=== PATIENT | male | born 1950 | race Caucasian/White ===

== ENCOUNTER 2016-09-10 18:57 | Inpatient (IN) | payer MEDICARE ==
[2016-09-10] MEDS ORDERED: methylPREDNISolone SOD SUCCI 125 MG/2 ML VIAL IV STA (19:01)
[2016-09-10] MEDS ORDERED: SODIUM CHLORIDE 0.9% 1,000 ML IV STA (19:01)
[2016-09-10] MEDS ORDERED: IPRATROPIUM-ALBUTEROL 3 ML NEB INHALATION STA ×2 (19:01→23:33)
[2016-09-10 19:29] LABS: Basophils # (A) 0.1 k/uL (0-0.2); Basophils % (A) 1 %; CH 31.7; CHCM 32.1; Eosinophils # (A) 0.4 k/uL (0-0.7); Eosinophils % (A) 3 %; HCT 48.1 % (39.0-53.0); HDW 2.11; HGB 15.2 gm/dL (13.0-17.5); Luc # (Auto) 0.06; Luc % (Auto) 0; Lymphocytes # (A) 0.6 k/uL (1.0-4.8); Lymphocytes % (A) 4 %; MCH 31.3 pg (25.0-35.0); MCHC 31.5 g/dL (31.0-37.0); MCV 99.1 fL (80.0-100.0); Mean Platelet Volume 7.7; Monocytes # (A) 0.8 k/uL (0-1.0); Monocytes % (A) 6 %; Neutrophils # (A) 12.5 k/uL (1.3-7.7); Neutrophils % (A) 87 %; RBC 4.85 m/uL (4.30-5.90); RDW 12.1 % (11.5-15.5); WBC 14.4 k/uL (3.8-10.6); WBC (Perox) 14.76
[2016-09-10 19:33] LABS: ALT 32 U/L (21-72); AST 23 U/L (17-59); Alkaline Phosphatase 128 U/L (38-126); Anion Gap 11 mmol/L; Blood Urea Nitrogen 16 mg/dL (9-20); Calcium 9.6 mg/dL (8.4-10.2); Carbon Dioxide 33 mmol/L (22-30); Chloride 97 mmol/L (98-107); Glucose 113 mg/dL (74-99); Non-African American GFR(MDRD) >60 (>60 ml/min/1.73 sqM); Potassium 4.6 mmol/L (3.5-5.1); Sodium 141 mmol/L (137-145); Total Bilirubin 0.7 mg/dL (0.2-1.3); Total Protein 7.2 g/dL (6.3-8.2)
[2016-09-10 19:59] LABS: Partial Thromboplastin Time 25.6 sec (22.0-30.0); Prothrombin Time 10.5 sec (9.0-12.0)
[2016-09-10] MEDS ORDERED: ACETAMINOPHEN TAB 500 MG TAB PO STA (20:46)
--- NOTE | 2016-09-10 21:30 | ED ---
SOB HPI - General Chief Complaint: Shortness of Breath Stated Complaint: ELIAS Time Seen by Provider: 09/10/16 19:00 Source: patient, EMS, RN notes reviewed Mode of arrival: EMS - History of Present Illness Initial Comments: This is a 66-year-old male history of COPD who was brought in by EMS for evaluation shortness of breath. She had a cough and shortness of breath phlegm production however. No chest pain no other symptoms. He currently is not a smoker MD Complaint: shortness of breath, cough - Related Data Home Medications Medication Instructions Recorded Confirmed ALPRAZolam [Xanax] 0.5 mg PO BID PRN 04/27/15 09/10/16 Furosemide [Lasix] 20 mg PO Q48H 04/27/15 09/10/16 Ipratropium Nebulized [Atrovent 0.5 mg INHALATION RT-Q4H PRN 04/27/15 09/10/16 Nebulized] Albuterol Inhaler [Ventolin Hfa 2 puff INHALATION RT-QID PRN 04/28/15 09/10/16 Inhaler] Carvedilol [Coreg] 12.5 mg PO BID 05/23/15 09/10/16 Simvastatin [Zocor] 80 mg PO HS 12/04/15 09/10/16 Umeclidinium Brm/Vilanterol Tr 1 puff PO RT-DAILY 12/04/15 09/10/16 [Anoro Ellipta 62.5-25 Mcg INH] Budesonide [Pulmicort Flexhaler] 2 puff INHALATION RT-DAILY 09/10/16 09/10/16 Famotidine [Pepcid] 20 mg PO BID PRN 09/10/16 09/10/16 Levothyroxine Sodium [Synthroid] 88 mcg PO HS 09/10/16 09/10/16 Theophylline Anhydrous 200 mg PO BID 09/10/16 09/10/16 [Theophylline] Previous Rx's Medication Instructions Recorded Albuterol Nebulized [Ventolin 2.5 mg INHALATION RT-Q4H PRN #0 05/04/15 Nebulized] nebu Allergies Allergy/AdvReac Type Severity Reaction Status Date / Time adhesive tape Allergy Rash/Hives Verified 09/10/16 19:21 Review of Systems ROS Statement: Those systems with pertinent positive or pertinent negative responses have been documented in the HPI. ROS Other: All systems not noted in ROS Statement are negative. Past Medical History Past Medical History: Coronary Artery Disease (CAD), Chest Pain / Angina, Heart Failure, COPD, Hyperlipidemia, Hypertension, Pneumonia, Thyroid Disorder Additional Past Medical History / Comment(s): sinus tachycardia, costochondritis , chronic respiratory failure and home O2 dependence 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, 2 cardiac stents Past Anesthesia/Blood Transfusion Reactions: No Reported Reaction Additional Past Anesthesia/Blood Transfusion Reaction / Comment(s): Prefers no morphine Date of Last Stent Placement:: 2007 Past Psychological History: Anxiety Smoking Status: Former smoker Past Alcohol Use History: None Reported Additional Past Alcohol Use History / Comment(s): Patient was a smoker one pack per day for 30 years and quit 6 years ago. He also uses recreational marijuana but none in at least 6 years. He drinks alcohol on a rare basis. He worked in [employer]. He is currently living alone. He has 1 dog. He has no recent travel. He denies service. Past Drug Use History: None Reported - Past Family History Father Family Medical History: COPD Mother Family Medical History: Congestive Heart Failure (CHF) General Exam - General Exam Comments Initial Comments: This is a well-developed well-nourished awake alert oriented history male he does appear to be dyspneic he had had a updraft at home prior to arrival he refuses one per EMS General appearance: alert, anxious Head exam: Present: atraumatic, normocephalic, normal inspection Eye exam: Present: normal appearance, PERRL, EOMI. Absent: scleral icterus, conjunctival injection, periorbital swelling ENT exam: Present: normal exam, mucous membranes moist Neck exam: Present: normal inspection. Absent: tenderness, meningismus, lymphadenopathy Respiratory exam: Present: accessory muscle use, decreased breath sounds, prolonged expiratory. Absent: respiratory distress, wheezes, rales, rhonchi, stridor Cardiovascular Exam: Present: normal rhythm, tachycardia, normal heart sounds. Absent: systolic murmur, diastolic murmur, rubs, gallop, clicks GI/Abdominal exam: Present: soft, normal bowel sounds. Absent: distended, tenderness, guarding, rebound, rigid Extremities exam: Present: normal inspection, full ROM, normal capillary refill. Absent: tenderness, pedal edema, joint swelling, calf tenderness Back exam: Present: normal inspection Neurological exam: Present: alert, oriented X3, CN II-XII intact Psychiatric exam: Present: normal affect, normal mood Skin exam: Present: warm, dry, intact, normal color. Absent: rash Course Vital Signs 09/10/16 09/10/16 09/10/16 18:59 19:28 19:51 Temperature 102.1 F H Pulse Rate 120 H 115 H 115 H Pulse Rate [ Right Supine Steward/Stewardess Wine ] Respiratory 20 Rate Blood Pressure 160/95 Blood Pressure [Left Arm Supine] O2 Sat by Pulse 94 L Oximetry 09/10/16 21:06 Temperature 98.5 F Pulse Rate Pulse Rate [ 110 H Right Supine Steward/Stewardess Wine ] Respiratory 20 Rate Blood Pressure Blood Pressure 119/67 [Left Arm Supine] O2 Sat by Pulse Oximetry - Reevaluation(s) Reevaluation #1: 09/10/16 21:32 Patient denies much improvement in the treatment thus far Medical Decision Making - Medical Decision Making Patient still is having difficulty with breathing and that responding when he would like to do treatment he will be admitted I did discuss case with him and with Dr. Galvez. Pulmonary medicine will be consulted he does he Dr. Pugh - Lab Data Result diagrams: 09/10/16 19:09 09/10/16 19:09 Lab Results 09/10/16 09/10/16 09/10/16 Range/Units 19:09 19:09 19:09 WBC 14.4 H (3.8-10.6) k/uL RBC 4.85 (4.30-5.90) m/uL Hgb 15.2 (13.0-17.5) gm/dL Hct 48.1 (39.0-53.0) % MCV 99.1 (80.0-100.0) fL MCH 31.3 (25.0-35.0) pg MCHC 31.5 (31.0-37.0) g/dL RDW 12.1 (11.5-15.5) % Plt Count 264 (150-450) k/uL Neutrophils % 87 % Lymphocytes % 4 % Monocytes % 6 % Eosinophils % 3 % Basophils % 1 % Neutrophils # 12.5 H (1.3-7.7) k/uL Lymphocytes # 0.6 L (1.0-4.8) k/uL Monocytes # 0.8 (0-1.0) k/uL Eosinophils # 0.4 (0-0.7) k/uL Basophils # 0.1 (0-0.2) k/uL PT (9.0-12.0) sec INR (<1.1) APTT (22.0-30.0) sec Sodium 141 (137-145) mmol/L Potassium 4.6 (3.5-5.1) mmol/L Chloride 97 L (98-107) mmol/L Carbon Dioxide 33 H (22-30) mmol/L Anion Gap 11 mmol/L BUN 16 (9-20) mg/dL Creatinine 1.08 (0.66-1.25) mg/dL Est GFR (MDRD) Af Amer >60 (>60 ml/min/1.73 sqM) Est GFR (MDRD) Non-Af >60 (>60 ml/min/1.73 sqM) Glucose 113 H (74-99) mg/dL Plasma Lactic Acid Ike 1.2 (0.7-2.0) mmol/L Calcium 9.6 (8.4-10.2) mg/dL Magnesium (1.6-2.3) mg/dL Total Bilirubin 0.7 (0.2-1.3) mg/dL AST 23 (17-59) U/L ALT 32 (21-72) U/L Alkaline Phosphatase 128 H (38-126) U/L Total Protein 7.2 (6.3-8.2) g/dL Albumin 3.9 (3.5-5.0) g/dL 09/10/16 09/10/16 Range/Units 19:09 19:09 WBC (3.8-10.6) k/uL RBC (4.30-5.90) m/uL Hgb (13.0-17.5) gm/dL Hct (39.0-53.0) % MCV (80.0-100.0) fL MCH (25.0-35.0) pg MCHC (31.0-37.0) g/dL RDW (11.5-15.5) % Plt Count (150-450) k/uL Neutrophils % % Lymphocytes % % Monocytes % % Eosinophils % % Basophils % % Neutrophils # (1.3-7.7) k/uL Lymphocytes # (1.0-4.8) k/uL Monocytes # (0-1.0) k/uL Eosinophils # (0-0.7) k/uL Basophils # (0-0.2) k/uL PT 10.5 (9.0-12.0) sec INR 1.0 (<1.1) APTT 25.6 (22.0-30.0) sec Sodium (137-145) mmol/L Potassium (3.5-5.1) mmol/L Chloride (98-107) mmol/L Carbon Dioxide (22-30) mmol/L Anion Gap mmol/L BUN (9-20) mg/dL Creatinine (0.66-1.25) mg/dL Est GFR (MDRD) Af Amer (>60 ml/min/1.73 sqM) Est GFR (MDRD) Non-Af (>60 ml/min/1.73 sqM) Glucose (74-99) mg/dL Plasma Lactic Acid Ike (0.7-2.0) mmol/L Calcium (8.4-10.2) mg/dL Magnesium 1.8 (1.6-2.3) mg/dL Total Bilirubin (0.2-1.3) mg/dL AST (17-59) U/L ALT (21-72) U/L Alkaline Phosphatase (38-126) U/L Total Protein (6.3-8.2) g/dL Albumin (3.5-5.0) g/dL - EKG Data -: EKG Interpreted by Mn EKG shows normal: sinus rhythm Rate: tachycardia (Sinus tachycardia left exodeviation nonspecific ST configuration rate was 117. A 148 QRS duration 86 daily since QTC of 318/443) - Radiology Data Radiology results: report reviewed (I did review the x-ray report no acute findings), image reviewed Critical Care Time Critical Care Time: Yes Critical Care Time: 31 minutes of critical care time which includes monitoring the EMS run and discussed with paramedics history and physical examination the patient lab and x -ray evaluation. Evaluation response to therapy and several occasions discussion with patient with the admitting physician and admission orders and documentation of the above. Disposition Clinical Impression: Acute exacerbation of chronic obstructive airways disease, Adult respiratory distress syndrome, Fever, Bronchitis Disposition: ADMITTED IP TO THIS HOSP Condition: Stable
[2016-09-10] MEDS ORDERED: FAMOTIDINE 20 MG TAB PO PRN (21:36)
[2016-09-10] MEDS ORDERED: LEVOFLOXACIN 750 MG TAB PO STA (21:38)
[2016-09-10] MEDS ORDERED: LEVOFLOXACIN 750MG-D5W PMX 750 MG in DEXTROSE/WATER 1 150ML.BAG IVPB SCH (21:45)
[2016-09-10] MEDS ORDERED: FUROSEMIDE 20 MG TAB PO SCH (21:45)
--- NOTE | 2016-09-10 22:05 | XR ---
EXAMINATION TYPE: XR chest 2V DATE OF EXAM: 09/10/2016 7:55 PM COMPARISON: Prior chest x-ray 20 March 2016, 25 May 2015 HISTORY: Difficulty breathing, shortness of breath TECHNIQUE: Frontal and lateral views of the chest are obtained. FINDINGS: There is no focal air space opacity, pleural effusion, or pneumothorax seen. The cardiac silhouette size is within normal limits. There are prominent lung volumes. The osseous structures ar e intact. IMPRESSION: No acute cardiopulmonary process. Follow-up as indicated.
[2016-09-10] MEDS ORDERED: IPRATROPIUM-ALBUTEROL 3 ML NEB INHALATION PRN (22:53)
[2016-09-11] MEDS ORDERED: IPRATROPIUM-ALBUTEROL 3 ML NEB INHALATION SCH
[2016-09-11] MEDS: SODIUM CHLORIDE 0.9% 1,000 ML IV SCH ×2 (00:12→22:01)
[2016-09-11] MEDS: methylPREDNISolone SOD SUCCI 125 MG/2 ML VIAL IV SCH ×4 (00:12→18:29)
[2016-09-11 01:18] VITALS: BMI 40.8
[2016-09-11] MEDS: ALPRAZolam 0.5 MG TAB PO PRN ×3 (01:21→22:07)
[2016-09-11 06:39] LABS: Appearance,Urine Clear (Clear); Bilirubin,Urine Negative (Negative); Glucose,Urine (UA) 1+ (Negative); Ketones,Urine Negative (Negative); Leukocyte Esterase,Urine Negative (Negative); Nitrite,Urine Negative (Negative); Protein,Urine Negative (Negative); Specific Gravity,Urine 1.012 (1.001-1.035); UA Billing (MACRO vs. MICRO) CHEM; Urobilinogen,Urine <2.0 mg/dL (<2.0)
[2016-09-11] MEDS: IPRATROPIUM-ALBUTEROL 3 ML NEB INHALATION SCH ×4 (08:11→19:35)
[2016-09-11] MEDS ORDERED: ACETAMINOPHEN TAB 500 MG TAB PO STA (08:50)
[2016-09-11] MEDS: CARVEDILOL 12.5 MG TAB PO SCH ×2 (08:52→21:50)
[2016-09-11 08:54] LABS: Glucose,Whole Blood 215 mg/dL (75-99)
[2016-09-11] MEDS: THEOPHYLLINE 24 HOUR 400 MG CAP.ER.24H PO SCH (08:54)
[2016-09-11] MEDS: INSULIN LISPRO (humaLOG) 300 UNIT/3 ML VIAL SQ SCH ×4 (08:55→21:54)
[2016-09-11 11:33] LABS: Glucose,Whole Blood 205 mg/dL (75-99)
--- NOTE | 2016-09-11 12:57 | HP ---
DATE OF ADMISSION: A 66-year-old with known history of COPD, wears 2 L of oxygen at home. Came in with complaints of shortness of breath that started yesterday after cough a big swell of dry cough with sputum production. Patient denied any fever, chills, but although patient had 103 temperature here, I am obtaining an influenza testing. Patient was given levofloxacin. I am changing it to doxycycline and patient's chest x-ray did not show any pneumonic process. Patient wears 2 L of oxygen at home, follows with Dr. Pugh, Pulmonology as an outpatient. Patient is morbidly obese. Never got any sleep study done and patient had an echocardiogram with normal ejection fraction in the recent past. Patient denied any orthopnea, PND. Patient denied any dysuria, nausea, vomiting. REVIEW OF SYSTEMS: RESPIRATORY: As described in HPI. CONSTITUTIONAL: No fever, no malaise, no fatigue. HEENT: No recent visual problems or hearing problems. Denied any sore throat. CARDIOVASCULAR: No chest pain, orthopnea, PND, no palpitations, no syncope. GASTROINTESTINAL: No diarrhea, no nausea, no vomiting, no abdominal pain. Normoactive bowel sounds. NEUROLOGICAL: No headaches, no weakness, no numbness. HEMATOLOGICAL: Denies any bleeding or petechiae. GENITOURINARY: Denies any burning micturition, frequency, or urgency. MUSCULOSKELETAL/RHEUMATOLOGICAL: Denies any joint pain, swelling, or any muscle pain. ENDOCRINE: Denies any polyuria or polydipsia. The rest of the 14 point review of systems is negative. PAST MEDICAL HISTORY: Significant for coronary artery disease with cardiac catheterization and a couple of stents in the past, COPD, hyperlipidemia, hypertension, hypothyroidism, costochondritis and cardiac catheterization and stent placement in the past, tonsillectomy. SOCIAL HISTORY: Anxiety disorder, former smoker. Quit smoking about 6 years ago. Denied any alcohol abuse or any drug abuse. FAMILY HISTORY: Significant for COPD. PHYSICAL EXAMINATION: VITAL SIGNS: Temperature 97.8, pulse of 101, respiratory rate 18, blood pressure is 119/72, saturating at 94% on 2 L of O2 by nasal cannula. RESPIRATORY EXAMINATION: Decreased air entry significantly in bilateral lung pelaez. Patient is morbidly obese, ( ), respiratory assist on 3 L of oxygen. GENERAL: The patient is alert and oriented x3, not in any acute distress. Well developed, well nourished. HEENT: Pupils are round and equally reacting to light. EOMI. No scleral icterus. No conjunctival pallor. Normocephalic, atraumatic. No pharyngeal erythema. No thyromegaly. CARDIOVASCULAR: S1 and S2 present. No murmurs, rubs, or gallops. ABDOMEN: Soft, nontender, nondistended, normoactive bowel sounds. No palpable organomegaly. MUSCULOSKELETAL: No joint swelling or deformity. EXTREMITIES: No cyanosis, clubbing, or pedal edema. NEUROLOGICAL: Gross neurological examination did not reveal any focal deficits. SKIN: No rashes. LABORATORY DATA: CBC, CMP are abnormal for elevated WBC count of 14,400. ASSESSMENT AND PLAN: 1. Acute on chronic hypercapnic respiratory failure secondary to chronic obstructive pulmonary disease exacerbation. Patient is on systemic steroids, inhalational treatments. Patient probably has viral upper respiratory infection. Patient will be started on doxycycline for any possible bacterial tracheobronchitis. 2. Fever with leukocytosis and with systemic inflammatory response syndrome, probably viral etiology. I will obtain influenza testing although patient denied any flulike symptoms. 3. Hypertension. 4. Hypothyroidism. 5. Coronary artery disease with a couple of stents in the past. 6. For above mentioned chronic medical problems, I will go ahead and continue his home medications. I will hold off on Lasix because of his tachycardia. 7. Sinus tachycardia, probably secondary to reflux tachycardia from not taking Coreg last night and also because of his respiratory issue.
--- NOTE | 2016-09-11 15:50 | P.CNPUL ---
History of Present Illness Consult date: 09/11/16 Reason for consult: COPD History of present illness: Jacky is a very pleasant 66-year-old male patient who is known to me. He typically follows up with my partner Dr. Pugh for his COPD. The patient has a baseline FEV1 of 31% of predicted whereas been in the past on a combination of either Advair or Symbicort. At the later stage, Dr. Pugh has made adjustments on his medication and he put him on a combination of Anoro and Arnuity. Note that the last was not covered by his insurance and he had a high co-pay. Based on this, the patient was placed on a combination of Anoro and pulmicort Flexhaler. He also has oxygen at 3 L/m nasal cannula and nebulizer with albuterol as needed. The patient came into the hospital because of worsening shortness of breath however his main complaint was coughing spells that were rather aggressive and recurrent. He was bringing up no mucus. No hemoptysis. No pleurisy. His chest x-ray shows hyperinflation without evidence of an acute pneumonia. The patient has no chest pain. No swelling in lower extremities. No exposure to any respiratory irritants or any chemicals. No fever or chills. He did have a fever and influenza screen is as in progress. He felt that his son in law came into his house and he was having a respiratory illness Review of Systems Review of system was done and the positive findings are almost above history of present illness Past Medical History Past Medical History: Coronary Artery Disease (CAD), Chest Pain / Angina, Heart Failure, COPD, Hyperlipidemia, Hypertension, Pneumonia, Thyroid Disorder Additional Past Medical History / Comment(s): Obesity, COPD with FEV1 of 31% of predicted, hypertension, hypothyroidism, coronary artery disease with insertion of previous coronary stent, generalized anxiety disorder, hyperlipidemia, chronic hypoxic respiratory failure and the patient is maintained on oxygen at 3 L/m nasal cannula. 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, 2 cardiac stents Past Anesthesia/Blood Transfusion Reactions: No Reported Reaction Additional Past Anesthesia/Blood Transfusion Reaction / Comment(s): Prefers no morphine Date of Last Stent Placement:: 2007 Past Psychological History: Anxiety Smoking Status: Former smoker Past Alcohol Use History: None Reported Additional Past Alcohol Use History / Comment(s): Patient was a smoker one pack per day for 30 years and quit 6 years ago. He also uses recreational marijuana but none in at least 6 years. He drinks alcohol on a rare basis. He worked in [employer]. He is currently living alone. He has 1 dog. He has no recent travel. He denies service. Past Drug Use History: None Reported - Past Family History Father Family Medical History: COPD Mother Family Medical History: Congestive Heart Failure (CHF) Medications and Allergies Home Medications Medication Instructions Recorded Confirmed Type ALPRAZolam [Xanax] 0.5 mg PO BID PRN 04/27/15 09/10/16 History Furosemide [Lasix] 20 mg PO Q48H 04/27/15 09/10/16 History Ipratropium Nebulized [Atrovent 0.5 mg INHALATION RT-Q4H PRN 04/27/15 09/10/16 History Nebulized] Albuterol Inhaler [Ventolin Hfa 2 puff INHALATION RT-QID PRN 04/28/15 09/10/16 History Inhaler] Carvedilol [Coreg] 12.5 mg PO BID 05/23/15 09/10/16 History Simvastatin [Zocor] 80 mg PO HS 12/04/15 09/10/16 History Umeclidinium Brm/Vilanterol Tr 1 puff PO RT-DAILY 12/04/15 09/10/16 History [Anoro Ellipta 62.5-25 Mcg INH] Budesonide [Pulmicort Flexhaler] 2 puff INHALATION RT-DAILY 09/10/16 09/10/16 History Famotidine [Pepcid] 20 mg PO BID PRN 09/10/16 09/10/16 History Levothyroxine Sodium [Synthroid] 88 mcg PO HS 09/10/16 09/10/16 History Theophylline Anhydrous 200 mg PO BID 09/10/16 09/10/16 History [Theophylline] Allergies Allergy/AdvReac Type Severity Reaction Status Date / Time adhesive tape Allergy Rash/Hives Verified 09/10/16 19:21 Physical Exam Vitals: Vital Signs Temp Pulse Pulse Resp BP BP Pulse Ox 09/11/16 12:11 101 H 09/11/16 12:00 106 H 09/11/16 08:24 105 H 09/11/16 08:11 102 H 09/11/16 08:00 104 H 18 09/11/16 07:00 97.8 F 104 H 18 119/72 94 L 09/10/16 23:50 97.3 F L 107 H 20 111/70 96 09/10/16 23:47 104 H 09/10/16 23:40 110 H Intake and Output 09/11/16 09/11/16 09/11/16 06:59 14:59 22:59 Intake Total 240 Balance 240 Intake: Oral 240 Other: Voiding Method Toilet Toilet Weight 129 kg Patient Weight 09/12/16 06:59 Weight 129 kg Results Morbid obesity, comfortable likely distress.Head exam was generally normal. There was no scleral icterus or corneal arcus. Mucous membranes were moist. My normal neck and the patient has significant crowding of the posterior oropharynx. Lung sounds are diminished at some few expiratory wheezes heard bilaterally and diminished breath sounds at lung bases.Cardiac exam revealed the PMI to be normally situated and sized. The rhythm was regular and no extrasystoles were noted during several minutes of auscultation. The first and second heart sounds were normal and physiologic splitting of the second heart sound was noted. There were no murmurs, rubs, clicks, or gallops.Abdominal exam revealed normal bowel sounds. The abdomen was soft, non-tender, and without masses, organomegaly, or appreciable enlargement of the abdominal aorta.Examination of the extremities revealed easily palpable radial, femoral and pedal pulses. There was no cyanosis, clubbing or edema. - Laboratory Findings CBC and BMP: 09/10/16 19:09 09/10/16 19:09 PT/INR, D-dimer PT 10.5 sec (9.0-12.0) 09/10/16 19:09 INR 1.0 (<1.1) 09/10/16 19:09 Abnormal lab findings: Abnormal Labs 09/11/16 09/11/16 08:52 11:31 POC Glucose (mg/dL) 215 H 205 H - Diagnostic Findings Chest x-ray: image reviewed Assessment and Plan Plan: Ration 1 acute COPD exacerbation with secondary cough and shortness of breath rule out influenza respiratory tract infection/bronchitis 2 morbid obesity 3 COPD advanced with an FEV1 of 31% of predicted 4 chronic hypoxic respiratory failure 5 coronary artery disease with previous coronary stent insertion 6 hypertension 7 resume 8 generalized anxiety disorder 9 hyperlipidemia 10. The left eye Plan Check this patient for influenza. Influenza screen will be done. We'll continue bronchodilators including albuterol and Atrovent about treatments along with systemic steroids. Doxycycline empiric antibiotic coverage. Wean off FiO2 as tolerated to maintain a saturation above 90%. We'll follow.
[2016-09-11 17:51] LABS: Glucose,Whole Blood 188 mg/dL (75-99)
[2016-09-11] MEDS: BUDESONIDE 0.5 MG/2 ML NEBU INHALATION SCH (19:35)
[2016-09-11 20:29] LABS: Glucose,Whole Blood 200 mg/dL (75-99)
[2016-09-11] MEDS: ATORVASTATIN 40 MG TAB PO SCH ×2 (21:50→22:00)
[2016-09-11] MEDS: OSELTAMIVIR 75 MG CAP PO SCH (21:52)
[2016-09-11] MEDS: DOXYCYCLINE 50 MG CAP PO SCH (22:07)
[2016-09-12] MEDS: methylPREDNISolone SOD SUCCI 125 MG/2 ML VIAL IV SCH ×4 (02:03→17:42)
[2016-09-12] MEDS: LEVOTHYROXINE 88 MCG TAB PO SCH ×2 (06:12→21:12)
[2016-09-12] MEDS: BUDESONIDE 0.5 MG/2 ML NEBU INHALATION SCH ×2 (07:32→20:35)
[2016-09-12] MEDS: IPRATROPIUM-ALBUTEROL 3 ML NEB INHALATION SCH ×4 (07:32→20:35)
[2016-09-12 08:27] LABS: Glucose,Whole Blood 158 mg/dL (75-99)
[2016-09-12] MEDS: DOXYCYCLINE 50 MG CAP PO SCH ×2 (09:28→21:12)
[2016-09-12] MEDS: THEOPHYLLINE 24 HOUR 400 MG CAP.ER.24H PO SCH (09:28)
[2016-09-12] MEDS: OSELTAMIVIR 75 MG CAP PO SCH ×2 (09:29→21:12)
[2016-09-12] MEDS: CARVEDILOL 12.5 MG TAB PO SCH ×2 (09:29→21:13)
[2016-09-12] MEDS: INSULIN LISPRO (humaLOG) 300 UNIT/3 ML VIAL SQ SCH ×4 (09:31→21:23)
[2016-09-12 09:39] LABS: INR 1.1 (<1.1); Prothrombin Time 10.8 sec (9.0-12.0)
[2016-09-12 09:43] LABS: ALT 38 U/L (21-72); AST 48 U/L (17-59); Alkaline Phosphatase 98 U/L (38-126); Anion Gap 13 mmol/L; Blood Urea Nitrogen 22 mg/dL (9-20); Calcium 9.2 mg/dL (8.4-10.2); Carbon Dioxide 26 mmol/L (22-30); Chloride 103 mmol/L (98-107); Glucose 154 mg/dL (74-99); Non-African American GFR(MDRD) >60 (>60 ml/min/1.73 sqM); Sodium 142 mmol/L (137-145); Total Bilirubin 0.6 mg/dL (0.2-1.3); Total Protein 6.8 g/dL (6.3-8.2)
[2016-09-12 09:44] LABS: Basophils # (A) 0.1 k/uL (0-0.2); Basophils % (A) 0 %; CH 31.1; Eosinophils % (A) 0 %; HCT 46.4 % (39.0-53.0); HDW 1.99; HGB 14.4 gm/dL (13.0-17.5); Luc # (Auto) 0.21; Luc % (Auto) 1; Lymphocytes # (A) 0.8 k/uL (1.0-4.8); Lymphocytes % (A) 3 %; MCH 31.2 pg (25.0-35.0); MCV 100.8 fL (80.0-100.0); Mean Platelet Volume 7.1; Monocytes # (A) 1.4 k/uL (0-1.0); Monocytes % (A) 5 %; Neutrophils # (A) 26.4 k/uL (1.3-7.7); Neutrophils % (A) 92 %; RDW 12.1 % (11.5-15.5); WBC (Perox) 29.81
[2016-09-12 09:48] LABS: Potassium 5.2 mmol/L (3.5-5.1)
[2016-09-12 09:51] LABS: WBC 28.9 k/uL (3.8-10.6)
[2016-09-12 09:53] LABS: Creatine Kinase 735 U/L (55-170)
[2016-09-12 10:07] LABS: Troponin I <0.012 ng/mL (0.000-0.034)
[2016-09-12 10:09] LABS: Creatine Kinase MB 3.4 ng/mL (0.0-2.4)
[2016-09-12 10:10] LABS: Partial Thromboplastin Time 20.7 sec (22.0-30.0)
[2016-09-12] MEDS: ALPRAZolam 0.5 MG TAB PO PRN (11:44)
[2016-09-12 11:49] LABS: Glucose,Whole Blood 260 mg/dL (75-99)
--- NOTE | 2016-09-12 15:30 | P.PN ---
Subjective This is a very pleasant 66-year-old gentleman who follows with Dr. Pugh in our office for advanced chronic obstructive pulmonary disease. His FEV1 value is 31% of predicted. The patient has been maintained on Arnuity and Arnoro. He presented here on 09/10/2016 with complaints of increasing shortness of breath, cough and congestion. He was found to be influenza A positive. He has been initiated on Tamiflu. His chest x-ray revealed no acute pulmonary process. He is seen again today in follow-up. He is awake and alert in no acute distress. He states he is breathing easier today as compared to yesterday but not quite back to his baseline. He is maintaining O2 saturations in the mid 90s on 4 L/m per nasal cannula. He is currently afebrile. Objective - Vital Signs Vital signs: Vital Signs Temp 97.1 F L 09/12/16 07:00 Pulse 100 09/12/16 11:29 Resp 16 09/12/16 08:00 BP 137/97 09/12/16 07:00 Pulse Ox 95 09/12/16 07:34 Intake & Output 09/11/16 09/12/16 09/12/16 18:59 06:59 18:59 Intake Total 200 350 Output Total 350 Balance 200 0 Weight 129 kg 129 kg Intake: Oral 200 350 Output: Urine 350 Other: Voiding Method Toilet Toilet Toilet # Voids 2 - Exam GENERAL EXAM: Alert, active, comfortable in no apparent distress. HEAD: Normocephalic. EYES: Normal reaction of pupils, equal size. NOSE: Clear with pink turbinates. THROAT: No erythema or exudates. NECK: No masses, no JVD. CHEST: No chest wall deformity. LUNGS: Equal air entry with pink and expiratory wheeze. Diminished.. CVS: S1 and S2 normal with no audible murmurs, regular rhythm. ABDOMEN: No hepatosplenomegaly, normal bowel sounds, no guarding or rigidity. SPINE: No scoliosis or deformity SKIN: No rashes CENTRAL NERVOUS SYSTEM: No focal deficits, tone is normal in all 4 extremities. - Labs CBC & Chem 7: 09/12/16 08:03 09/12/16 08:03 Labs: Abnormal Lab Results - Last 24 Hours (Table) 09/11/16 09/11/16 09/11/16 Range/Units 16:00 17:48 20:27 WBC (3.8-10.6) k/uL MCV (80.0-100.0) fL Neutrophils # (1.3-7.7) k/uL Lymphocytes # (1.0-4.8) k/uL Monocytes # (0-1.0) k/uL APTT (22.0-30.0) sec Potassium (3.5-5.1) mmol/L BUN (9-20) mg/dL Glucose (74-99) mg/dL POC Glucose (mg/dL) 188 H 200 H (75-99) mg/dL Total Creatine Kinase (55-170) U/L CK-MB (CK-2) (0.0-2.4) ng/mL Influenza Type A RNA Detected A (Not Detectd) 09/12/16 09/12/16 09/12/16 Range/Units 08:03 08:03 08:03 WBC 28.9 H* (3.8-10.6) k/uL MCV 100.8 H (80.0-100.0) fL Neutrophils # 26.4 H (1.3-7.7) k/uL Lymphocytes # 0.8 L (1.0-4.8) k/uL Monocytes # 1.4 H (0-1.0) k/uL APTT 20.7 L (22.0-30.0) sec Potassium 5.2 H (3.5-5.1) mmol/L BUN 22 H (9-20) mg/dL Glucose 154 H (74-99) mg/dL POC Glucose (mg/dL) (75-99) mg/dL Total Creatine Kinase (55-170) U/L CK-MB (CK-2) (0.0-2.4) ng/mL Influenza Type A RNA (Not Detectd) 09/12/16 09/12/16 09/12/16 Range/Units 08:03 08:20 11:45 WBC (3.8-10.6) k/uL MCV (80.0-100.0) fL Neutrophils # (1.3-7.7) k/uL Lymphocytes # (1.0-4.8) k/uL Monocytes # (0-1.0) k/uL APTT (22.0-30.0) sec Potassium (3.5-5.1) mmol/L BUN (9-20) mg/dL Glucose (74-99) mg/dL POC Glucose (mg/dL) 158 H 260 H (75-99) mg/dL Total Creatine Kinase 735 H (55-170) U/L CK-MB (CK-2) 3.4 H* (0.0-2.4) ng/mL Influenza Type A RNA (Not Detectd) Assessment and Plan Plan: Impression: 1 acute COPD exacerbation with secondary cough and shortness of breath rule out influenza respiratory tract infection/bronchitis 2 morbid obesity 3 COPD advanced with an FEV1 of 31% of predicted 4 chronic hypoxic respiratory failure 5 coronary artery disease with previous coronary stent insertion 6 hypertension 7 resume 8 generalized anxiety disorder 9 hyperlipidemia 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 Wallace. We'll continue with the patient's bronchodilators, Perforomist and Pulmicort inhalations twice a day, and antibiotics in the form of Vibramycin. He remains on IV Solu-Medrol and Tamiflu. We'll continue to follow make further recommendations based on his clinical status.
[2016-09-12] MEDS: FORMOTEROL FUMARATE 20 MCG/2 ML NEBU INHALATION SCH ×2 (16:18→20:35)
[2016-09-12 17:18] LABS: Glucose,Whole Blood 179 mg/dL (75-99)
--- NOTE | 2016-09-12 19:27 | PN ---
Patient was admitted with COPD exacerbation. Patient was found to have positive influenza. Patient has clinical improvement. REVIEW OF SYSTEMS: CARDIOVASCULAR: No chest pain, no orthopnea, no PND, no palpitations. PULMONARY: Improved shortness of breath. GASTROINTESTINAL: No diarrhea, nausea or vomiting. No abdominal pain. Normoactive bowel sounds. NEUROLOGIC: No headaches, no weakness, no numbness. Medications were reviewed. PHYSICAL EXAMINATION: VITAL SIGNS: Temperature 97.7, pulse of 100, respiratory rate of 18, blood pressure 114/77. Saturating at 94% on 4 L of oxygen by nasal cannula. GENERAL: The patient is alert and oriented x3, not in any acute distress. Well developed, well nourished. HEENT: Pupils are round and equally reacting to light. EOMI. No scleral icterus. No conjunctival pallor. Normocephalic, atraumatic. No pharyngeal erythema. No thyromegaly. CARDIOVASCULAR: S1 and S2 present. No murmurs, rubs, or gallops. PULMONARY: Decreased breath sounds bilaterally. No wheezing was appreciated. No crackles were appreciated. ABDOMEN: Soft, nontender, nondistended, normoactive bowel sounds. No palpable organomegaly. MUSCULOSKELETAL: No joint swelling or deformity. EXTREMITIES: No cyanosis, clubbing, or pedal edema. NEUROLOGICAL: Gross neurological examination did not reveal any focal deficits. SKIN: No rashes. LABORATORY DATA: CBC, CMP are abnormal for elevated WBC count of 28,000, potassium of 5.2. BUN of 22, creatinine 1.12. ASSESSMENT AND PLAN: 1. Acute on chronic hypercapnic respiratory failure secondary to chronic obstructive pulmonary disease exacerbation. 2. Systemic inflammatory response syndrome versus sepsis secondary to influenza. 3. Hypertension. 4. Hypothyroidism. 5. Coronary artery disease. 6. Sinus tachycardia, which improved, secondary to hypoxemia. 7. Leukocytosis secondary to systemic steroids and influenza. PLAN: Continue with systemic steroids, inhalational treatments. Continue with Tamiflu.
[2016-09-12 20:18] LABS: Glucose,Whole Blood 186 mg/dL (75-99)
[2016-09-12] MEDS ORDERED: SIMVASTATIN 80 MG PO SCH (21:00)
[2016-09-12] MEDS ORDERED: guaiFENesin SYRUP 100MG/5ML 200 MG/10 ML CUP PO PRN (21:43)
[2016-09-13] MEDS: SODIUM CHLORIDE 0.9% 1,000 ML IV SCH (00:31)
[2016-09-13] MEDS: methylPREDNISolone SOD SUCCI 125 MG/2 ML VIAL IV SCH ×2 (00:31→06:20)
[2016-09-13] MEDS: ALPRAZolam 0.5 MG TAB PO PRN (03:46)
[2016-09-13 07:41] LABS: CH 31.3; CHCM 31.3; HCT 45.2 % (39.0-53.0); HDW 2.04; HGB 13.7 gm/dL (13.0-17.5); MCH 30.6 pg (25.0-35.0); MCHC 30.4 g/dL (31.0-37.0); MCV 100.6 fL (80.0-100.0); RBC 4.49 m/uL (4.30-5.90); RDW 12.1 % (11.5-15.5)
[2016-09-13 07:46] LABS: Anion Gap 8 mmol/L; Blood Urea Nitrogen 29 mg/dL (9-20); Calcium 8.9 mg/dL (8.4-10.2); Carbon Dioxide 33 mmol/L (22-30); Chloride 100 mmol/L (98-107); Glucose 202 mg/dL (74-99); Non-African American GFR(MDRD) >60 (>60 ml/min/1.73 sqM); Potassium 4.9 mmol/L (3.5-5.1); Sodium 141 mmol/L (137-145)
[2016-09-13 07:47] LABS: WBC 27.7 k/uL (3.8-10.6)
[2016-09-13] MEDS: BUDESONIDE 0.5 MG/2 ML NEBU INHALATION SCH (07:51)
[2016-09-13] MEDS: IPRATROPIUM-ALBUTEROL 3 ML NEB INHALATION SCH ×2 (07:51→11:35)
[2016-09-13] MEDS: FORMOTEROL FUMARATE 20 MCG/2 ML NEBU INHALATION SCH (07:51)
[2016-09-13 08:00] LABS: Glucose,Whole Blood 177 mg/dL (75-99)
[2016-09-13 08:33] VITALS: BP 124/82; RESP 20; TEMP 96.9
[2016-09-13] MEDS: DOXYCYCLINE 50 MG CAP PO SCH (08:51)
[2016-09-13] MEDS: INSULIN LISPRO (humaLOG) 300 UNIT/3 ML VIAL SQ SCH (08:51)
[2016-09-13] MEDS: CARVEDILOL 12.5 MG TAB PO SCH (08:51)
[2016-09-13] MEDS: OSELTAMIVIR 75 MG CAP PO SCH (08:52)
[2016-09-13] MEDS: THEOPHYLLINE 24 HOUR 400 MG CAP.ER.24H PO SCH (08:52)
--- NOTE | 2016-09-13 11:36 | CDI ---
In responding to this query, please exercise your independent professional judgment. The [facility] Coding Staff and Clinical Documentation Specialists appreciate your assistance in clarifying documentation, maintaining compliance with coding guidelines, accurately documenting patients condition and capturing severity of illness. The fact that a question is asked does not imply that any particular answer is desired or expected. Communication forms are a method of clarifying documentation and are not made part of the Legal Health Record. Thank you in advance for your clarification. Last Revision, June 2015 Marychuy Bell [address] [facility] [place] [address] Documentation Clarification Form Date: 09/13/2016 11:05:00 AM From: Nery Cazares CCS, CCDS Admit Date: 09/10/2016 9:34:00 PM Patient Name: Jacky Munguia Visit Number: [id number] Discharge Date: Dr. Luba Hartmann: 66 yo male, presented to with SOB & cough. Patient is O2 [id number] at home with a history of COPD. Per H/P: Diagnosed with acute on chronic hypercapnic respiratory failure secondary to COPD exacerbation and probably upper respiratory infection, possible bacterial tracheobronchitis. Also fever with leukocytosis & SIRS, probably viral etiology. Per the 09/12 progress note: Systemic inflammatory response syndrome versus sepsis secondary to influenza. History/Risk Factors: COPD, O2 dependent, Hypertension, CAD with stents, former smoker. Clinical Indicators: Accessory muscle use, decreased breath sounds, prolonged expiratory. VS: T 102.1, P 120, R 20 (non labored, SOB), BP 160/95, PO 94 3Lnc. BMI: 40.8 WBC: 14.4 - 28.9; Neutrophils 12.5 - 26.4 Lactic acid: (1.2) Blood cultures: Final pending. Urine Cultures: final: neg Treatment: Consult Pulmonary, Albuterol INH, IV fluids, IV Solumedrol, IV Levaquin, O2 3-4Lnc. In your professional opinion, can you please clarify if these findings signify one of the following conditions, whether the condition is: Present On Admission, and cause, if known? SIRS, without underlying infectious process Sepsis Severe Sepsis Septic Shock Unable to determine Other, please specify * Identify the (suspected) organism * Link or clarify if there is associated (due to/with): - Organ failure - Shock Please document in your progress notes and discharge summary in order to capture severity of illness and risk of mortality. Include clinical findings that support your diagnosis. FYI: Press F11 to launch patient chart. Place X here if this finding has no clinical significance, is not applicable or if you are not able to provide any additional documentation. Thank You. RILEY
[2016-09-13 11:37] VITALS: PULSE 90
[2016-09-13 11:39] LABS: Glucose,Whole Blood 246 mg/dL (75-99)
--- NOTE | 2016-09-13 22:06 | DS ---
DATE OF ADMISSION: 09/10/2016 DATE OF DISCHARGE: 09/13/2016 Patient is admitted with COPD exacerbation. Patient is also found to have positive influenza. Patient will be discharged today on weaning dose of steroids and Tamiflu for 2 more days, completing the 5-day course of Tamiflu. Patient is otherwise clinically doing well and patient's respiratory status is at his baseline. I cannot hear any much of air movement on the lung exam, but I believe it is his baseline. May have sleep apnea, too. If patient is cleared from Pulmonology perspective, patient will be discharged today. Patient was seen and examined on the day of discharge. PHYSICAL EXAMINATION: VITAL SIGNS: Stable. GENERAL: The patient is alert and oriented x3, not in any acute distress. Well developed, well nourished. HEENT: Pupils are round and equally reacting to light. EOMI. No scleral icterus. No conjunctival pallor. Normocephalic, atraumatic. No pharyngeal erythema. No thyromegaly. CARDIOVASCULAR: S1 and S2 present. No murmurs, rubs, or gallops. PULMONARY: As described in HPI. Patient continues to have leukocytosis due to systemic steroids. ABDOMEN: Soft, nontender, nondistended, normoactive bowel sounds. No palpable organomegaly. MUSCULOSKELETAL: No joint swelling or deformity. EXTREMITIES: No cyanosis, clubbing, or pedal edema. NEUROLOGICAL: Gross neurological examination did not reveal any focal deficits. SKIN: No rashes. ASSESSMENT AND PLAN: 1. Acute on chronic hypercapnic respiratory failure secondary to chronic obstructive pulmonary disease exacerbation. 2. Systemic inflammatory response syndrome secondary to influenza. Patient had influenza A, symptoms of which improved. 3. Patient will be requested to drink lots of water. Patient may have chronic kidney disease stage 2. 4. Hypertension. 5. Hypothyroidism. Patient may have hypertensive nephrosclerosis. 6. Sinus tachycardia secondary to hypoxemia, which improved. 7. Leukocytosis due to systemic steroids and influenza. 8. Patient will follow with Dr. Agee in 3 to 7 days, Dr. Pugh as scheduled. 9. Activity as tolerated. 10. Cardiac diet. I spent greater than 35 minutes in total discharge process.
== END 2016-09-13 13:15 | disposition home or self-care (01) | DRG 193 ==
LOC: EC 18:57 → 5MS5E 21:34
PROVIDERS: ADMIT Internal Medicine; ATTEND Internal Medicine
DX: J10.1 Influenza due to other identified influenza virus with other respiratory manifestations (principal); J96.21 Acute and chronic respiratory failure with hypoxia; J96.22 Acute and chronic respiratory failure with hypercapnia; I13.0 Hypertensive heart and chronic kidney disease with heart failure and stage 1 through stage 4 chronic kidney disease, or unspecified chronic kidney disease; J44.1 Chronic obstructive pulmonary disease with (acute) exacerbation; E03.9 Hypothyroidism, unspecified; I50.9 Heart failure, unspecified; E66.01 Morbid (severe) obesity due to excess calories; E78.5 Hyperlipidemia, unspecified; F41.1 Generalized anxiety disorder; I25.10 Atherosclerotic heart disease of native coronary artery without angina pectoris; K21.9 Gastro-esophageal reflux disease without esophagitis; T38.0X5A Adverse effect of glucocorticoids and synthetic analogues, initial encounter; N18.2 Chronic kidney disease, stage 2 (mild); D72.829 Elevated white blood cell count, unspecified; R00.0 Tachycardia, unspecified; Z68.41 Body mass index [BMI] 40.0-44.9, adult; Z79.899 Other long term (current) drug therapy; Z99.81 Dependence on supplemental oxygen; Z95.5 Presence of coronary angioplasty implant and graft; Z87.891 Personal history of nicotine dependence; H54.42 Blindness, left eye, normal vision right eye; Z82.49 Family history of ischemic heart disease and other diseases of the circulatory system
CPT/HCPCS: 36415; 71020; 80048; 80053; 81003; 82550; 82553; 83605; 83735; 83880; 84484; 85025; 85027; 85610; 85730; 87040; 87086; 87502; 93005; 94640; 94760; 96361; 96374; 99291

== ENCOUNTER 2016-10-08 09:42 | Emergency (ER) | payer MEDICARE ==
[2016-10-08] MEDS ORDERED: IPRATROPIUM-ALBUTEROL 3 ML NEB INHALATION STA (10:09)
--- NOTE | 2016-10-08 10:25 | ED ---
SOB HPI - General Chief Complaint: Shortness of Breath Stated Complaint: SOB Time Seen by Provider: 10/08/16 10:05 Source: patient, RN notes reviewed Mode of arrival: wheelchair Limitations: no limitations - History of Present Illness Initial Comments: 66-year-old male presents emergency Department chief complaint shortness of breath. Patient had increased shortness breath last month. Patient states he was admitted in August for influenza, COPD exacerbation. Patient does see Dr. buck. Patient states that his symptoms are getting worse worse when he lays down. Patient does take Lasix every other day. Patient also states theophylline. Patient denies any known fever or chills. Patient states that he did his symptoms this morning which helped. Patient denies any increased swelling of his lower extremities. Denies any chest pain. - Related Data Home Medications Medication Instructions Recorded Confirmed ALPRAZolam [Xanax] 0.5 mg PO BID PRN 04/27/15 10/08/16 Furosemide [Lasix] 20 mg PO Q48H 04/27/15 10/08/16 Albuterol Inhaler [Ventolin Hfa 2 puff INHALATION RT-QID PRN 04/28/15 10/08/16 Inhaler] Carvedilol [Coreg] 12.5 mg PO BID 05/23/15 10/08/16 Simvastatin [Zocor] 80 mg PO HS 12/04/15 10/08/16 Umeclidinium Brm/Vilanterol Tr 1 puff PO RT-DAILY 12/04/15 10/08/16 [Anoro Ellipta 62.5-25 Mcg INH] Famotidine [Pepcid] 20 mg PO BID PRN 09/10/16 10/08/16 Levothyroxine Sodium [Synthroid] 88 mcg PO HS 09/10/16 10/08/16 Fluticasone Furoate [Arnuity 1 puff INHALATION DAILY 10/08/16 10/08/16 Ellipta] Theophylline 24 Hour [Tung-24] 200 mg PO BID 10/08/16 10/08/16 Previous Rx's Medication Instructions Recorded Albuterol Nebulized [Ventolin 2.5 mg INHALATION RT-Q4H PRN #0 05/04/15 Nebulized] nebu methylPREDNISolone [Medrol Dose 4 mg PO DIRECTED #1 pack 10/08/16 Pack] Allergies Allergy/AdvReac Type Severity Reaction Status Date / Time adhesive tape Allergy Rash/Hives Verified 10/08/16 10:19 Review of Systems ROS Statement: Those systems with pertinent positive or pertinent negative responses have been documented in the HPI. ROS Other: All systems not noted in ROS Statement are negative. Past Medical History Past Medical History: Coronary Artery Disease (CAD), Chest Pain / Angina, Heart Failure, COPD, Hyperlipidemia, Hypertension, Pneumonia, Thyroid Disorder Additional Past Medical History / Comment(s): Obesity, COPD with FEV1 of 31% of predicted, hypertension, hypothyroidism, coronary artery disease with insertion of previous coronary stent, generalized anxiety disorder, hyperlipidemia, chronic hypoxic respiratory failure and the patient is maintained on oxygen at 3 L/m nasal cannula. 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, 2 cardiac stents Past Anesthesia/Blood Transfusion Reactions: No Reported Reaction Additional Past Anesthesia/Blood Transfusion Reaction / Comment(s): Prefers no morphine Date of Last Stent Placement:: 2007 Past Psychological History: Anxiety Smoking Status: Former smoker Past Alcohol Use History: None Reported Additional Past Alcohol Use History / Comment(s): Patient was a smoker one pack per day for 30 years and quit 6 years ago. He also uses recreational marijuana but none in at least 6 years. He drinks alcohol on a rare basis. He worked in [employer] He is currently living alone. He has 1 dog. He has no recent travel. He denies service. Past Drug Use History: None Reported - Past Family History Father Family Medical History: COPD Mother Family Medical History: Congestive Heart Failure (CHF) General Exam Limitations: no limitations General appearance: alert, in no apparent distress ENT exam: Present: normal exam, normal oropharynx, mucous membranes moist, TM's normal bilaterally Neck exam: Present: normal inspection, full ROM. Absent: tenderness, meningismus, lymphadenopathy Respiratory exam: Present: wheezes, rales (Slight base). Absent: normal lung sounds bilaterally, respiratory distress, rhonchi, stridor Cardiovascular Exam: Present: regular rate, normal rhythm, normal heart sounds. Absent: systolic murmur, diastolic murmur, rubs, gallop, clicks GI/Abdominal exam: Present: soft, normal bowel sounds. Absent: distended, tenderness, guarding, rebound, rigid Course Vital Signs 10/08/16 10/08/16 10/08/16 09:50 10:12 10:20 Temperature 97.8 F Pulse Rate 94 95 96 Respiratory 20 Rate Blood Pressure 145/72 O2 Sat by Pulse 92 L Oximetry Medical Decision Making - Medical Decision Making 66-year-old male presents emergency department for cough or shortness breath. Patient states she does feel better after DuoNeb treatment. Patient's chest x- ray shows no acute infiltrate. Patient's lab work within normal limits. Patient's was likely having some difficulty with his COPD. Patient has no respiratory distress. 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 Return parameters were discussed. - Lab Data Result diagrams: 10/08/16 09:20 10/08/16 11:21 Lab Results 10/08/16 10/08/16 10/08/16 Range/Units 09:20 09:20 11:19 WBC 6.8 (3.8-10.6) k/uL RBC 4.68 (4.30-5.90) m/uL Hgb 14.6 (13.0-17.5) gm/dL Hct 46.7 (39.0-53.0) % MCV 99.7 (80.0-100.0) fL MCH 31.2 (25.0-35.0) pg MCHC 31.3 (31.0-37.0) g/dL RDW 12.3 (11.5-15.5) % Plt Count 242 (150-450) k/uL Neutrophils % 62 % Lymphocytes % 21 % Monocytes % 8 % Eosinophils % 4 % Basophils % 1 % Neutrophils # 4.2 (1.3-7.7) k/uL Lymphocytes # 1.5 (1.0-4.8) k/uL Monocytes # 0.5 (0-1.0) k/uL Eosinophils # 0.3 (0-0.7) k/uL Basophils # 0.1 (0-0.2) k/uL PT 10.4 (9.0-12.0) sec INR 1.0 (<1.1) APTT 23.4 (22.0-30.0) sec Sodium (137-145) mmol/L Potassium (3.5-5.1) mmol/L Chloride (98-107) mmol/L Carbon Dioxide (22-30) mmol/L Anion Gap mmol/L BUN (9-20) mg/dL Creatinine (0.66-1.25) mg/dL Est GFR (MDRD) Af Amer (>60 ml/min/1.73 sqM) Est GFR (MDRD) Non-Af (>60 ml/min/1.73 sqM) Glucose (74-99) mg/dL Calcium (8.4-10.2) mg/dL Magnesium (1.6-2.3) mg/dL Total Bilirubin (0.2-1.3) mg/dL AST (17-59) U/L ALT (21-72) U/L Alkaline Phosphatase (38-126) U/L Total Creatine Kinase (55-170) U/L CK-MB (CK-2) (0.0-2.4) ng/mL CK-MB (CK-2) Rel Index Troponin I (0.000-0.034) ng/mL NT-Pro-B Natriuret Pep 44 pg/mL Total Protein (6.3-8.2) g/dL Albumin (3.5-5.0) g/dL Influenza Type A RNA (Not Detectd) Influenza Type B (PCR) (Not Detectd) 10/08/16 10/08/16 10/08/16 Range/Units 11:21 11:21 12:39 WBC (3.8-10.6) k/uL RBC (4.30-5.90) m/uL Hgb (13.0-17.5) gm/dL Hct (39.0-53.0) % MCV (80.0-100.0) fL MCH (25.0-35.0) pg MCHC (31.0-37.0) g/dL RDW (11.5-15.5) % Plt Count (150-450) k/uL Neutrophils % % Lymphocytes % % Monocytes % % Eosinophils % % Basophils % % Neutrophils # (1.3-7.7) k/uL Lymphocytes # (1.0-4.8) k/uL Monocytes # (0-1.0) k/uL Eosinophils # (0-0.7) k/uL Basophils # (0-0.2) k/uL PT (9.0-12.0) sec INR (<1.1) APTT (22.0-30.0) sec Sodium 140 (137-145) mmol/L Potassium 4.4 (3.5-5.1) mmol/L Chloride 99 (98-107) mmol/L Carbon Dioxide 31 H (22-30) mmol/L Anion Gap 10 mmol/L BUN 14 (9-20) mg/dL Creatinine 1.21 (0.66-1.25) mg/dL Est GFR (MDRD) Af Amer >60 (>60 ml/min/1.73 sqM) Est GFR (MDRD) Non-Af >60 (>60 ml/min/1.73 sqM) Glucose 164 H (74-99) mg/dL Calcium 9.2 (8.4-10.2) mg/dL Magnesium 1.8 (1.6-2.3) mg/dL Total Bilirubin 0.7 (0.2-1.3) mg/dL AST 27 (17-59) U/L ALT 35 (21-72) U/L Alkaline Phosphatase 115 (38-126) U/L Total Creatine Kinase 32 L (55-170) U/L CK-MB (CK-2) 1.2 (0.0-2.4) ng/mL CK-MB (CK-2) Rel Index 3.8 Troponin I <0.012 (0.000-0.034) ng/mL NT-Pro-B Natriuret Pep pg/mL Total Protein 7.0 (6.3-8.2) g/dL Albumin 3.7 (3.5-5.0) g/dL Influenza Type A RNA Not Detected (Not Detectd) Influenza Type B (PCR) Not Detected (Not Detectd) Disposition Clinical Impression: COPD (chronic obstructive pulmonary disease), Cough Disposition: HOME SELF-CARE Condition: Stable Instructions: COPD (Chronic Obstructive Pulmonary Disease) (ED) Additional Instructions: Please return to the Emergency Department if symptoms worsen or any other concerns. Prescriptions: methylPREDNISolone [Medrol Dose Pack] 4 mg PO DIRECTED #1 pack Time of Disposition: 13:22
[2016-10-08 10:54] LABS: Basophils # (A) 0.1 k/uL (0-0.2); Basophils % (A) 1 %; CH 31.2; CHCM 31.4; Eosinophils # (A) 0.3 k/uL (0-0.7); Eosinophils % (A) 4 %; HCT 46.7 % (39.0-53.0); HDW 2.04; HGB 14.6 gm/dL (13.0-17.5); Luc # (Auto) 0.24; Luc % (Auto) 4; Lymphocytes # (A) 1.5 k/uL (1.0-4.8); Lymphocytes % (A) 21 %; MCH 31.2 pg (25.0-35.0); MCHC 31.3 g/dL (31.0-37.0); MCV 99.7 fL (80.0-100.0); Mean Platelet Volume 7.1; Monocytes # (A) 0.5 k/uL (0-1.0); Monocytes % (A) 8 %; Neutrophils # (A) 4.2 k/uL (1.3-7.7); Neutrophils % (A) 62 %; RBC 4.68 m/uL (4.30-5.90); RDW 12.3 % (11.5-15.5); WBC 6.8 k/uL (3.8-10.6); WBC (Perox) 6.66
[2016-10-08 11:42] LABS: ALT 35 U/L (21-72); AST 27 U/L (17-59); Alkaline Phosphatase 115 U/L (38-126); Anion Gap 10 mmol/L; Blood Urea Nitrogen 14 mg/dL (9-20); Calcium 9.2 mg/dL (8.4-10.2); Carbon Dioxide 31 mmol/L (22-30); Chloride 99 mmol/L (98-107); Glucose 164 mg/dL (74-99); Magnesium 1.8 mg/dL (1.6-2.3); Non-African American GFR(MDRD) >60 (>60 ml/min/1.73 sqM); Potassium 4.4 mmol/L (3.5-5.1); Sodium 140 mmol/L (137-145); Total Bilirubin 0.7 mg/dL (0.2-1.3)
[2016-10-08 11:55] LABS: Creatine Kinase 32 U/L (55-170)
--- NOTE | 2016-10-08 12:05 | XR ---
EXAMINATION TYPE: XR chest 2V DATE OF EXAM: 10/08/2016 11:48 AM COMPARISON: Prior chest x-ray 10 September 2016 HISTORY: Difficulty breathing TECHNIQUE: Frontal and lateral views of the chest are obtained. FINDINGS: There are overlying cardiac leads. Prominent lung volumes are suggestive of underlying [employer] D. Strand-like densities are present at the lung bases. Cardiac mediastinal silhouette, pulmonary vas cularity and jana are stable. No pneumothorax or pleural effusion. IMPRESSION: COPD, there is probable basilar scarring or atelectasis. Follow-up as indicated.
[2016-10-08 12:07] LABS: Creatine Kinase MB 1.2 ng/mL (0.0-2.4); Troponin I <0.012 ng/mL (0.000-0.034)
[2016-10-08 12:08] LABS: Partial Thromboplastin Time 23.4 sec (22.0-30.0); Prothrombin Time 10.4 sec (9.0-12.0)
[2016-10-08] MEDS ORDERED: methylPREDNISolone SOD SUCCI 125 MG/2 ML VIAL IV STA (13:20)
[2016-10-08 13:36] VITALS: BP 122/63; PULSE 89; RESP 16; TEMP 97.1
== END 2016-10-08 13:31 | disposition home or self-care (01) ==
LOC: EC 09:42
DX: J44.9 Chronic obstructive pulmonary disease, unspecified (principal); I11.0 Hypertensive heart disease with heart failure; I50.9 Heart failure, unspecified; E78.5 Hyperlipidemia, unspecified; E03.9 Hypothyroidism, unspecified; I25.10 Atherosclerotic heart disease of native coronary artery without angina pectoris; F41.9 Anxiety disorder, unspecified; Z95.5 Presence of coronary angioplasty implant and graft; Z99.81 Dependence on supplemental oxygen; Z79.51 Long term (current) use of inhaled steroids; Z79.899 Other long term (current) drug therapy; Z87.891 Personal history of nicotine dependence; Z87.01 Personal history of pneumonia (recurrent)
CPT/HCPCS: 36415; 94640; 93005; 83880; 80053; 82550; 82553; 83735; 84484; 85025; 85610; 85730; 87502; 71020; 99285; 96374; J2930

== ENCOUNTER 2016-10-28 09:35 | Observation (INO) | payer MEDICARE ==
--- NOTE | 2016-10-28 10:26 | ED ---
Neuro HPI - General Chief Complaint: Neuro Symptoms/Deficit Stated Complaint: CVA Symptoms Time Seen by Provider: 10/28/16 10:09 Source: patient, family Mode of arrival: EMS Limitations: no limitations - History of Present Illness Is the patient presenting with stroke symptoms?: Yes Initial Comments: Patient is a 66-year-old male with history of CAD, CHF, COPD, hypertension, hyperlipidemia, left eye prosthesis presenting with left facial droop. Patient states he was last known normal around 5 PM. At around 8:30 PM patient had trouble drinking from a straw when taking his medications. He called his daughter into the room and she tested him for a stroke and did not notice any facial droop at that time. Patient went to bed without any problems and woke up this morning with the persistent facial droop which is presenting to the ER. Patient denies any numbness, weakness, slurring of his words. Denies any vision changes but does have a prosthetic eye. Patient denies history of stroke or TIA. - Related Data Home Medications: Home Medications Medication Instructions Recorded Confirmed ALPRAZolam [Xanax] 0.5 mg PO BID PRN 04/27/15 10/28/16 Furosemide [Lasix] 20 mg PO Q48H 04/27/15 10/28/16 Albuterol Inhaler [Ventolin Hfa 2 puff INHALATION RT-QID PRN 04/28/15 10/28/16 Inhaler] Carvedilol [Coreg] 12.5 mg PO BID 05/23/15 10/28/16 Simvastatin [Zocor] 80 mg PO HS 12/04/15 10/28/16 Umeclidinium Brm/Vilanterol Tr 1 puff PO RT-DAILY 12/04/15 10/28/16 [Anoro Ellipta 62.5-25 Mcg INH] Famotidine [Pepcid] 20 mg PO BID PRN 09/10/16 10/28/16 Levothyroxine Sodium [Synthroid] 88 mcg PO HS 09/10/16 10/28/16 Fluticasone Furoate [Arnuity 1 puff INHALATION RT-DAILY 10/08/16 10/28/16 Ellipta] Theophylline 24 Hour [Tung-24] 200 mg PO BID 10/08/16 10/28/16 Previous Rx's Medication Instructions Recorded Albuterol Nebulized [Ventolin 2.5 mg INHALATION RT-Q4H PRN #0 05/04/15 Nebulized] nebu Allergies/Adverse Reactions: Allergies Allergy/AdvReac Type Severity Reaction Status Date / Time adhesive tape Allergy Rash/Hives Verified 10/28/16 11:01 Review of Systems ROS Statement: Those systems with pertinent positive or pertinent negative responses have been documented in the HPI. Constitutional: No fever and no chills. HENT: No congestion, no rhinorrhea and no sore throat. Eyes: No discharge and no redness. Respiratory: No cough and no shortness of breath. Cardiovascular: No chest pain and no palpitations. Gastrointestinal: No nausea, no vomiting, no abdominal pain and no diarrhea. Genitourinary: No dysuria and no hematuria. Musculoskeletal: No back pain and no arthralgias. Skin: No pallor and no rash. Neurological: Left facial droop, no numbness, no weakness, no slurring. ROS Other: All systems not noted in ROS Statement are negative. General Exam - General Exam Comments Initial Comments: Constitutional: Patient appears well-developed and well-nourished. No distress. Head: Normocephalic and atraumatic. Eyes: Conjunctivae and EOM are normal. Right eye exhibits no discharge. Left eye exhibits no discharge. No scleral icterus. Neck: Normal range of motion. Neck supple. Cardiovascular: Normal rate and regular rhythm. No murmur heard. Pulmonary/Chest: Effort normal and breath sounds normal. No respiratory distress. No wheezes. Abdominal: Soft. No distension. There is no tenderness. There is no rebound and no guarding. Musculoskeletal: Normal range of motion. No edema or tenderness. Neuro Exam: A&Ox3, speech is fluent and spontaneous CN 2: right eye pupil 4 mm and reactive, limited visual field due to left eye prosthesis CN 3, 4, 6: EOMI despite left eye prosthesis as he had eye repair at [facility] with muscles attached prosthesis CN 5: facial sensation intact b/l CN 7: Eyebrow raise equal b/l, mild left nasolabial fold depression CN 8: hearing intact to conversation CN 9, 10: palate elevation equal, no hoarseness to voice CN 11: shoulder shrug equal b/l CN 12: tongue protrusion w/o deviation Sensory: Intact to light touch, upper and lower extremities Motor: No pronator drift, no atrophy, normal muscle tone, b/l muscle strength 5/ 5 of hand flexors, biceps, triceps, quads, hamstrings, plantar and dorsiflexion Cerebellar: finger to nose intact b/l, heel to segundo intact b/l. Skin: Skin is warm and dry. Not diaphoretic. Nursing notes and vitals reviewed. Limitations: no limitations Stroke MDM - Lab Data Result diagrams: 10/28/16 10:29 10/28/16 11:12 Lab Results 10/28/16 10/28/16 10/28/16 Range/Units 10:29 10: 11:12 WBC 11.4 H (3.8-10.6) k/uL RBC 4.29 L (4.30-5.90) m/uL Hgb 13.6 (13.0-17.5) gm/dL Hct 42.9 (39.0-53.0) % MCV 100.1 H (80.0-100.0) fL MCH 31.7 (25.0-35.0) pg MCHC 31.7 (31.0-37.0) g/dL RDW 12.6 (11.5-15.5) % Plt Count 218 (150-450) k/uL Neutrophils % 74 % Lymphocytes % 14 % Monocytes % 8 % Eosinophils % 2 % Basophils % 0 % Neutrophils # 8.4 H (1.3-7.7) k/uL Lymphocytes # 1.6 (1.0-4.8) k/uL Monocytes # 0.9 (0-1.0) k/uL Eosinophils # 0.2 (0-0.7) k/uL Basophils # 0.0 (0-0.2) k/uL PT 10.6 (9.0-12.0) sec INR 1.0 (<1.1) APTT 24.3 (22.0-30.0) sec Sodium 142 (137-145) mmol/L Potassium 5.1 (3.5-5.1) mmol/L Chloride 99 (98-107) mmol/L Carbon Dioxide 37 H (22-30) mmol/L Anion Gap 6 mmol/L BUN 18 (9-20) mg/dL Creatinine 1.00 (0.66-1.25) mg/dL Est GFR (MDRD) Af Amer >60 (>60 ml/min/1.73 sqM) Est GFR (MDRD) Non-Af >60 (>60 ml/min/1.73 sqM) Glucose 133 H (74-99) mg/dL Calcium 9.2 (8.4-10.2) mg/dL Magnesium 1.9 (1.6-2.3) mg/dL - NIH Stroke Scale 1a. Level of Consciousness: (0) alert 1b. LOC Questions: (0) answers correctly 1c. LOC Commands: (0) performs tasks correctly 2. Best Gaze: (0) normal 3. Visual: (0) no visual loss 4. Facial Palsy: (1) minor paralysis 5a. Motor Arm Left: (0) no drift 5b. Motor Arm Right: (0) no drift 6a. Motor Leg Left: (0) no drift 6b. Motor Leg Right: (0) no drift 7. Limb Ataxia: (0) absent 8. Sensory: (0) normal 9. Best Language: (0) no aphasia 10. Dysarthria: (0) normal 11. Extinction/Inattention: (0) no abnormality - Medical Decision Making Patient's 66-year-old male with history of CAD, CHF, hypertension, COPD with left-sided facial droop. Last known normal 5 PM. Onset 8:30 PM. Patient not a TPA candidate as he is outside the window. NIH 1. CT head unremarkable. Repeat NIH at 11:20 AM is 1. Patient was resting comfortably in bed. Course of stay improved. Denies pain. Discussed physical exam and diagnostic tests with patient. Questions answered and patient is agreeable to staying in the hospital. Discussed H&P and pertinent diagnostic tests with admitting physician who agrees with plan and accepts admission of patient. Agrees with neurological consult. - EKG Data -: EKG Interpreted by Me 11:[address] No ST-T wave changes. WA internal normal . QRS interval normal. QTc duration normal. Past Medical History Past Medical History: Coronary Artery Disease (CAD), Chest Pain / Angina, Heart Failure, COPD, Hyperlipidemia, Hypertension, Pneumonia, Thyroid Disorder Additional Past Medical History / Comment(s): Obesity, COPD with FEV1 of 31% of predicted, hypertension, hypothyroidism, coronary artery disease with insertion of previous coronary stent, generalized anxiety disorder, hyperlipidemia, chronic hypoxic respiratory failure and the patient is maintained on oxygen at 3 L/m nasal cannula. 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, 2 cardiac stents Past Anesthesia/Blood Transfusion Reactions: No Reported Reaction Additional Past Anesthesia/Blood Transfusion Reaction / Comment(s): Prefers no morphine Date of Last Stent Placement:: 2007 Past Psychological History: Anxiety Smoking Status: Former smoker Past Alcohol Use History: None Reported Additional Past Alcohol Use History / Comment(s): Patient was a smoker one pack per day for 30 years and quit 6 years ago. He also uses recreational marijuana but none in at least 6 years. He drinks alcohol on a rare basis. He worked in [employer]. He is currently living alone. He has 1 dog. He has no recent travel. He denies service. Past Drug Use History: None Reported - Past Family History Father Family Medical History: COPD Mother Family Medical History: Congestive Heart Failure (CHF) Course Vital Signs 10/28/16 10/28/16 09:45 11:35 Temperature 98.5 F Pulse Rate 92 91 Respiratory 18 18 Rate Blood Pressure 123/78 125/77 O2 Sat by Pulse 91 L Oximetry - Reevaluation(s) Reevaluation #1: 10/28/16 11:20 NIH 1. Persistent neurological exam. Disposition Clinical Impression: Facial droop Disposition: ADMITTED IP TO THIS [facility] Condition: Good Decision to Admit Reason: Admit from EC Decision Time: 11:19
[2016-10-28 10:46] LABS: Basophils % (A) 0 %; CH 31.3; CHCM 31.4; Eosinophils # (A) 0.2 k/uL (0-0.7); Eosinophils % (A) 2 %; HCT 42.9 % (39.0-53.0); HDW 2.12; HGB 13.6 gm/dL (13.0-17.5); Luc # (Auto) 0.27; Luc % (Auto) 2; Lymphocytes # (A) 1.6 k/uL (1.0-4.8); Lymphocytes % (A) 14 %; MCH 31.7 pg (25.0-35.0); MCHC 31.7 g/dL (31.0-37.0); MCV 100.1 fL (80.0-100.0); Mean Platelet Volume 7.1; Monocytes # (A) 0.9 k/uL (0-1.0); Monocytes % (A) 8 %; Neutrophils # (A) 8.4 k/uL (1.3-7.7); Neutrophils % (A) 74 %; RBC 4.29 m/uL (4.30-5.90); RDW 12.6 % (11.5-15.5); WBC 11.4 k/uL (3.8-10.6); WBC (Perox) 11.26
--- NOTE | 2016-10-28 10:58 | CT ---
EXAMINATION TYPE: CT brain wo con DATE OF EXAM: 10/28/2016 10:42 AM COMPARISON: NONE HISTORY: left sided facial droop and numbness CT DLP: 995.5 mGycm Automated exposure control for dose reduction was used. FINDINGS: There is no acute intracranial hemorrhage, mass effect, or midline shift identified. [id number] degenerative change. Periventricular low-attenuation nonspecific but suggestive of remote microvascu lar ischemia. Postsurgical change involving the left orbit noted. IMPRESSION: No acute intracranial hemorrhage, mass effect, or midline shift is seen.
[2016-10-28] MEDS ORDERED: ASPIRIN 81 MG CHEW PO STA (11:09)
[2016-10-28] MEDS ORDERED: NALOXONE 0.4 MG/ML 1 ML VIAL IV PRN (11:13)
[2016-10-28 11:16] LABS: Partial Thromboplastin Time 24.3 sec (22.0-30.0); Prothrombin Time 10.6 sec (9.0-12.0)
[2016-10-28 12:11] LABS: Anion Gap 6 mmol/L; Blood Urea Nitrogen 18 mg/dL (9-20); Calcium 9.2 mg/dL (8.4-10.2); Carbon Dioxide 37 mmol/L (22-30); Chloride 99 mmol/L (98-107); Glucose 133 mg/dL (74-99); Magnesium 1.9 mg/dL (1.6-2.3); Non-African American GFR(MDRD) >60 (>60 ml/min/1.73 sqM); Potassium 5.1 mmol/L (3.5-5.1); Sodium 142 mmol/L (137-145)
[2016-10-28] MEDS ORDERED: IPRATROPIUM-ALBUTEROL 3 ML NEB INHALATION STA (13:20)
[2016-10-28] MEDS ORDERED: ALBUTEROL NEBULIZED 2.5 MG/3 ML INHALATION PRN (18:21)
[2016-10-28] MEDS ORDERED: FAMOTIDINE 20 MG TAB PO PRN (18:21)
[2016-10-28] MEDS ORDERED: ALBUTEROL INHALER 60 PUFF/8 GM INHALER INHALATION PRN (18:21)
[2016-10-28] MEDS ORDERED: FUROSEMIDE 20 MG TAB PO SCH (18:30)
[2016-10-28] MEDS: IPRATROPIUM-ALBUTEROL 3 ML NEB INHALATION SCH (18:58)
[2016-10-28] MEDS ORDERED: LORazepam 2 MG/ML SYRINGE IV STA (20:39)
[2016-10-28] MEDS ORDERED: HYDROcodone/APAP 5-325MG 1 EACH TAB PO PRN (20:53)
[2016-10-28] MEDS ORDERED: ATORVASTATIN 40 MG TAB PO SCH (21:00)
[2016-10-28] MEDS: ACYCLOVIR 800 MG TAB PO SCH (21:17)
[2016-10-28] MEDS: LEVOTHYROXINE 88 MCG TAB PO SCH (21:23)
[2016-10-28] MEDS: THEOPHYLLINE 24 HOUR 200 MG CAP.ER.24H PO SCH (21:23)
[2016-10-28] MEDS: CARVEDILOL 12.5 MG TAB PO SCH (21:25)
[2016-10-28] MEDS: HEPARIN SODIUM,PORCINE 5,000 UNIT/ML 1 ML VIAL SQ SCH (21:28)
[2016-10-28] MEDS: ALPRAZolam 0.5 MG TAB PO PRN (21:28)
[2016-10-28] MEDS: SIMVASTATIN 80 MG PO SCH (23:17)
[2016-10-28] MEDS: INSULIN LISPRO (humaLOG) 300 UNIT/3 ML VIAL SQ SCH (23:17)
[2016-10-28] MEDS: methylPREDNISolone SOD SUCCI 125 MG/2 ML VIAL IV SCH (23:18)
[2016-10-28] MEDS: TEMAZEPAM 15 MG CAP PO PRN (23:36)
[2016-10-29 00:27] LABS: Hemoglobin A1C 7.5 % (4.2-6.1)
[2016-10-29] MEDS: IPRATROPIUM-ALBUTEROL 3 ML NEB INHALATION SCH ×5 (00:57→20:15)
[2016-10-29 04:06] VITALS: RESP 18
[2016-10-29 06:19] LABS: Basophils % (A) 0 %; CHCM 31.1; Eosinophils % (A) 0 %; HCT 42.3 % (39.0-53.0); HDW 2.11; HGB 13.3 gm/dL (13.0-17.5); Luc # (Auto) 0.05; Luc % (Auto) 1; Lymphocytes # (A) 0.7 k/uL (1.0-4.8); Lymphocytes % (A) 8 %; MCH 31.5 pg (25.0-35.0); MCHC 31.5 g/dL (31.0-37.0); Mean Platelet Volume 6.7; Monocytes # (A) 0.1 k/uL (0-1.0); Monocytes % (A) 1 %; Neutrophils # (A) 8.1 k/uL (1.3-7.7); Neutrophils % (A) 90 %; RBC 4.23 m/uL (4.30-5.90); RDW 12.4 % (11.5-15.5); WBC (Perox) 9.16
[2016-10-29 06:26] LABS: Glucose,Whole Blood 239 mg/dL (75-99)
[2016-10-29 06:36] LABS: Anion Gap 8 mmol/L; Blood Urea Nitrogen 19 mg/dL (9-20); Calcium 9.3 mg/dL (8.4-10.2); Carbon Dioxide 31 mmol/L (22-30); Chloride 98 mmol/L (98-107); Cholesterol 163 mg/dL (<200); Glucose 254 mg/dL (74-99); HDL Cholesterol 37 mg/dL (40-60); Non-African American GFR(MDRD) >60 (>60 ml/min/1.73 sqM); Potassium 4.8 mmol/L (3.5-5.1); Sodium 137 mmol/L (137-145); Triglycerides 98 mg/dL (<150)
[2016-10-29] MEDS: CARVEDILOL 12.5 MG TAB PO SCH ×2 (06:51→17:06)
[2016-10-29] MEDS: INSULIN LISPRO (humaLOG) 300 UNIT/3 ML VIAL SQ SCH ×3 (06:54→17:06)
[2016-10-29] MEDS: BUDESONIDE 0.5 MG/2 ML NEBU INHALATION SCH ×2 (07:28→20:15)
[2016-10-29] MEDS: HEPARIN SODIUM,PORCINE 5,000 UNIT/ML 1 ML VIAL SQ SCH ×2 (08:36→20:31)
[2016-10-29] MEDS: THEOPHYLLINE 24 HOUR 200 MG CAP.ER.24H PO SCH ×2 (08:36→20:28)
[2016-10-29] MEDS: ALPRAZolam 0.5 MG TAB PO PRN (08:36)
[2016-10-29] MEDS: ACYCLOVIR 800 MG TAB PO SCH ×4 (08:36→20:47)
[2016-10-29] MEDS: methylPREDNISolone SOD SUCCI 125 MG/2 ML VIAL IV SCH ×3 (08:36→23:44)
--- NOTE | 2016-10-29 09:43 | CONS ---
DATE OF CONSULTATION: 10/28/2016 CHIEF COMPLAINT: Left facial weakness. HISTORY OF PRESENT ILLNESS: Mr. Moya is a pleasant 66-year-old male who is being evaluated today on 10/28/2016 by the neurology service per the request of Dr. Virk for left facial weakness. The patient was brought into [facility] Emergency Room after he noticed that he was having difficulty drinking out of a straw. He then noticed that his left face was drooping and was quite uneven when he smiled. He denies any history of strokes or transient ischemic attacks and a CT scan of the brain was done, which was normal. His CBC showed mild leukocytosis at 11.4 and was otherwise negative. His basic metabolic profile and INR were normal. The patient denies any sensory deficit and denies any extremity weakness. He denies any headache or dizziness. PAST MEDICAL HISTORY: Coronary artery disease, angina, heart failure, chronic obstructive pulmonary disease, dyslipidemia, hypertension, thyroid disorder with hypothyroidism, history of coronary artery stent placement, generalized anxiety disorder, history of hernia repair, history of tonsillectomy, history of prosthetic left eye placement at the age of 14 due to a trauma. SOCIAL HISTORY: The patient is a former smoker. He denies any alcohol or drug use. He quit smoking 6 years ago. FAMILY HISTORY: Positive for heart failure and chronic obstructive pulmonary disease. HOME MEDICATIONS: Reviewed in the chart. ALLERGIES: ADHESIVE TAPE. REVIEW OF SYSTEMS: CONSTITUTIONAL: Negative. EYES: Positive for prosthetic left eye. ENT: Negative. CARDIOVASCULAR: Positive for occasional chest pain, but he denies any at this time. RESPIRATORY: Positive for chronic shortness of breath. NEUROLOGICAL: As mentioned above. GASTROINTESTINAL: Positive for occasional heartburn. GENITOURINARY: Negative. MUSCULOSKELETAL: Positive for occasional joint pain. PSYCHIATRIC: Positive for anxiety disorder. DERMATOLOGICAL: Negative. ENDOCRINE: Positive for hypothyroidism. PHYSICAL EXAM: Vital signs show a temperature of 98.5, pulse 90, respirations 16, blood pressure 117/78. GENERAL APPEARANCE: The patient is an obese male who appears to be in no acute distress. HEENT: Normocephalic, atraumatic. Left facial weakness is noticed involving more of the lower left face. The forehead on the left side is slightly affected. Neck is supple with no masses felt. CARDIOVASCULAR: Regular rate and rhythm. ABDOMEN: Obese, nontender, nondistended. EXTREMITIES: Showed trace edema with no clubbing seen. NEUROLOGICAL EXAM: The patient is alert, aware, and oriented x3. Speech and language are normal. Strength is full in all 4 extremities. Sensory exam was normal to light touch in all 4 extremities. Cranial nerve testing showed left facial weakness as mentioned above. The patient does have a left prosthetic eye. Reduced blinking is noticed on the left side, which the patient states that is new and not related to his prosthetic eye. IMPRESSION: 1. Left facial weakness. 2. 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 3. Chronic obstructive pulmonary disease. 4. Dyslipidemia. RECOMMENDATIONS: The patient's physical neurological examination is more consistent with a Nunez's palsy given the severity of weakness and given that left forehead is slightly affected. Nonetheless, an ischemic stroke needs to be ruled out. I will order an MRI of the brain along with a fasting lipid panel, carotid Doppler, EEG and serum homocysteine level. Due to the etiology being more consistent with a Nunez's palsy, I will start him on IV Solu-Medrol along with a acyclovir. I will start him on sliding scale insulin and will order Accu-Cheks. He does report some claustrophobia and I will pretreat him with Ativan IV for his MRI of the brain. Continue the rest of your current work-up and management. I will continue to follow with you. Further recommendations to follow. Thank you for allowing me to participate in the care of your patient. If you have any questions, please feel free to contact me.
--- NOTE | 2016-10-29 10:39 | CONS ---
DATE OF CONSULTATION: CHIEF COMPLAINT: Left facial droop. Jacky is a 66-year-old gentleman with history of severe COPD, coronary artery disease, status post angioplasty, hypertension, dyslipidemia, and hypothyroidism who is admitted to hospital with symptoms of left-sided facial weakness. This came on suddenly without any clear-cut relieving or exacerbating factors. It was a severe intensity symptom and states so. He noticed it because of the left facial droop while he was trying to smile. Patient has a prosthetic left eye but he always had movements of the left eyelids that were normal but he lost those movements since this problem happened. Patient does not have any other focal motor or sensory deficits. He is currently being evaluated for Nunez's palsy and is being treated for the same. He is to undergo an MRI later today. Cardiology has been consulted because of history of coronary artery disease. The patient has had angioplasty almost 8 years ago and has done well since that time. He has not had any recent cardiac work-up. He denies chest pain, has stable exertional shortness of breath, may be related to COPD. There is no history of congestive heart failure. There is no history of leg edema, paroxysmal nocturnal dyspnea or orthopnea. Past medical history is significant for coronary artery disease, status post angioplasty, hypertension, dyslipidemia, COPD, hypothyroidism, hernia repair, tonsillectomy, history of prosthetic left eye. SOCIAL HISTORY: Negative for smoking, EtOH abuse, or drug abuse. REVIEW OF SYSTEMS: HEENT is significant for left prosthetic eye, left facial droop. CONSTITUTIONAL: Negative. ENT: Negative. CARDIOVASCULAR: Negative. RESPIRATORY: Significant for shortness of breath with activity. NEUROLOGICAL: As described above. GI: Negative. GENITOURINARY: Negative. MUSCULOSKELETAL: Significant for joint pain. PSYCH: Significant for anxiety disorder. DERMATOLOGICAL: Negative. ENDOCRINE: Significant for hypothyroidism. Rest of the system review is not relevant. On exam, he is comfortable at rest. Heart rate is 100 beats per minute, blood pressure is 118/75, respiratory rate is 18. Chest exam reveals diminished air entry bilaterally. Heart exam reveals first and second heart sounds. No gallop. No murmur. Abdomen is soft, nontender. Exam of the extremities did not reveal edema. Peripheral pulses are felt. Labs show a hemoglobin of 13.3, platelet count is 213. Potassium is 4.8. Creatinine is 0.9, LDL cholesterol is 106. EKG shows sinus rhythm without acute ST-T wave changes. ASSESSMENT: 1. Left facial droop, probably related to Nunez's palsy. 2. Coronary artery disease, status post angioplasty. 3. Chronic obstructive pulmonary disease. PLAN: From cardiac standpoint, patient is stable. He is in sinus rhythm. There are no episodes of cardiac arrhythmia. I am going to follow the MRI and if he had a stroke, I am going to perform a transesophageal echo. If it is Nunez's palsy, it does not require further cardiac work-up at this time. I will obtain a 2-D echo on him to document his LV function and on discharge, I am going to follow the patient and consider an outpatient stress test.
[2016-10-29 11:45] LABS: Glucose,Whole Blood 290 mg/dL (75-99)
--- NOTE | 2016-10-29 12:08 | HP ---
DATE OF ADMISSION: 10/28/2016 CHIEF COMPLAINT: Weakness left side of the face. HISTORY OF PRESENT ILLNESS: This 66 -year-old gentleman with a past history of CAD, history of CHF, COPD, hypertension, hyperlipidemia, history of pneumonia, hypothyroidism, obesity, COPD, bronchitis, history of anxiety being followed by Dr. Agee in the outpatient setting was noted to have some numbness of the face on the left side, yesterday last night the patient also had difficulty sipping through using a straw so the patient's daughter checked everything and did not show any abnormality. Patient woke up this morning and was noted to have some drooping of the face on the left side and the patient was concerned and the patient came to [facility] and admitted to the hospital for further evaluation and treatment. There is no history of fever, rigors or chills. No history of headache, loss of consciousness or seizures. There is no history of any weakness as such. The patient also had a brain CT scan after admission, which showed in the ER showed no acute abnormality. Neurology evaluation in progress. PAST MEDICAL HISTORY: History of coronary artery disease, history of CHF, COPD, hypertension, hyperlipidemia, history of pneumonia, hypothyroidism, history of coronary artery disease and stent, obesity, anxiety. Medications prior to admission include: Home medications are: 1.Ellipta 1 puff daily. 2. Tung-24 200 mg p.o. b.i.d. 3. Zocor 80 mg p.o. q.h.s. 4. Synthroid 88 mcg p.o. daily. 5. Lasix 20 mg q.48 hours. 6. Ellipta 1 puff daily. 7. Pepcid 20 mg daily p.r.n. 8. Coreg 12.5 mg p.o. b.i.d. 9. Ritalin 2.5 q.4 p.r.n. 10. Ventolin HFA 2 puffs q.i.d. p.r.n. 11. Xanax 0.5 b.i.d. p.r.n. ALLERGIES: ADHESIVE TAPE. FAMILY HISTORY: History of COPD in the family. SOCIAL HISTORY: History of alcohol occasionally, previous history of smoking. REVIEW OF SYSTEMS: ENT: No diminished vision. No diminished hearing. CARDIOVASCULAR: No angina or palpitations. RESPIRATORY: As mentioned earlier. GASTROINTESTINAL: No nausea or vomiting. GENITOURINARY: No dysuria. CENTRAL NERVOUS SYSTEM: No numbness or weakness. ALLERGY/IMMUNOLOGY: No asthma or hayfever. MUSCULOSKELETAL: As mentioned earlier. HEMATOLOGY/ONCOLOGY: No history of anemia. ENDOCRINE: No history of diabetes, hypothyroidism. CONSTITUTIONAL: As mentioned earlier. DERMATOLOGY: Negative. RHEUMATOLOGY: Negative. PSYCHIATRY: As mentioned earlier. NEUROLOGICAL: As mentioned earlier. PHYSICAL EXAMINATION: Pulse 98, blood pressure 117/78, respiratory rate 16, temperature normal. Pulse ox 97% on 3 L. HEENT: Conjunctivae normal. NECK: No jugular venous distention. CARDIOVASCULAR: S1, S2 muffled. RESPIRATORY: Breath sounds diminished at the bases. No rhonchi, no crackles. ABDOMEN: Soft. Nontender. No mass palpable. Obese. No hepatosplenomegaly. Legs: No edema, no swelling. Nervous system: Higher function as mentioned. Cranial nerves has significant weakness on the left side of the face, appears to be weakness symmetrically upper and lower limbs and appears to be lower motor, patient had glassy eyes on the left eye. Otherwise, moves all 4 limbs. Power is normal. Motor strength is sensory abnormality. LYMPHATICS: No lymph nodes palpable in the neck, axillae or groin. SKIN: No ulcer, rash or bleeding. JOINTS: No active deforming arthropathy. LABS: WBC 11.5, MCV 100.1, glucose 133. ASSESSMENT: 1. Weakness of the left side of the face possible lower motor neuron Nunez's palsy, rule out acute stroke. 2. Increased WBC. 3. Increased MCV. 4. Obesity with body mass index of 42.3. 5. Increased random blood sugar. 6. History of coronary artery disease. 7. History of congestive heart failure. 8. Chronic obstructive pulmonary disease. 9. Hypertension. 10. Hyperlipidemia. 11. History of pneumonia. 12. Hypothyroidism. 13. History of obesity. 14. History of chronic hypoxic respiratory failure maintained on 3 liters nasal cannula at home. 15. History of generalized anxiety disorder. 16. History of coronary artery disease and stent. 17. History of prosthetic left eye. 18. History of cardiac catheterization stents. 19. History of anxiety. 20. Remote history nicotine dependence. 21. FULL CODE. RECOMMENDATIONS AND DISCUSSION: In this 66-year-old gentleman who presented with multiple complex medical issues, we will monitor the patient closely, resume the home medications. I would recommend also full neurovascular workup and neurology consultation and continue to monitor. Otherwise, prognosis guarded because of multiple complex medical issues, we will also obtain PT, OT evaluation. See orders for further details. Guarded prognosis. Further recommendations to follow. Discussed with the patient who understands and agrees. A copy of dictation being forwarded to primary care physician, Dr. Agee is the primary physician. All charts were reviewed. Labs and x-rays were also reviewed. CT scan was also reviewed . Prognosis guarded. The patient understands and agrees. RILEY
[2016-10-29] MEDS ORDERED: LORazepam 2 MG/ML SYRINGE IV STA (14:35)
--- NOTE | 2016-10-29 15:42 | MR ---
EXAMINATION TYPE: MR brain wo/w con DATE OF EXAM: 10/29/2016 3:34 PM COMPARISON: CT brain from yesterday. HISTORY: Left facial weakness TECHNIQUE: Multiplanar, multisequence images of the brain and brainstem is performed without and with IV contras t, utilizing 20 mL intravenous MultiHance . FINDINGS: Diffusion weighted images demonstrate no evidence of a recent infarct or other diffusion ab normality. There is no worrisome extra-axial fluid collection. There is ventricular and sulcal promi nence consistent with mild age-related cerebral atrophy. There are some scattered foci of T2 hyperint ensity seen throughout the white matter bilaterally. Roughly 40 scattered lesions are present. Lesion s are nonspecific in appearance and distribution but most likely on basis of product of chronic small vessel ischemic change in patient of this age. Midline structures demonstrate normal morphology. The craniocervical junction appears within normal limits. Post contrast images demonstrate no abnormal enhancement. The dural venous sinuses appear pa tent. Left globe prosthesis is redemonstrated causing artifact. Right globe is intact. Visualized par anasal sinuses are clear. IMPRESSION: 1. No evidence of a recent infarct. 2. Mild diffuse age-related cerebral atrophy with moderate nonspecific white matter changes presumed on basis of product of chronic small vessel ischemic change.
[2016-10-29 16:40] LABS: Glucose,Whole Blood 277 mg/dL (75-99)
--- NOTE | 2016-10-29 18:47 | P.PN ---
Subjective Principal diagnosis: Nunez's palsy This is a pleasant 66-year-old male continue be evaluated by the neurology service for left facial weakness. He denies a history of stroke or TIAs. Initial CT of the brain was done and showed no acute intracranial abnormalities. Subsequent MRI of the brain showed no acute intracranial abnormalities. It did show some atrophic changes and chronic small vessel ischemic changes. He does have past medical history of coronary artery disease angina heart failure COPD. He is on simvastatin 80 mg. A lipid panel also a triglyceride of 98 total cholesterol 163 LDL of 106 and HDL of 37. He has been started on acyclovir and prednisone and has noticed slight improvement in his symptoms. He denies any new symptoms since yesterday's exam. Objective - Vital Signs Vital signs: Vital Signs Temp 97.8 F 10/29/16 16:00 Pulse 108 H 10/29/16 16:00 Resp 18 10/29/16 16:00 BP 116/76 10/29/16 16:00 Pulse Ox 92 L 10/29/16 16:00 Intake & Output 10/28/16 10/29/16 10/29/16 18:59 06:59 18:59 Intake Total 400 Balance 400 Weight 129.1 kg Intake: Oral 400 Other: Voiding Method Toilet Toilet # Voids 1 - Constitutional General appearance: Present: no acute distress, obese - EENT EENT Comment(s): Prosthetic left eye Eyes: Present: EOMI, PERRLA. Absent: abnormal pupil, ptosis ENT: Present: hearing grossly normal - Neck Details: Mild greater occipital nerve tenderness bilaterally Neck: Present: normal ROM - Respiratory Respiratory: negative: prolonged expiration, prolonged inspiration - Cardiovascular Rhythm: regular - Gastrointestinal General gastrointestinal: Absent: distended, tenderness - Neurologic Neurologic Comment(s): Patient is alert awake and oriented 3. Speech-language are normal. Strength is full in all 4 extremities. There is no sensory deficit in any extremity. He continues to show left facial weakness. Which is unchanged from yesterday's exam. There is some reduced blinking on the left side that remains. - Labs CBC & Chem 7: 10/29/16 05:45 10/29/16 05:45 Labs: Abnormal Lab Results - Last 24 Hours (Table) 10/29/16 10/29/16 10/29/16 Range/Units 05:45 05:45 06:23 RBC 4.23 L (4.30-5.90) m/uL Neutrophils # 8.1 H (1.3-7.7) k/uL Lymphocytes # 0.7 L (1.0-4.8) k/uL Carbon Dioxide 31 H (22-30) mmol/L Glucose 254 H (74-99) mg/dL POC Glucose (mg/dL) 239 H (75-99) mg/dL LDL Cholesterol, Calc 106 H (0-99) mg/dL HDL Cholesterol 37 L (40-60) mg/dL 10/29/16 10/29/16 Range/Units 11:39 16:37 RBC (4.30-5.90) m/uL Neutrophils # (1.3-7.7) k/uL Lymphocytes # (1.0-4.8) k/uL Carbon Dioxide (22-30) mmol/L Glucose (74-99) mg/dL POC Glucose (mg/dL) 290 H 277 H (75-99) mg/dL LDL Cholesterol, Calc (0-99) mg/dL HDL Cholesterol (40-60) mg/dL Assessment and Plan (1) Nunez's palsy Status: Acute (2) Hyperlipidemia Status: Chronic (3) Small vessel disease, cerebrovascular Status: Chronic (4) Facial droop Status: Acute (5) COPD (chronic obstructive pulmonary disease) Status: Chronic Plan: His exam continues to be most consistent with Nunez's palsy. MRI of the brain was normal. Recommend continuing with antihyperlipidemics. Given his chronic small vessel ischemic changes on MRI I do recommend some form antiplatelet therapy. He is being evaluated by [facility] and is status post angioplasty I will leave the choice to them. We will follow him up in outpatient setting to watch the progression/resolution of his Nunez's palsy. We will send him home on oral prednisone and oral acyclovir. Otherwise continue the rest of your workup and we may be consulted on as-needed basis. I have performed a history and physical on the above patient. I have reviewed the above note, and agree.
[2016-10-29] MEDS ORDERED: INSULIN REGULAR BOLUS (FROM DRIP BAG) IV ONE (18:55)
[2016-10-29] MEDS ORDERED: INSULIN REGULAR 100 UNIT in SODIUM CHLORIDE 0.9% 100 ML IV SCH (19:00)
[2016-10-29 20:13] LABS: Glucose,Whole Blood 322 mg/dL (75-99)
[2016-10-29] MEDS: SIMVASTATIN 80 MG PO SCH (20:28)
[2016-10-29] MEDS: LEVOTHYROXINE 88 MCG TAB PO SCH (20:28)
[2016-10-29] MEDS: metFORMIN 500 MG TAB PO SCH (20:31)
[2016-10-29] MEDS: TEMAZEPAM 15 MG CAP PO PRN (20:47)
[2016-10-29 21:45] LABS: Glucose,Whole Blood 246 mg/dL (75-99)
[2016-10-29 22:00] LABS: Hemoglobin A1C 7.4 % (4.2-6.1)
[2016-10-29 23:41] LABS: Glucose,Whole Blood 205 mg/dL (75-99)
[2016-10-30 01:46] LABS: Glucose,Whole Blood 195 mg/dL (75-99)
[2016-10-30 03:51] LABS: Glucose,Whole Blood 217 mg/dL (75-99)
[2016-10-30] MEDS: IPRATROPIUM-ALBUTEROL 3 ML NEB INHALATION SCH ×2 (04:52→08:49)
[2016-10-30 05:28] LABS: Glucose,Whole Blood 195 mg/dL (75-99)
--- NOTE | 2016-10-30 05:37 | PN ---
DATE OF SERVICE: 10/29/2016 This 66-year-old gentleman who was admitted with significant weakness of the left side of the face, probably more than stage IV facial palsy at this time. The patient is being worked for acute stroke. MRI did not show any acute stroke. The patient empirically started on IV steroids and antiviral by neurology, Dr. Sage. However, the blood sugars elevated, going up and also the patient's hemoglobin A1c was also elevated at 7.5. PAST MEDICAL HISTORY: Reviewed. REVIEW OF SYSTEMS: CARDIOVASCULAR: No angina. RESPIRATORY: No cough. GI: As mentioned earlier.. : No dysuria. NERVOUS SYSTEM: As mentioned earlier. Current medications are reviewed and include: 1. Cut Off 5 mg. 2. Zovirax 800 mg t.i.d. 3. Xanax . 4. Pulmicort . 5. Coreg. 6. Pepcid. 7. Lasix. 8. Heparin. 9. Synthroid. 10. Solu-Medrol 125 mg q.8. 11. Narcan. 12. Restoril. 13. Tung-24. PHYSICAL EXAMINATION: The patient is alert and oriented x3. Pulse is 108. Blood pressure 116/76, respirations 16, temperature 97.8, pulse ox 92% on 3 L. HEENT: Conjunctivae normal. NECK: No jugular venous distention. CARDIOVASCULAR: S1 and S2, muffled. RESPIRATORY: Breath sounds diminished at the bases. A few scattered rhonchi and crackles. ABDOMEN: Soft, obese, nontender. LEGS: No edema, no swelling. NERVOUS SYSTEM: No focal deficits. Labs are at this time show WBC 9, hemoglobin 13.3. CO2 is 31. Glucose is 239, 290, 277. ASSESSMENT: 1. Weakness of the left side of the face, possible lower motor facial palsy and Nunez's palsy, rule out stroke. 2. Increased WBC. 3. Increased MCV. 4. Diabetes mellitus type 2, uncontrolled. 5. Obesity with body mass index of 42.3. 6. Increased random blood sugar. 7. History of coronary artery disease. 8. History of congestive heart failure, ejection fraction unknown. 9. History of chronic obstructive pulmonary disease. 10. Hypertension. 11. Hyperlipidemia. 12. History of pneumonia. 13. Hypothyroidism. 14. History of obesity. 15. History of chronic hypoxic respiratory failure, maintained on 3 L on nasal cannula at home. 16. History of generalized anxiety disorder. 17. History of coronary artery disease, stent. 18. History of prosthetic left eye. 19. History of anxiety. 20. Remote history of nicotine dependence. 21. FULL CODE. RECOMMENDATIONS AND DISCUSSION: Recommend to continue current medication. Continue with monitoring and symptomatic treatment. Otherwise, at this time, I would recommend insulin drip at this time and Glucophage will be initiated. Guarded prognosis because of multiple complex medical issues. See orders for details. Further recommendations to follow. MTDD
[2016-10-30 07:05] LABS: Glucose,Whole Blood 179 mg/dL (75-99)
[2016-10-30] MEDS: metFORMIN 500 MG TAB PO SCH (07:05)
[2016-10-30] MEDS: CARVEDILOL 12.5 MG TAB PO SCH (07:05)
[2016-10-30] MEDS: INSULIN LISPRO (humaLOG) 300 UNIT/3 ML VIAL SQ SCH ×2 (07:05→14:17)
[2016-10-30] MEDS: ACYCLOVIR 800 MG TAB PO SCH ×2 (08:42→14:17)
[2016-10-30] MEDS: THEOPHYLLINE 24 HOUR 200 MG CAP.ER.24H PO SCH (08:42)
[2016-10-30] MEDS: methylPREDNISolone SOD SUCCI 125 MG/2 ML VIAL IV SCH (08:42)
[2016-10-30] MEDS: HEPARIN SODIUM,PORCINE 5,000 UNIT/ML 1 ML VIAL SQ SCH (08:42)
[2016-10-30] MEDS: ALPRAZolam 0.5 MG TAB PO PRN (08:42)
[2016-10-30] MEDS: BUDESONIDE 0.5 MG/2 ML NEBU INHALATION SCH (08:49)
[2016-10-30 09:12] LABS: Glucose,Whole Blood 211 mg/dL (75-99)
[2016-10-30 11:15] LABS: Glucose,Whole Blood 165 mg/dL (75-99)
--- NOTE | 2016-10-30 11:18 | ECHOF ---
Referral Reason:left facial droop MEASUREMENTS -------- HEIGHT: 177.8 cm WEIGHT: 128.8 kg BP: 117/84 RVIDd: 2.5 cm (< 3.3) IVSd: 1.3 cm (0.6 - 1.1) LVIDd: 4.1 cm (3.9 - 5.3) LVPWd: 1.2 cm (0.6 - 1.1) IVSs: 2.0 cm LVIDs: 2.9 cm LVPWs: 1.9 cm LAESV Index (A-L): 15.71 ml/m Ao Diam: 3.5 cm (2.0 - 3.7) AV Cusp: 2.3 cm (1.5 - 2.6) LA Diam: 3.1 cm (2.7 - 3.8) MV EXCURSION: 13.839 mm (> 18.000) MV EF SLOPE: 103 mm/s (70 - 150) EPSS: 1.0 cm MV E Yan: 1.03 m/s MV DecT: 113 ms MV A Yan: 0.50 m/s MV E/A Ratio: 2.05 RAP: 5.00 mmHg RVSP: 14.76 mmHg FINDINGS -------- Sinus rhythm. Resting tachycardia (HR>100bpm). This was a technically adequate study. Morbid Obesity The left ventricular size is normal. There is mild concentric left ventricular hypertrophy. Overall left ventricular systolic function is low-normal with, an EF between 50 - 55 %. The right ventricle is normal in size and function. Normal LA size by volume 22+/-6 ml/m2. The right atrium is normal in size. The aortic valve is trileaflet and appears structurally normal. The mitral valve leaflets are mildly thickened. Mild tricuspid regurgitation present. Right ventricular systolic pressure is normal at < 35 mmHg. There is no pulmonic regurgitation present. The aortic root size is normal. Normal inferior vena cava with normal inspiratory collapse consistent with estimated right atrial pressure of 5 mmHg. There is no pericardial effusion. CONCLUSIONS -------- 1. Sinus rhythm. 2. Mild tricuspid regurgitation present. 3. Right ventricular systolic pressure is normal at < 35 mmHg. 4. There is no pulmonic regurgitation present. 5. The aortic root size is normal. 6. Normal inferior vena cava with normal inspiratory collapse consistent with estimated right atrial pressure of 5 mmHg. 7. There is no pericardial effusion. 8. Resting tachycardia (HR>100bpm). 9. This was a technically adequate study. 10. Morbid Obesity 11. There is mild concentric left ventricular hypertrophy. 12. Overall left ventricular systolic function is low-normal with, an EF between 50 - 55 %. 13. Normal LA size by volume 22+/-6 ml/m2. 14. The aortic valve is trileaflet and appears structurally normal. 15. The mitral valve leaflets are mildly thickened. TRAFFIC SIGNAL TECHNICIAN: Marvel Farah RDCS
[2016-10-30] MEDS ORDERED: INSULIN GLARGINE 100 UNIT/ML 10 ML VIAL SQ ONE (11:30)
[2016-10-30 11:47] LABS: Appearance,Urine Clear (Clear); Bilirubin,Urine Negative (Negative); Glucose,Urine (UA) Negative (Negative); Ketones,Urine Negative (Negative); Leukocyte Esterase,Urine Negative (Negative); Nitrite,Urine Negative (Negative); PH, Urine 6.5 (5.0-8.0); Protein,Urine Negative (Negative); Specific Gravity,Urine 1.007 (1.001-1.035); UA Billing (MACRO vs. MICRO) CHEM; Urobilinogen,Urine <2.0 mg/dL (<2.0)
[2016-10-30 12:28] VITALS: BP 139/72; TEMP 97.1
--- NOTE | 2016-10-30 13:02 | P.PN ---
Subjective Principal diagnosis: Left sided facial droop This is a 66-year-old gentleman with history of severe COPD, coronary artery disease with prior PCI, hypertension hyperlipidemia, hypothyroidism, admission to the hospital primarily with left-sided facial weakness and noted left-sided facial droop. Cardiology was initially consulted because of the history of coronary artery disease. Patient has been stable overall from our perspective, denies any recent chest discomfort, does get occasional shortness of breath but the patient is known to have COPD. CAT scan of the brain was performed which did not reveal any acute intracranial hemorrhage, mass effect, or midline shift. MRI of the brain performed this morning did not reveal any evidence of a recent infarct. Mild diffuse age-related cerebral atrophy with moderate nonspecific white matter change likely on the basis of chronic small vessel ischemia was noted. Echocardiogram with Doppler study was performed which revealed an ejection fraction of 50-55%. At pressure this morning 138/72 with a heart rate of 100. Drug screen was performed which was positive for benzodiazepine. At the time of my examination this morning, patient continues to have a mild drooping on the left side of his face, patient has a prosthetic left eye and always has movement of the left eyelid. Objective - Vital Signs Vital signs: Vital Signs Temp 97.1 F L 10/30/16 11:20 Pulse 105 H 10/30/16 11:20 Resp 18 10/30/16 11:20 BP 139/72 10/30/16 11:20 Pulse Ox 95 10/30/16 11:20 Intake & Output 10/29/16 10/30/16 10/30/16 18:59 06:59 18:59 Intake Total 312.653 328.347 Output Total 700 Balance -387.347 328.347 Weight 129.9 kg Intake: IV 240 0.9 240 Intake, IV Titration 72.653 28.347 Amount Insulin Regular 100 unit 72.653 28.347 In Sodium Chloride 0.9% 100 ml @ Titrate IV .Q0M [facility] Rx#:[id number] Oral 300 Output: Urine 700 Other: Voiding Method Toilet Toilet # Voids 0 - Exam PHYSICAL EXAMINATION: HEENT: Head is atraumatic, normocephalic. Mild left-sided facial droop, patient has a prosthetic left eye with movement of the left eyelid. Neck is supple. There is no elevated jugular venous pressure. HEART EXAMINATION: Heart S1, S2 normal. No murmur or gallop heard. CHEST EXAMINATION: Lungs are clear to auscultation and precussion. No chest wall tenderness is noted on palpation or with deep breathing. ABDOMEN: Soft, nontender. Bowel sounds are heard. No organomegaly noted. EXTREMITIES: 2+ peripheral pulses with no evidence of peripheral edema and no calf tenderness noted. NEUROLOGIC patient is awake, alert and oriented -3. . - Labs CBC & Chem 7: 10/29/16 05:45 10/29/16 05:45 Labs: Abnormal Lab Results - Last 24 Hours (Table) 10/29/16 10/29/16 10/29/16 Range/Units 05:45 16:37 20:02 POC Glucose (mg/dL) 277 H 322 H (75-99) mg/dL Hemoglobin A1c 7.4 H (4.2-6.1) % U Benzodiazepines Scrn (NotDetected) 10/29/16 10/29/16 10/30/16 Range/Units 21:33 23:40 01:34 POC Glucose (mg/dL) 246 H 205 H 195 H (75-99) mg/dL Hemoglobin A1c (4.2-6.1) % U Benzodiazepines Scrn (NotDetected) 10/30/16 10/30/16 10/30/16 Range/Units 03:47 05:26 07:03 POC Glucose (mg/dL) 217 H 195 H 179 H (75-99) mg/dL Hemoglobin A1c (4.2-6.1) % U Benzodiazepines Scrn (NotDetected) 10/30/16 10/30/16 10/30/16 Range/Units 08:59 11:00 11:13 POC Glucose (mg/dL) 211 H 165 H (75-99) mg/dL Hemoglobin A1c (4.2-6.1) % U Benzodiazepines Scrn Detected H (NotDetected) Assessment and Plan (1) HTN (hypertension) Status: Acute (2) Hypothyroid Status: Acute (3) Anxiety Status: Acute (4) Nunez's palsy Status: Acute (5) Facial droop Status: Acute (6) Hyperlipidemia Status: Chronic (7) Small vessel disease, cerebrovascular Status: Chronic (8) Acute exacerbation of chronic obstructive airways disease Status: Acute (9) COPD (chronic obstructive pulmonary disease) Status: Chronic Plan: From cardiology's perspective, echocardiogram with Doppler study revealed normal left ventricular systolic function. No evidence of any arrhythmias on the monitor. We'll follow this patient with you now on an as-needed basis only. Please don't hesitate to call with any questions. A follow-up appointment will be made with Dr. Haywood in the office 3-4 weeks post discharge. DNP note has been reviewed, I agree with a documented findings and plan of care. Patient was seen and examined.
[2016-10-30 13:36] VITALS: PULSE 92
[2016-10-30 15:17] VITALS: BMI 41.1
--- NOTE | 2016-10-30 16:02 | DS ---
DATE OF ADMISSION: 10/28/2016 DATE OF DISCHARGE: FINAL DIAGNOSES: 1. Weakness of left side of the face, possibly facial palsy, transient ischemic attack and stroke unlikely. 2. Increased WBC. 3. Increased MCV. 4. Obesity; body mass index of 42.3. 5. Increased random blood sugar. 6. History of coronary artery disease. 7. History of congestive heart failure. 8. History of chronic obstructive pulmonary disease. 9. Hypertension. 10. Hyperlipidemia. 11. History of pneumonia. 12. Hypothyroidism. 13. Obesity. 14. History of chronic hypoxic respiratory failure, maintained on 3 liters nasal cannula at home. 15. Generalized anxiety disorder. 16. Diabetes mellitus type 2. 17. History of prosthetic left eye. 18. History of coronary artery disease and stent. 19. History of anxiety. 20. Remote history of nicotine dependence. 21. FULL CODE. DISCHARGE DISPOSITION: The patient being discharged in stable condition with guarded prognosis. Total time taken 35 minutes. HISTORY OF PRESENT ILLNESS: This 66-year-old gentleman with a past medical history of multiple medical problems being followed by Dr. Agee in the outpatient setting was admitted to the hospital with weakness left side of the face. Stroke was a concern but MRA did not show any acute abnormality. The patient was treated symptomatically with steroids and . Patient is stable at this time. Sugars are also fluctuating on exam. Vital signs stable. CARDIOVASCULAR SYSTEM: S1, S2 muffled. ABDOMEN: Soft. Nervous system: Left facial palsy present. DISCHARGE ADVICE AND MEDICATIONS: 1. Diet 1800 calorie ADA diet. 2. Accu-Cheks a.c. and q.h.s. 3. Follow-up with Dr. Agee. 4. Follow up with Dr. Sage in one week. 5. Glucometer to be arranged at home. 6. The current medications are Xanax 0.5 p.o. b.i.d. 7. Ventolin HFA 2 puffs b.i.d. 8. Coreg 12.5 mg b.i.d. 9. Pepcid 20 mg p.o. b.i.d. 10. Ellipta Arnuity 1 puff b.i.d. 11. Lasix 20 mg q.48 hours. 12. Synthroid 18 mcg p.o. q.h.s. 13. Zocor 80 mg q.h.s. 14. Tung-24 200 mg p.o. b.i.d. 15. Umeclidinium 1 daily. 16. Prednisone 60 mg daily for one week. 17. Valtrex 1000 mg q.8 for one week. 18. Glucophage 1 gram b.i.d. 19. CBC, BMP with Dr. Agee's office in 2 to 3 days. Once again, the patient is being discharged in stable condition with guarded prognosis. Given the option for the patient to stay in the hospital. The patient would like to go home today. DENIAD
[2016-10-30 16:33] LABS: Glucose,Whole Blood 256 mg/dL (75-99)
[2016-10-30] MEDS ORDERED: INSULIN GLARGINE 100 UNIT/ML 10 ML VIAL SQ SCH (21:00)
--- NOTE | 2016-10-31 10:28 | EEG ---
DATE OF SERVICE: 10/30/2016 INDICATIONS FOR EXAMINATION: Facial weakness. AGE: 66Y DESCRIPTION OF THE PROCEDURE: This EEG was performed using a 21 channel digital electroencephalograph, following international 10-20 system. DESCRIPTION OF THE RECORDING: From the beginning of the tracing, with the patient's eyes closed, the background rhythm was consisting of 9 Hz alpha frequency in the posterior occipital leads. No obvious asymmetry was seen. Rare muscle artifacts are noticed. Photic stimulation was performed with a good driving response seen. No pathological waves were elicited. Rare lead artifacts are noticed. Hyperventilation was not performed. The patient remains awake throughout the tracing. No epileptiform discharges were seen. His EKG lead showed regular rate and rhythm. INTERPRETATION: This awake EEG can be considered within normal limits. There was no asymmetry seen. No epileptiform discharges were noticed. The absence of epileptiform discharges does not rule out the diagnosis of epilepsy, therefore, clinical correlation is recommended.
--- NOTE | 2016-10-31 19:01 | DS ---
DATE OF ADMISSION: 10/28/2016 DATE OF DISCHARGE: 10/30/2016 FINAL DIAGNOSES: Weakness on the left side, possibly Nunez's palsy. Please refer to the previous discharge summary for previous other diagnoses. HISTORY OF PRESENT ILLNESS: This 66-year-old gentleman was admitted with weakness on the left side. Was ruled out of stroke. The MRI did not show acute abnormality at this time. The patient was treated with steroids. Patient improved significantly. There was concern with elevated blood sugars and diabetes mellitus. The patient was given insulin drip overnight and improved significantly. The patient is keen on going home at this time. I would recommend a combination of Lantus as well as metformin with Accu-Cheks before meals and at bedtime. Follow up with Dr. Agee. Continue with the Valtrex and steroids, prednisone 60 mg daily for one week. See orders for further details. Further recommendations to follow. Please refer to my previous dictation also about the list of medications. Please add Lantus 30 units subcutaneously at bedtime and Glucophage 1000 mg p.o. b.i.d. Follow up with Dr. Agee and Dr. Sage as well. Total time taken was 35 minutes.
== END 2016-10-30 17:18 | disposition home or self-care (01) ==
LOC: EC 09:35 → 6SEL 11:13
PROVIDERS: ADMIT Hospitalist; ATTEND Hospitalist
DX: R53.1 Weakness (principal); E66.9 Obesity, unspecified; Z68.41 Body mass index [BMI] 40.0-44.9, adult; I25.10 Atherosclerotic heart disease of native coronary artery without angina pectoris; I11.0 Hypertensive heart disease with heart failure; I50.9 Heart failure, unspecified; E78.5 Hyperlipidemia, unspecified; E03.9 Hypothyroidism, unspecified; E11.65 Type 2 diabetes mellitus with hyperglycemia; F41.1 Generalized anxiety disorder; I73.9 Peripheral vascular disease, unspecified; J44.1 Chronic obstructive pulmonary disease with (acute) exacerbation; J96.11 Chronic respiratory failure with hypoxia; Z79.4 Long term (current) use of insulin; Z79.84 Long term (current) use of oral hypoglycemic drugs; Z79.899 Other long term (current) drug therapy; Z87.891 Personal history of nicotine dependence; Z95.5 Presence of coronary angioplasty implant and graft; Z99.81 Dependence on supplemental oxygen; Z97.0 Presence of artificial eye; Z87.01 Personal history of pneumonia (recurrent); R29.810 Facial weakness
CPT/HCPCS: 36415; 94640 ×5; 94760; 95819; 93306; 97161; 86900; 86901; 80061; 80048 ×2; 83036 ×2; 83735; 85025 ×2; 85610; 85730; 86850; 81003; 83090; 80306; 70450; 70553; 99285; G0378 ×3; J2060; J1644 ×3; J2930 ×3; A9577; 93005; 96374; 96375; 96376

== ENCOUNTER 2017-02-26 20:08 | Inpatient (IN) | payer MEDICARE ==
[2017-02-26] MEDS ORDERED: ACETAMINOPHEN TAB 500 MG TAB PO STA (20:23)
[2017-02-26] MEDS ORDERED: IPRATROPIUM-ALBUTEROL 3 ML NEB INHALATION STA (20:24)
--- NOTE | 2017-02-26 20:26 | ED ---
General Adult HPI - General Chief complaint: Shortness of Breath Stated complaint: Shortness of breath Time Seen by Provider: 02/26/17 20:16 Source: patient, RN notes reviewed Mode of arrival: wheelchair Limitations: no limitations - History of Present Illness Initial comments: Patient is a pleasant [age]-year-old male presenting to the emergency department with difficulty in breathing. Patient has chronic symptoms associated with COPD. Symptoms have been somewhat worse the past couple of days. Patient has had cough with unknown color of sputum. No known fevers. No chest pain. - Related Data Home Medications Medication Instructions Recorded Confirmed ALPRAZolam [Xanax] 0.5 mg PO BID PRN 04/27/15 02/26/17 Furosemide [Lasix] 20 mg PO DAILY 04/27/15 02/26/17 Albuterol Inhaler [Ventolin Hfa 2 puff INHALATION RT-QID PRN 04/28/15 02/26/17 Inhaler] Carvedilol [Coreg] 12.5 mg PO BID 05/23/15 02/26/17 Simvastatin [Zocor] 80 mg PO HS 12/04/15 02/26/17 Umeclidinium Brm/Vilanterol Tr 1 puff PO RT-DAILY 12/04/15 02/26/17 [Anoro Ellipta 62.5-25 Mcg INH] Levothyroxine Sodium [Synthroid] 88 mcg PO DAILY 09/10/16 02/26/17 Theophylline 24 Hour [Tung-24] 200 mg PO BID 10/08/16 02/26/17 Ipratropium Nebulized [Atrovent 0.5 mg INHALATION RT-Q4H PRN 02/26/17 02/26/17 Nebulized] Previous Rx's Medication Instructions Recorded Albuterol Nebulized [Ventolin 2.5 mg INHALATION RT-Q4H PRN #0 05/04/15 Nebulized] nebu metFORMIN HCL [Glucophage] 1,000 mg PO BID #60 tab 10/29/16 Allergies Allergy/AdvReac Type Severity Reaction Status Date / Time adhesive tape Allergy Rash/Hives Verified 02/26/17 20:13 Review of Systems ROS Statement: Those systems with pertinent positive or pertinent negative responses have been documented in the HPI. ROS Other: All systems not noted in ROS Statement are negative. Constitutional: Denies: fever Eyes: Denies: eye pain ENT: Denies: ear pain Respiratory: Reports: cough, dyspnea Cardiovascular: Denies: chest pain Endocrine: Reports: fatigue Gastrointestinal: Denies: vomiting Genitourinary: Denies: dysuria Musculoskeletal: Denies: back pain Skin: Denies: rash Neurological: Denies: headache Past Medical History Past Medical History: Coronary Artery Disease (CAD), Chest Pain / Angina, Heart Failure, COPD, Hyperlipidemia, Hypertension, Pneumonia, Thyroid Disorder Additional Past Medical History / Comment(s): Obesity, COPD ,bronchits,chronic hypoxic respitory failure maintained on home 02 3 liters n/c, hypothyroidism, generalized anxiety disorder. 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, 2 cardiac stents Past Anesthesia/Blood Transfusion Reactions: No Reported Reaction Additional Past Anesthesia/Blood Transfusion Reaction / Comment(s): Prefers no morphine Date of Last Stent Placement:: 2007 Past Psychological History: Anxiety Smoking Status: Former smoker - Past Family History Father Family Medical History: COPD Mother Family Medical History: Congestive Heart Failure (CHF) General Exam Limitations: no limitations General appearance: alert, in no apparent distress Head exam: Present: atraumatic Eye exam: Present: normal appearance, other (Left eye is false) ENT exam: Present: normal oropharynx Neck exam: Present: normal inspection Respiratory exam: Present: wheezes, rales, decreased breath sounds Cardiovascular Exam: Present: regular rate, normal rhythm GI/Abdominal exam: Present: soft. Absent: tenderness Extremities exam: Present: normal inspection Back exam: Present: normal inspection Neurological exam: Present: alert Psychiatric exam: Present: normal affect, normal mood Skin exam: Present: normal color Course Vital Signs 02/26/17 02/26/17 02/26/17 20:10 20:44 20:45 Temperature 100.9 F H Pulse Rate 122 H 117 H Respiratory 22 26 H Rate Blood Pressure 133/81 O2 Sat by Pulse 87 L Oximetry 02/26/17 02/26/17 20:54 21:25 Temperature 101.4 F H Pulse Rate 120 H 115 H Respiratory 20 Rate Blood Pressure 133/80 O2 Sat by Pulse 95 Oximetry - Reevaluation(s) Reevaluation #1: 02/26/17 21:41 Patient reevaluated and updated. Lung sounds have significantly improved. Patient would like to avoid steroids. Dr. James has been paged for admission for Dr. Darden. Patient states he is also seen Dr. Pugh in the past. Patient does meet sepsis criteria diagnosed at 2140. EKG Findings - EKG Comments: EKG Findings:: Sinus tachycardia 118. MO 152. QRS 86. QT 324. QTC 454. Left axis. Normal QRS. No acute ST change. Medical Decision Making - Lab Data Result diagrams: 02/26/17 20:40 02/26/17 20:40 Lab Results 02/26/17 02/26/17 02/26/17 Range/Units 20:40 20:40 20:40 WBC 22.0 H (3.8-10.6) k/uL RBC 4.61 (4.30-5.90) m/uL Hgb 14.7 (13.0-17.5) gm/dL Hct 44.8 (39.0-53.0) % MCV 97.0 (80.0-100.0) fL MCH 31.8 (25.0-35.0) pg MCHC 32.8 (31.0-37.0) g/dL RDW 12.2 (11.5-15.5) % Plt Count 347 (150-450) k/uL Neutrophils % 86 % Lymphocytes % 6 % Monocytes % 6 % Eosinophils % 1 % Basophils % 0 % Neutrophils # 18.9 H (1.3-7.7) k/uL Lymphocytes # 1.2 (1.0-4.8) k/uL Monocytes # 1.4 H (0-1.0) k/uL Eosinophils # 0.3 (0-0.7) k/uL Basophils # 0.1 (0-0.2) k/uL PT (9.0-12.0) sec INR (<1.2) APTT (22.0-30.0) sec Sodium 139 (137-145) mmol/L Potassium 4.7 (3.5-5.1) mmol/L Chloride 98 (98-107) mmol/L Carbon Dioxide 30 (22-30) mmol/L Anion Gap 11 mmol/L BUN 11 (9-20) mg/dL Creatinine 0.80 (0.66-1.25) mg/dL Est GFR (MDRD) Af Amer >60 (>60 ml/min/1.73 sqM) Est GFR (MDRD) Non-Af >60 (>60 ml/min/1.73 sqM) Glucose 128 H (74-99) mg/dL Plasma Lactic Acid Ike 1.4 (0.7-2.0) mmol/L Calcium 9.8 (8.4-10.2) mg/dL Total Bilirubin 0.9 (0.2-1.3) mg/dL AST 23 (17-59) U/L ALT 35 (21-72) U/L Alkaline Phosphatase 115 (38-126) U/L Total Protein 7.2 (6.3-8.2) g/dL Albumin 4.1 (3.5-5.0) g/dL 02/26/17 Range/Units 20:40 WBC (3.8-10.6) k/uL RBC (4.30-5.90) m/uL Hgb (13.0-17.5) gm/dL Hct (39.0-53.0) % MCV (80.0-100.0) fL MCH (25.0-35.0) pg MCHC (31.0-37.0) g/dL RDW (11.5-15.5) % Plt Count (150-450) k/uL Neutrophils % % Lymphocytes % % Monocytes % % Eosinophils % % Basophils % % Neutrophils # (1.3-7.7) k/uL Lymphocytes # (1.0-4.8) k/uL Monocytes # (0-1.0) k/uL Eosinophils # (0-0.7) k/uL Basophils # (0-0.2) k/uL PT 11.3 (9.0-12.0) sec INR 1.1 (<1.2) APTT 27.1 (22.0-30.0) sec Sodium (137-145) mmol/L Potassium (3.5-5.1) mmol/L Chloride (98-107) mmol/L Carbon Dioxide (22-30) mmol/L Anion Gap mmol/L BUN (9-20) mg/dL Creatinine (0.66-1.25) mg/dL Est GFR (MDRD) Af Amer (>60 ml/min/1.73 sqM) Est GFR (MDRD) Non-Af (>60 ml/min/1.73 sqM) Glucose (74-99) mg/dL Plasma Lactic Acid Ike (0.7-2.0) mmol/L Calcium (8.4-10.2) mg/dL Total Bilirubin (0.2-1.3) mg/dL AST (17-59) U/L ALT (21-72) U/L Alkaline Phosphatase (38-126) U/L Total Protein (6.3-8.2) g/dL Albumin (3.5-5.0) g/dL - Radiology Data Radiology results: image reviewed (Chest x-ray does show infiltrate right middle lung.) Critical Care Time Critical Care Time: Yes Total Critical Care Time: 32 Disposition Clinical Impression: Pneumonia, Sepsis Disposition: ADMITTED IP TO THIS [facility] Condition: Serious Referrals: Kathy Agee MD [Primary Care Provider] - 1-2 days Decision Time: 21:43
[2017-02-26] MEDS: SODIUM CHLORIDE 0.9% 500 ML IV SCH ×2 (20:49→22:14)
[2017-02-26 21:01] LABS: ALT 35 U/L (21-72); AST 23 U/L (17-59); Alkaline Phosphatase 115 U/L (38-126); Anion Gap 11 mmol/L; Blood Urea Nitrogen 11 mg/dL (9-20); Calcium 9.8 mg/dL (8.4-10.2); Carbon Dioxide 30 mmol/L (22-30); Chloride 98 mmol/L (98-107); Glucose 128 mg/dL (74-99); Non-African American GFR(MDRD) >60 (>60 ml/min/1.73 sqM); Potassium 4.7 mmol/L (3.5-5.1); Sodium 139 mmol/L (137-145); Total Bilirubin 0.9 mg/dL (0.2-1.3); Total Protein 7.2 g/dL (6.3-8.2)
[2017-02-26 21:02] LABS: Basophils # (A) 0.1 k/uL (0-0.2); Basophils % (A) 0 %; CH 31.1; CHCM 32.2; Eosinophils # (A) 0.3 k/uL (0-0.7); Eosinophils % (A) 1 %; HCT 44.8 % (39.0-53.0); HDW 2.07; HGB 14.7 gm/dL (13.0-17.5); Luc # (Auto) 0.18; Luc % (Auto) 1; Lymphocytes # (A) 1.2 k/uL (1.0-4.8); Lymphocytes % (A) 6 %; MCH 31.8 pg (25.0-35.0); MCHC 32.8 g/dL (31.0-37.0); Mean Platelet Volume 7.2; Monocytes # (A) 1.4 k/uL (0-1.0); Monocytes % (A) 6 %; Neutrophils # (A) 18.9 k/uL (1.3-7.7); Neutrophils % (A) 86 %; RBC 4.61 m/uL (4.30-5.90); RDW 12.2 % (11.5-15.5); WBC (Perox) 22.58
--- NOTE | 2017-02-26 21:13 | XR ---
EXAMINATION TYPE: XR chest 2V DATE OF EXAM: 02/26/2017 COMPARISON: 10/08/2016 HISTORY: Fever TECHNIQUE: Frontal and lateral views of the chest are obtained. FINDINGS: There is mild linear density at the left lung base. There is suggestion of minimal infiltr ate in the right midlung. The other lung pelaez are clear. Heart and mediastinum are normal. There is no sign of pleural effusion. IMPRESSION: Subsegmental atelectasis at the left lung base. There is a new mild infiltrate in the ri ght midlung compared to last exam. No heart failure.
[2017-02-26 21:24] LABS: INR 1.1 (<1.2); Partial Thromboplastin Time 27.1 sec (22.0-30.0); Prothrombin Time 11.3 sec (9.0-12.0)
[2017-02-26] MEDS ORDERED: AZITHROMYCIN 500 MG in SODIUM CHLORIDE 0.9% 250 ML IVPB STA (21:43)
[2017-02-26] MEDS ORDERED: PNEUMONIA PROTOCOL UTILIZED 1 EACH MISC PO PRN (21:43)
[2017-02-26] MEDS: SODIUM CHLORIDE 0.9% 1,000 ML IV SCH (23:01)
[2017-02-26 23:22] VITALS: BMI 38.0
[2017-02-26] MEDS: IPRATROPIUM-ALBUTEROL 3 ML NEB INHALATION PRN (23:43)
[2017-02-26] MEDS: IPRATROPIUM-ALBUTEROL 3 ML NEB INHALATION SCH (23:43)
[2017-02-27] MEDS: ACETAMINOPHEN TAB 325 MG TAB PO PRN ×2 (05:49→16:22)
[2017-02-27 05:58] LABS: Appearance,Urine Clear (Clear); Bilirubin,Urine Negative (Negative); Glucose,Urine (UA) Negative (Negative); Ketones,Urine Negative (Negative); Leukocyte Esterase,Urine Negative (Negative); Nitrite,Urine Negative (Negative); PH, Urine 6.5 (5.0-8.0); Protein,Urine Negative (Negative); Specific Gravity,Urine 1.004 (1.001-1.035); UA Billing (MACRO vs. MICRO) CHEM; Urobilinogen,Urine <2.0 mg/dL (<2.0)
[2017-02-27] MEDS: IPRATROPIUM-ALBUTEROL 3 ML NEB INHALATION PRN ×2 (06:12→13:51)
[2017-02-27] MEDS: IPRATROPIUM-ALBUTEROL 3 ML NEB INHALATION SCH ×4 (07:36→20:18)
--- NOTE | 2017-02-27 07:37 | XR ---
EXAMINATION TYPE: XR chest 2V DATE OF EXAM: 02/27/2017 COMPARISON: 02/26/2017 HISTORY: Shortness of breath TECHNIQUE: Frontal and lateral views of the chest are obtained. FINDINGS: Scattered senescent parenchymal changes noted. Hyperinflation compatible with COPD. Right perihilar infiltrate is noted. Strandy density left lower lobe is unchanged. Heart size is stable. Mediastinal structures are stable and grossly unremarkable. No evidence for hilar prominence. Degenerative changes dorsal spine. IMPRESSION: 1. Right perihilar infiltrate is noted. Strandy density left lower lobe is unchanged. Clinical correl ation and follow-up until resolution is advised.
[2017-02-27] MEDS ORDERED: ALPRAZolam 0.5 MG TAB PO PRN (11:11)
[2017-02-27] MEDS: SODIUM CHLORIDE 0.9% 1,000 ML IV SCH ×2 (11:16→21:39)
[2017-02-27] MEDS: AZITHROMYCIN 500 MG TAB PO SCH (11:16)
[2017-02-27] MEDS ORDERED: POLYETHYLENE GLYCOL 3350 17 GM POWD.PACK PO PRN (11:47)
--- NOTE | 2017-02-27 11:47 | P.HPIM ---
History of Present Illness Patient is a 66-year-old male came in with complaints of shortness of breath going on for about a week patient is found to have fever, patient has some right lower lobe infiltrate conveyed this is a pneumonia, patient is comparing of cough with yellow to greenish sputum production. Patient does have history of COPD does use 3 L of oxygen although his COPD is not bad at this point of time has fairly good air entry bilateral lung pelaez. Patient denies any orthopnea PND patient has normal ejection fraction from the previous echocardiogram. Patient is an 100 mL of normal saline at this point of time Lasix is being held. Review of Systems REVIEW OF SYSTEMS: CONSTITUTIONAL: No fever, no malaise, no fatigue. HEENT: No recent visual problems or hearing problems. Denied any sore throat. CARDIOVASCULAR: No chest pain, orthopnea, PND, no palpitations, no syncope. PULMONARY: , no hemoptysis. GASTROINTESTINAL: No diarrhea, no nausea, no vomiting, no abdominal pain. Normoactive bowel sounds. NEUROLOGICAL: No headaches, no weakness, no numbness. HEMATOLOGICAL: Denies any bleeding or petechiae. GENITOURINARY: Denies any burning micturition, frequency, or urgency. MUSCULOSKELETAL/RHEUMATOLOGICAL: Denies any joint pain, swelling, or any muscle pain. ENDOCRINE: Denies any polyuria or polydipsia. The rest of the 14-point review of systems is negative. Past Medical History Past Medical History: Coronary Artery Disease (CAD), Chest Pain / Angina, Heart Failure, COPD, Hyperlipidemia, Hypertension, Pneumonia, Thyroid Disorder Additional Past Medical History / Comment(s): Obesity, COPD ,bronchits,chronic hypoxic respitory failure maintained on home 02 3 liters n/c, hypothyroidism, generalized anxiety disorder. 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, 2 cardiac stents Past Anesthesia/Blood Transfusion Reactions: No Reported Reaction Additional Past Anesthesia/Blood Transfusion Reaction / Comment(s): Prefers no morphine Date of Last Stent Placement:: 2007 Past Psychological History: Anxiety Smoking Status: Former smoker - Past Family History Father Family Medical History: COPD Mother Family Medical History: Congestive Heart Failure (CHF) Medications and Allergies Home Medications Medication Instructions Recorded Confirmed Type ALPRAZolam [Xanax] 0.5 mg PO BID PRN 04/27/15 02/26/17 History Furosemide [Lasix] 20 mg PO DAILY 04/27/15 02/26/17 History Albuterol Inhaler [Ventolin Hfa 2 puff INHALATION RT-QID PRN 04/28/15 02/26/17 History Inhaler] Carvedilol [Coreg] 12.5 mg PO BID 05/23/15 02/26/17 History Simvastatin [Zocor] 80 mg PO HS 12/04/15 02/26/17 History Umeclidinium Brm/Vilanterol Tr 1 puff PO RT-DAILY 12/04/15 02/26/17 History [Anoro Ellipta 62.5-25 Mcg INH] Levothyroxine Sodium [Synthroid] 88 mcg PO DAILY 09/10/16 02/26/17 History Theophylline 24 Hour [Tung-24] 200 mg PO BID 10/08/16 02/26/17 History Ipratropium Nebulized [Atrovent 0.5 mg INHALATION RT-Q4H PRN 02/26/17 02/26/17 History Nebulized] Allergies Allergy/AdvReac Type Severity Reaction Status Date / Time adhesive tape Allergy Rash/Hives Verified 02/26/17 20:13 Physical Exam Vitals: Vital Signs Temp Pulse Pulse Resp BP BP Pulse Ox 02/27/17 11:26 100 02/27/17 11:12 98 02/27/17 10:29 18 02/27/17 08:00 18 02/27/17 07:46 102 H 02/27/17 07:36 100 02/27/17 07:00 98.6 F 87 18 100/53 96 02/27/17 06:22 108 H 02/27/17 06:14 110 H 02/26/17 23:59 113 H 02/26/17 23:48 111 H 02/26/17 23:02 98.5 F 115 H 18 115/74 94 L 02/26/17 23:00 97.4 F L 109 H 20 120/75 95 02/26/17 22:00 100.9 F H 113 H 18 125/67 95 02/26/17 21:43 94 L 02/26/17 21:25 101.4 F H 115 H 20 133/80 95 02/26/17 20:54 120 H 02/26/17 20:45 117 H 02/26/17 20:44 26 H 02/26/17 20:10 100.9 F H 122 H 22 133/81 87 L Intake and Output 02/26/17 02/27/17 02/27/17 22:59 06:59 14:59 Output Total 500 Balance -500 Output: Urine 500 Other: Weight 120.202 kg 120.202 kg PHYSICAL EXAMINATION: GENERAL: The patient is alert and oriented x3, not in any acute distress. Well developed, well nourished. HEENT: Pupils are round and equally reacting to light. EOMI. No scleral icterus. No conjunctival pallor. Normocephalic, atraumatic. No pharyngeal erythema. No thyromegaly. CARDIOVASCULAR: S1 and S2 present. No murmurs, rubs, or gallops. PULMONARY: Chest is clear to auscultation, no wheezing patient has crackles lung bases posteriorly.. ABDOMEN: Soft, nontender, nondistended, normoactive bowel sounds. No palpable organomegaly. MUSCULOSKELETAL: No joint swelling or deformity. EXTREMITIES: No cyanosis, clubbing, or pedal edema. NEUROLOGICAL: Gross neurological examination did not reveal any focal deficits. SKIN: No rashes. Results CBC & Chem 7: 02/26/17 20:40 02/26/17 20:40 Labs: Abnormal Lab Results - Last 24 Hours (Table) 02/26/17 02/26/17 Range/Units 20:40 20:40 WBC 22.0 H (3.8-10.6) k/uL Neutrophils # 18.9 H (1.3-7.7) k/uL Monocytes # 1.4 H (0-1.0) k/uL Glucose 128 H (74-99) mg/dL Microbiology - Last 24 Hours (Table) 02/27/17 05:50 Urine Culture - Preliminary Urine,Voided Thrombosis Risk Factor Assmnt - Choose All That Apply Any of the Below Risk Factors Present?: No Other Risk Factors: No Other congenital or acquired thrombophilia - If yes, enter type in comment: No Thrombosis Risk Factor Assessment Level: Very Low Risk Assessment and Plan Plan: 1 sepsis secondary to right lower lobe pneumonia, community-acquired most probably pneumococcal pneumonia: Patient on Rocephin and azithromycin, IV fluids. Sputum cultures will be obtained. #2 COPD and chronic hypercapnic respiratory failure or without any significant exacerbation but patient is expected to have COPD exacerbation because of which patient will be started on oral steroids and inhalational treatments. #3 coronary artery disease #4 hypertension actually hypotensive because of which Coreg is being changed to metoprolol. #5 hypothyroidism: Continue with levothyroxine. #6 obesity: Patient will benefit from outpatient sleep study.
[2017-02-27] MEDS: METOPROLOL TARTRATE 50 MG TAB PO SCH ×2 (12:51→21:43)
[2017-02-27] MEDS: predniSONE 20 MG TAB PO SCH (12:51)
--- NOTE | 2017-02-27 14:06 | P.CNPUL ---
History of Present Illness Consult date: 02/27/17 Reason for consult: dyspnea, COPD History of present illness: 66-year-old male patient with advanced COPD with a baseline FEV1 of 31% of predicted, oxygen dependent, followed up by Dr. Pugh on outpatient basis, maintained on Anoro as maintenance treatment for COPD. The patient was last hospitalized for an acute COPD exacerbation in general 2017. He was doing well and he thinks that he was involved in a respiratory tract infection approximately 3 days ago. He started having increased cough chest congestion wheezing and subsequently his COPD exacerbated and he became more short of breath. For that reason he presented to hospital and there was suspicion for a right perihilar/middle lobe pneumonia and for that reason the patient was hospitalized start on antibiotics and steroids and pulmonary consultation was requested. He is doing well for now. No pleurisy. No hemoptysis. No chest pain. No swelling in lower extremities. His been action dependent. Not been diagnosed having sleep apnea. 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 He lives and [facility] with his daughter and granddaughter. No aspiration. No angina. No swelling in lower extremities. Clinically feeling better compared to yesterday. Review of Systems Constitutional: Reports fatigue, Reports weakness, Reports weight gain Eyes: denies as per HPI, denies blurred vision, denies bulging eye Ears: deny: decreased hearing, ear discharge Ears, nose, mouth and throat: Denies headache, Denies sore throat Cardiovascular: Reports shortness of breath Respiratory: Reports cough, Reports cough with sputum, Reports dyspnea, Reports snoring, Reports wheezing Gastrointestinal: Denies abdominal pain, Denies diarrhea, Denies nausea, Denies vomiting Musculoskeletal: Denies myalgias Musculoskeletal: absent: ankle pain, ankle stiffness, ankle swelling Integumentary: Denies pruritus, Denies rash Neurological: Denies numbness, Denies weakness Psychiatric: Denies anxiety, Denies depression Endocrine: Denies fatigue, Denies weight change Past Medical History Past Medical History: Coronary Artery Disease (CAD), Chest Pain / Angina, Heart Failure, COPD, Hyperlipidemia, Hypertension, Pneumonia, Thyroid Disorder Additional Past Medical History / Comment(s): Obesity, COPD with chronic hypoxic respiratory failure and based on FEV1 of 31% of predicted,bronchits, chronic hypoxic respitory failure maintained on home 02 3 liters n/c, hypothyroidism, generalized anxiety disorder. 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, 2 cardiac stents Past Anesthesia/Blood Transfusion Reactions: No Reported Reaction Additional Past Anesthesia/Blood Transfusion Reaction / Comment(s): Prefers no morphine Date of Last Stent Placement:: 2007 Past Psychological History: Anxiety Smoking Status: Former smoker - Past Family History Father Family Medical History: COPD Mother Family Medical History: Congestive Heart Failure (CHF) Medications and Allergies Home Medications Medication Instructions Recorded Confirmed Type ALPRAZolam [Xanax] 0.5 mg PO BID PRN 04/27/15 02/26/17 History Furosemide [Lasix] 20 mg PO DAILY 04/27/15 02/26/17 History Albuterol Inhaler [Ventolin Hfa 2 puff INHALATION RT-QID PRN 04/28/15 02/26/17 History Inhaler] Carvedilol [Coreg] 12.5 mg PO BID 05/23/15 02/26/17 History Simvastatin [Zocor] 80 mg PO HS 12/04/15 02/26/17 History Umeclidinium Brm/Vilanterol Tr 1 puff PO RT-DAILY 12/04/15 02/26/17 History [Anoro Ellipta 62.5-25 Mcg INH] Levothyroxine Sodium [Synthroid] 88 mcg PO DAILY 09/10/16 02/26/17 History Theophylline 24 Hour [Tung-24] 200 mg PO BID 10/08/16 02/26/17 History Ipratropium Nebulized [Atrovent 0.5 mg INHALATION RT-Q4H PRN 02/26/17 02/26/17 History Nebulized] Allergies Allergy/AdvReac Type Severity Reaction Status Date / Time adhesive tape Allergy Rash/Hives Verified 02/26/17 20:13 Physical Exam Vitals: Vital Signs Temp Pulse Pulse Resp BP BP Pulse Ox 02/27/17 13:51 96 02/27/17 11:26 100 02/27/17 11:12 98 02/27/17 10:29 18 02/27/17 08:00 18 02/27/17 07:46 102 H 02/27/17 07:36 100 02/27/17 07:00 98.6 F 87 18 100/53 96 02/27/17 06:22 108 H 02/27/17 06:14 110 H 02/26/17 23:59 113 H 02/26/17 23:48 111 H 02/26/17 23:02 98.5 F 115 H 18 115/74 94 L 02/26/17 23:00 97.4 F L 109 H 20 120/75 95 02/26/17 22:00 100.9 F H 113 H 18 125/67 95 02/26/17 21:43 94 L 02/26/17 21:25 101.4 F H 115 H 20 133/80 95 02/26/17 20:54 120 H 02/26/17 20:45 117 H 02/26/17 20:44 26 H 02/26/17 20:10 100.9 F H 122 H 22 133/81 87 L Intake and Output 02/26/17 02/27/17 02/27/17 22:59 06:59 14:59 Output Total 500 Balance -500 Output: Urine 500 Other: Weight 120.202 kg 120.202 kg Obese, comfortable likely distress.Head exam was generally normal. There was no scleral icterus or corneal arcus. Mucous membranes were moist. Neck is short and supple and there is no goiter or neck masses. Lungs sounds are diminished and there is prolongation of the expiratory phase of breathing and scattered expiratory wheezes throughout the lung pelaez bilaterally.Cardiac exam revealed the PMI to be normally situated and sized. The rhythm was regular and no extrasystoles were noted during several minutes of auscultation. The first and second heart sounds were normal and physiologic splitting of the second heart sound was noted. There were no murmurs, rubs, clicks, or gallops.Abdominal exam revealed normal bowel sounds. The abdomen was soft, non-tender, and without masses, organomegaly, or appreciable enlargement of the abdominal aorta.Examination of the extremities revealed easily palpable radial, femoral and pedal pulses. There was no cyanosis, clubbing or edema. Results - Laboratory Findings CBC and BMP: 02/26/17 20:40 02/26/17 20:40 PT/INR, D-dimer PT 11.3 sec (9.0-12.0) 02/26/17 20:40 INR 1.1 (<1.2) 02/26/17 20:40 Abnormal lab findings: Abnormal Labs 02/26/17 02/26/17 20:40 20:40 WBC 22.0 H Neutrophils # 18.9 H Monocytes # 1.4 H Glucose 128 H - Diagnostic Findings Chest x-ray: image reviewed Assessment and Plan Plan: Assessment 1 acute COPD exacerbation with secondary shortness of breath 2 right perihilar/middle lobe pneumonia with secondary leukocytosis currently on broad-spectrum antibiotics 3 worsening shortness of breath secondary to above 4 chronic hypoxic respiratory failure 5 acute on top of chronic hypoxic respiratory failure secondary to above 6 obesity 7 coronary artery disease with previous coronary intervention and stenting currently free of any angina 8 generalized anxiety disorder 9 hyperlipidemia 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 IV Rocephin. Oral Zithromax. Sputum Gram stain and culture. IV Solu-Medrol. Oxygen therapy. Early mobility. Heparin subcu for DVT prophylaxis. Resume outpatient medications including theophylline. We'll continue to follow make further recommendations based on his progress. Will need a follow-up chest x-ray probably within next 24-48 hours. Outpatient medication including inhalers will be resumed at a time of discharge.
[2017-02-27] MEDS: ATORVASTATIN 40 MG TAB PO SCH (21:43)
[2017-02-27] MEDS: THEOPHYLLINE 24 HOUR 200 MG CAP.ER.24H PO SCH (21:46)
[2017-02-28] MEDS: IPRATROPIUM-ALBUTEROL 3 ML NEB INHALATION PRN (04:02)
[2017-02-28] MEDS: SODIUM CHLORIDE 0.9% 1,000 ML IV SCH ×3 (06:26→17:28)
[2017-02-28] MEDS: LEVOTHYROXINE 88 MCG TAB PO SCH (06:26)
[2017-02-28] MEDS: IPRATROPIUM-ALBUTEROL 3 ML NEB INHALATION SCH ×4 (07:43→19:55)
[2017-02-28 08:09] LABS: Anion Gap 7 mmol/L; Blood Urea Nitrogen 9 mg/dL (9-20); Calcium 9.2 mg/dL (8.4-10.2); Carbon Dioxide 33 mmol/L (22-30); Chloride 102 mmol/L (98-107); Glucose 95 mg/dL (74-99); Non-African American GFR(MDRD) >60 (>60 ml/min/1.73 sqM); Potassium 4.6 mmol/L (3.5-5.1); Sodium 142 mmol/L (137-145)
[2017-02-28] MEDS: predniSONE 20 MG TAB PO SCH (08:48)
[2017-02-28] MEDS: AZITHROMYCIN 500 MG TAB PO SCH (08:48)
[2017-02-28] MEDS: METOPROLOL TARTRATE 50 MG TAB PO SCH ×2 (08:48→21:39)
[2017-02-28] MEDS: THEOPHYLLINE 24 HOUR 200 MG CAP.ER.24H PO SCH ×2 (08:48→21:39)
[2017-02-28 09:02] LABS: Basophils # (A) 0.1 k/uL (0-0.2); Basophils % (A) 0 %; CH 30.4; CHCM 30.3; Eosinophils # (A) 0.2 k/uL (0-0.7); Eosinophils % (A) 1 %; HCT 41.4 % (39.0-53.0); HDW 2.04; HGB 13.1 gm/dL (13.0-17.5); Hypochromasia Slight; Luc % (Auto) 1; Lymphocytes % (A) 10 %; MCH 31.7 pg (25.0-35.0); MCHC 31.6 g/dL (31.0-37.0); MCV 100.5 fL (80.0-100.0); Mean Platelet Volume 7.4; Monocytes # (A) 1.4 k/uL (0-1.0); Monocytes % (A) 7 %; Neutrophils % (A) 81 %; RBC 4.12 m/uL (4.30-5.90); RDW 12.1 % (11.5-15.5); WBC (Perox) 22.48
--- NOTE | 2017-02-28 12:56 | P.PN ---
Subjective Principal diagnosis: COPD exacerbation 66-year-old male patient with advanced COPD with a baseline FEV1 of 31% of predicted, oxygen dependent, followed up by Dr. Pugh on outpatient basis, maintained on Anoro as maintenance treatment for COPD. The patient was last hospitalized for an acute COPD exacerbation in general 2017. He was doing well and he thinks that he was involved in a respiratory tract infection approximately 3 days ago. He started having increased cough chest congestion wheezing and subsequently his COPD exacerbated and he became more short of breath. For that reason he presented to hospital and there was suspicion for a right perihilar/middle lobe pneumonia and for that reason the patient was hospitalized start on antibiotics and steroids and pulmonary consultation was requested. He is doing well for now. No pleurisy. No hemoptysis. No chest pain. No swelling in lower extremities. His been action dependent. Not been diagnosed having sleep apnea. 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 He lives and [facility] with his daughter and granddaughter. No aspiration. No angina. No swelling in lower extremities. Clinically feeling better compared to yesterday. The patient is seen again today 02/28/2017 of all up on the regular medical floor. He is awake and alert in no acute distress. He states his breathing is about the same today as compared to yesterday significant improvement thus far. He remains quite dyspneic on minimal exertion. He is currently on 3 L/m per nasal cannula to maintain O2 saturations in the 90s. He is afebrile. WBC 21.0. Blood cultures reveal no growth to date. Urine culture reveals no growth. Objective - Vital Signs Vital signs: Vital Signs Temp 98.1 F 02/28/17 07:00 Pulse 109 H 02/28/17 11:48 Resp 16 02/28/17 11:48 BP 118/70 02/28/17 07:00 Pulse Ox 92 L 02/28/17 07:00 Intake & Output 02/27/17 02/28/17 02/28/17 18:59 06:59 18:59 Intake Total 850 1180 Balance 850 1180 Intake: IV 800 Sodium Chloride 0.9% 1, 800 000 ml @ 100 mls/hr IV . Q10H [facility] Rx#:[id number] Intake, IV Titration 50 Amount cefTRIAXone 1,000 mg In 50 Sodium Chloride 0.9% 50 ml @ 100 mls/hr IVPB Q24HR [facility] Rx#:[id number] Oral 1180 Other: Voiding Method Toilet Urinal # Voids 1 - Exam Obese, comfortable likely distress.Head exam was generally normal. There was no scleral icterus or corneal arcus. Mucous membranes were moist. Neck is short and supple and there is no goiter or neck masses. Lungs sounds are diminished and there is prolongation of the expiratory phase of breathing and scattered expiratory wheezes throughout the lung pelaez bilaterally.Cardiac exam revealed the PMI to be normally situated and sized. The rhythm was regular and no extrasystoles were noted during several minutes of auscultation. The first and second heart sounds were normal and physiologic splitting of the second heart sound was noted. There were no murmurs, rubs, clicks, or gallops.Abdominal exam revealed normal bowel sounds. The abdomen was soft, non-tender, and without masses, organomegaly, or appreciable enlargement of the abdominal aorta.Examination of the extremities revealed easily palpable radial, femoral and pedal pulses. There was no cyanosis, clubbing or edema. - Labs CBC & Chem 7: 02/28/17 07:32 02/28/17 07:32 Labs: Abnormal Lab Results - Last 24 Hours (Table) 02/28/17 02/28/17 Range/Units 07:32 07:32 WBC 21.0 H (3.8-10.6) k/uL RBC 4.12 L (4.30-5.90) m/uL MCV 100.5 H (80.0-100.0) fL Neutrophils # 17.0 H (1.3-7.7) k/uL Monocytes # 1.4 H (0-1.0) k/uL Carbon Dioxide 33 H (22-30) mmol/L Microbiology - Last 24 Hours (Table) 02/27/17 05:50 Urine Culture - Final Urine,Voided 02/26/17 21:40 Blood Culture - Preliminary Blood No Growth after 24 hours 02/26/17 20:40 Blood Culture - Preliminary Blood No Growth after 24 hours Assessment and Plan Plan: Assessment 1 acute COPD exacerbation with secondary shortness of breath 2 right perihilar/middle lobe pneumonia with secondary leukocytosis currently on broad-spectrum antibiotics 3 worsening shortness of breath secondary to above 4 chronic hypoxic respiratory failure 5 acute on top of chronic hypoxic respiratory failure secondary to above 6 obesity 7 coronary artery disease with previous coronary intervention and stenting currently free of any angina 8 generalized anxiety disorder 9 hyperlipidemia 10 chronic left eye injury Plan The patient was seen and evaluated by Dr. Wallace. We'll continue with his current medications including antibiotics in the form of ceftriaxone and azithromycin. Continue with prednisone and bronchodilators. We'll increase his activity as tolerated. We'll repeat his chest x-ray in the a.m. We'll continue to follow.
--- NOTE | 2017-02-28 18:20 | P.PN ---
Subjective Date of service 02/28/2017 Progress note being dictated for Dr. Hartmann. Interval history:Patient is a 66-year-old male came in with complaints of shortness of breath going on for about a week patient is found to have fever, patient has some right lower lobe infiltrate conveyed this is a pneumonia, patient is comparing of cough with yellow to greenish sputum production. Patient does have history of COPD does use 3 L of oxygen although his COPD is not bad at this point of time has fairly good air entry bilateral lung pelaez. Patient denies any orthopnea PND patient has normal ejection fraction from the previous echocardiogram. Patient is an 100 mL of normal saline at this point of time Lasix is being held. 02/28/2017 maintained on Zithromax and Rocephin, nebulized bronchodilators and steroids.states breathing unchanged, exertional shortness of breath. Blood and urine cultures currently negative. Sputum culture pending. Afebrile, WBC 21. Objective - Vital Signs Vital signs: Vital Signs Temp 98.4 F 02/28/17 15:00 Pulse 100 02/28/17 17:19 Resp 18 02/28/17 16:00 BP 120/68 02/28/17 15:00 Pulse Ox 92 L 02/28/17 15:00 Intake & Output 02/27/17 02/28/17 02/28/17 18:59 06:59 18:59 Intake Total 850 1180 850 Balance 850 1180 850 Intake: IV 800 800 Sodium Chloride 0.9% 1, 800 800 000 ml @ 100 mls/hr IV . Q10H [facility] Rx#:[id number] Intake, IV Titration 50 50 Amount cefTRIAXone 1,000 mg In 50 50 Sodium Chloride 0.9% 50 ml @ 100 mls/hr IVPB Q24HR [facility] Rx#:[id number] Oral 1180 Other: Voiding Method Toilet Urinal # Voids 1 - Exam GENERAL: The patient is alert and oriented x3, not in any acute distress. Well developed, well nourished. HEENT: Pupils are round and equally reacting to light. EOMI. No scleral icterus. No conjunctival pallor. Normocephalic, atraumatic. No pharyngeal erythema. No thyromegaly. CARDIOVASCULAR: S1 and S2 present. No murmurs, rubs, or gallops. PULMONARY: Chest is clear to auscultation, scattered expiratory wheezing, bibasilar crackles.. ABDOMEN: Soft, nontender, nondistended, normoactive bowel sounds. No palpable organomegaly. MUSCULOSKELETAL: No joint swelling or deformity. EXTREMITIES: No cyanosis, clubbing, or pedal edema. NEUROLOGICAL: Gross neurological examination did not reveal any focal deficits. SKIN: No rashes. Microbiology 02/27/17 23:00 Sputum Gram Stain - Preliminary 02/27/17 05:50 Urine,Voided Urine Culture - Final 02/26/17 21:40 Blood Blood Culture - Preliminary No Growth after 24 hours 02/26/17 20:40 Blood Blood Culture - Preliminary No Growth after 24 hours - Labs CBC & Chem 7: 02/28/17 07:32 02/28/17 07:32 Labs: Abnormal Lab Results - Last 24 Hours (Table) 02/28/17 02/28/17 Range/Units 07:32 07:32 WBC 21.0 H (3.8-10.6) k/uL RBC 4.12 L (4.30-5.90) m/uL MCV 100.5 H (80.0-100.0) fL Neutrophils # 17.0 H (1.3-7.7) k/uL Monocytes # 1.4 H (0-1.0) k/uL Carbon Dioxide 33 H (22-30) mmol/L Microbiology - Last 24 Hours (Table) 02/27/17 23:00 Gram Stain - Preliminary Sputum 02/27/17 05:50 Urine Culture - Final Urine,Voided 02/26/17 21:40 Blood Culture - Preliminary Blood No Growth after 24 hours 02/26/17 20:40 Blood Culture - Preliminary Blood No Growth after 24 hours Assessment and Plan Plan: 1 sepsis secondary to right lower lobe pneumonia, community-acquired most probably pneumococcal pneumonia: Patient on Rocephin and azithromycin, IV fluids. #2 acute COPD exacerbation and chronic hypercapnic respiratory failure #3 coronary artery disease #4 hypertension actually hypotensive because of which Coreg is being changed to metoprolol. #5 hypothyroidism: #6 obesity, BMI 38: Patient will benefit from outpatient sleep study. Plan: Continue on current medication regime ,monitoring and symptomatic treatment. Maintain antibiotics, nebulized bronchodilators and steroids. Sputum culture pending. Follow closely with pulmonary. Further recommendations to follow. The impression and plan of care has been dictated as directed. : I performed a H&P examination of this patient and discussed the same with the dictator. I agree with the dictator's note. Any additional findings/opinions/ etc. will be noted.
[2017-02-28] MEDS: ATORVASTATIN 40 MG TAB PO SCH (21:39)
[2017-03-01] MEDS: IPRATROPIUM-ALBUTEROL 3 ML NEB INHALATION PRN ×2 (01:36→05:53)
[2017-03-01] MEDS: LEVOTHYROXINE 88 MCG TAB PO SCH (06:02)
[2017-03-01] MEDS: ACETAMINOPHEN TAB 325 MG TAB PO PRN (08:54)
[2017-03-01] MEDS: predniSONE 20 MG TAB PO SCH (08:56)
[2017-03-01] MEDS: AZITHROMYCIN 500 MG TAB PO SCH (08:56)
[2017-03-01] MEDS: METOPROLOL TARTRATE 50 MG TAB PO SCH ×2 (08:56→20:09)
[2017-03-01] MEDS: THEOPHYLLINE 24 HOUR 200 MG CAP.ER.24H PO SCH ×2 (08:57→20:09)
[2017-03-01] MEDS: IPRATROPIUM-ALBUTEROL 3 ML NEB INHALATION SCH ×4 (09:02→20:44)
[2017-03-01] MEDS ORDERED: METOPROLOL TARTRATE 50 MG TAB PO STA (10:25)
[2017-03-01] MEDS ORDERED: METOPROLOL TARTRATE 50 MG TAB PO ONE (10:30)
[2017-03-01 11:02] LABS: CH 31.2; CHCM 30.9; HCT 38.1 % (39.0-53.0); HDW 2.06; HGB 12.1 gm/dL (13.0-17.5); MCH 32.1 pg (25.0-35.0); MCHC 31.7 g/dL (31.0-37.0); MCV 101.4 fL (80.0-100.0); Mean Platelet Volume 7.4; RBC 3.76 m/uL (4.30-5.90); RDW 12.5 % (11.5-15.5); WBC 17.6 k/uL (3.8-10.6)
[2017-03-01 11:15] LABS: Anion Gap 7 mmol/L; Blood Urea Nitrogen 9 mg/dL (9-20); Calcium 8.8 mg/dL (8.4-10.2); Carbon Dioxide 32 mmol/L (22-30); Chloride 103 mmol/L (98-107); Glucose 127 mg/dL (74-99); Non-African American GFR(MDRD) >60 (>60 ml/min/1.73 sqM); Potassium 3.7 mmol/L (3.5-5.1); Sodium 142 mmol/L (137-145)
--- NOTE | 2017-03-01 12:56 | P.PN ---
Subjective 66-year-old male patient with advanced COPD with a baseline FEV1 of 31% of predicted, oxygen dependent, followed up by Dr. Pugh on outpatient basis, maintained on Anoro as maintenance treatment for COPD. The patient was last hospitalized for an acute COPD exacerbation in general 2016. He was doing well and he thinks that he was involved in a respiratory tract infection approximately 3 days ago. He started having increased cough chest congestion wheezing and subsequently his COPD exacerbated and he became more short of breath. For that reason he presented to hospital and there was suspicion for a right perihilar/middle lobe pneumonia and for that reason the patient was hospitalized start on antibiotics and steroids and pulmonary consultation was requested. He is doing well for now. No pleurisy. No hemoptysis. No chest pain. No swelling in lower extremities. His been action dependent. Not been diagnosed having sleep apnea. 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 He lives and [facility] with his daughter and granddaughter. No aspiration. No angina. No swelling in lower extremities. Clinically feeling better compared to yesterday. The patient is seen again today 02/28/2017 of all up on the regular medical floor. He is awake and alert in no acute distress. He states his breathing is about the same today as compared to yesterday significant improvement thus far. He remains quite dyspneic on minimal exertion. He is currently on 3 L/m per nasal cannula to maintain O2 saturations in the 90s. He is afebrile. WBC 21.0. Blood cultures reveal no growth to date. Urine culture reveals no growth. On 02/27/2017 the patient is feeling well. He is having some patient with sinus tachycardia and he was taken off the Coreg and he was placed on a higher dose of Lopressor. Breathing easier. Less short of breath. At 2-3 L/m nasal cannula. No chest pain. No other complaints otherwise. His white cell count is down to 17.6. Hemoglobin stable at 12.1. Renal function is stable. His sputum is showing gram-negative bacillus and final cultures and sensitivities are still pending for now. Blood cultures been negative. Objective - Vital Signs Vital signs: Vital Signs Temp 98.2 F 03/01/17 07:00 Pulse 96 03/01/17 12:09 Resp 20 03/01/17 07:00 BP 119/72 03/01/17 07:00 Pulse Ox 93 L 03/01/17 07:00 Intake & Output 02/28/17 03/01/17 03/01/17 18:59 06:59 18:59 Intake Total 850 1200 Balance 850 1200 Intake: IV 800 800 Sodium Chloride 0.9% 1, 800 800 000 ml @ 100 mls/hr IV . Q10H [facility] Rx#:[id number] Intake, IV Titration 50 400 Amount Sodium Chloride 0.9% 1, 400 000 ml @ 100 mls/hr IV . Q10H [facility] Rx#:[id number] cefTRIAXone 1,000 mg In 50 Sodium Chloride 0.9% 50 ml @ 100 mls/hr IVPB Q24HR [facility] Rx#:[id number] Other: Voiding Method Toilet Toilet Urinal Urinal - Exam Obese, comfortable likely distress.Head exam was generally normal. There was no scleral icterus or corneal arcus. Mucous membranes were moist. Neck is short and supple and there is no goiter or neck masses. Lungs sounds are diminished and there is prolongation of the expiratory phase of breathing and scattered expiratory wheezes throughout the lung pelaez bilaterally.Cardiac exam revealed the PMI to be normally situated and sized. The rhythm was regular and no extrasystoles were noted during several minutes of auscultation. The first and second heart sounds were normal and physiologic splitting of the second heart sound was noted. There were no murmurs, rubs, clicks, or gallops.Abdominal exam revealed normal bowel sounds. The abdomen was soft, non-tender, and without masses, organomegaly, or appreciable enlargement of the abdominal aorta.Examination of the extremities revealed easily palpable radial, femoral and pedal pulses. There was no cyanosis, clubbing or edema. - Labs CBC & Chem 7: 03/01/17 10:40 03/01/17 10:40 Labs: Abnormal Lab Results - Last 24 Hours (Table) 03/01/17 03/01/17 Range/Units 10:40 10:40 WBC 17.6 H (3.8-10.6) k/uL RBC 3.76 L (4.30-5.90) m/uL Hgb 12.1 L (13.0-17.5) gm/dL Hct 38.1 L (39.0-53.0) % MCV 101.4 H (80.0-100.0) fL Carbon Dioxide 32 H (22-30) mmol/L Glucose 127 H (74-99) mg/dL Microbiology - Last 24 Hours (Table) 02/27/17 23:00 Gram Stain - Preliminary Sputum Sputum Culture - Preliminary Gram Neg Bacilli 02/26/17 21:40 Blood Culture - Preliminary Blood No Growth after 48 hours 02/26/17 20:40 Blood Culture - Preliminary Blood No Growth after 48 hours 02/27/17 05:50 Urine Culture - Final Urine,Voided Assessment and Plan Plan: Assessment 1 acute COPD exacerbation with secondary shortness of breath 2 right perihilar/middle lobe pneumonia with secondary leukocytosis currently on broad-spectrum antibiotics. The patient is growing gram-negative bacillus in the sputum. 3 shortness of breath secondary to above, improving 4 chronic hypoxic respiratory failure 5 acute on top of chronic hypoxic respiratory failure secondary to above 6 obesity 7 coronary artery disease with previous coronary intervention and stenting currently free of any angina 8 generalized anxiety disorder 9 hyperlipidemia 10 chronic left eye injury 11 leukocytosis, improving 12 sinus tachycardia on beta blockers Plan Continue Rocephin and Zithromax. Awaiting final cultures and sensitivities from the sputum sample. Agree on including the beta blockers for better rate control. Continue bronchodilators. Prednisone burst taper. May need to check the theophylline level of the issue remains tachycardic. We'll follow.
--- NOTE | 2017-03-01 17:18 | P.PN ---
Subjective Patient was admitted for pneumonia since had significant improvement although had tachycardia patient's beta jenny is being increased. Patient later found to have sputum cultures which are positive for gram-negative bacilli. Patient probably has gram-negative pneumonia. Patient denied any fever, chills, nausea, vomiting, abdominal pain. Objective - Vital Signs Vital signs: Vital Signs Temp 98.2 F 03/01/17 07:00 Pulse 92 03/01/17 16:24 Resp 20 03/01/17 07:00 BP 119/72 03/01/17 07:00 Pulse Ox 93 L 03/01/17 07:00 Intake & Output 02/28/17 03/01/17 03/01/17 18:59 06:59 18:59 Intake Total 850 1200 Balance 850 1200 Intake: IV 800 800 Sodium Chloride 0.9% 1, 800 800 000 ml @ 100 mls/hr IV . Q10H [facility] Rx#:[id number] Intake, IV Titration 50 400 Amount Sodium Chloride 0.9% 1, 400 000 ml @ 100 mls/hr IV . Q10H [facility] Rx#:[id number] cefTRIAXone 1,000 mg In 50 Sodium Chloride 0.9% 50 ml @ 100 mls/hr IVPB Q24HR [facility] Rx#:[id number] Other: Voiding Method Toilet Toilet Urinal Urinal # Voids 3 - Exam GENERAL: The patient is alert and oriented x3, not in any acute distress. Well developed, well nourished. HEENT: Pupils are round and equally reacting to light. EOMI. No scleral icterus. No conjunctival pallor. Normocephalic, atraumatic. No pharyngeal erythema. No thyromegaly. CARDIOVASCULAR: S1 and S2 present. No murmurs, rubs, or gallops. PULMONARY: Chest is clear to auscultation, scattered expiratory wheezing, bibasilar crackles.. ABDOMEN: Soft, nontender, nondistended, normoactive bowel sounds. No palpable organomegaly. MUSCULOSKELETAL: No joint swelling or deformity. EXTREMITIES: No cyanosis, clubbing, or pedal edema. NEUROLOGICAL: Gross neurological examination did not reveal any focal deficits. SKIN: No rashes. - Labs CBC & Chem 7: 03/01/17 10:40 03/01/17 10:40 Labs: Abnormal Lab Results - Last 24 Hours (Table) 03/01/17 03/01/17 Range/Units 10:40 10:40 WBC 17.6 H (3.8-10.6) k/uL RBC 3.76 L (4.30-5.90) m/uL Hgb 12.1 L (13.0-17.5) gm/dL Hct 38.1 L (39.0-53.0) % MCV 101.4 H (80.0-100.0) fL Carbon Dioxide 32 H (22-30) mmol/L Glucose 127 H (74-99) mg/dL Microbiology - Last 24 Hours (Table) 02/27/17 23:00 Gram Stain - Preliminary Sputum Sputum Culture - Preliminary Gram Neg Bacilli 02/26/17 21:40 Blood Culture - Preliminary Blood No Growth after 48 hours 02/26/17 20:40 Blood Culture - Preliminary Blood No Growth after 48 hours Assessment and Plan Plan: 1 sepsis secondary to right lower lobe pneumonia, community-acquired : Patient on Rocephin and azithromycin, IV fluids. Sputum cultures will be obtained. Patient has positive sputum cultures with gram-negative bacilli patient is already on Rocephin which will be continued. Patient probably has gram- negative pneumonia #2 COPD and chronic hypercapnic respiratory failure or without any significant exacerbation but patient is expected to have COPD exacerbation because of which patient will be started on oral steroids and inhalational treatments. #3 coronary artery disease #4 hypertension actually hypotensive because of which Coreg is being changed to metoprolol. #5 hypothyroidism: Continue with levothyroxine. #6 obesity: Patient will benefit from outpatient sleep study.
[2017-03-01] MEDS: ATORVASTATIN 40 MG TAB PO SCH (20:09)
[2017-03-02] MEDS: IPRATROPIUM-ALBUTEROL 3 ML NEB INHALATION PRN (01:57)
[2017-03-02] MEDS: ACETAMINOPHEN TAB 325 MG TAB PO PRN (05:40)
[2017-03-02] MEDS: LEVOTHYROXINE 88 MCG TAB PO SCH (06:03)
[2017-03-02] MEDS: SODIUM CHLORIDE 0.9% 1,000 ML IV SCH (07:17)
[2017-03-02 07:57] LABS: CH 30.4; CHCM 30.7; HCT 37.7 % (39.0-53.0); HDW 2.08; HGB 12.4 gm/dL (13.0-17.5); Hypochromasia Slight; MCH 32.6 pg (25.0-35.0); MCHC 32.9 g/dL (31.0-37.0); MCV 99.3 fL (80.0-100.0); Mean Platelet Volume 7.2; RBC 3.79 m/uL (4.30-5.90); RDW 12.2 % (11.5-15.5); WBC 16.8 k/uL (3.8-10.6)
[2017-03-02] MEDS: IPRATROPIUM-ALBUTEROL 3 ML NEB INHALATION SCH (08:11)
[2017-03-02 08:19] LABS: Anion Gap 10 mmol/L; Blood Urea Nitrogen 7 mg/dL (9-20); Calcium 8.7 mg/dL (8.4-10.2); Carbon Dioxide 29 mmol/L (22-30); Chloride 105 mmol/L (98-107); Glucose 88 mg/dL (74-99); Non-African American GFR(MDRD) >60 (>60 ml/min/1.73 sqM); Potassium 3.9 mmol/L (3.5-5.1); Sodium 144 mmol/L (137-145)
[2017-03-02] MEDS: THEOPHYLLINE 24 HOUR 200 MG CAP.ER.24H PO SCH (08:24)
[2017-03-02] MEDS: predniSONE 20 MG TAB PO SCH (08:24)
[2017-03-02] MEDS: METOPROLOL TARTRATE 50 MG TAB PO SCH (08:24)
[2017-03-02] MEDS: AZITHROMYCIN 500 MG TAB PO SCH (08:24)
[2017-03-02 08:54] VITALS: BP 132/84; PULSE 91; RESP 16; TEMP 97.9
--- NOTE | 2017-03-02 10:23 | P.DS ---
Providers Date of admission: 02/26/17 21:43 Attending physician: Adryan James Consults: 02/26/17 21:43 Consult Physician Routine Consulting Provider: Jameson Pugh Consult Reason/Comments: pneumonia Do you want consulting provider notified?: Yes Primary care physician: Anuel Chavez Hospital Course: Patient was admitted for pneumonia since had significant improvement although had tachycardia patient's beta jenny is being increased. Patient later found to have sputum cultures which are positive for gram-negative bacilli. Patient probably has gram-negative pneumonia. 1 sepsis secondary to right lower lobe pneumonia, community-acquired : Patient on Rocephin and azithromycin, IV fluids. Sputum cultures will be obtained. Patient has positive sputum cultures with gram-negative bacilli patient is already on Rocephin patient will be's discharged on Ceftin for 7 days Patient probably has gram-negative pneumonia #2 COPD and chronic hypercapnic respiratory failure or without any significant exacerbation she is being discharged on weaning doses of steroids. #3 coronary artery disease #4 hypertension actually hypotensive because of which Coreg is being changed to metoprolol. #5 hypothyroidism: Continue with levothyroxine. #6 obesity: Patient will benefit from outpatient sleep study. Patient Condition at Discharge: Serious Plan - Discharge Summary New Discharge Prescriptions: New Budesonide-Formot 160-4.5 Mcg [Symbicort 160-4.5 Mcg Inhaler] 2 puff INHALATION BID #1 inhaler Cefuroxime Axetil [Ceftin] 500 mg PO BID #14 tab Metoprolol Tartrate [Lopressor] 100 mg PO BID #60 tab predniSONE 10 mg PO DAILY #30 tab Tiotropium Tyler [Spiriva] 1 cap INHALATION DAILY #1 device Continue ALPRAZolam [Xanax] 0.5 mg PO BID PRN PRN Reason: Anxiety Albuterol Inhaler [Ventolin Hfa Inhaler] 2 puff INHALATION RT-QID PRN PRN Reason: Shortness Of Breath Albuterol Nebulized [Ventolin Nebulized] 2.5 mg INHALATION RT-Q4H PRN #0 nebu PRN Reason: Shortness Of Breath Or Wheezing Umeclidinium Brm/Vilanterol Tr [Anoro Ellipta 62.5-25 Mcg INH] 1 puff PO RT- DAILY Simvastatin [Zocor] 80 mg PO HS Levothyroxine Sodium [Synthroid] 88 mcg PO DAILY Theophylline 24 Hour [Tung-24] 200 mg PO BID metFORMIN HCL [Glucophage] 1,000 mg PO BID #60 tab Ipratropium Nebulized [Atrovent Nebulized] 0.5 mg INHALATION RT-Q4H PRN PRN Reason: Shortness Of Breath Discontinued Furosemide [Lasix] 20 mg PO DAILY Carvedilol [Coreg] 12.5 mg PO BID Discharge Medication List ALPRAZolam [Xanax] 0.5 mg PO BID PRN 04/27/15 [History] Albuterol Inhaler [Ventolin Hfa Inhaler] 2 puff INHALATION RT-QID PRN 04/28/15 [ History] Albuterol Nebulized [Ventolin Nebulized] 2.5 mg INHALATION RT-Q4H PRN #0 nebu [Rx] Simvastatin [Zocor] 80 mg PO HS 12/04/15 [History] Umeclidinium Brm/Vilanterol Tr [Anoro Ellipta 62.5-25 Mcg INH] 1 puff PO RT- DAILY 12/04/15 [History] Levothyroxine Sodium [Synthroid] 88 mcg PO DAILY 09/10/16 [History] Theophylline 24 Hour [Tung-24] 200 mg PO BID 10/08/16 [History] metFORMIN HCL [Glucophage] 1,000 mg PO BID #60 tab 10/29/16 [Rx] Ipratropium Nebulized [Atrovent Nebulized] 0.5 mg INHALATION RT-Q4H PRN [History] Budesonide-Formot 160-4.5 Mcg [Symbicort 160-4.5 Mcg Inhaler] 2 puff INHALATION BID #1 inhaler 03/02/17 [Rx] Cefuroxime Axetil [Ceftin] 500 mg PO BID #14 tab 03/02/17 [Rx] Metoprolol Tartrate [Lopressor] 100 mg PO BID #60 tab 03/02/17 [Rx] Tiotropium Tyler [Spiriva] 1 cap INHALATION DAILY #1 device 03/02/17 [Rx] predniSONE 10 mg PO DAILY #30 tab 03/02/17 [Rx] Follow up Appointment(s)/Referral(s): Kathy Agee MD [Primary Care Provider] - 3 Days (Patient to call Dr. Agee's office Gerardo morning to schedule follow up appointment. The office is closed at time of discharge. ) Patient Instructions/Handouts: Sepsis (GEN), Pneumonia (DC) Discharge Disposition: HOME SELF-CARE
== END 2017-03-02 11:15 | disposition home health service (06) | DRG 871 ==
LOC: EC 20:08 → 5MS5E 21:43
PROVIDERS: ADMIT Internal Medicine; ATTEND Internal Medicine
DX: A41.9 Sepsis, unspecified organism (principal); J15.6 Pneumonia due to other Gram-negative bacteria; J96.21 Acute and chronic respiratory failure with hypoxia; J96.12 Chronic respiratory failure with hypercapnia; I11.0 Hypertensive heart disease with heart failure; I50.9 Heart failure, unspecified; J44.0 Chronic obstructive pulmonary disease with (acute) lower respiratory infection; J44.1 Chronic obstructive pulmonary disease with (acute) exacerbation; Z99.81 Dependence on supplemental oxygen; I25.10 Atherosclerotic heart disease of native coronary artery without angina pectoris; E78.5 Hyperlipidemia, unspecified; E66.9 Obesity, unspecified; E03.9 Hypothyroidism, unspecified; F41.1 Generalized anxiety disorder; Z79.84 Long term (current) use of oral hypoglycemic drugs; Z79.899 Other long term (current) drug therapy; Z97.0 Presence of artificial eye; Z95.5 Presence of coronary angioplasty implant and graft; Z87.891 Personal history of nicotine dependence; Z82.5 Family history of asthma and other chronic lower respiratory diseases; Z82.49 Family history of ischemic heart disease and other diseases of the circulatory system
CPT/HCPCS: 36415; 71020; 80048; 80053; 81003; 83605; 85025; 85027; 85610; 85730; 87040; 87070; 87077; 87086; 87186; 87205; 93005; 94640; 96360; 99285

== ENCOUNTER 2017-10-17 14:28 | Emergency (ER) | payer MEDICARE ==
[2017-10-17] MEDS ORDERED: methylPREDNISolone SOD SUCCI 125 MG/2 ML VIAL IV STA (14:39)
[2017-10-17] MEDS ORDERED: IPRATROPIUM-ALBUTEROL 3 ML NEB INHALATION STA (14:39)
--- NOTE | 2017-10-17 14:43 | ED ---
SOB HPI - General Stated Complaint: Cough Time Seen by Provider: 10/17/17 14:31 - History of Present Illness Initial Comments: This is a 67-year-old male with a history of COPD who is chronically O2 dependent on 3 L at home who presents emergency department for worsening shortness of breath and cough productive of sputum. He states is been going on for the last 3 days. He states that the shortness of breath gets worse with exertion. He states he's also been coughing up yellow or green sputum for the last 3 days which is not typical for him. He states that he has been using his DuoNeb nebulizers and theophylline at home without relief. No fevers or chills. Denies any chest pain. No lower [place] swelling. No recent travel or surgeries. No other acute complaints. - Related Data Home Medications Medication Instructions Recorded Confirmed ALPRAZolam [Xanax] 0.5 mg PO BID PRN 04/27/15 10/17/17 Albuterol Inhaler [Ventolin Hfa 2 puff INHALATION RT-QID PRN 04/28/15 10/17/17 Inhaler] Simvastatin [Zocor] 80 mg PO HS 12/04/15 10/17/17 Umeclidinium Brm/Vilanterol Tr 1 puff PO RT-DAILY 12/04/15 10/17/17 [Anoro Ellipta 62.5-25 Mcg INH] Levothyroxine Sodium [Synthroid] 88 mcg PO DAILY 09/10/16 10/17/17 Theophylline 24 Hour [Tung-24] 400 mg PO DAILY 10/08/16 10/17/17 Ipratropium Nebulized [Atrovent 0.5 mg INHALATION RT-Q4H PRN 02/26/17 10/17/17 Nebulized] Previous Rx's Medication Instructions Recorded Albuterol Nebulized [Ventolin 2.5 mg INHALATION RT-Q4H PRN #0 05/04/15 Nebulized] nebu Metoprolol Tartrate [Lopressor] 100 mg PO BID #60 tab 03/02/17 Levofloxacin [Levaquin] 500 mg PO DAILY #7 tab 10/17/17 predniSONE 50 mg PO DAILY #4 tab 10/17/17 Allergies Allergy/AdvReac Type Severity Reaction Status Date / Time adhesive tape Allergy Rash/Hives Verified 10/17/17 15:52 Review of Systems ROS Statement: Those systems with pertinent positive or pertinent negative responses have been documented in the HPI. ROS Other: All systems not noted in ROS Statement are negative. Past Medical History Past Medical History: Coronary Artery Disease (CAD), Chest Pain / Angina, Heart Failure, COPD, Hyperlipidemia, Hypertension, Pneumonia, Thyroid Disorder Additional Past Medical History / Comment(s): Obesity, COPD with chronic hypoxic respiratory failure and based on FEV1 of 31% of predicted,bronchits, chronic hypoxic respitory failure maintained on home 02 3 liters n/c, hypothyroidism, generalized anxiety disorder. 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, 2 cardiac stents Past Anesthesia/Blood Transfusion Reactions: No Reported Reaction Additional Past Anesthesia/Blood Transfusion Reaction / Comment(s): Prefers no morphine Date of Last Stent Placement:: 2007 Past Psychological History: Anxiety Smoking Status: Former smoker - Past Family History Father Family Medical History: COPD Mother Family Medical History: Congestive Heart Failure (CHF) General Exam - General Exam Comments Initial Comments: Constitutional: Awake alert Appears comfortable Head: Normocephalic atraumatic Eyes: no conjunctival injection No scleral icterus EOMI Neck: No JVD Supple Heart: Regular rate rhythm normal S1-S2 no murmurs Lungs: The patient is tachypneic with faint expiratory wheezes bilaterally throughout all lung pelaez, no rales or rhonchi Abdomen: Soft nondistended nontender Extremities: Non edematous DP pulses intact Radial pulses intact Neuro: A&Ox3 No focal neurologic deficits Psych: Appropriate mood and affect Course Vital Signs 10/17/17 10/17/17 10/17/17 14:45 15:15 15:18 Temperature 98.9 F Pulse Rate 62 92 90 Respiratory 16 16 Rate Blood Pressure 126/74 138/85 O2 Sat by Pulse 96 94 L Oximetry 10/17/17 10/17/17 15:24 16:33 Temperature 97.6 F Pulse Rate 92 66 Respiratory 16 Rate Blood Pressure 128/81 O2 Sat by Pulse 94 L Oximetry - Reevaluation(s) Reevaluation #1: 10/17/17 15:17 EKG showing normal sinus rhythm with a rate of 80. No abnormal ST 7 changes or T-wave inversions. QTC is 424. Other intervals normal. No ectopy. Medical Decision Making - Medical Decision Making Is a 67-year-old male patient COPD who presented for worsening shortness of breath and cough. Chest x-ray did show what appeared to be a right lower lobe pneumonia. The patient was given Levaquin in the emergency department. He was not hypoxic at all while in the emergency department on his regular 3 L. The patient felt improved after breathing treatments. I'm going to start him on steroids, Levaquin, and have him continue his breathing treatments at home. He was comfortable with this plan. I told him that if it worsening symptoms he needs to return promptly to the emergency department to be admitted for IV antibiotics. All questions were answered. He can follow-up with Dr. Carrillo as well next week. - Lab Data Result diagrams: 10/17/17 15:00 10/17/17 15:00 Lab Results 10/17/17 10/17/17 10/17/17 Range/Units 15:00 15:00 15:00 WBC 14.6 H (3.8-10.6) k/uL RBC 4.53 (4.30-5.90) m/uL Hgb 14.1 (13.0-17.5) gm/dL Hct 44.1 (39.0-53.0) % MCV 97.3 (80.0-100.0) fL MCH 31.1 (25.0-35.0) pg MCHC 32.0 (31.0-37.0) g/dL RDW 12.1 (11.5-15.5) % Plt Count 299 (150-450) k/uL Neutrophils % 76 % Lymphocytes % 13 % Monocytes % 6 % Eosinophils % 3 % Basophils % 1 % Neutrophils # 11.1 H (1.3-7.7) k/uL Lymphocytes # 1.9 (1.0-4.8) k/uL Monocytes # 0.9 (0-1.0) k/uL Eosinophils # 0.4 (0-0.7) k/uL Basophils # 0.1 (0-0.2) k/uL VBG pH 7.42 H (7.31-7.41) VBG pCO2 45 (37-51) mmHg VBG HCO3 29 H (24-28) mmol/L Sodium 141 (137-145) mmol/L Potassium 4.8 (3.5-5.1) mmol/L Chloride 102 (98-107) mmol/L Carbon Dioxide 30 (22-30) mmol/L Anion Gap 9 mmol/L BUN 15 (9-20) mg/dL Creatinine 1.32 H (0.66-1.25) mg/dL Est GFR (CKD-EPI)AfAm 65 (>60 ml/min/1.73 sqM) Est GFR (CKD-EPI)NonAf 57 (>60 ml/min/1.73 sqM) Glucose 130 H (74-99) mg/dL Calcium 9.5 (8.4-10.2) mg/dL Magnesium 1.8 (1.6-2.3) mg/dL Total Bilirubin 0.4 (0.2-1.3) mg/dL AST 22 (17-59) U/L ALT 27 (21-72) U/L Alkaline Phosphatase 129 H (38-126) U/L Total Protein 6.6 (6.3-8.2) g/dL Albumin 3.7 (3.5-5.0) g/dL Disposition Clinical Impression: CAP (community acquired pneumonia) Disposition: HOME SELF-CARE Condition: Stable Instructions: Pneumonia (ED) Prescriptions: Levofloxacin [Levaquin] 500 mg PO DAILY #7 tab predniSONE 50 mg PO DAILY #4 tab Referrals: Kathy Agee MD [Primary Care Provider] - 1-2 days Jameson Pugh MD [STAFF PHYSICIAN] - 1-2 days
[2017-10-17 14:48] VITALS: RESP 16
[2017-10-17 15:27] LABS: Basophils # (A) 0.1 k/uL (0-0.2); Basophils % (A) 1 %; Eosinophils # (A) 0.4 k/uL (0-0.7); Eosinophils % (A) 3 %; HCT 44.1 % (39.0-53.0); HGB 14.1 gm/dL (13.0-17.5); Lymphocytes # (A) 1.9 k/uL (1.0-4.8); Lymphocytes % (A) 13 %; MCH 31.1 pg (25.0-35.0); MCV 97.3 fL (80.0-100.0); Mean Platelet Volume 7.2; Monocytes # (A) 0.9 k/uL (0-1.0); Monocytes % (A) 6 %; Neutrophils # (A) 11.1 k/uL (1.3-7.7); Neutrophils % (A) 76 %; Platelet Count 299 k/uL (150-450); RBC 4.53 m/uL (4.30-5.90); RDW 12.1 % (11.5-15.5); VBG PH 7.42 (7.31-7.41); WBC 14.6 k/uL (3.8-10.6)
--- NOTE | 2017-10-17 15:36 | XR ---
EXAMINATION TYPE: XR chest 2V DATE OF EXAM: 10/17/2017 COMPARISON: 02/27/2017 HISTORY: Cough TECHNIQUE: Frontal and lateral views of the chest are obtained. FINDINGS: New patchy right basilar airspace disease is seen in addition to chronic left basilar scar ring or atelectasis in the prior exam. Remainder the lungs are clear. Cardiac silhouette is upper yan its of normal and stable from the prior. Osseous structures are intact with mild multilevel degenera tive changes of the thoracic spine. IMPRESSION: New right basilar ill-defined opacity that may represent early developing pneumonia or a telectasis. Chronic left basilar atelectasis or scarring is also noted.
[2017-10-17 15:38] LABS: Albumin 3.7 g/dL (3.5-5.0); Calcium 9.5 mg/dL (8.4-10.2); Potassium 4.8 mmol/L (3.5-5.1); Total Bilirubin 0.4 mg/dL (0.2-1.3); Total Protein 6.6 g/dL (6.3-8.2)
[2017-10-17] MEDS ORDERED: LEVOFLOXACIN 500MG-D5W PMX 500 MG in DEXTROSE/WATER 1 100ML.BAG IVPB STA (15:46)
[2017-10-17] MEDS ORDERED: LEVOFLOXACIN 500 MG TAB PO STA (16:19)
[2017-10-17 16:33] VITALS: BP 128/81; PULSE 66; TEMP 97.6
== END 2017-10-17 16:32 | disposition home or self-care (01) ==
LOC: EC 14:28
DX: J44.0 Chronic obstructive pulmonary disease with (acute) lower respiratory infection (principal); J18.9 Pneumonia, unspecified organism; E78.5 Hyperlipidemia, unspecified; I10 Essential (primary) hypertension; I25.10 Atherosclerotic heart disease of native coronary artery without angina pectoris; J96.11 Chronic respiratory failure with hypoxia; E03.9 Hypothyroidism, unspecified; E66.9 Obesity, unspecified; Z87.891 Personal history of nicotine dependence; Z79.899 Other long term (current) drug therapy; Z91.048 Other nonmedicinal substance allergy status; Z99.81 Dependence on supplemental oxygen; Z82.5 Family history of asthma and other chronic lower respiratory diseases; Z68.39 Body mass index [BMI] 39.0-39.9, adult
CPT/HCPCS: 99285; 96374; 36415; 94640; 93005; 80053; 82803; 83735; 85025; 71046; J2930

== ENCOUNTER 2017-10-18 17:52 | Inpatient (IN) | payer MEDICARE ==
[2017-10-18] MEDS ORDERED: methylPREDNISolone SOD SUCCI 125 MG/2 ML VIAL IV STA (18:47)
[2017-10-18] MEDS ORDERED: IPRATROPIUM-ALBUTEROL 3 ML NEB INHALATION STA (18:47)
--- NOTE | 2017-10-18 18:49 | ED ---
General Adult HPI - General Chief complaint: Shortness of Breath Stated complaint: pneumonia & SOB Time Seen by Provider: 10/18/17 18:36 Source: patient, family, RN notes reviewed Mode of arrival: wheelchair Limitations: no limitations - History of Present Illness Initial comments: Patient is a pleasant 67-year-old male presenting to the emergency department with difficulty breathing. Patient does have a history of COPD. Patient has been coughing and short of breath the past several days. Patient was seen emergency department yesterday however felt good enough to go home. Symptoms have worsened. No fevers. Patient has had some productive green sputum. No leg pain or leg swelling. - Related Data Home Medications Medication Instructions Recorded Confirmed ALPRAZolam [Xanax] 0.5 mg PO BID PRN 04/27/15 10/18/17 Albuterol Inhaler [Ventolin Hfa 2 puff INHALATION RT-QID PRN 04/28/15 10/18/17 Inhaler] Simvastatin [Zocor] 80 mg PO HS 12/04/15 10/18/17 Umeclidinium Brm/Vilanterol Tr 1 puff PO RT-DAILY 12/04/15 10/18/17 [Anoro Ellipta 62.5-25 Mcg INH] Levothyroxine Sodium [Synthroid] 88 mcg PO DAILY 09/10/16 10/18/17 Theophylline 24 Hour [Tung-24] 400 mg PO DAILY 10/08/16 10/18/17 Ipratropium Nebulized [Atrovent 0.5 mg INHALATION RT-Q4H PRN 02/26/17 10/18/17 Nebulized] Previous Rx's Medication Instructions Recorded Albuterol Nebulized [Ventolin 2.5 mg INHALATION RT-Q4H PRN #0 05/04/15 Nebulized] nebu Metoprolol Tartrate [Lopressor] 100 mg PO BID #60 tab 03/02/17 Levofloxacin [Levaquin] 500 mg PO DAILY #7 tab 10/17/17 predniSONE 50 mg PO DAILY #4 tab 10/17/17 Allergies Allergy/AdvReac Type Severity Reaction Status Date / Time adhesive tape Allergy Rash/Hives Verified 10/18/17 18:21 Review of Systems ROS Statement: Those systems with pertinent positive or pertinent negative responses have been documented in the HPI. ROS Other: All systems not noted in ROS Statement are negative. Constitutional: Denies: fever Eyes: Denies: eye pain ENT: Denies: ear pain Respiratory: Reports: cough, dyspnea Cardiovascular: Denies: chest pain Endocrine: Denies: fatigue Gastrointestinal: Denies: abdominal pain Genitourinary: Denies: dysuria Musculoskeletal: Denies: back pain Skin: Denies: rash Neurological: Denies: weakness Past Medical History Past Medical History: Coronary Artery Disease (CAD), Chest Pain / Angina, Heart Failure, COPD, Hyperlipidemia, Hypertension, Pneumonia, Thyroid Disorder Additional Past Medical History / Comment(s): Obesity, COPD with chronic hypoxic respiratory failure and based on FEV1 of 31% of predicted,bronchits, chronic hypoxic respitory failure maintained on home 02 3 liters n/c, hypothyroidism, generalized anxiety disorder. 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, 2 cardiac stents Past Anesthesia/Blood Transfusion Reactions: No Reported Reaction Additional Past Anesthesia/Blood Transfusion Reaction / Comment(s): Prefers no morphine Date of Last Stent Placement:: 2007 Past Psychological History: Anxiety Smoking Status: Former smoker Past Alcohol Use History: None Reported Past Drug Use History: None Reported - Past Family History Father Family Medical History: COPD Mother Family Medical History: Congestive Heart Failure (CHF) General Exam Limitations: no limitations General appearance: alert, in no apparent distress Head exam: Present: atraumatic Eye exam: Present: other (Prosthetic eye on the left) ENT exam: Present: normal oropharynx Neck exam: Present: normal inspection Respiratory exam: Present: wheezes, rhonchi Cardiovascular Exam: Present: tachycardia GI/Abdominal exam: Present: soft. Absent: tenderness Extremities exam: Present: normal inspection. Absent: pedal edema, calf tenderness Neurological exam: Present: alert Psychiatric exam: Present: normal affect, normal mood Skin exam: Present: normal color Course Vital Signs 10/18/17 10/18/17 10/18/17 17:56 18:40 19:24 Temperature 98.0 F Pulse Rate 108 H 108 H Respiratory 24 20 Rate Blood Pressure 157/77 O2 Sat by Pulse 93 L Oximetry 10/18/17 10/18/17 19:40 19:51 Temperature Pulse Rate 100 96 Respiratory 18 Rate Blood Pressure 140/78 O2 Sat by Pulse 95 Oximetry - Reevaluation(s) Reevaluation #1: 10/18/17 20:05 Patient does meet sepsis criteria diagnosed at 2004. Blood culture and lactic acid have been ordered. IV antibiotics will be ordered. EKG Findings - EKG Comments: EKG Findings:: Sinus tachycardia 108. NM 154. QRS 92. QT 328. QTC 439. Left axis. Normal QRS. No acute ST change. Medical Decision Making - Medical Decision Making Patient reevaluated and resting comfortably in bed. Patient and family updated on results and plan. Case was discussed in detail with Dr. James, who will admit for Dr. Slaughter. - Lab Data Result diagrams: 10/18/17 18:11 10/18/17 18:11 Lab Results 10/18/17 10/18/17 10/18/17 Range/Units 18:11 18:11 18:11 WBC 31.3 H* (3.8-10.6) k/uL RBC 4.53 (4.30-5.90) m/uL Hgb 13.9 (13.0-17.5) gm/dL Hct 44.1 (39.0-53.0) % MCV 97.4 (80.0-100.0) fL MCH 30.7 (25.0-35.0) pg MCHC 31.5 (31.0-37.0) g/dL RDW 12.3 (11.5-15.5) % Plt Count 338 (150-450) k/uL Neutrophils % 87 % Lymphocytes % 5 % Monocytes % 7 % Eosinophils % 0 % Basophils % 0 % Neutrophils # 27.2 H (1.3-7.7) k/uL Lymphocytes # 1.7 (1.0-4.8) k/uL Monocytes # 2.1 H (0-1.0) k/uL Eosinophils # 0.1 (0-0.7) k/uL Basophils # 0.0 (0-0.2) k/uL PT (9.0-12.0) sec INR (<1.2) APTT (22.0-30.0) sec Sodium 142 (137-145) mmol/L Potassium 4.4 (3.5-5.1) mmol/L Chloride 102 (98-107) mmol/L Carbon Dioxide 26 (22-30) mmol/L Anion Gap 14 mmol/L BUN 21 H (9-20) mg/dL Creatinine 1.02 (0.66-1.25) mg/dL Est GFR (CKD-EPI)AfAm 89 (>60 ml/min/1.73 sqM) Est GFR (CKD-EPI)NonAf 77 (>60 ml/min/1.73 sqM) Glucose 196 H (74-99) mg/dL Plasma Lactic Acid Ike 2.8 H* (0.7-2.0) mmol/L Calcium 9.9 (8.4-10.2) mg/dL Total Bilirubin 0.4 (0.2-1.3) mg/dL AST 21 (17-59) U/L ALT 19 L (21-72) U/L Alkaline Phosphatase 120 (38-126) U/L Total Protein 6.9 (6.3-8.2) g/dL Albumin 3.9 (3.5-5.0) g/dL Influenza Type A RNA (Not Detectd) Influenza Type B (PCR) (Not Detectd) 10/18/17 10/18/17 Range/Units 18:11 18:50 WBC (3.8-10.6) k/uL RBC (4.30-5.90) m/uL Hgb (13.0-17.5) gm/dL Hct (39.0-53.0) % MCV (80.0-100.0) fL MCH (25.0-35.0) pg MCHC (31.0-37.0) g/dL RDW (11.5-15.5) % Plt Count (150-450) k/uL Neutrophils % % Lymphocytes % % Monocytes % % Eosinophils % % Basophils % % Neutrophils # (1.3-7.7) k/uL Lymphocytes # (1.0-4.8) k/uL Monocytes # (0-1.0) k/uL Eosinophils # (0-0.7) k/uL Basophils # (0-0.2) k/uL PT 10.0 (9.0-12.0) sec INR 1.0 (<1.2) APTT 22.6 (22.0-30.0) sec Sodium (137-145) mmol/L Potassium (3.5-5.1) mmol/L Chloride (98-107) mmol/L Carbon Dioxide (22-30) mmol/L Anion Gap mmol/L BUN (9-20) mg/dL Creatinine (0.66-1.25) mg/dL Est GFR (CKD-EPI)AfAm (>60 ml/min/1.73 sqM) Est GFR (CKD-EPI)NonAf (>60 ml/min/1.73 sqM) Glucose (74-99) mg/dL Plasma Lactic Acid Ike (0.7-2.0) mmol/L Calcium (8.4-10.2) mg/dL Total Bilirubin (0.2-1.3) mg/dL AST (17-59) U/L ALT (21-72) U/L Alkaline Phosphatase (38-126) U/L Total Protein (6.3-8.2) g/dL Albumin (3.5-5.0) g/dL Influenza Type A RNA Not Detected (Not Detectd) Influenza Type B (PCR) Not Detected (Not Detectd) - Radiology Data Radiology results: image reviewed (Chest x-ray shows possible right a slight infiltrate. No change from yesterday.) Critical Care Time Critical Care Time: Yes Total Critical Care Time: 32 Disposition Clinical Impression: Acute exacerbation of chronic obstructive airways disease, Pneumonia, Severe sepsis Disposition: ADMITTED IP TO THIS HOSP Referrals: Kathy Agee MD [Primary Care Provider] - 1-2 days Decision Time: 20:05
[2017-10-18 19:13] LABS: Albumin 3.9 g/dL (3.5-5.0); Calcium 9.9 mg/dL (8.4-10.2); Potassium 4.4 mmol/L (3.5-5.1); Total Bilirubin 0.4 mg/dL (0.2-1.3); Total Protein 6.9 g/dL (6.3-8.2)
[2017-10-18 19:19] LABS: Basophils % (A) 0 %; Eosinophils # (A) 0.1 k/uL (0-0.7); Eosinophils % (A) 0 %; HCT 44.1 % (39.0-53.0); HGB 13.9 gm/dL (13.0-17.5); Lymphocytes # (A) 1.7 k/uL (1.0-4.8); Lymphocytes % (A) 5 %; MCH 30.7 pg (25.0-35.0); MCHC 31.5 g/dL (31.0-37.0); MCV 97.4 fL (80.0-100.0); Monocytes # (A) 2.1 k/uL (0-1.0); Monocytes % (A) 7 %; Neutrophils # (A) 27.2 k/uL (1.3-7.7); Neutrophils % (A) 87 %; Platelet Count 338 k/uL (150-450); RBC 4.53 m/uL (4.30-5.90); RDW 12.3 % (11.5-15.5)
[2017-10-18 19:21] LABS: WBC 31.3 k/uL (3.8-10.6)
--- NOTE | 2017-10-18 19:27 | XR ---
EXAMINATION TYPE: XR chest 2V DATE OF EXAM: 10/18/2017 COMPARISON: Chest x-ray October 17, 2017. HISTORY: History of COPD with fever and cough. TECHNIQUE: Frontal and lateral views of the chest are obtained. FINDINGS: There is chronic left basilar linear scarring and/or atelectasis. There is stable patchy r ight basilar opacity. No new focal airspace opacity, pleural effusion, or pneumothorax is seen bilate rally. The cardiac silhouette size is within normal limits. The osseous structures are intact. IMPRESSION: Chronic left basilar scarring, perhaps mild right basilar infiltrate. No new infiltrate is seen. No significant change from one day earlier.
[2017-10-18 19:31] LABS: Partial Thromboplastin Time 22.6 sec (22.0-30.0)
[2017-10-18] MEDS ORDERED: PNEUMONIA PROTOCOL UTILIZED 1 EACH MISC PO PRN (20:06)
[2017-10-18] MEDS ORDERED: AZITHROMYCIN 500 MG in SODIUM CHLORIDE 0.9% 250 ML IVPB STA (20:06)
[2017-10-18] MEDS ORDERED: cefTRIAXone IN SWFI 1,000 MG/10 ML SYRINGE IVP STA (20:06)
[2017-10-18] MEDS: SODIUM CHLORIDE 0.9% 1,000 ML IV SCH (20:14)
[2017-10-18] MEDS ORDERED: SODIUM CHLORIDE 0.9% 1,000 ML IV STA (20:44)
[2017-10-18 21:27] LABS: Glucose,Whole Blood 123 mg/dL (75-99)
[2017-10-18 21:40] VITALS: BMI 39.2
[2017-10-18] MEDS: ATORVASTATIN 40 MG TAB PO SCH (22:33)
[2017-10-18] MEDS: METOPROLOL TARTRATE 50 MG TAB PO SCH (22:33)
[2017-10-18] MEDS: guaiFENesin-Coden 100-10MG/5ML 10 ML CUP PO PRN (22:38)
[2017-10-18 22:42] LABS: Appearance,Urine Clear (Clear); Bilirubin,Urine Negative (Negative); Blood,Urine Negative (Negative); Color,Urine Yellow; Glucose,Urine (UA) Negative (Negative); Ketones,Urine Negative (Negative); Leukocyte Esterase,Urine Negative (Negative); Nitrite,Urine Negative (Negative); Protein,Urine Trace (Negative); Specific Gravity,Urine 1.022 (1.001-1.035); Urobilinogen,Urine <2.0 mg/dL (<2.0)
[2017-10-19] MEDS: methylPREDNISolone SOD SUCCI 125 MG/2 ML VIAL IV SCH ×5 (00:37→23:57)
[2017-10-19] MEDS: IPRATROPIUM-ALBUTEROL 3 ML NEB INHALATION PRN (03:26)
[2017-10-19] MEDS: SODIUM CHLORIDE 0.9% 1,000 ML IV SCH ×2 (05:31→11:25)
[2017-10-19] MEDS: LEVOTHYROXINE 88 MCG TAB PO SCH (05:32)
--- NOTE | 2017-10-19 07:23 | XR ---
EXAMINATION TYPE: XR chest 2V DATE OF EXAM: 10/19/2017 COMPARISON: Chest x-ray from yesterday and older studies HISTORY: Pneumonia progress study. TECHNIQUE: Frontal and lateral views of the chest are obtained. FINDINGS: Background chronic emphysematous change is redemonstrated seen best on lateral view. There is chronic left basilar linear scarring and/or atelectasis. There is stable patchy right basilar opac ity. No new focal airspace opacity, pleural effusion, or pneumothorax is seen bilaterally. The cardia c silhouette size is within normal limits. The osseous structures are intact. IMPRESSION: Chronic left basilar linear scarring. Perhaps patchy right basilar atelectasis and/or in filtrate. No new infiltrate is seen. No significant interval change from yesterday.
[2017-10-19] MEDS: METOPROLOL TARTRATE 50 MG TAB PO SCH ×2 (07:34→20:32)
[2017-10-19] MEDS: THEOPHYLLINE 24 HOUR 400 MG CAP.ER.24H PO SCH (07:34)
[2017-10-19] MEDS: AZITHROMYCIN 500 MG TAB PO SCH (07:34)
[2017-10-19] MEDS: INSULIN ASPART 100 UNIT/ML 1 ML 10 ML VIAL SQ SCH ×4 (07:35→21:23)
[2017-10-19 07:41] LABS: Glucose,Whole Blood 173 mg/dL (75-99)
[2017-10-19] MEDS: IPRATROPIUM-ALBUTEROL 3 ML NEB INHALATION SCH ×4 (07:54→21:03)
[2017-10-19] MEDS: ACETAMINOPHEN TAB 325 MG TAB PO PRN ×2 (08:26→20:32)
[2017-10-19] MEDS: ALPRAZolam 0.5 MG TAB PO PRN ×2 (09:01→20:32)
[2017-10-19 09:28] LABS: Basophils % (A) 0 %; Eosinophils # (A) 0.1 k/uL (0-0.7); Eosinophils % (A) 0 %; HCT 42.3 % (39.0-53.0); HGB 13.1 gm/dL (13.0-17.5); Lymphocytes # (A) 1.2 k/uL (1.0-4.8); Lymphocytes % (A) 4 %; MCH 30.7 pg (25.0-35.0); MCV 98.9 fL (80.0-100.0); Mean Platelet Volume 7.6; Monocytes # (A) 0.7 k/uL (0-1.0); Monocytes % (A) 2 %; Neutrophils # (A) 26.2 k/uL (1.3-7.7); Neutrophils % (A) 93 %; Platelet Count 321 k/uL (150-450); RBC 4.28 m/uL (4.30-5.90); RDW 12.1 % (11.5-15.5)
[2017-10-19 09:30] LABS: WBC 28.3 k/uL (3.8-10.6)
[2017-10-19 09:43] LABS: Albumin 3.5 g/dL (3.5-5.0); Total Bilirubin 0.3 mg/dL (0.2-1.3); Total Protein 6.3 g/dL (6.3-8.2)
[2017-10-19 12:33] LABS: Glucose,Whole Blood 145 mg/dL (75-99)
[2017-10-19] MEDS: guaiFENesin-Coden 100-10MG/5ML 10 ML CUP PO PRN (14:25)
--- NOTE | 2017-10-19 17:13 | P.CNPUL ---
History of Present Illness Consult date: 10/19/17 Reason for consult: COPD, pneumonia History of present illness: Exit 7-year-old obese male patient with known history of COPD was hospitalized yesterday because of worsening shortness of breath. The patient symptoms started approximately a week ago. He was in the emergency department around 3 days ago where a chest x-ray was done and it revealed a limited right lower lobe pneumonia. He was given antibiotics and he was discharged home without much of an improvement and for that reason the patient came back for further evaluation. At a time of his readmission, he was having increased cough and congestion and wheeze and increased shortness of breath. He was producing some dark colored greenish sputum. No leg swelling. No calf pain or tenderness. No angina. No pleurisy. The patient was afebrile. His pulse ox was 93% on room air. He had leukocytosis with a white cell count of 31. He was also a mild lactic acidosis. For that reason, he was admitted and he was placed on IV fluids and antibiotics and currently the patient is in a combination of Rocephin and Zithromax. Subsequent white count is 29. Follow-up chest x-ray shows some improvement in the right lower lobe pulmonary infiltration. The lactic acid level is also down to 1.4. Review of Systems Constitutional: Reports fatigue, Reports weakness Eyes: denies blurred vision, denies bulging eye, denies decreased vision Ears: deny: decreased hearing, ear discharge, earache, tinnitus Ears, nose, mouth and throat: Denies headache, Denies sore throat Cardiovascular: Reports decreased exercise tolerance, Reports dyspnea on exertion Respiratory: Reports cough, Reports dyspnea, Reports wheezing Gastrointestinal: Denies abdominal pain, Denies diarrhea, Denies nausea, Denies vomiting Genitourinary: Reports as per HPI Musculoskeletal: Denies myalgias Musculoskeletal: absent: ankle pain, ankle stiffness, ankle swelling, as per HPI , elbow pain Integumentary: Denies pruritus, Denies rash Neurological: Denies numbness, Denies weakness Psychiatric: Denies anxiety, Denies depression Endocrine: Denies fatigue, Denies weight change Past Medical History Past Medical History: Coronary Artery Disease (CAD), Chest Pain / Angina, Heart Failure, COPD, Hyperlipidemia, Hypertension, Myocardial Infarction ([place]), Pneumonia, Thyroid Disorder Additional Past Medical History / Comment(s): Obesity, COPD with chronic hypoxic respiratory failure and based on FEV1 of 31% of predicted,bronchits, chronic hypoxic respitory failure maintained on home 02 3 liters n/c, hypothyroidism, generalized anxiety disorder. 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 He also uses recreational marijuana but none in at least 6 years. He drinks alcohol on a rare basis. He worked in [employer]. He is currently living with daughter. He has no recent travel. He denies service. Past Drug Use History: None Reported - Past Family History Father Family Medical History: COPD Mother Family Medical History: Congestive Heart Failure (CHF) Medications and Allergies Home Medications Medication Instructions Recorded Confirmed Type ALPRAZolam [Xanax] 0.5 mg PO BID PRN 04/27/15 10/18/17 History Albuterol Inhaler [Ventolin Hfa 2 puff INHALATION RT-QID PRN 04/28/15 10/18/17 History Inhaler] Albuterol Nebulized [Ventolin 2.5 mg INHALATION RT-Q4H PRN #0 05/04/15 10/18/17 Rx Nebulized] nebu Simvastatin [Zocor] 80 mg PO HS 12/04/15 10/18/17 History Umeclidinium Brm/Vilanterol Tr 1 puff PO RT-DAILY 12/04/15 10/18/17 History [Anoro Ellipta 62.5-25 Mcg INH] Levothyroxine Sodium [Synthroid] 88 mcg PO DAILY 09/10/16 10/18/17 History Theophylline 24 Hour [Tung-24] 400 mg PO DAILY 10/08/16 10/18/17 History Ipratropium Nebulized [Atrovent 0.5 mg INHALATION RT-Q4H PRN 02/26/17 10/18/17 History Nebulized] Levofloxacin [Levaquin] 500 mg PO DAILY #7 tab 10/17/17 10/18/17 Rx predniSONE 50 mg PO DAILY #4 tab 10/17/17 10/18/17 Rx Metoprolol Tartrate [Lopressor] 50 mg PO HS 10/18/17 10/18/17 History Metoprolol Tartrate [Lopressor] 100 mg PO DAILY 10/18/17 10/18/17 History Allergies Allergy/AdvReac Type Severity Reaction Status Date / Time adhesive tape Allergy Rash/Hives Verified 10/18/17 18:21 Physical Exam Vitals: Vital Signs Temp Pulse Pulse Resp BP BP Pulse Ox 10/19/17 15:51 88 10/19/17 15:30 84 10/19/17 15:00 98.1 F 96 20 120/73 92 L 10/19/17 12:04 92 10/19/17 11:46 84 10/19/17 08:07 92 10/19/17 07:54 88 10/19/17 07:00 94 18 134/79 96 10/19/17 03:38 84 10/19/17 03:26 84 10/18/17 20:52 89 18 142/81 96 10/18/17 20:20 98 18 141/81 96 10/18/17 19:51 96 18 140/78 95 10/18/17 19:40 100 10/18/17 19:24 108 H 10/18/17 18:40 20 10/18/17 17:56 98.0 F 108 H 24 157/77 93 L Intake and Output 10/19/17 10/19/17 10/19/17 06:59 14:59 22:59 Intake Total Balance Intake: Oral Other: Voiding Method Toilet # Voids 2 Weight Morbid obesity, comfortable likely distress.Head exam was generally normal. There was no scleral icterus or corneal arcus. Mucous membranes were moist. My normal neck and the patient has significant crowding of the posterior oropharynx. Lung sounds are diminished at some few expiratory wheezes heard bilaterally and diminished breath sounds at lung bases.Cardiac exam revealed the PMI to be normally situated and sized. The rhythm was regular and no extrasystoles were noted during several minutes of auscultation. The first and second heart sounds were normal and physiologic splitting of the second heart sound was noted. There were no murmurs, rubs, clicks, or gallops.Abdominal exam revealed normal bowel sounds. The abdomen was soft, non-tender, and without masses, organomegaly, or appreciable enlargement of the abdominal aorta.Examination of the extremities revealed easily palpable radial, femoral and pedal pulses. There was no cyanosis, clubbing or edema.Examination of the skin revealed no evidence of significant rashes, suspicious appearing nevi or other concerning lesions. Neurologically the patient is awake and alert and there is no focal neurological deficit at this point Results - Laboratory Findings CBC and BMP: 10/19/17 08:58 10/19/17 08:58 PT/INR, D-dimer PT 10.0 sec (9.0-12.0) 10/18/17 18:11 INR 1.0 (<1.2) 10/18/17 18:11 Abnormal lab findings: Abnormal Labs 10/18/17 10/18/17 10/18/17 18:11 18:11 18:11 WBC 31.3 H* RBC Neutrophils # 27.2 H Monocytes # 2.1 H BUN 21 H Glucose 196 H POC Glucose (mg/dL) Plasma Lactic Acid Ike 2.8 H* ALT 19 L Urine Protein 10/18/17 10/18/17 10/18/17 20:18 21:26 22:40 WBC RBC Neutrophils # Monocytes # BUN Glucose POC Glucose (mg/dL) 123 H Plasma Lactic Acid Ike 2.2 H* ALT Urine Protein Trace H 10/19/17 10/19/17 10/19/17 07:17 08:58 08:58 WBC 28.3 H* RBC 4.28 L Neutrophils # 26.2 H Monocytes # BUN 21 H Glucose 240 H POC Glucose (mg/dL) 173 H Plasma Lactic Acid Ike ALT Urine Protein 10/19/17 10/19/17 08:58 12:27 WBC RBC Neutrophils # Monocytes # BUN Glucose POC Glucose (mg/dL) 145 H Plasma Lactic Acid Ike 3.6 H* ALT Urine Protein - Diagnostic Findings Chest x-ray: image reviewed Assessment and Plan Plan: Assessment 1 acute right lower lobe pneumonia failed outpatient treatment and patient is currently admitted for leukocytosis, mild lactic acidosis and COPD exacerbation in conjunction with a right lower lobe pneumonia 2 acute COPD exacerbation secondary to underlying pneumonia. 3 COPD advanced with an FEV1 of 31% of predicted, maintained on Tudorza inhaler on outpatient basis 4 chronic hypoxic respiratory failure 5 coronary artery disease with previous coronary stent insertion 6 hypertension 7 obesity, BMI of 39.9 8 generalized anxiety disorder 9 hyperlipidemia 10. Prosthetic left eye 11 acute leukocytosis and lactic acidosis secondary to pneumonia Plan Sputum Gram stain and culture. Blood culture. Rocephin and Zithromax. Bronchodilators [id number], IV Solu-Medrol, monitor chest x-ray findings, monitor electrode some blood work, monitor white count, Robitussin before meals for cough, we'll continue to follow. Anticipate recovery within next 24-48 hours.
[2017-10-19 17:54] LABS: Glucose,Whole Blood 223 mg/dL (75-99)
[2017-10-19] MEDS: ATORVASTATIN 40 MG TAB PO SCH (20:32)
[2017-10-19] MEDS: cefTRIAXone IN SWFI 1,000 MG/10 ML SYRINGE IVP SCH (20:32)
[2017-10-19 20:53] LABS: Glucose,Whole Blood 293 mg/dL (75-99)
[2017-10-19] MEDS: HEPARIN SODIUM,PORCINE 5,000 UNIT/ML 1 ML VIAL SQ SCH (21:23)
[2017-10-19 21:30] LABS: Hemoglobin A1C 6.3 % (4.0-6.0)
--- NOTE | 2017-10-19 22:59 | P.HPIM ---
History of Present Illness H&P Date: 10/19/17 Chief Complaint: Shortness of breath Patient is a 67-year-old male with a known history of COPD and chronic hypoxic respiratory failure home oxygen 3 L, hypertension, hyperlipidemia and history of NV came to ER with complaints of worsening shortness of breath and cough with greenish sputum. Patient was seen by ER about 3 days back and was treated with bronchodilators and chest x-ray showing right lower lobe pneumonia. Patient was sent home on antibiotics in the form of levofloxacin. Patient says that he did not get improvement and came back to the hospital for further evaluation. Otherwise patient denied any fever or chills. No chest pain. Patient was having increasing short of breath. No leg swelling. Denied any dizziness or lightheadedness. Patient was admitted to hospital and was started on ceftriaxone and azithromycin. Chest x-ray showed improvement in right lower lobe pulmonary infiltration. Extent patient was found have significant leukocytosis with WBC count 31.3. Lactic acidosis 2.8. Currently patient symptomatically slightly improved Review of Systems Constitutional: Patient denies any fever or chills . No generalized weakness or weight loss. Abdomen: Patient denied nausea vomiting and diarrhea and abdominal pain. Cardiovascular: Patient denies any chest pain or short of breath no palpitations. Respiratory: Cough with greenish sputum production and shortness of breath Neurologic: Patient denied any numbness or tingling headache. Musculoskeletal: Patient denies any complaints of joint swelling or deformity. Skin: Negative Psychiatric: Negative Endocrine: No heat or cold intolerance. No recent weight gain. Genitourinary: No dysuria or hematuria. All other 14 point ROS negative except the above Past Medical History Past Medical History: Coronary Artery Disease (CAD), Chest Pain / Angina, Heart Failure, COPD, Hyperlipidemia, Hypertension, Myocardial Infarction ([place]), Pneumonia, Thyroid Disorder Additional Past Medical History / Comment(s): Obesity, COPD with chronic hypoxic respiratory failure and based on FEV1 of 31% of predicted,bronchits, chronic hypoxic respitory failure maintained on home 02 3 liters n/c, hypothyroidism, generalized anxiety disorder. 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 He also uses recreational marijuana but none in at least 6 years. He drinks alcohol on a rare basis. He worked in [employer] and [employer]. He is currently living with daughter. He has no recent travel. He denies service. Past Drug Use History: None Reported - Past Family History Father Family Medical History: COPD Mother Family Medical History: Congestive Heart Failure (CHF) Medications and Allergies Home Medications Medication Instructions Recorded Confirmed Type ALPRAZolam [Xanax] 0.5 mg PO BID PRN 04/27/15 10/18/17 History Albuterol Inhaler [Ventolin Hfa 2 puff INHALATION RT-QID PRN 04/28/15 10/18/17 History Inhaler] Albuterol Nebulized [Ventolin 2.5 mg INHALATION RT-Q4H PRN #0 05/04/15 10/18/17 Rx Nebulized] nebu Simvastatin [Zocor] 80 mg PO HS 12/04/15 10/18/17 History Umeclidinium Brm/Vilanterol Tr 1 puff PO RT-DAILY 12/04/15 10/18/17 History [Anoro Ellipta 62.5-25 Mcg INH] Levothyroxine Sodium [Synthroid] 88 mcg PO DAILY 09/10/16 10/18/17 History Theophylline 24 Hour [Tung-24] 400 mg PO DAILY 10/08/16 10/18/17 History Ipratropium Nebulized [Atrovent 0.5 mg INHALATION RT-Q4H PRN 02/26/17 10/18/17 History Nebulized] Levofloxacin [Levaquin] 500 mg PO DAILY #7 tab 10/17/17 10/18/17 Rx predniSONE 50 mg PO DAILY #4 tab 10/17/17 10/18/17 Rx Metoprolol Tartrate [Lopressor] 50 mg PO HS 10/18/17 10/18/17 History Metoprolol Tartrate [Lopressor] 100 mg PO DAILY 10/18/17 10/18/17 History Allergies Allergy/AdvReac Type Severity Reaction Status Date / Time adhesive tape Allergy Rash/Hives Verified 10/18/17 18:21 Physical Exam Vitals: Vital Signs Temp Pulse Pulse Resp BP BP Pulse Ox 10/19/17 12:04 92 10/19/17 11:46 84 10/19/17 08:07 92 10/19/17 07:54 88 10/19/17 07:00 94 18 134/79 96 10/19/17 03:38 84 10/19/17 03:26 84 10/18/17 20:52 89 18 142/81 96 10/18/17 20:20 98 18 141/81 96 10/18/17 19:51 96 18 140/78 95 10/18/17 19:40 100 10/18/17 19:24 108 H 10/18/17 18:40 20 10/18/17 17:56 98.0 F 108 H 24 157/77 93 L Intake and Output 10/18/17 10/19/17 10/19/17 21:59 06:59 14:59 Intake Total Balance Intake: Oral Other: Voiding Method Toilet # Voids 2 Weight PHYSICAL EXAMINATION: Patient is lying in the bed comfortably, no acute distress, awake alert and oriented.. HEENT: Normocephalic. Neck is supple. Pupils reactive. Nostrils clear. Oral cavity is moist. Ears reveal no drainage. Neck reveals no JVD, carotid bruits, or thyromegaly. CHEST EXAMINATION: Trachea is central. Symmetrical expansion. Bilateral diffuse wheezing and minimal rhonchi and diminished air entry CARDIAC: Normal S1, S2 with no gallops. No murmurs ABDOMEN: Soft. Bowel sounds normal. No organomegaly. No abdominal bruits. Extremities: reveal no edema. No clubbing or cyanosis Neurologically awake, alert, oriented x3 with well-coordinated movements. No focal deficits noted Skin: No rash or skin lesions. Psychiatric: Coperative. Nonsuicidal Musculoskeletal: No joint swelling or deformity. Normal range of motion. Results CBC & Chem 7: 10/19/17 08:58 10/19/17 08:58 Labs: Abnormal Lab Results - Last 24 Hours (Table) 10/18/17 10/18/17 10/18/17 Range/Units 18:11 18:11 18:11 WBC 31.3 H* (3.8-10.6) k/uL RBC (4.30-5.90) m/uL Neutrophils # 27.2 H (1.3-7.7) k/uL Monocytes # 2.1 H (0-1.0) k/uL BUN 21 H (9-20) mg/dL Glucose 196 H (74-99) mg/dL POC Glucose (mg/dL) (75-99) mg/dL Plasma Lactic Acid Ike 2.8 H* (0.7-2.0) mmol/L ALT 19 L (21-72) U/L Urine Protein (Negative) 10/18/17 10/18/17 10/18/17 Range/Units 20:18 21:26 22:40 WBC (3.8-10.6) k/uL RBC (4.30-5.90) m/uL Neutrophils # (1.3-7.7) k/uL Monocytes # (0-1.0) k/uL BUN (9-20) mg/dL Glucose (74-99) mg/dL POC Glucose (mg/dL) 123 H (75-99) mg/dL Plasma Lactic Acid Ike 2.2 H* (0.7-2.0) mmol/L ALT (21-72) U/L Urine Protein Trace H (Negative) 10/19/17 10/19/17 10/19/17 Range/Units 07:17 08:58 08:58 WBC 28.3 H* (3.8-10.6) k/uL RBC 4.28 L (4.30-5.90) m/uL Neutrophils # 26.2 H (1.3-7.7) k/uL Monocytes # (0-1.0) k/uL BUN 21 H (9-20) mg/dL Glucose 240 H (74-99) mg/dL POC Glucose (mg/dL) 173 H (75-99) mg/dL Plasma Lactic Acid Ike (0.7-2.0) mmol/L ALT (21-72) U/L Urine Protein (Negative) 10/19/17 10/19/17 Range/Units 08:58 12:27 WBC (3.8-10.6) k/uL RBC (4.30-5.90) m/uL Neutrophils # (1.3-7.7) k/uL Monocytes # (0-1.0) k/uL BUN (9-20) mg/dL Glucose (74-99) mg/dL POC Glucose (mg/dL) 145 H (75-99) mg/dL Plasma Lactic Acid Ike 3.6 H* (0.7-2.0) mmol/L ALT (21-72) U/L Urine Protein (Negative) Microbiology - Last 24 Hours (Table) 10/18/17 20:18 Urine Culture - Preliminary Urine,Voided 10/18/17 19:50 Gram Stain - Preliminary Sputum Sputum Culture - Preliminary Thrombosis Risk Factor Assmnt - Choose All That Apply Any of the Below Risk Factors Present?: Yes Each Factor Represents 1 point: Abnormal pulmonary function (COPD), Obesity ( BMI >25), Serious lung disease incl. pneumonia (< 1month) Other Risk Factors: Yes Each Risk Factor Represents 2 Points: Age 61-74 years Other congenital or acquired thrombophilia - If yes, enter type in comment: No Thrombosis Risk Factor Assessment Total Risk Factor Score: 5 Thrombosis Risk Factor Assessment Level: High Risk Assessment and Plan Assessment: Acute COPD exacerbation secondary to pneumonia Right lower lobe pneumonia. Failed outpatient therapy Significant leukocytosis and lactic acidosis on admission Chronic hypoxic respiratory failure due to COPD on home oxygen Coronary artery disease with history of stent placement Hypertension Hyperlipidemia next line history of NV Hypothyroidism Morbid obesity with BMI 30) 0.9 Prosthetic left eye Generalized anxiety Plan: Patient be continued on antibiotics in the form of azithromycin and ceftriaxone. Continue with IV steroids and breathing treatments and follow closely. Continue the home medications and further recommendations based on the clinical course. Pulmonary is following. Time with Patient: Greater than 30
[2017-10-20] MEDS: SODIUM CHLORIDE 0.9% 1,000 ML IV SCH ×2 (04:37→11:52)
[2017-10-20] MEDS: LEVOTHYROXINE 88 MCG TAB PO SCH (06:33)
[2017-10-20] MEDS: methylPREDNISolone SOD SUCCI 125 MG/2 ML VIAL IV SCH ×4 (06:33→23:47)
[2017-10-20] MEDS: IPRATROPIUM-ALBUTEROL 3 ML NEB INHALATION SCH ×4 (06:45→19:26)
[2017-10-20 07:32] LABS: Glucose,Whole Blood 169 mg/dL (75-99)
[2017-10-20] MEDS: INSULIN ASPART 100 UNIT/ML 1 ML 10 ML VIAL SQ SCH ×4 (08:15→20:59)
[2017-10-20] MEDS: METOPROLOL TARTRATE 50 MG TAB PO SCH ×2 (08:15→20:42)
[2017-10-20] MEDS: THEOPHYLLINE 24 HOUR 400 MG CAP.ER.24H PO SCH (08:16)
[2017-10-20] MEDS: AZITHROMYCIN 500 MG TAB PO SCH (08:16)
[2017-10-20] MEDS: HEPARIN SODIUM,PORCINE 5,000 UNIT/ML 1 ML VIAL SQ SCH ×2 (08:21→20:41)
[2017-10-20] MEDS: ACETAMINOPHEN TAB 325 MG TAB PO PRN (08:32)
[2017-10-20] MEDS: guaiFENesin-Coden 100-10MG/5ML 10 ML CUP PO PRN (08:33)
[2017-10-20 09:46] LABS: Basophils % (A) 0 %; Eosinophils % (A) 0 %; HCT 43.7 % (39.0-53.0); HGB 14.4 gm/dL (13.0-17.5); Lymphocytes % (A) 4 %; MCH 32.2 pg (25.0-35.0); MCHC 32.9 g/dL (31.0-37.0); MCV 97.9 fL (80.0-100.0); Mean Platelet Volume 6.9; Monocytes # (A) 0.8 k/uL (0-1.0); Monocytes % (A) 3 %; Neutrophils # (A) 25.6 k/uL (1.3-7.7); Neutrophils % (A) 93 %; Platelet Count 344 k/uL (150-450); RBC 4.46 m/uL (4.30-5.90); RDW 12.1 % (11.5-15.5)
[2017-10-20 09:49] LABS: WBC 27.5 k/uL (3.8-10.6)
[2017-10-20 10:13] LABS: Anion Gap 12 mmol/L; Blood Urea Nitrogen 22 mg/dL (9-20); Calcium 9.2 mg/dL (8.4-10.2); Carbon Dioxide 26 mmol/L (22-30); Chloride 101 mmol/L (98-107); Glucose 267 mg/dL (74-99); Potassium 4.5 mmol/L (3.5-5.1); Sodium 139 mmol/L (137-145)
[2017-10-20 11:49] LABS: Glucose,Whole Blood 195 mg/dL (75-99)
--- NOTE | 2017-10-20 11:59 | P.PN ---
Subjective Progress Note Date: 10/20/17 Principal diagnosis: Acute right lower lobe pneumonia with failed outpatient treatment, COPD exacerbation This is 67-year-old obese male patient with known history of COPD was hospitalized yesterday because of worsening shortness of breath. The patient symptoms started approximately a week ago. He was in the emergency department around 3 days ago where a chest x-ray was done and it revealed a limited right lower lobe pneumonia. He was given antibiotics and he was discharged home without much of an improvement and for that reason the patient came back for further evaluation. At a time of his readmission, he was having increased cough and congestion and wheeze and increased shortness of breath. He was producing some dark colored greenish sputum. No leg swelling. No calf pain or tenderness. No angina. No pleurisy. The patient was afebrile. His pulse ox was 93% on room air. He had leukocytosis with a white cell count of 31. He was also a mild lactic acidosis. For that reason, he was admitted and he was placed on IV fluids and antibiotics and currently the patient is in a combination of Rocephin and Zithromax. Subsequent white count is 29. Follow- up chest x-ray shows some improvement in the right lower lobe pulmonary infiltration. The lactic acid level is also down to 1.4. On 10/20/2017 patient seen in follow-up on medical surgical floor. Reports slight improvement in his congestion and dyspnea. He is utilizing his flutter valve, he states his sputum is yellow in color. Currently 4 L per nasal cannula , with O2 sat at 94%. He is afebrile, hemodynamically stable. Blood, sputum cultures remain negative, urine cultures pending. She is on a combination of Rocephin and Zithromax, IV Solu-Medrol, DuoNeb belies treatments. Still dyspneic with any exertion, but has been ambulating to the bathroom, and tolerating it reasonably well. Denies any fever, denies any chills or night sweats. Objective - Vital Signs Vital signs: Vital Signs Temp 97.0 F L 10/20/17 06:39 Pulse 92 10/20/17 11:30 Resp 16 10/20/17 06:39 BP 125/77 10/20/17 06:39 Pulse Ox 94 L 10/20/17 06:39 Intake & Output 10/19/17 10/20/17 10/20/17 18:59 06:59 18:59 Output Total 1200 Balance -1200 Weight 126 kg Output: Urine 1200 Other: Voiding Method Toilet Toilet # Voids 2 1 - Exam GENERAL EXAM: Alert, pleasant, 67-year-old white male comfortable in no apparent distress. HEAD: Normocephalic/atraumatic. EYES: Normal reaction of pupils, equal size. Conjunctiva pink, sclera white. NOSE: Clear with pink turbinates. THROAT: No erythema or exudates. NECK: No masses, no JVD, no thyroid enlargement, no adenopathy. CHEST: No chest wall deformity. Symmetrical expansion. LUNGS: Equal air entry with coarse crackles over right lower lobe, no wheezes noted CVS: Regular rate and rhythm, normal S1 and S2, no gallops, no murmurs, no rubs ABDOMEN: Soft, nontender. No hepatosplenomegaly, normal bowel sounds, no guarding or rigidity. EXTREMITIES: No clubbing, no edema, no cyanosis, 2+ pulses and upper and lower extremities. MUSCULOSKELETAL: Muscle strength and tone normal. SPINE: No scoliosis or deformity SKIN: No rashes CENTRAL NERVOUS SYSTEM: Alert and oriented -3. No focal deficits, tone is normal in all 4 extremities. PSYCHIATRIC: Alert and oriented -3. Appropriate affect. Intact judgment and insight. - Labs CBC & Chem 7: 10/20/17 08:50 10/20/17 08:50 Labs: Abnormal Lab Results - Last 24 Hours (Table) 10/18/17 10/19/17 10/19/17 Range/Units 22:40 12:27 17:50 WBC (3.8-10.6) k/uL Neutrophils # (1.3-7.7) k/uL BUN (9-20) mg/dL Glucose (74-99) mg/dL POC Glucose (mg/dL) 145 H 223 H (75-99) mg/dL Hemoglobin A1c 6.3 H (4.0-6.0) % 10/19/17 10/20/17 10/20/17 Range/Units 20:48 07:25 08:50 WBC 27.5 H* (3.8-10.6) k/uL Neutrophils # 25.6 H (1.3-7.7) k/uL BUN (9-20) mg/dL Glucose (74-99) mg/dL POC Glucose (mg/dL) 293 H 169 H (75-99) mg/dL Hemoglobin A1c (4.0-6.0) % 10/20/17 10/20/17 Range/Units 08:50 11:28 WBC (3.8-10.6) k/uL Neutrophils # (1.3-7.7) k/uL BUN 22 H (9-20) mg/dL Glucose 267 H (74-99) mg/dL POC Glucose (mg/dL) 195 H (75-99) mg/dL Hemoglobin A1c (4.0-6.0) % Microbiology - Last 24 Hours (Table) 10/18/17 19:50 Gram Stain - Final Sputum Sputum Culture - Final 10/18/17 18:11 Blood Culture - Preliminary Blood No Growth after 24 hours 10/18/17 20:18 Urine Culture - Preliminary Urine,Voided Assessment and Plan Plan: Assessment: 1 acute right lower lobe pneumonia failed outpatient treatment and patient is currently admitted for leukocytosis, mild lactic acidosis and COPD exacerbation in conjunction with a right lower lobe pneumonia 2 acute COPD exacerbation secondary to underlying pneumonia. 3 COPD advanced with an FEV1 of 31% of predicted, maintained on Tudorza inhaler on outpatient basis 4 chronic hypoxic respiratory failure 5 coronary artery disease with previous coronary stent insertion 6 hypertension 7 obesity, BMI of 39.9 8 generalized anxiety disorder 9 hyperlipidemia 10. Prosthetic left eye 11 acute leukocytosis and lactic acidosis secondary to pneumonia Plan Sputum and blood culture remained negative, urine cultures pending. Patient will continue on a combination of Zithromax and Rocephin. Vital signs are stable, patient remains afebrile. White count is trending down, down to 27.5 today. Patient remains hemodynamically stable. Continue DuoNeb, continue IV steroids. Continue encouraging flutter valve. Recent activity as tolerated. We'll continue to follow I performed a history & physical examination of the patient and discussed their management with my nurse practitioner, Radha Marrero. I reviewed the nurse practitioner's note and agree with the documented findings and plan of care. Lung sounds are positive for right lower lobe crackles. The findings and the impression was discussed with the patient. I attest to the documentation by the nurse practitioner. Time with Patient: Less than 30
--- NOTE | 2017-10-20 14:24 | CDI ---
Last Revision, July 2017 Documentation Clarification Form Date: 10/20/2017 From: Nery Cazares Admit Date: 10/18/2017 8:06:00 PM Patient Name: Jacky Munguia Visit Number: [id number] Discharge Date: ATTENTION: The Clinical Documentation Specialists (CDI) and [facility] Coding Staff appreciate your assistance in clarifying documentation. Please respond to the clarification below the line at the bottom and electronically sign. The CDI & [facility] Coding staff will review the response and follow-up if needed. Please note: Queries are made part of the Legal Health Record. If you have any questions, please contact the author of this message via ITS. Dr. Adryan James: Per the ED note: Patient presented w/SOB & cough with a history of COPD. Diagnosed with Sepsis & Severe Sepsis, COPD Exacerbation and pneumonia. History/Risk Factors: COPD, Chronic Hypoxic Respiratory Failure on Home O2, CAD , CHF, Hyperlipidemia, Hypertension, Obesity and previous pneumoina. Clinical Indicators: LAB: WBC: 31.3, Neut 27.2, Lacitc Acid 2.8. Blood, Sputum & Urine cultures negative (final) Vitals signs on admission: T 98.0, P 108, R 24 (sob, cough), BP 157/77, PO 93 3Lnc. Treatment: IV Rocephin, IV Azithromycin, IV Solumedrol, Albuterol neb INH, IV fl 100, IV fluid bolus, O2 3Lnc. Consult: Pulmonary In your professional opinion, please clarify if these findings signify one of the following conditions, whether the condition is POA, and cause, if known: Sepsis ruled in or ruled out Severe Sepsis Septic Shock Other, please specify Unable to determine Present on Admission: Yes No Please continue to document in your progress notes and discharge summary in order to capture severity of illness and risk of mortality. Include clinical findings that support your diagnosis. MTDD
--- NOTE | 2017-10-20 15:23 | XR ---
EXAMINATION TYPE: XR chest 1V DATE OF EXAM: 10/20/2017 COMPARISON: 10/19/2017 HISTORY: Pneumonia. Follow-up exam. TECHNIQUE: Single frontal view of the chest is obtained. FINDINGS: Right basilar opacity has resolved in the interim. There is no focal air space opacity, ple ural effusion, or pneumothorax seen. Linear left basilar atelectasis or scarring is platelike subsegm ental. The cardiac silhouette size is within normal limits. The osseous structures are intact. Pulm onary hyperinflation and biapical lucency relates underlying COPD. IMPRESSION: Resolution of the previously seen right basilar opacity. Chronic scarring or atelectasis in the left lung base.
[2017-10-20 17:23] LABS: Glucose,Whole Blood 228 mg/dL (75-99)
[2017-10-20] MEDS: ALPRAZolam 0.5 MG TAB PO PRN (18:14)
[2017-10-20] MEDS: cefTRIAXone IN SWFI 1,000 MG/10 ML SYRINGE IVP SCH (20:42)
[2017-10-20] MEDS: ATORVASTATIN 40 MG TAB PO SCH (20:42)
[2017-10-20 20:53] LABS: Glucose,Whole Blood 254 mg/dL (75-99)
[2017-10-20] MEDS: IPRATROPIUM-ALBUTEROL 3 ML NEB INHALATION PRN (22:59)
--- NOTE | 2017-10-20 22:59 | P.PN ---
Subjective Progress Note Date: 10/20/17 Principal diagnosis: Acute COPD exacerbation and pneumonia Patient is a 67-year-old male with a known history of COPD and chronic hypoxic respiratory failure home oxygen 3 L, hypertension, hyperlipidemia and history of [place] came to ER with complaints of worsening shortness of breath and cough with greenish sputum. Patient was seen by ER about 3 days back and was treated with bronchodilators and chest x-ray showing right lower lobe pneumonia. Patient was sent home on antibiotics in the form of levofloxacin. Patient says that he did not get improvement and came back to the hospital for further evaluation. Otherwise patient denied any fever or chills. No chest pain. Patient was having increasing short of breath. No leg swelling. Denied any dizziness or lightheadedness. Patient was admitted to hospital and was started on ceftriaxone and azithromycin. Chest x-ray showed improvement in right lower lobe pulmonary infiltration. Extent patient was found have significant leukocytosis with WBC count 31.3. Lactic acidosis 2.8. Currently patient symptomatically slightly improved 10/20/2017 Patient is still having significant starts of breath. Chest x-ray showed resolution of right lower lobe obesity. She having chronic scarring of the left lower lobe and atelectasis. Patient is being continued on IV steroids and breathing treatments and antibiotics. Pulmonary is following. No fever no chills. No nausea vomiting or abdominal pain. No chest pain. Patient is still having significant leukocytosis All other review of systems negative for the above Current medications reviewed Objective - Vital Signs Vital signs: Vital Signs Temp 97.5 F L 10/20/17 15:00 Pulse 92 10/20/17 19:40 Resp 20 10/20/17 15:00 BP 127/81 10/20/17 15:00 Pulse Ox 96 10/20/17 15:00 Intake & Output 10/20/17 10/20/17 10/21/17 06:59 18:59 06:59 Intake Total 840 Output Total 1200 Balance -1200 840 Weight 126 kg Intake: Oral 840 Output: Urine 1200 Other: Voiding Method Toilet # Voids 1 2 - Exam PHYSICAL EXAMINATION: Patient is lying in the bed comfortably, no acute distress, awake alert and oriented.. HEENT: Normocephalic. Neck is supple. Pupils reactive. Nostrils clear. Oral cavity is moist. Ears reveal no drainage. Neck reveals no JVD, carotid bruits, or thyromegaly. CHEST EXAMINATION: Trachea is central. Symmetrical expansion. Bilateral diminished air entry and expiratory wheeze CARDIAC: Normal S1, S2 with no gallops. No murmurs ABDOMEN: Soft. Bowel sounds normal. No organomegaly. No abdominal bruits. Extremities: reveal no edema. No clubbing or cyanosis Neurologically awake, alert, oriented x3 with well-coordinated movements. No focal deficits noted Skin: No rash or skin lesions. Psychiatric: Cooperative. Nonsuicidal Musculoskeletal: No joint swelling or deformity. Normal range of motion. - Labs CBC & Chem 7: 10/20/17 08:50 10/20/17 08:50 Labs: Abnormal Lab Results - Last 24 Hours (Table) 10/18/17 10/20/17 10/20/17 Range/Units 22:40 07:25 08:50 WBC 27.5 H* (3.8-10.6) k/uL Neutrophils # 25.6 H (1.3-7.7) k/uL BUN (9-20) mg/dL Glucose (74-99) mg/dL POC Glucose (mg/dL) 169 H (75-99) mg/dL Hemoglobin A1c 6.3 H (4.0-6.0) % 10/20/17 10/20/17 10/20/17 Range/Units 08:50 11:28 17:20 WBC (3.8-10.6) k/uL Neutrophils # (1.3-7.7) k/uL BUN 22 H (9-20) mg/dL Glucose 267 H (74-99) mg/dL POC Glucose (mg/dL) 195 H 228 H (75-99) mg/dL Hemoglobin A1c (4.0-6.0) % 10/20/17 Range/Units 20:49 WBC (3.8-10.6) k/uL Neutrophils # (1.3-7.7) k/uL BUN (9-20) mg/dL Glucose (74-99) mg/dL POC Glucose (mg/dL) 254 H (75-99) mg/dL Hemoglobin A1c (4.0-6.0) % Microbiology - Last 24 Hours (Table) 10/18/17 18:11 Blood Culture - Preliminary Blood No Growth after 48 hours 10/18/17 20:18 Urine Culture - Final Urine,Voided 10/18/17 19:50 Gram Stain - Final Sputum Sputum Culture - Final Assessment and Plan Assessment: Acute COPD exacerbation secondary to pneumonia Right lower lobe pneumonia. Failed outpatient therapy Sepsis secondary to pneumonia Significant leukocytosis and lactic acidosis on admission Chronic hypoxic respiratory failure due to COPD on home oxygen Coronary artery disease with history of stent placement Hypertension Hyperlipidemia next line history of [place] Hypothyroidism Morbid obesity with BMI 30) 0.9 Prosthetic left eye Generalized anxiety Plan: Patient be continued on antibiotics in the form of azithromycin and ceftriaxone. Continue with IV steroids and breathing treatments and follow closely. Continue the home medications and further recommendations based on the clinical course. Pulmonary is following. Time with Patient: Greater than 30
[2017-10-21] MEDS: IPRATROPIUM-ALBUTEROL 3 ML NEB INHALATION PRN (03:02)
[2017-10-21] MEDS: methylPREDNISolone SOD SUCCI 125 MG/2 ML VIAL IV SCH (06:45)
[2017-10-21] MEDS: LEVOTHYROXINE 88 MCG TAB PO SCH (06:45)
[2017-10-21 07:34] LABS: Glucose,Whole Blood 182 mg/dL (75-99)
[2017-10-21] MEDS: IPRATROPIUM-ALBUTEROL 3 ML NEB INHALATION SCH ×4 (07:49→19:46)
[2017-10-21] MEDS: METOPROLOL TARTRATE 50 MG TAB PO SCH ×2 (07:55→20:12)
[2017-10-21] MEDS: AZITHROMYCIN 500 MG TAB PO SCH (07:55)
[2017-10-21] MEDS: INSULIN ASPART 100 UNIT/ML 1 ML 10 ML VIAL SQ SCH ×4 (07:55→21:20)
[2017-10-21] MEDS: HEPARIN SODIUM,PORCINE 5,000 UNIT/ML 1 ML VIAL SQ SCH ×2 (07:55→20:11)
[2017-10-21] MEDS: THEOPHYLLINE 24 HOUR 400 MG CAP.ER.24H PO SCH (07:56)
[2017-10-21 08:42] LABS: Basophils % (A) 0 %; Eosinophils # (A) 0.1 k/uL (0-0.7); Eosinophils % (A) 0 %; HCT 42.6 % (39.0-53.0); HGB 13.3 gm/dL (13.0-17.5); Lymphocytes # (A) 1.2 k/uL (1.0-4.8); Lymphocytes % (A) 5 %; MCH 30.4 pg (25.0-35.0); MCHC 31.3 g/dL (31.0-37.0); MCV 97.4 fL (80.0-100.0); Mean Platelet Volume 7.4; Monocytes # (A) 1.1 k/uL (0-1.0); Monocytes % (A) 5 %; Neutrophils # (A) 21.2 k/uL (1.3-7.7); Neutrophils % (A) 90 %; Platelet Count 307 k/uL (150-450); RBC 4.38 m/uL (4.30-5.90); RDW 12.1 % (11.5-15.5); WBC 23.7 k/uL (3.8-10.6)
[2017-10-21 08:51] LABS: Anion Gap 6 mmol/L; Blood Urea Nitrogen 25 mg/dL (9-20); Calcium 9.1 mg/dL (8.4-10.2); Carbon Dioxide 33 mmol/L (22-30); Chloride 98 mmol/L (98-107); Glucose 202 mg/dL (74-99); Potassium 4.6 mmol/L (3.5-5.1); Sodium 137 mmol/L (137-145)
[2017-10-21] MEDS: ALPRAZolam 0.5 MG TAB PO PRN ×2 (10:01→21:20)
--- NOTE | 2017-10-21 11:35 | P.PN ---
Subjective Progress Note Date: 10/21/17 Principal diagnosis: Acute right lower lobe pneumonia with failed outpatient treatment, COPD exacerbation This is 67-year-old obese male patient with known history of COPD was hospitalized yesterday because of worsening shortness of breath. The patient symptoms started approximately a week ago. He was in the emergency department around 3 days ago where a chest x-ray was done and it revealed a limited right lower lobe pneumonia. He was given antibiotics and he was discharged home without much of an improvement and for that reason the patient came back for further evaluation. At a time of his readmission, he was having increased cough and congestion and wheeze and increased shortness of breath. He was producing some dark colored greenish sputum. No leg swelling. No calf pain or tenderness. No angina. No pleurisy. The patient was afebrile. His pulse ox was 93% on room air. He had leukocytosis with a white cell count of 31. He was also a mild lactic acidosis. For that reason, he was admitted and he was placed on IV fluids and antibiotics and currently the patient is in a combination of Rocephin and Zithromax. Subsequent white count is 29. Follow- up chest x-ray shows some improvement in the right lower lobe pulmonary infiltration. The lactic acid level is also down to 1.4. On 10/20/2017 patient seen in follow-up on medical surgical floor. Reports slight improvement in his congestion and dyspnea. He is utilizing his flutter valve, he states his sputum is yellow in color. Currently 4 L per nasal cannula , with O2 sat at 94%. He is afebrile, hemodynamically stable. Blood, sputum cultures remain negative, urine cultures pending. She is on a combination of Rocephin and Zithromax, IV Solu-Medrol, DuoNeb belies treatments. Still dyspneic with any exertion, but has been ambulating to the bathroom, and tolerating it reasonably well. Denies any fever, denies any chills or night sweats. On 10/21/2017 patient is seen resting in bed, trying to catch up on some sleep. He denies any acute distress. Sounds are negative for any rales, rhonchi or wheezes. Vital signs are stable, patient remains afebrile. On 4 L per nasal cannula with O2 sat at 96%. Blood, urine and sputum cultures are negative. White count is trending down further, 23.7 on today's labs, down from 27.5, hemoglobin is 13.3, BUN is 25, creatinine 0.90. Yesterday's chest x-ray was reviewed, and showed complete resolution of the right lower lobe infiltrate. Patient has been ambulating to the bathroom, tolerating activity fairly well. Continue current plan of care, increase activity as tolerated, continue flutter valve use. Objective - Vital Signs Vital signs: Vital Signs Temp 96.3 F L 10/21/17 07:00 Pulse 90 10/21/17 07:49 Resp 18 10/21/17 07:00 BP 140/80 10/21/17 07:00 Pulse Ox 96 10/21/17 07:00 Intake & Output 10/20/17 10/21/17 10/21/17 18:59 06:59 18:59 Intake Total 840 Output Total 900 Balance 840 -900 Weight 126 kg Intake: Oral 840 Output: Urine 900 Other: # Voids 2 - Exam GENERAL EXAM: Alert, pleasant, 67-year-old white male comfortable in no apparent distress. HEAD: Normocephalic/atraumatic. EYES: Normal reaction of pupils, equal size. Conjunctiva pink, sclera white. NOSE: Clear with pink turbinates. THROAT: No erythema or exudates. NECK: No masses, no JVD, no thyroid enlargement, no adenopathy. CHEST: No chest wall deformity. Symmetrical expansion. LUNGS: Equal air entry with no crackles, no rhonchi or wheezes CVS: Regular rate and rhythm, normal S1 and S2, no gallops, no murmurs, no rubs ABDOMEN: Soft, nontender. No hepatosplenomegaly, normal bowel sounds, no guarding or rigidity. EXTREMITIES: No clubbing, no edema, no cyanosis, 2+ pulses and upper and lower extremities. MUSCULOSKELETAL: Muscle strength and tone normal. SPINE: No scoliosis or deformity SKIN: No rashes CENTRAL NERVOUS SYSTEM: Alert and oriented -3. No focal deficits, tone is normal in all 4 extremities. PSYCHIATRIC: Alert and oriented -3. Appropriate affect. Intact judgment and insight. - Labs CBC & Chem 7: 10/21/17 08:01 10/21/17 08:01 Labs: Abnormal Lab Results - Last 24 Hours (Table) 0310/20/17 10/20/17 Range/Units 11:28 17:20 20:49 WBC (3.8-10.6) k/uL Neutrophils # (1.3-7.7) k/uL Monocytes # (0-1.0) k/uL Carbon Dioxide (22-30) mmol/L BUN (9-20) mg/dL Glucose (74-99) mg/dL POC Glucose (mg/dL) 195 H 228 H 254 H (75-99) mg/dL 10/21/17 10/21/17 10/21/17 Range/Units 07:25 08:01 08:01 WBC 23.7 H (3.8-10.6) k/uL Neutrophils # 21.2 H (1.3-7.7) k/uL Monocytes # 1.1 H (0-1.0) k/uL Carbon Dioxide 33 H (22-30) mmol/L BUN 25 H (9-20) mg/dL Glucose 202 H (74-99) mg/dL POC Glucose (mg/dL) 182 H (75-99) mg/dL Microbiology - Last 24 Hours (Table) 10/18/17 18:11 Blood Culture - Preliminary Blood No Growth after 48 hours 10/18/17 20:18 Urine Culture - Final Urine,Voided 10/18/17 19:50 Gram Stain - Final Sputum Sputum Culture - Final Assessment and Plan Plan: Assessment: 1 acute right lower lobe pneumonia failed outpatient treatment and patient is currently admitted for leukocytosis, mild lactic acidosis and COPD exacerbation in conjunction with a right lower lobe pneumonia. On the chest x-ray from 10/20 there is complete resolution of the right lower lobe infiltrate, and clinically leukocytosis improving, on today's lab work, WBC is down to 23.7. Clinically patient is improving as well 2 acute COPD exacerbation secondary to underlying pneumonia. 3 COPD advanced with an FEV1 of 31% of predicted, maintained on Tudorza inhaler on outpatient basis 4 chronic hypoxic respiratory failure 5 coronary artery disease with previous coronary stent insertion 6 hypertension 7 obesity, BMI of 39.9 8 generalized anxiety disorder 9 hyperlipidemia 10. Prosthetic left eye 11 acute leukocytosis and lactic acidosis secondary to pneumonia Plan Patient is improving clinically, there is also improvement on the chest x-ray noted, with resolution of the right lower lobe infiltrate. White count is trending down, however remains elevated at 23.7. Patient is afebrile, he is utilizing his flutter valve, at times able to bring up some sputum. Denies any fever, chills, chest pain. Increase activity as tolerated, continue current antibiotic coverage, continue nebulized treatments, we will decrease the Solu- Medrol to 40 mg every 8 hours. Repeat lab work in the morning. I performed a history & physical examination of the patient and discussed their management with my nurse practitioner, Radha Marrero. I reviewed the nurse practitioner's note and agree with the documented findings and plan of care. Lung sounds are negative for any rales, rhonchi or wheezes. The findings and the impression was discussed with the patient. I attest to the documentation by the nurse practitioner. Time with Patient: Less than 30
[2017-10-21 12:31] LABS: Glucose,Whole Blood 210 mg/dL (75-99)
[2017-10-21] MEDS: methylPREDNISolone SOD SUCCI 40 MG/ML 1 ML VIAL IV SCH ×2 (16:48→23:30)
[2017-10-21 17:48] LABS: Glucose,Whole Blood 267 mg/dL (75-99)
[2017-10-21] MEDS: cefTRIAXone IN SWFI 1,000 MG/10 ML SYRINGE IVP SCH (20:11)
[2017-10-21] MEDS: ATORVASTATIN 40 MG TAB PO SCH (20:11)
[2017-10-21 20:46] LABS: Glucose,Whole Blood 201 mg/dL (75-99)
[2017-10-21] MEDS: guaiFENesin-Coden 100-10MG/5ML 10 ML CUP PO PRN (21:20)
[2017-10-22] MEDS: IPRATROPIUM-ALBUTEROL 3 ML NEB INHALATION PRN (04:05)
[2017-10-22] MEDS: LEVOTHYROXINE 88 MCG TAB PO SCH (06:52)
[2017-10-22] MEDS: IPRATROPIUM-ALBUTEROL 3 ML NEB INHALATION SCH ×2 (06:58→11:09)
[2017-10-22 07:31] LABS: Glucose,Whole Blood 180 mg/dL (75-99)
[2017-10-22 07:44] VITALS: BP 147/88; RESP 16; TEMP 96.7
[2017-10-22] MEDS: INSULIN ASPART 100 UNIT/ML 1 ML 10 ML VIAL SQ SCH ×2 (07:44→12:53)
[2017-10-22] MEDS: ACETAMINOPHEN TAB 325 MG TAB PO PRN (07:58)
[2017-10-22] MEDS: HEPARIN SODIUM,PORCINE 5,000 UNIT/ML 1 ML VIAL SQ SCH (08:47)
[2017-10-22] MEDS: METOPROLOL TARTRATE 50 MG TAB PO SCH (08:47)
[2017-10-22] MEDS: AZITHROMYCIN 500 MG TAB PO SCH (08:47)
[2017-10-22] MEDS: methylPREDNISolone SOD SUCCI 40 MG/ML 1 ML VIAL IV SCH (08:47)
[2017-10-22] MEDS: THEOPHYLLINE 24 HOUR 400 MG CAP.ER.24H PO SCH (08:47)
[2017-10-22 10:30] LABS: Basophils % (A) 0 %; Eosinophils % (A) 0 %; HCT 43.9 % (39.0-53.0); HGB 13.9 gm/dL (13.0-17.5); Lymphocytes # (A) 1.2 k/uL (1.0-4.8); Lymphocytes % (A) 5 %; MCHC 31.6 g/dL (31.0-37.0); Mean Platelet Volume 7.5; Monocytes # (A) 1.4 k/uL (0-1.0); Monocytes % (A) 6 %; Neutrophils # (A) 21.4 k/uL (1.3-7.7); Neutrophils % (A) 88 %; Platelet Count 322 k/uL (150-450); RBC 4.48 m/uL (4.30-5.90); WBC 24.2 k/uL (3.8-10.6)
[2017-10-22 11:12] VITALS: PULSE 85
[2017-10-22 11:51] LABS: Glucose,Whole Blood 214 mg/dL (75-99)
--- NOTE | 2017-10-22 12:05 | P.PN ---
Subjective Progress Note Date: 10/22/17 Principal diagnosis: Acute right lower lobe pneumonia with failed outpatient treatment, COPD exacerbation This is 67-year-old obese male patient with known history of COPD was hospitalized yesterday because of worsening shortness of breath. The patient symptoms started approximately a week ago. He was in the emergency department around 3 days ago where a chest x-ray was done and it revealed a limited right lower lobe pneumonia. He was given antibiotics and he was discharged home without much of an improvement and for that reason the patient came back for further evaluation. At a time of his readmission, he was having increased cough and congestion and wheeze and increased shortness of breath. He was producing some dark colored greenish sputum. No leg swelling. No calf pain or tenderness. No angina. No pleurisy. The patient was afebrile. His pulse ox was 93% on room air. He had leukocytosis with a white cell count of 31. He was also a mild lactic acidosis. For that reason, he was admitted and he was placed on IV fluids and antibiotics and currently the patient is in a combination of Rocephin and Zithromax. Subsequent white count is 29. Follow- up chest x-ray shows some improvement in the right lower lobe pulmonary infiltration. The lactic acid level is also down to 1.4. On 10/20/2017 patient seen in follow-up on medical surgical floor. Reports slight improvement in his congestion and dyspnea. He is utilizing his flutter valve, he states his sputum is yellow in color. Currently 4 L per nasal cannula , with O2 sat at 94%. He is afebrile, hemodynamically stable. Blood, sputum cultures remain negative, urine cultures pending. She is on a combination of Rocephin and Zithromax, IV Solu-Medrol, DuoNeb belies treatments. Still dyspneic with any exertion, but has been ambulating to the bathroom, and tolerating it reasonably well. Denies any fever, denies any chills or night sweats. On 10/21/2017 patient is seen resting in bed, trying to catch up on some sleep. He denies any acute distress. Sounds are negative for any rales, rhonchi or wheezes. Vital signs are stable, patient remains afebrile. On 4 L per nasal cannula with O2 sat at 96%. Blood, urine and sputum cultures are negative. White count is trending down further, 23.7 on today's labs, down from 27.5, hemoglobin is 13.3, BUN is 25, creatinine 0.90. Yesterday's chest x-ray was reviewed, and showed complete resolution of the right lower lobe infiltrate. Patient has been ambulating to the bathroom, tolerating activity fairly well. Continue current plan of care, increase activity as tolerated, continue flutter valve use. On 10/22/2017 patient seen in follow-up. Continues to improve. Denies any acute distress. Denies any fever, chills, or chest wall tenderness. He has been up ambulating, tolerated activity well. Vital signs are stable, patient is afebrile, patient is on 4 L per nasal cannula with O2 sat at 97%. Lung sounds are positive for bibasilar crackles, with a few scattered wheezes. No acute events overnight, from pulmonary standpoint he is cleared for discharge home today Objective - Vital Signs Vital signs: Vital Signs Temp 96.7 F L 10/22/17 07:00 Pulse 85 10/22/17 11:19 Resp 16 10/22/17 08:00 BP 147/88 10/22/17 07:00 Pulse Ox 97 10/22/17 07:00 Intake & Output 10/21/17 10/22/17 10/22/17 18:59 06:59 18:59 Intake Total 1200 Output Total 600 Balance 1200 -600 Weight 126 kg Intake: Oral 1200 Output: Urine 600 Other: Voiding Method Toilet Toilet # Voids 2 1 2 # Bowel Movements 1 - Exam GENERAL EXAM: Alert, pleasant, 67-year-old white male comfortable in no apparent distress. HEAD: Normocephalic/atraumatic. EYES: Normal reaction of pupils, equal size. Conjunctiva pink, sclera white. NOSE: Clear with pink turbinates. THROAT: No erythema or exudates. NECK: No masses, no JVD, no thyroid enlargement, no adenopathy. CHEST: No chest wall deformity. Symmetrical expansion. LUNGS: Equal air entry with bibasilar crackles, and a few scattered wheezes CVS: Regular rate and rhythm, normal S1 and S2, no gallops, no murmurs, no rubs ABDOMEN: Soft, nontender. No hepatosplenomegaly, normal bowel sounds, no guarding or rigidity. EXTREMITIES: No clubbing, no edema, no cyanosis, 2+ pulses and upper and lower extremities. MUSCULOSKELETAL: Muscle strength and tone normal. SPINE: No scoliosis or deformity SKIN: No rashes CENTRAL NERVOUS SYSTEM: Alert and oriented -3. No focal deficits, tone is normal in all 4 extremities. PSYCHIATRIC: Alert and oriented -3. Appropriate affect. Intact judgment and insight. - Labs CBC & Chem 7: 10/22/17 06:00 10/21/17 08:01 Labs: Abnormal Lab Results - Last 24 Hours (Table) 10/21/17 10/21/17 10/21/17 Range/Units 12:03 17:17 20:43 WBC (3.8-10.6) k/uL Neutrophils # (1.3-7.7) k/uL Monocytes # (0-1.0) k/uL POC Glucose (mg/dL) 210 H 267 H 201 H (75-99) mg/dL 10/22/17 10/22/17 10/22/17 Range/Units 06:00 07:16 11:32 WBC 24.2 H (3.8-10.6) k/uL Neutrophils # 21.4 H (1.3-7.7) k/uL Monocytes # 1.4 H (0-1.0) k/uL POC Glucose (mg/dL) 180 H 214 H (75-99) mg/dL Microbiology - Last 24 Hours (Table) 10/18/17 18:11 Blood Culture - Preliminary Blood No Growth after 72 hours Assessment and Plan Plan: Assessment: 1 acute right lower lobe pneumonia failed outpatient treatment and patient is currently admitted for leukocytosis, mild lactic acidosis and COPD exacerbation in conjunction with a right lower lobe pneumonia. On the chest x-ray from 10/20 there is complete resolution of the right lower lobe infiltrate, and clinically leukocytosis improving, on today's lab work, WBC is down to 23.7. Clinically patient is improving as well 2 acute COPD exacerbation secondary to underlying pneumonia. 3 COPD advanced with an FEV1 of 31% of predicted, maintained on Tudorza inhaler on outpatient basis 4 chronic hypoxic respiratory failure 5 coronary artery disease with previous coronary stent insertion 6 hypertension 7 obesity, BMI of 39.9 8 generalized anxiety disorder 9 hyperlipidemia 10. Prosthetic left eye 11 acute leukocytosis and lactic acidosis secondary to pneumonia Plan Patient continues to improve, vital signs are stable, afebrile. Patient denies any fever, chills, chest wall tenderness. Ambulates on portable oxygen, tolerates activity well. From pulmonary standpoint she is stable for discharge home today, on prednisone taper, on outpatient course of oral Ceftin, his maintenance inhalers and nebulized treatments. Follow-up with Dr. Carrillo in the office in one week I performed a history & physical examination of the patient and discussed their management with my nurse practitioner, Radha Marrero. I reviewed the nurse practitioner's note and agree with the documented findings and plan of care. Lung sounds are positive for bibasilar crackles, with a few wheezes. The findings and the impression was discussed with the patient. I attest to the documentation by the nurse practitioner. Time with Patient: Less than 30
--- NOTE | 2017-10-22 13:03 | P.PN ---
Subjective Progress Note Date: 10/21/17 Principal diagnosis: Acute COPD exacerbation and pneumonia Patient is a 67-year-old male with a known history of COPD and chronic hypoxic respiratory failure home oxygen 3 L, hypertension, hyperlipidemia and history of ME came to ER with complaints of worsening shortness of breath and cough with greenish sputum. Patient was seen by ER about 3 days back and was treated with bronchodilators and chest x-ray showing right lower lobe pneumonia. Patient was sent home on antibiotics in the form of levofloxacin. Patient says that he did not get improvement and came back to the hospital for further evaluation. Otherwise patient denied any fever or chills. No chest pain. Patient was having increasing short of breath. No leg swelling. Denied any dizziness or lightheadedness. Patient was admitted to hospital and was started on ceftriaxone and azithromycin. Chest x-ray showed improvement in right lower lobe pulmonary infiltration. Extent patient was found have significant leukocytosis with WBC count 31.3. Lactic acidosis 2.8. Currently patient symptomatically slightly improved 10/20/2017 Patient is still having significant starts of breath. Chest x-ray showed resolution of right lower lobe obesity. She having chronic scarring of the left lower lobe and atelectasis. Patient is being continued on IV steroids and breathing treatments and antibiotics. Pulmonary is following. No fever no chills. No nausea vomiting or abdominal pain. No chest pain. Patient is still having significant leukocytosis 10/21/2017 Patient is improving clinically. Leukocytosis improving. Continued on IV steroids and breathing treatments and antibiotics. No acute overnight issues. All other review of systems negative for the above Current medications reviewed Objective - Vital Signs Vital signs: Vital Signs Temp 96.6 F L 10/21/17 15:00 Pulse 92 10/21/17 16:20 Resp 18 10/21/17 15:00 BP 126/75 10/21/17 15:00 Pulse Ox 95 10/21/17 16:08 Intake & Output 10/21/17 10/21/17 10/22/17 06:59 18:59 06:59 Intake Total 1200 Output Total 900 Balance -900 1200 Weight 126 kg Intake: Oral 1200 Output: Urine 900 Other: # Voids 2 - Exam PHYSICAL EXAMINATION: Patient is lying in the bed comfortably, no acute distress, awake alert and oriented.. HEENT: Normocephalic. Neck is supple. Pupils reactive. Nostrils clear. Oral cavity is moist. Ears reveal no drainage. Neck reveals no JVD, carotid bruits, or thyromegaly. CHEST EXAMINATION: Trachea is central. Symmetrical expansion. Bilateral improved air entry and no wheezing CARDIAC: Normal S1, S2 with no gallops. No murmurs ABDOMEN: Soft. Bowel sounds normal. No organomegaly. No abdominal bruits. Extremities: reveal no edema. No clubbing or cyanosis Neurologically awake, alert, oriented x3 with well-coordinated movements. No focal deficits noted Skin: No rash or skin lesions. Psychiatric: Cooperative. Nonsuicidal Musculoskeletal: No joint swelling or deformity. Normal range of motion. - Labs CBC & Chem 7: 10/22/17 06:00 10/21/17 08:01 Labs: Abnormal Lab Results - Last 24 Hours (Table) 10/20/17 10/21/17 10/21/17 Range/Units 20:49 07:25 08:01 WBC 23.7 H (3.8-10.6) k/uL Neutrophils # 21.2 H (1.3-7.7) k/uL Monocytes # 1.1 H (0-1.0) k/uL Carbon Dioxide (22-30) mmol/L BUN (9-20) mg/dL Glucose (74-99) mg/dL POC Glucose (mg/dL) 254 H 182 H (75-99) mg/dL 10/21/17 10/21/17 10/21/17 Range/Units 08:01 12:03 17:17 WBC (3.8-10.6) k/uL Neutrophils # (1.3-7.7) k/uL Monocytes # (0-1.0) k/uL Carbon Dioxide 33 H (22-30) mmol/L BUN 25 H (9-20) mg/dL Glucose 202 H (74-99) mg/dL POC Glucose (mg/dL) 210 H 267 H (75-99) mg/dL Microbiology - Last 24 Hours (Table) 10/18/17 18:11 Blood Culture - Preliminary Blood No Growth after 48 hours Assessment and Plan Assessment: Acute COPD exacerbation secondary to pneumonia Right lower lobe pneumonia. Failed outpatient therapy Sepsis secondary to pneumonia Significant leukocytosis and lactic acidosis on admission Chronic hypoxic respiratory failure due to COPD on home oxygen Coronary artery disease with history of stent placement Hypertension Hyperlipidemia next line history of ME Hypothyroidism Morbid obesity with BMI 30) 0.9 Prosthetic left eye Generalized anxiety Plan: Patient be continued on antibiotics in the form of azithromycin and ceftriaxone. Continue with IV steroids and breathing treatments and follow closely. Continue the home medications and further recommendations based on the clinical course. Pulmonary is following. Time with Patient: Greater than 30
--- NOTE | 2017-10-22 13:05 | P.DS ---
Providers Date of admission: 10/18/17 20:06 Expected date of discharge: 10/22/17 Attending physician: Adryan James Consults: 10/18/17 20:08 Consult Physician Urgent Consulting Provider: Jameson Pugh Consult Reason/Comments: dyspnea Do you want consulting provider notified?: Yes Primary care physician: Anuel Chavez Hospital Course: Discharge diagnosis Acute COPD exacerbation secondary to pneumonia Right lower lobe pneumonia. Failed outpatient therapy Sepsis secondary to pneumonia Significant leukocytosis and lactic acidosis on admission Chronic hypoxic respiratory failure due to COPD on home oxygen Coronary artery disease with history of stent placement Hypertension Hyperlipidemia next line history of DC Hypothyroidism Morbid obesity with BMI 30) 0.9 Prosthetic left eye Generalized anxiety Hospital course Patient is a 67-year-old male with a known history of COPD and chronic hypoxic respiratory failure home oxygen 3 L, hypertension, hyperlipidemia and history of DC came to ER with complaints of worsening shortness of breath and cough with greenish sputum. Patient was seen by ER about 3 days back and was treated with bronchodilators and chest x-ray showing right lower lobe pneumonia. Patient was sent home on antibiotics in the form of levofloxacin. Patient says that he did not get improvement and came back to the hospital for further evaluation. Otherwise patient denied any fever or chills. No chest pain. Patient was having increasing short of breath. No leg swelling. Denied any dizziness or lightheadedness. Patient was admitted to hospital and was started on ceftriaxone and azithromycin. Chest x-ray showed improvement in right lower lobe pulmonary infiltration. Extent patient was found have significant leukocytosis with WBC count 31.3. Lactic acidosis 2.8. Currently patient symptomatically slightly improved 10/20/2017 Patient is still having significant starts of breath. Chest x-ray showed resolution of right lower lobe obesity. She having chronic scarring of the left lower lobe and atelectasis. Patient is being continued on IV steroids and breathing treatments and antibiotics. Pulmonary is following. No fever no chills. No nausea vomiting or abdominal pain. No chest pain. Patient is still having significant leukocytosis 10/21/2017 Patient is improving clinically. Leukocytosis improving. Continued on IV steroids and breathing treatments and antibiotics. No acute overnight issues. 10/22/2017 Patient did improve clinically no acute overnight issues. Stable to be discharged home with antibiotics and tapering dose of steroids. Follow with PCP and pulmonary in the clinic. Patient was continued on antibiotics in the form of azithromycin and ceftriaxone. Continue with IV steroids and breathing treatments and follow closely. Antibiotics changed to Ceftin and will be discharged on tapering prednisone. PHYSICAL EXAMINATION: Patient is lying in the bed comfortably, no acute distress, awake alert and oriented.. HEENT: Normocephalic. Neck is supple. Pupils reactive. Nostrils clear. Oral cavity is moist. Ears reveal no drainage. Neck reveals no JVD, carotid bruits, or thyromegaly. CHEST EXAMINATION: Trachea is central. Symmetrical expansion. Bilateral improved air entry and no wheezing CARDIAC: Normal S1, S2 with no gallops. No murmurs ABDOMEN: Soft. Bowel sounds normal. No organomegaly. No abdominal bruits. Extremities: reveal no edema. No clubbing or cyanosis Neurologically awake, alert, oriented x3 with well-coordinated movements. No focal deficits noted Skin: No rash or skin lesions. Psychiatric: Cooperative. Nonsuicidal Musculoskeletal: No joint swelling or deformity. Normal range of motion. Vital Signs 10/18/17 10/18/17 10/18/17 17:56 18:40 19:24 Temperature 98.0 F Pulse Rate 108 H 108 H Pulse Rate [ Supine Pulse Oximetery] Respiratory 24 20 Rate Blood Pressure 157/77 Blood Pressure [Left Arm Supine] O2 Sat by Pulse 93 L Oximetry 10/18/17 10/18/17 10/18/17 19:40 19:51 20:20 Temperature Pulse Rate 100 96 98 Pulse Rate [ Supine Pulse Oximetery] Respiratory 18 18 Rate Blood Pressure 140/78 141/81 Blood Pressure [Left Arm Supine] O2 Sat by Pulse 95 96 Oximetry 10/18/17 10/19/17 10/19/17 20:52 03:26 03:38 Temperature Pulse Rate 89 84 84 Pulse Rate [ Supine Pulse Oximetery] Respiratory 18 Rate Blood Pressure 142/81 Blood Pressure [Left Arm Supine] O2 Sat by Pulse 96 Oximetry 10/19/17 10/19/17 10/19/17 07:00 07:54 08:07 Temperature Pulse Rate 88 92 Pulse Rate [ 94 Supine Pulse Oximetery] Respiratory 18 Rate Blood Pressure Blood Pressure 134/79 [Left Arm Supine] O2 Sat by Pulse 96 Oximetry 10/19/17 10/19/17 10/19/17 11:46 12:04 15:00 Temperature 98.1 F Pulse Rate 84 92 Pulse Rate [ 96 Supine Pulse Oximetery] Respiratory 20 Rate Blood Pressure Blood Pressure 120/73 [Left Arm Supine] O2 Sat by Pulse 92 L Oximetry 10/19/17 10/19/17 10/19/17 15:30 15:51 21:05 Temperature Pulse Rate 84 88 87 Pulse Rate [ Supine Pulse Oximetery] Respiratory Rate Blood Pressure Blood Pressure [Left Arm Supine] O2 Sat by Pulse 96 Oximetry 10/19/17 10/19/17 10/20/17 21:19 23:00 06:39 Temperature 97.9 F 97.0 F L Pulse Rate 87 Pulse Rate [ 92 80 Supine Pulse Oximetery] Respiratory 16 16 Rate Blood Pressure Blood Pressure 141/87 125/77 [Left Arm Supine] O2 Sat by Pulse 94 L 94 L Oximetry 10/20/17 10/20/17 10/20/17 06:46 06:56 11:13 Temperature Pulse Rate 88 89 90 Pulse Rate [ Supine Pulse Oximetery] Respiratory Rate Blood Pressure Blood Pressure [Left Arm Supine] O2 Sat by Pulse Oximetry 10/20/17 10/20/17 10/20/17 11:30 15:00 15:20 Temperature 97.5 F L Pulse Rate 92 92 Pulse Rate [ 93 Supine Pulse Oximetery] Respiratory 20 Rate Blood Pressure Blood Pressure 127/81 [Left Arm Supine] O2 Sat by Pulse 96 Oximetry 10/20/17 10/20/17 10/20/17 15:35 19:26 19:40 Temperature Pulse Rate 92 92 92 Pulse Rate [ Supine Pulse Oximetery] Respiratory Rate Blood Pressure Blood Pressure [Left Arm Supine] O2 Sat by Pulse Oximetry 10/20/17 10/20/17 10/20/17 22:59 23:00 23:09 Temperature 96.7 F L Pulse Rate 93 94 Pulse Rate [ 85 Supine Pulse Oximetery] Respiratory 16 18 16 Rate Blood Pressure Blood Pressure 130/60 [Left Arm Supine] O2 Sat by Pulse 97 Oximetry 10/21/17 10/21/17 10/21/17 03:02 03:16 07:00 Temperature 96.3 F L Pulse Rate 92 92 Pulse Rate [ 78 Supine Pulse Oximetery] Respiratory 18 Rate Blood Pressure Blood Pressure 140/80 [Left Arm Supine] O2 Sat by Pulse 96 Oximetry 10/21/17 10/21/17 10/21/17 07:49 08:00 12:03 Temperature Pulse Rate 90 90 88 Pulse Rate [ Supine Pulse Oximetery] Respiratory Rate Blood Pressure Blood Pressure [Left Arm Supine] O2 Sat by Pulse Oximetry 10/21/17 10/21/17 10/21/17 12:16 15:00 16:08 Temperature 96.6 F L Pulse Rate 92 89 Pulse Rate [ 90 Supine Pulse Oximetery] Respiratory 18 Rate Blood Pressure Blood Pressure 126/75 [Left Arm Supine] O2 Sat by Pulse 96 95 Oximetry 10/21/17 10/21/17 10/21/17 16:20 19:46 20:04 Temperature Pulse Rate 92 86 88 Pulse Rate [ Supine Pulse Oximetery] Respiratory Rate Blood Pressure Blood Pressure [Left Arm Supine] O2 Sat by Pulse Oximetry 10/21/17 10/21/17 10/22/17 22:55 23:25 04:07 Temperature 96.1 F L Pulse Rate 88 Pulse Rate [ 90 Supine Pulse Oximetery] Respiratory 18 Rate Blood Pressure Blood Pressure 143/82 [Left Arm Supine] O2 Sat by Pulse 93 L 93 L Oximetry 10/22/17 10/22/17 10/22/17 04:16 06:58 07:00 Temperature 96.7 F L Pulse Rate 88 80 Pulse Rate [ 80 Supine Pulse Oximetery] Respiratory 16 Rate Blood Pressure Blood Pressure 147/88 [Left Arm Supine] O2 Sat by Pulse 97 Oximetry 10/22/17 10/22/17 10/22/17 07:08 08:00 11:09 Temperature Pulse Rate 84 85 Pulse Rate [ Supine Pulse Oximetery] Respiratory 16 Rate Blood Pressure Blood Pressure [Left Arm Supine] O2 Sat by Pulse Oximetry 10/22/17 11:19 Temperature Pulse Rate 85 Pulse Rate [ Supine Pulse Oximetery] Respiratory Rate Blood Pressure Blood Pressure [Left Arm Supine] O2 Sat by Pulse Oximetry Patient Condition at Discharge: Fair Plan - Discharge Summary Discharge Rx Participant: Yes New Discharge Prescriptions: New Cefuroxime Axetil [Ceftin] 500 mg PO BID 7 Days #14 tab predniSONE See Taper PO DAILY #30 tab Continue ALPRAZolam [Xanax] 0.5 mg PO BID PRN PRN Reason: Anxiety Albuterol Inhaler [Ventolin Hfa Inhaler] 2 puff INHALATION RT-QID PRN PRN Reason: Shortness Of Breath Albuterol Nebulized [Ventolin Nebulized] 2.5 mg INHALATION RT-Q4H PRN #0 nebu PRN Reason: Shortness Of Breath Or Wheezing Umeclidinium Brm/Vilanterol Tr [Anoro Ellipta 62.5-25 Mcg INH] 1 puff PO RT- DAILY Simvastatin [Zocor] 80 mg PO HS Levothyroxine Sodium [Synthroid] 88 mcg PO DAILY Theophylline 24 Hour [Tung-24] 400 mg PO DAILY Ipratropium Nebulized [Atrovent Nebulized] 0.5 mg INHALATION RT-Q4H PRN PRN Reason: Shortness Of Breath Metoprolol Tartrate [Lopressor] 50 mg PO HS Metoprolol Tartrate [Lopressor] 100 mg PO DAILY Discontinued Levofloxacin [Levaquin] 500 mg PO DAILY #7 tab predniSONE 50 mg PO DAILY #4 tab Discharge Medication List ALPRAZolam [Xanax] 0.5 mg PO BID PRN 04/27/15 [History] Albuterol Inhaler [Ventolin Hfa Inhaler] 2 puff INHALATION RT-QID PRN 04/28/15 [ History] Albuterol Nebulized [Ventolin Nebulized] 2.5 mg INHALATION RT-Q4H PRN #0 nebu [Rx] Simvastatin [Zocor] 80 mg PO HS 12/04/15 [History] Umeclidinium Brm/Vilanterol Tr [Anoro Ellipta 62.5-25 Mcg INH] 1 puff PO RT- DAILY 12/04/15 [History] Levothyroxine Sodium [Synthroid] 88 mcg PO DAILY 09/10/16 [History] Theophylline 24 Hour [Tung-24] 400 mg PO DAILY 10/08/16 [History] Ipratropium Nebulized [Atrovent Nebulized] 0.5 mg INHALATION RT-Q4H PRN [History] Metoprolol Tartrate [Lopressor] 50 mg PO HS 10/18/17 [History] Metoprolol Tartrate [Lopressor] 100 mg PO DAILY 10/18/17 [History] Cefuroxime Axetil [Ceftin] 500 mg PO BID 7 Days #14 tab 10/22/17 [Rx] predniSONE See Taper PO DAILY #30 tab 10/22/17 [Rx] Follow up Appointment(s)/Referral(s): Kathy Agee MD [Primary Care Provider] - 10/28/17 2:00 pm Patient Instructions/Handouts: Pneumonia (DC) Activity/Diet/Wound Care/Special Instructions: Cardiac diet. Activity as tolerated. Discharge Disposition: HOME SELF-CARE
== END 2017-10-22 12:52 | disposition home or self-care (01) | DRG 871 ==
LOC: EC 17:52 → 4MS4W 20:06
PROVIDERS: ADMIT Internal Medicine; ATTEND Internal Medicine
DX: A41.9 Sepsis, unspecified organism (principal); J18.9 Pneumonia, unspecified organism; J96.11 Chronic respiratory failure with hypoxia; I11.0 Hypertensive heart disease with heart failure; E66.01 Morbid (severe) obesity due to excess calories; Z68.39 Body mass index [BMI] 39.0-39.9, adult; I50.9 Heart failure, unspecified; J44.0 Chronic obstructive pulmonary disease with (acute) lower respiratory infection; J44.1 Chronic obstructive pulmonary disease with (acute) exacerbation; J98.11 Atelectasis; E78.5 Hyperlipidemia, unspecified; E03.9 Hypothyroidism, unspecified; I25.10 Atherosclerotic heart disease of native coronary artery without angina pectoris; R65.20 Severe sepsis without septic shock; F41.1 Generalized anxiety disorder; Z99.81 Dependence on supplemental oxygen; Z95.5 Presence of coronary angioplasty implant and graft; I25.2 Old myocardial infarction; Z97.0 Presence of artificial eye; Z79.899 Other long term (current) drug therapy; Z79.52 Long term (current) use of systemic steroids; Z87.891 Personal history of nicotine dependence; Z82.49 Family history of ischemic heart disease and other diseases of the circulatory system; Z88.8 Allergy status to other drugs, medicaments and biological substances; Z82.5 Family history of asthma and other chronic lower respiratory diseases
CPT/HCPCS: 36415; 71045; 71046; 80048; 80053; 81003; 82803; 83036; 83605; 83735; 83880; 85025; 85610; 85730; 87040; 87070; 87086; 87205; 87502; 93005; 94640; 96365; 96374; 96375; 99285; 99291

== ENCOUNTER 2017-10-24 04:49 | Inpatient (IN) | payer MEDICARE ==
[2017-10-24] MEDS ORDERED: SODIUM CHLORIDE 0.9% 1,000 ML IV STA ×2 (05:08)
[2017-10-24] MEDS ORDERED: PIPERACILLIN-TAZOBACTAM 3.375 GM in DEXTROSE/WATER 1 50ML.BAG IVPB STA (05:08)
[2017-10-24] MEDS ORDERED: MORPHINE SULFATE 4 MG/ML SYRINGE IV STA (05:08)
[2017-10-24] MEDS ORDERED: ONDANSETRON 4 MG/2 ML VIAL IVP STA (05:08)
[2017-10-24] MEDS ORDERED: NALOXONE 0.4 MG/ML 1 ML VIAL IV PRN (06:03)
[2017-10-24] MEDS ORDERED: ONDANSETRON 4 MG/2 ML VIAL IVP PRN (06:03)
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
[2017-10-24] MEDS ORDERED: ALPRAZolam 0.5 MG TAB PO PRN (06:07)
[2017-10-24] MEDS ORDERED: IPRATROPIUM 0.5 MG/2.5 ML NEBU INHALATION PRN (06:07)
[2017-10-24] MEDS ORDERED: ALBUTEROL NEBULIZED 2.5 MG/3 ML INHALATION PRN ×2 (06:07)
[2017-10-24 07:32] LABS: Glucose,Whole Blood 108 mg/dL (75-99)
[2017-10-24] MEDS: IPRATROPIUM-ALBUTEROL 3 ML NEB IH SCH ×5 (07:56→19:12)
[2017-10-24] MEDS: PANTOPRAZOLE 40 MG/10 ML VIAL IV SCH (09:39)
[2017-10-24] MEDS: MORPHINE SULFATE 4 MG/ML SYRINGE IV PRN ×3 (09:40→19:16)
[2017-10-24] MEDS: THEOPHYLLINE 24 HOUR 400 MG CAP.ER.24H PO SCH (09:43)
[2017-10-24] MEDS: LEVOTHYROXINE 88 MCG TAB PO SCH (09:43)
[2017-10-24] MEDS: METOPROLOL TARTRATE 50 MG TAB PO SCH ×2 (09:44→20:40)
[2017-10-24 11:08] LABS: Glucose,Whole Blood 129 mg/dL (75-99)
[2017-10-24] MEDS: PIPERACILLIN-TAZOBACTAM 3.375 GM in DEXTROSE/WATER 1 50ML.BAG IVPB SCH (15:51)
--- NOTE | 2017-10-24 16:25 | P.CNPUL ---
History of Present Illness Consult date: 10/24/17 Requesting physician: Brooks Virk Reason for consult: COPD, pneumonia Chief complaint: Abdominal pain History of present illness: This is a 67-year-old white male with history of multiple medical problems including severe end-stage COPD, O2 dependent, recent admission to the hospital with a right lower lobe pneumonia that failed outpatient therapy, history of sepsis, history of coronary artery disease and previous stent placement, hypertension, morbid obesity, hypothyroidism, prosthetic left eye, and generalized anxiety. Patient presented to [facility] with 1 day history of epigastric pain pain was described as severe, across the whole abdomen, mostly in the upper portion of it. Workup at [facility] showed elevated liver enzymes, elevated lipase of 7759, and elevated amylase. Considering the patient was just discharged recently from our institution, patient was transferred and I was asked to see him on consultation because of his COPD and recent history of pneumonia. Pulmonary-vuong, no cough no wheezing no shortness of breath, patient feels fine from the pulmonary perspective, even his abdominal pain is much improved today compared to how he felt earlier. CT of the abdomen apparently was done at [facility], report is not available at this point. After evaluating the patient, I recommended ultrasound of the gallbladder. Patient has no previous history of cholelithiasis, no history of alcohol drinking, and no history of hypertriglyceridemia. Patient denies any fever, no nausea no vomiting, no diarrhea, no melena no hematemesis, no dysuria and no frequency no urgency. Review of Systems 14 point review of systems were obtained, please refer to pertinent positives and negatives as noted in HPI. Otherwise remaining systems are negative. Past Medical History Past Medical History: Coronary Artery Disease (CAD), Chest Pain / Angina, Heart Failure, COPD, Hyperlipidemia, Hypertension, Myocardial Infarction (RI), Pneumonia, Thyroid Disorder Additional Past Medical History / Comment(s): Obesity, COPD with chronic hypoxic respiratory failure and based on FEV1 of 31% of predicted,bronchits, chronic hypoxic respitory failure maintained on home 02 3 liters n/c, hypothyroidism, generalized anxiety disorder. Last hospitalized 2 days ago for pneumonia. 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 He also uses recreational marijuana but none in at least 6 years. He drinks alcohol on a rare basis. He worked in [employer]. He is currently living with daughter. He has no recent travel. He denies service. Past Drug Use History: None Reported - Past Family History Father Family Medical History: COPD Mother Family Medical History: Congestive Heart Failure (CHF) Medications and Allergies Home Medications Medication Instructions Recorded Confirmed Type ALPRAZolam [Xanax] 0.5 mg PO BID PRN 04/27/15 10/24/17 History Albuterol Inhaler [Ventolin Hfa 2 puff INHALATION RT-QID PRN 04/28/15 10/24/17 History Inhaler] Albuterol Nebulized [Ventolin 2.5 mg INHALATION RT-Q4H PRN #0 05/04/15 10/24/17 Rx Nebulized] nebu Simvastatin [Zocor] 80 mg PO HS 12/04/15 10/24/17 History Umeclidinium Brm/Vilanterol Tr 1 puff PO RT-DAILY 12/04/15 10/24/17 History [Anoro Ellipta 62.5-25 Mcg INH] Levothyroxine Sodium [Synthroid] 88 mcg PO DAILY 09/10/16 10/24/17 History Theophylline 24 Hour [Tung-24] 400 mg PO DAILY 10/08/16 10/24/17 History Ipratropium Nebulized [Atrovent 0.5 mg INHALATION RT-Q4H PRN 02/26/17 10/24/17 History Nebulized] Metoprolol Tartrate [Lopressor] 50 mg PO HS 10/18/17 10/24/17 History Metoprolol Tartrate [Lopressor] 100 mg PO DAILY 10/18/17 10/24/17 History predniSONE See Taper PO DAILY #30 tab 10/22/17 10/24/17 Rx Allergies Allergy/AdvReac Type Severity Reaction Status Date / Time adhesive tape Allergy Rash/Hives Verified 10/24/17 08:42 Physical Exam Vitals: Vital Signs Temp Pulse Pulse Resp BP BP Pulse Ox 10/24/17 14:33 98.6 F 70 16 125/79 95 10/24/17 12:32 92 10/24/17 12:24 92 10/24/17 08:12 96 10/24/17 07:59 88 10/24/17 06:26 98.3 F 86 20 139/82 97 10/24/17 04:50 97.9 F 77 20 159/96 97 Intake and Output 10/24/17 10/24/17 10/24/17 06:59 14:59 22:59 Intake Total 280 Balance 280 Intake: Oral 280 Other: Weight 123.831 kg GENERAL EXAM: Alert, pleasant, 67-year-old white male comfortable in no apparent distress. HEAD: Normocephalic/atraumatic. EYES: Normal reaction of pupils, equal size. Conjunctiva pink, sclera white. NOSE: Clear with pink turbinates. THROAT: No erythema or exudates. NECK: No masses, no JVD, no thyroid enlargement, no adenopathy. CHEST: No chest wall deformity. Symmetrical expansion. LUNGS: Equal air entry with no crackles, no rhonchi or wheezes CVS: Regular rate and rhythm, normal S1 and S2, no gallops, no murmurs, no rubs ABDOMEN: Obese, Soft, very minimal tenderness in the periumbilical area noted. No rebound, no guarding. No rigidity.. No hepatosplenomegaly, normal bowel sounds, EXTREMITIES: No clubbing, no edema, no cyanosis, 2+ pulses and upper and lower extremities. MUSCULOSKELETAL: Muscle strength and tone normal. SPINE: No scoliosis or deformity SKIN: No rashes CENTRAL NERVOUS SYSTEM: Alert and oriented -3. No focal deficits, tone is normal in all 4 extremities. PSYCHIATRIC: Alert and oriented -3. Appropriate affect. Intact judgment and insight. Results - Laboratory Findings Abnormal lab findings: Abnormal Labs 10/24/17 10/24/17 07:30 11:06 POC Glucose (mg/dL) 108 H 129 H Assessment and Plan Assessment: Impression: Acute pancreatitis, exact etiology is not clear, definitely not related to alcohol, could be related to cholelithiasis, could also be related to hypertriglyceridemia. Recent history of right lower lobe pneumonia, antibiotics will be resumed. History of severe end-stage COPD and chronic hypoxic respiratory failure. FEV1 is 31%. History of chronic hypoxic respiratory failure History of coronary artery disease and previous coronary stent insertion History of generalized anxiety disorder History of obesity, BMI of 39.9 History of prosthetic left eye. History of hyperlipidemia. Recommendation: Continue present supportive care measures, continue O2, hydration/IV fluids, pain control, continue usual bronchodilators. Will follow. Time with Patient: Greater than 30
[2017-10-24 17:11] LABS: Glucose,Whole Blood 95 mg/dL (75-99)
[2017-10-24] MEDS ORDERED: IPRATROPIUM-ALBUTEROL 3 ML NEB INHALATION PRN (18:33)
--- NOTE | 2017-10-24 19:25 | XR ---
EXAMINATION: XR chest 1V portable DATE AND TIME: 10/24/2017 7:16 PM ORDERING PROVIDER: Brooks Virk MD CLINICAL INDICATION: pneumonia TECHNIQUE: Portable AP upright COMPARISON: 10/21/2007 DESCRIPTION: The lungs are clear. The pleural spaces are negative. The cardiac silhouette is not enlarged; the mediastinal and pleural silhouettes are unremarkable. The skeletal structures are intact without focal findings. The soft tissues are unremarkable. IMPRESSION: NO ACUTE PROCESS.
--- NOTE | 2017-10-24 20:13 | HP ---
HISTORY AND PHYSICAL DATE OF SERVICE: 10/24/2017 CHIEF COMPLAINTS: Abdominal pain. HISTORY OF PRESENT ILLNESS: This 67-year-old gentleman with past medical history of multiple medical problems was recently admitted with right lower pneumonia with failure of outpatient treatment, sepsis. Patient treated with antibiotics and steroids. Patient went home. Patient also had COPD exacerbation during the admission. Last night the patient's abdominal pain which is felt in the anterior upper part of the abdomen which was radiating across and the patient apparently was taken to [facility] were investigation including CT scan was done. Subsequently patient was transferred to [facility] and the patient admitted for further evaluation and treatment. There is no history of fever, rigors. No history of headache, loss of consciousness or seizures at this time. The patient is followed by Dr. Agee in the outpatient setting. PAST MEDICAL HISTORY: History of recent pneumonia, history of COPD, history of CAD, CHF, hypertension, hypertension, myocardial function, history pneumonia, hypothyroidism, obesity, COPD, history of anxiety. MEDICATIONS: Prior to admission the home medications are as follows: 1. Prednisone taper. 2. Anoro Ellipta 62.5/25 p.o. daily. 3. Tung-24 400 mg. 4. Zocor 80 mg q.h.s. 5. Lopressor 100 mg daily and 50 mg q.h.s. 6. Synthroid 88 mcg p.o. daily. 7. Atrovent 0.5 q.4h p.r.n. 8. Ventolin 2.5 q.4h p.r.n. 9. Ventolin HFA 2 puffs q.i.d. p.r.n. 10.Xanax 0.5 b.i.d. p.r.n. ALLERGIES: ADHESIVE TAPES. FAMILY HISTORY: History of COPD in the family. SOCIAL HISTORY: Previous history of smoking. No history of current smoking or alcohol intake. REVIEW OF SYSTEMS: ENT: No diminished hearing or vision. CARDIOVASCULAR: As mentioned. RESPIRATORY: As mentioned earlier. GI: Mentioned earlier. : No dysuria. NERVOUS SYSTEM: No numbness, weakness. ALLERGY/IMMUNOLOGY: No asthma or hay fever. MUSCULOSKELETAL: As mentioned earlier. HEMATOLOGY: No history of anemia. ENDOCRINE: History of hypothyroidism. No history of diabetes. CONSTITUTIONAL: As mentioned earlier. DERMATOLOGY: Negative. RHEUMATOLOGY: Negative. PSYCHIATRY: As mentioned. PHYSICAL EXAMINATION: Patient alert and oriented x3. Pulse 70, blood pressure 125/79, respirations 16, temperature 98.2, pulse ox 94% room air. HEENT: Conjunctivae normal. Oral mucosa moist. NECK: No jugular venous distention. No carotid bruit. No lymph node enlargement. CARDIOVASCULAR: S1, S2 muffled. No S3, no S4. RESPIRATORY: Breath sounds diminished in the bases. A few rhonchi and crackles. Expiratory wheezing also present. ABDOMEN: Soft, obese. Mild diffuse discomfort in the upper part of the abdomen present. No guarding. No rigidity. No mass palpable. Bowel sounds diminished. No ascites. No hepatosplenomegaly. LEGS: No edema, no swelling. NERVOUS SYSTEM: Higher functions as mentioned earlier. Moves all 4 limbs. No focal motor sensory signs. LYMPHATICS: No lymphadenopathy in the neck, axillae, groin.. SKIN: No ulcers, rash, bleeding. LAB STUDIES: At this time shows glucose 108 and 129 and 95. Other labs are not available. ASSESSMENT: 1. Abdominal pain with acute pancreatitis. 2. History of recent pneumonia right lower lobe with sepsis and chronic obstructive pulmonary disease acute exacerbation. 3. History of recent lactic acidosis. 4. Chronic hypoxic respiratory failure. 5. History of coronary artery disease and stent. 6. Hypertension. 7. Hyperlipidemia. 8. Hypothyroidism. 9. Morbid obesity. 10.Prosthetic left eye. 11.Generalized anxiety. RECOMMENDATION AND DISCUSSION: In this 67-year-old gentleman who presented with multiple complex medical issues, at this time I recommend continue with current medications. Continue symptomatic treatment. Otherwise, exact etiology of the pancreatitis is unknown at this time. The possibility of gallstones needs to be considered and ruled out. Ultrasound of the abdomen has been ordered. Otherwise we will follow the patient closely. Repeat labs and continue the rest of the medications broad-spectrum IV antibiotics also be initiated. Prognosis guarded because of multiple complex medical issues. Further recommendations to follow. Will hold the prednisone for now as well. Lipid panel has also been requested. See orders for details. Clear liquid diet has been initiated and the diet could be advanced if the patient is asymptomatic. Copy of dictation forwarded to Dr. Agee who is the primary physician. MMODL / IJN: [id number] /
[2017-10-24] MEDS: ATORVASTATIN 40 MG TAB PO SCH (20:40)
[2017-10-24 20:54] LABS: Glucose,Whole Blood 95 mg/dL (75-99)
[2017-10-25] MEDS: PIPERACILLIN-TAZOBACTAM 3.375 GM in DEXTROSE/WATER 1 50ML.BAG IVPB SCH ×3 (00:54→17:32)
[2017-10-25] MEDS: IPRATROPIUM-ALBUTEROL 3 ML NEB IH SCH ×4 (01:14→19:25)
[2017-10-25] MEDS: MORPHINE ORAL SOLN 10 MG/5 ML CUP PO PRN ×2 (03:56→16:05)
[2017-10-25] MEDS: LEVOTHYROXINE 88 MCG TAB PO SCH (05:46)
[2017-10-25 07:08] LABS: Glucose,Whole Blood 95 mg/dL (75-99)
[2017-10-25 07:49] LABS: Basophils # (A) 0.1 k/uL (0-0.2); Basophils % (A) 0 %; Eosinophils # (A) 0.6 k/uL (0-0.7); Eosinophils % (A) 3 %; HCT 44.7 % (39.0-53.0); HGB 14.4 gm/dL (13.0-17.5); Lymphocytes # (A) 2.7 k/uL (1.0-4.8); Lymphocytes % (A) 14 %; MCH 31.7 pg (25.0-35.0); MCHC 32.3 g/dL (31.0-37.0); MCV 98.2 fL (80.0-100.0); Mean Platelet Volume 6.8; Monocytes # (A) 1.2 k/uL (0-1.0); Monocytes % (A) 6 %; Neutrophils # (A) 14.4 k/uL (1.3-7.7); Neutrophils % (A) 75 %; Platelet Count 253 k/uL (150-450); RBC 4.55 m/uL (4.30-5.90); WBC 19.1 k/uL (3.8-10.6)
[2017-10-25 08:19] LABS: ALT 59 U/L (21-72); AST 21 U/L (17-59); Albumin 2.9 g/dL (3.5-5.0); Alkaline Phosphatase 80 U/L (38-126); Anion Gap 7 mmol/L; Blood Urea Nitrogen 18 mg/dL (9-20); Calcium 8.3 mg/dL (8.4-10.2); Carbon Dioxide 34 mmol/L (22-30); Chloride 98 mmol/L (98-107); Glucose 83 mg/dL (74-99); Potassium 4.5 mmol/L (3.5-5.1); Sodium 139 mmol/L (137-145); Total Bilirubin 0.9 mg/dL (0.2-1.3); Total Protein 5.3 g/dL (6.3-8.2)
[2017-10-25 08:26] LABS: Amylase 396 U/L (30-110)
[2017-10-25 08:29] LABS: Lipase 2430 U/L (23-300)
--- NOTE | 2017-10-25 08:46 | US ---
EXAMINATION TYPE: US gallbladder DATE OF EXAM: 10/24/2017 COMPARISON: Outside CT 10/24/2017 CLINICAL HISTORY: ACUTE PANCREATITIS. Abdominal pain. Difficult and limited exam due to patient's bod y habitus EXAM MEASUREMENTS: Liver Length: 15.0 cm Gallbladder Wall: 0.27 cm CBD: 0.5 cm Right Kidney: 11.8 x 6.1 x 5.7 cm Pancreas: Obscured by bowel gas Liver: Coarse, heterogeneous echotexture. Gallbladder: No stones or sludge visualized Evidence for sonographic Sheth's sign: Yes CBD: wnl as visualized, distal portion is obscured by bowel gas Right Kidney: No hydronephrosis or masses seen The pancreas is obscured. The liver is normal in size but has a coarse echotexture. No focal lesion is seen. The gallbladder is unremarkable without evidence of cholelithiasis. Gallbladder wall measures 2.8 mm. This common hepatic duct measures 4.9 mm. The right kidney is unremarkable. IMPRESSION: SOMEWHAT COARSENED ECHOTEXTURE OF THE LIVER WITHOUT OTHER ABNORMALITY.
[2017-10-25] MEDS: ACETAMINOPHEN TAB 325 MG TAB PO PRN ×2 (10:28→19:16)
[2017-10-25] MEDS: METOPROLOL TARTRATE 50 MG TAB PO SCH ×2 (10:29→21:08)
[2017-10-25] MEDS: PANTOPRAZOLE 40 MG/10 ML VIAL IV SCH (10:29)
[2017-10-25] MEDS: THEOPHYLLINE 24 HOUR 400 MG CAP.ER.24H PO SCH (10:30)
[2017-10-25 11:28] LABS: Glucose,Whole Blood 153 mg/dL (75-99)
--- NOTE | 2017-10-25 12:04 | P.PN ---
Subjective Progress Note Date: 10/25/17 Principal diagnosis: Abdominal pain This is a 67-year-old white male with history of multiple medical problems including severe end-stage COPD, O2 dependent, recent admission to the hospital with a right lower lobe pneumonia that failed outpatient therapy, history of sepsis, history of coronary artery disease and previous stent placement, hypertension, morbid obesity, hypothyroidism, prosthetic left eye, and generalized anxiety. Patient presented to [facility] with 1 day history of epigastric pain pain was described as severe, across the whole abdomen, mostly in the upper portion of it. Workup at [facility] showed elevated liver enzymes, elevated lipase of 7759, and elevated amylase. Considering the patient was just discharged recently from our institution, patient was transferred and I was asked to see him on consultation because of his COPD and recent history of pneumonia. Pulmonary-vuong, no cough no wheezing no shortness of breath, patient feels fine from the pulmonary perspective, even his abdominal pain is much improved today compared to how he felt earlier. CT of the abdomen apparently was done at [facility], report is not available at this point. After evaluating the patient, I recommended ultrasound of the gallbladder. Patient has no previous history of cholelithiasis, no history of alcohol drinking, and no history of hypertriglyceridemia. Patient denies any fever, no nausea no vomiting, no diarrhea, no melena no hematemesis, no dysuria and no frequency no urgency. The patient is seen again today 10/25/2017 in follow-up in the surgical unit. He is currently resting comfortably in bed. He is awake and alert in no acute distress. He states he has not had that significant abdominal discomfort in the past 7 or 8 hours now. No worsening shortness of breath, cough or congestion. No nausea, vomiting or diarrhea. Ultrasound of the gallbladder did not reveal any evidence of cholelithiasis. There was noted coarsened heterogenous echotexture in the liver without any other abnormalities noted. White count 19.1. Amylase 396, lipase 2430. Objective - Vital Signs Vital signs: Vital Signs Temp 97.0 F L 10/25/17 02:21 Pulse 82 10/25/17 07:34 Resp 16 10/25/17 02:21 BP 133/79 10/25/17 02:21 Pulse Ox 97 10/25/17 02:21 Intake & Output 03/10/25/17 10/25/17 18:59 06:59 18:59 Intake Total 960 590 Balance 960 590 Intake: Oral 960 590 Other: # Voids 3 2 - Exam GENERAL EXAM: Morbidly obese. Alert, active, comfortable in no apparent distress. HEAD: Normocephalic. EYES: Normal reaction of right pupil. NOSE: Clear with pink turbinates. THROAT: No erythema or exudates. NECK: No masses, no JVD. CHEST: No chest wall deformity. LUNGS: Equal air entry with no crackles, wheeze, rhonchi or dullness. CVS: S1 and S2 normal with no audible murmur, regular rhythm. ABDOMEN: No hepatosplenomegaly, normal bowel sounds, no guarding or rigidity. SPINE: No scoliosis or deformity SKIN: No rashes CENTRAL NERVOUS SYSTEM: No focal deficits, tone is normal in all 4 extremities. EXTREMITIES: There is no peripheral edema. No clubbing, no cyanosis. Peripheral pulses are intact. - Labs CBC & Chem 7: 10/25/17 06:35 10/25/17 06:35 Labs: Abnormal Lab Results - Last 24 Hours (Table) 10/25/17 10/25/17 10/25/17 Range/Units 06:35 06:35 11:23 WBC 19.1 H (3.8-10.6) k/uL Neutrophils # 14.4 H (1.3-7.7) k/uL Monocytes # 1.2 H (0-1.0) k/uL Carbon Dioxide 34 H (22-30) mmol/L POC Glucose (mg/dL) 153 H (75-99) mg/dL Calcium 8.3 L (8.4-10.2) mg/dL Total Protein 5.3 L (6.3-8.2) g/dL Albumin 2.9 L (3.5-5.0) g/dL Amylase 396 H* (30-110) U/L Lipase 2430 H (23-300) U/L Assessment and Plan Assessment: Impression: #1 Acute pancreatitis of unclear etiology. Not alcohol related. Not gallbladder related. Ultrasound does does not reveal any cholelithiasis. There is some noted coarsened heterogenous echotexture of the liver. Current amylase 396, lipase 2430. #2 Recent history of a right lower lobe pneumonia currently on antibiotics. #3 Severe oxygen dependent end-stage chronic obstructive pulmonary disease with FEV1 value of 31% of predicted. Currently inactive and stable. #4 Coronary artery disease with previous stent placement. #5 Generalized anxiety disorder. #6 Morbid obesity. #7 Prosthetic left eye. #8 Hyperlipidemia. Plan: The patient was seen and evaluated by Dr. Pugh. He remains stable from the pulmonary standpoint. His abdominal discomfort has subsided. No significant cholelithiasis noted on ultrasound. Continue to monitor amylase and lipase. Continue with his current medications. We'll continue to follow. I, the cosigning physician, performed a history & physical examination of the patient. Lungs sounds are clear. Diminished. Maintaining good O2 saturations in the 90s on 3 L/m per nasal cannula. I discussed the assessment and plan of care with my nurse practitioner, Gianna Jenkins. I attest to the above note as dictated by her.
[2017-10-25 14:08] LABS: Appearance,Urine Clear (Clear); Bilirubin,Urine Negative (Negative); Blood,Urine Negative (Negative); Color,Urine Light Yellow; Glucose,Urine (UA) Negative (Negative); Ketones,Urine Negative (Negative); Leukocyte Esterase,Urine Negative (Negative); Nitrite,Urine Negative (Negative); Protein,Urine Negative (Negative); Urobilinogen,Urine <2.0 mg/dL (<2.0)
--- NOTE | 2017-10-25 16:45 | PN ---
PROGRESS NOTE DATE OF SERVICE: 10/25/2017. This 67-year-old gentleman who was admitted with abdominal pain and acute pancreatitis being closely monitored. No chest pain. No palpitations. The patient recently had multiple respiratory pathology. Gallbladder ultrasound did not show any acute abnormality. No chest pain. No palpitations. No fever. PHYSICAL EXAMINATION: On exam, alert and oriented x3. Pulse 81, blood pressure 122/72, respirations 20, temperature 98.1, pulse ox 94% on room air. HEENT: Conjunctivae normal. NECK: No jugular venous distention. CARDIOVASCULAR: S1 and S2 muffled. RESPIRATORY: Breath sounds diminished at the bases. No rhonchi, no crackles. Abdomen is soft, obese, nontender. No mass palpable. LEGS: No edema, no swelling. NERVOUS SYSTEM: No focal deficits. LABS: WBC 19.1, hemoglobin 14.4. Amylase is 396 and lipase is 2430. UA is unremarkable. ASSESSMENT: 1. Abdominal pain with acute pancreatitis. 2. History of recent pneumonia with right lower lobe with sepsis and chronic obstructive pulmonary disease with acute exacerbation. 3. History of recent lactic acidosis. 4. Chronic hypoxic respiratory failure. 5. History of coronary artery disease, stent. 6. Hypertension. 7. Hyperlipidemia. 8. Hypothyroidism. 9. Morbid obesity. 10.Prosthetic left eye history. 11.Generalized anxiety. RECOMMENDATIONS AND DISCUSSION: Recommend to continue current medications, continue symptomatic treatment. Otherwise, avoid steroids at this time. The chest x-ray done yesterday showed no acute process. Otherwise continue the rest of medications. Advance diet as tolerated. Closely follow with surgery. Further recommendations to follow. MMODL / IJN: [id number] /
[2017-10-25 17:32] LABS: Glucose,Whole Blood 91 mg/dL (75-99)
[2017-10-25 20:22] LABS: Glucose,Whole Blood 126 mg/dL (75-99)
[2017-10-25] MEDS: ATORVASTATIN 40 MG TAB PO SCH (21:08)
[2017-10-26] MEDS: MORPHINE ORAL SOLN 10 MG/5 ML CUP PO PRN (00:47)
[2017-10-26] MEDS: PIPERACILLIN-TAZOBACTAM 3.375 GM in DEXTROSE/WATER 1 50ML.BAG IVPB SCH ×3 (00:48→17:29)
[2017-10-26] MEDS: IPRATROPIUM-ALBUTEROL 3 ML NEB IH SCH ×4 (01:42→19:06)
[2017-10-26] MEDS: LEVOTHYROXINE 88 MCG TAB PO SCH (05:46)
[2017-10-26 07:07] LABS: Glucose,Whole Blood 97 mg/dL (75-99)
[2017-10-26 07:59] LABS: Basophils # (A) 0.1 k/uL (0-0.2); Basophils % (A) 0 %; Eosinophils # (A) 0.5 k/uL (0-0.7); Eosinophils % (A) 3 %; HCT 45.8 % (39.0-53.0); HGB 15.2 gm/dL (13.0-17.5); Lymphocytes % (A) 15 %; MCH 32.1 pg (25.0-35.0); MCHC 33.2 g/dL (31.0-37.0); MCV 96.8 fL (80.0-100.0); Mean Platelet Volume 7.5; Monocytes # (A) 1.4 k/uL (0-1.0); Monocytes % (A) 7 %; Neutrophils # (A) 14.9 k/uL (1.3-7.7); Neutrophils % (A) 75 %; Platelet Count 246 k/uL (150-450); RBC 4.74 m/uL (4.30-5.90); RDW 11.9 % (11.5-15.5)
[2017-10-26 08:41] LABS: Calcium 8.9 mg/dL (8.4-10.2); Potassium 4.4 mmol/L (3.5-5.1); Total Bilirubin 1.1 mg/dL (0.2-1.3); Total Protein 5.5 g/dL (6.3-8.2)
[2017-10-26] MEDS: METOPROLOL TARTRATE 50 MG TAB PO SCH ×2 (09:58→21:53)
[2017-10-26] MEDS: THEOPHYLLINE 24 HOUR 400 MG CAP.ER.24H PO SCH (09:58)
[2017-10-26] MEDS: PANTOPRAZOLE 40 MG/10 ML VIAL IV SCH (09:59)
[2017-10-26 11:14] LABS: Glucose,Whole Blood 125 mg/dL (75-99)
--- NOTE | 2017-10-26 16:57 | P.PN ---
Subjective Progress Note Date: 10/26/17 Principal diagnosis: Acute pancreatitis This is a 67-year-old white male with history of multiple medical problems including severe end-stage COPD, O2 dependent, recent admission to the hospital with a right lower lobe pneumonia that failed outpatient therapy, history of sepsis, history of coronary artery disease and previous stent placement, hypertension, morbid obesity, hypothyroidism, prosthetic left eye, and generalized anxiety. Patient presented to [facility] with 1 day history of epigastric pain pain was described as severe, across the whole abdomen, mostly in the upper portion of it. Workup at [facility] showed elevated liver enzymes, elevated lipase of 7759, and elevated amylase. Considering the patient was just discharged recently from our institution, patient was transferred and I was asked to see him on consultation because of his COPD and recent history of pneumonia. Pulmonary-vuong, no cough no wheezing no shortness of breath, patient feels fine from the pulmonary perspective, even his abdominal pain is much improved today compared to how he felt earlier. CT of the abdomen apparently was done at [facility], report is not available at this point. After evaluating the patient, I recommended ultrasound of the gallbladder. Patient has no previous history of cholelithiasis, no history of alcohol drinking, and no history of hypertriglyceridemia. Patient denies any fever, no nausea no vomiting, no diarrhea, no melena no hematemesis, no dysuria and no frequency no urgency. The patient is seen again today 10/25/2017 in follow-up in the surgical unit. He is currently resting comfortably in bed. He is awake and alert in no acute distress. He states he has not had that significant abdominal discomfort in the past 7 or 8 hours now. No worsening shortness of breath, cough or congestion. No nausea, vomiting or diarrhea. Ultrasound of the gallbladder did not reveal any evidence of cholelithiasis. There was noted coarsened heterogenous echotexture in the liver without any other abnormalities noted. White count 19.1. Amylase 396, lipase 2430. Reevaluated today on 10/26/2017, patient is doing well, relatively asymptomatic, no pulmonary symptoms, and his pain symptoms from pancreatitis had resolved. However he had leukocytosis with WBC count of 20.0, and he was told by Dr. Virk that he withdraws her watch her for another day. Objective - Vital Signs Vital signs: Vital Signs Temp 98.3 F 10/26/17 15:00 Pulse 90 10/26/17 15:00 Resp 16 10/26/17 15:00 BP 130/69 10/26/17 15:00 Pulse Ox 97 10/26/17 15:00 Intake & Output 10/25/17 10/26/17 10/26/17 18:59 06:59 18:59 Intake Total 1024 236 Output Total 425 Balance 1024 -425 236 Intake: Intake, IV Titration 50 Amount Piperacillin-Tazobactam 3 50 .375 gm In Dextrose/Water 1 50ml.bag @ 12.5 mls/hr IVPB Q8HR [facility] Rx#: [id number] Oral 974 236 Output: Urine 425 Other: # Voids 3 - Exam GENERAL EXAM: Morbidly obese. Alert, active, comfortable in no apparent distress. HEAD: Normocephalic. EYES: Normal reaction of right pupil. NOSE: Clear with pink turbinates. THROAT: No erythema or exudates. NECK: No masses, no JVD. CHEST: No chest wall deformity. LUNGS: Equal air entry with no crackles, wheeze, rhonchi or dullness. CVS: S1 and S2 normal with no audible murmur, regular rhythm. ABDOMEN: No hepatosplenomegaly, normal bowel sounds, no guarding or rigidity. SPINE: No scoliosis or deformity SKIN: No rashes CENTRAL NERVOUS SYSTEM: No focal deficits, tone is normal in all 4 extremities. EXTREMITIES: There is no peripheral edema. No clubbing, no cyanosis. Peripheral pulses are intact. - Labs CBC & Chem 7: 10/26/17 06:33 10/26/17 06:33 Labs: Abnormal Lab Results - Last 24 Hours (Table) 10/25/17 10/26/17 10/26/17 Range/Units 20:20 06:33 06:33 WBC 20.0 H (3.8-10.6) k/uL Neutrophils # 14.9 H (1.3-7.7) k/uL Monocytes # 1.4 H (0-1.0) k/uL Carbon Dioxide 34 H (22-30) mmol/L POC Glucose (mg/dL) 126 H (75-99) mg/dL Total Protein 5.5 L (6.3-8.2) g/dL Albumin 3.0 L (3.5-5.0) g/dL Amylase 235 H (30-110) U/L Lipase 1417 H (23-300) U/L 10/26/17 Range/Units 11:12 WBC (3.8-10.6) k/uL Neutrophils # (1.3-7.7) k/uL Monocytes # (0-1.0) k/uL Carbon Dioxide (22-30) mmol/L POC Glucose (mg/dL) 125 H (75-99) mg/dL Total Protein (6.3-8.2) g/dL Albumin (3.5-5.0) g/dL Amylase (30-110) U/L Lipase (23-300) U/L Microbiology - Last 24 Hours (Table) 10/25/17 02:30 Gram Stain - Preliminary Sputum Assessment and Plan Assessment: Impression: Acute pancreatitis, exact etiology is not clear, definitely not related to alcohol, ultrasound of the gallbladder was negative. This could be related to hyper triglyceridemia. Recent history of right lower lobe pneumonia, antibiotics will be resumed. History of severe end-stage COPD and chronic hypoxic respiratory failure. FEV1 is 31%. History of chronic hypoxic respiratory failure History of coronary artery disease and previous coronary stent insertion History of generalized anxiety disorder History of obesity, BMI of 39.9 History of prosthetic left eye. History of hyperlipidemia. Recommendation: Continue present treatment plan, discharge planning in a.m. He notes from the pulmonary perspective for discharge. Time with Patient: Less than 30
[2017-10-26 17:21] LABS: Glucose,Whole Blood 105 mg/dL (75-99)
[2017-10-26] MEDS: ACETAMINOPHEN TAB 325 MG TAB PO PRN (17:29)
[2017-10-26 20:21] LABS: Glucose,Whole Blood 133 mg/dL (75-99)
--- NOTE | 2017-10-26 20:54 | PN ---
PROGRESS NOTE DATE OF SERVICE: 10/26/2017. INTERVAL HISTORY: This 67-year-old gentleman who was admitted with abdominal pain, acute pancreatitis is being closely monitored. The patient has pneumonia also. No chest pain. No palpitations. No fever. White count is still elevated. On exam, alert and oriented x3. Pulse 90, blood pressure 136/60, temperature 98.2, pulse ox 97% on room air. HEENT: Conjunctivae normal. CARDIOVASCULAR: S1 and S2. RESPIRATORY: Breath sounds diminished at the bases. A few scattered rhonchi and crackles. Abdomen is soft, nontender. No mass palpable. LEGS: No edema, no swelling. NERVOUS SYSTEM: No focal deficits. LABS: WBC 20, amylase 235, lipase is 1417. ASSESSMENT: 1. Abdominal pain with acute pancreatitis. 2. History of recent pneumonia with right lower lobe pneumonia, sepsis and chronic obstructive pulmonary disease acute exacerbation. 3. History of recent lactic acidosis. 4. Chronic hypoxic respiratory failure. 5. History of coronary artery disease and stent. 6. Hypertension. 7. Hyperlipidemia. 8. Hypothyroidism. 9. Morbid obesity. 10.Prosthetic left eye history. 11.Generalized anxiety. DISCUSSION AND RECOMMENDATIONS: Recommend to continue current management. Continue symptomatic treatment. At this time I will recommend closely monitoring and I would also recommend Infectious Disease evaluation also. Guarded prognosis because of multiple complex medical issues. Further recommendations to follow. MMODL / IJN: [id number] /
[2017-10-26] MEDS: ATORVASTATIN 40 MG TAB PO SCH (21:53)
[2017-10-27] MEDS: PIPERACILLIN-TAZOBACTAM 3.375 GM in DEXTROSE/WATER 1 50ML.BAG IVPB SCH ×2 (00:08→08:14)
[2017-10-27] MEDS: IPRATROPIUM-ALBUTEROL 3 ML NEB IH SCH ×2 (03:55→08:46)
[2017-10-27] MEDS: LEVOTHYROXINE 88 MCG TAB PO SCH (06:26)
[2017-10-27 06:58] LABS: Glucose,Whole Blood 104 mg/dL (75-99)
[2017-10-27 07:12] LABS: Basophils # (A) 0.1 k/uL (0-0.2); Basophils % (A) 0 %; Eosinophils # (A) 0.6 k/uL (0-0.7); Eosinophils % (A) 3 %; HCT 42.2 % (39.0-53.0); HGB 14.3 gm/dL (13.0-17.5); Lymphocytes # (A) 2.3 k/uL (1.0-4.8); Lymphocytes % (A) 14 %; MCH 32.5 pg (25.0-35.0); MCHC 33.8 g/dL (31.0-37.0); Monocytes # (A) 0.9 k/uL (0-1.0); Monocytes % (A) 5 %; Neutrophils # (A) 12.5 k/uL (1.3-7.7); Neutrophils % (A) 76 %; Platelet Count 219 k/uL (150-450); WBC 16.4 k/uL (3.8-10.6)
[2017-10-27] MEDS ORDERED: PANTOPRAZOLE 40 MG TABLET PO SCH (07:30)
[2017-10-27 07:51] VITALS: BP 104/71; RESP 16; TEMP 98.3
[2017-10-27] MEDS: METOPROLOL TARTRATE 50 MG TAB PO SCH (08:14)
[2017-10-27] MEDS: THEOPHYLLINE 24 HOUR 400 MG CAP.ER.24H PO SCH (08:14)
[2017-10-27 08:19] LABS: ALT 38 U/L (21-72); AST 27 U/L (17-59); Alkaline Phosphatase 62 U/L (38-126); Amylase 92 U/L (30-110); Anion Gap 7 mmol/L; Blood Urea Nitrogen 11 mg/dL (9-20); Calcium 8.7 mg/dL (8.4-10.2); Carbon Dioxide 30 mmol/L (22-30); Chloride 101 mmol/L (98-107); Cholesterol 127 mg/dL (<200); Glucose 106 mg/dL (74-99); HDL Cholesterol 30 mg/dL (40-60); LDL Cholesterol,Calculated 75 mg/dL (0-99); Lipase 533 U/L (23-300); Sodium 138 mmol/L (137-145); Total Bilirubin 1.2 mg/dL (0.2-1.3); Total Protein 5.6 g/dL (6.3-8.2); Triglycerides 110 mg/dL (<150)
[2017-10-27 08:57] VITALS: PULSE 92
--- NOTE | 2017-10-27 09:13 | CONS ---
CONSULTATION DATE OF SERVICE: 10/26/2017. REASON FOR CONSULTATION: Leukocytosis and pancreatitis. HISTORY OF PRESENT ILLNESS: The patient is a 67-year-old male who was recently admitted at [facility] and was treated for pneumonia. The patient was on Rocephin and Zithromax and discharged home on the on p.o. Ceftin. The very next day the patient started having pain in the abdominal area, mostly in the epigastric area, sudden in onset, and almost 10/10 in severity. [place] nauseated with it but no vomiting. Denies any high- grade fever, rigors or chills. EMS was called in, who took the patient to the [facility]. Apparently the patient did have a CT of the abdomen and pelvis done there because of the pain. He did have elevated amylase and lipase and was diagnosed with pancreatitis. Subsequently the patient has been transferred to the [facility] for continuous care, as most of his doctors are in this facility. The patient has been afebrile throughout his hospital stay. He did have a white count of 19.1 yesterday, which is up to 20,000 today, though his lipase which was down to 1417 and amylase was 396, down to 235. Because of his persistent elevated white count, I was asked to see the patient for further recommendation regarding antibiotic therapy. The patient has been treated with Zosyn empirically. The patient has been admitted to the hospital and no blood culture has been done. When asked specifically, the patient's abdominal pain has improved, about 3/10 now. No nausea or vomiting. Tolerating clear liquid diet. Denies having any chest pain or shortness of breath or cough. REVIEW OF SYSTEMS: CONSTITUTIONAL: Positive for weakness. No high-grade fever. EYES: No complaints. ENT: No complaints. RESPIRATORY: No complaints. CARDIOVASCULAR: No complaint. GENITOURINARY: No complaint. GASTROINTESTINAL: As per HPI. MUSCULOSKELETAL: No complaint. INTEGUMENTARY: No complaint. PSYCHOLOGICAL: No complaint. NEUROLOGICAL: No complaint. PAST MEDICAL HISTORY: Coronary artery disease, COPD, heart failure, hypertension, hyperlipidemia, VA, pneumonia, obesity, hypothyroidism, generalized anxiety disorder. PAST SURGICAL HISTORY: PTCA with stent, hernia repair, tonsillectomy, prosthetic left eye. SOCIAL HISTORY: Quit smoking about 6 years ago. Has about 30 pack of smoking. Uses recreational marijuana. No alcohol. FAMILY HISTORY: Father history of COPD. Mother history of congestive heart failure. ALLERGIES: No known drug allergies. MEDICATIONS: 1. Tylenol. 2. DuoNeb. 3. Xanax. 4. Lipitor. 5. Synthroid. 6. Lopressor. 7. Morphine sulfate. 8. Narcan. 9. Protonix. 10.Tazobactam. EXAMINATION: Blood pressure is 100/62 with a pulse of 80, temperature of 97.9, he is 96% on 3 L nasal cannula. GENERAL DESCRIPTION: Elderly male lying in bed in no distress. No tachypnea or accessory muscle of respiration use. HEENT: Shows no pallor or scleral icterus. Oral mucosa is moist. No pharyngeal erythema or thrush. NECK: Trachea central, no thyromegaly. LUNGS: Unlabored breathing, clear to auscultation anteriorly. No wheeze or crackle. HEART: S1, S2. Regular rate and rhythm. ABDOMEN: Soft, slightly distended. No guarding or rigidity. No organomegaly. EXTREMITIES: No edema of the feet. SKIN: No rash or mass palpable. NEUROLOGIC: The patient is awake, alert, oriented. Mood and affect normal. LABS: Hemoglobin is 15.2, white count 20,000, BUN of 14, creatinine 1.05. Electrolytes have been normal. Amylase and lipase done, as mentioned earlier. UA has been negative. No blood pressure has been benign. Ultrasound was negative for any gallstones. DIAGNOSTIC IMPRESSION AND PLAN: Patient with leukocytosis, more likely due to acute pancreatitis which could be more likely related to Rocephin which the patient received for presumed pneumonia during admission when he was just discharged from the hospital on October 23. As the patient is not alcoholic and his ultrasound of the abdomen was negative for any gallstones, only other etiology could be elevated triglyceride levels, which should be checked in the morning, however, clinically doubt any evidence of any infectious complication associated with this episode of pancreatitis which seems to be resolving with bowel rest. PLAN: 1. We will check a fasting lipid panel in the morning. 2. Repeat a CBC in morning. 3. Continue empiric Zosyn. 4. IV fluids. 5. The patient is n.p.o. 6. The patient remains to be afebrile and not showing downward trend, we will recommend discontinuation of antibiotic therapy as clinically no evidence of any secondary infection. Thank you for this consultation. Will follow this patient along with you. MMODL / IJN: [id number] /
--- NOTE | 2017-10-27 13:59 | P.PN ---
Subjective Progress Note Date: 10/27/17 Principal diagnosis: Acute pancreatitis, recent admission with right lower lobe pneumonia, improved This is a 67-year-old white male with history of multiple medical problems including severe end-stage COPD, O2 dependent, recent admission to the hospital with a right lower lobe pneumonia that failed outpatient therapy, history of sepsis, history of coronary artery disease and previous stent placement, hypertension, morbid obesity, hypothyroidism, prosthetic left eye, and generalized anxiety. Patient presented to [facility] with 1 day history of epigastric pain pain was described as severe, across the whole abdomen, mostly in the upper portion of it. Workup at [facility] showed elevated liver enzymes, elevated lipase of 7759, and elevated amylase. Considering the patient was just discharged recently from our institution, patient was transferred and I was asked to see him on consultation because of his COPD and recent history of pneumonia. Pulmonary-vuong, no cough no wheezing no shortness of breath, patient feels fine from the pulmonary perspective, even his abdominal pain is much improved today compared to how he felt earlier. CT of the abdomen apparently was done at [facility], report is not available at this point. After evaluating the patient, I recommended ultrasound of the gallbladder. Patient has no previous history of cholelithiasis, no history of alcohol drinking, and no history of hypertriglyceridemia. Patient denies any fever, no nausea no vomiting, no diarrhea, no melena no hematemesis, no dysuria and no frequency no urgency. The patient is seen again today 10/25/2017 in follow-up in the surgical unit. He is currently resting comfortably in bed. He is awake and alert in no acute distress. He states he has not had that significant abdominal discomfort in the past 7 or 8 hours now. No worsening shortness of breath, cough or congestion. No nausea, vomiting or diarrhea. Ultrasound of the gallbladder did not reveal any evidence of cholelithiasis. There was noted coarsened heterogenous echotexture in the liver without any other abnormalities noted. White count 19.1. Amylase 396, lipase 2430. Reevaluated today on 10/26/2017, patient is doing well, relatively asymptomatic, no pulmonary symptoms, and his pain symptoms from pancreatitis had resolved. However he had leukocytosis with WBC count of 20.0, and he was told by Dr. Virk that he withdraws her watch her for another day. On 10/27/2017 patient seen in follow-up. Resting comfortably in bed, denies any acute distress, he is tolerating full liquid diet. Denies acute at abdominal discomfort, he had a bowel movement this morning, which was a little loose. No nausea, no vomiting. Abdomen is nontender. Denies any shortness of breath, cough or congestion. Vital signs are stable, he remains on 3 L per nasal cannula with O2 sat 98%. Lung sounds are positive for a few bibasilar crackles, no rhonchi or wheezes. ID service note was reviewed, they recommend stopping antibiotics if there are no further fever or chills. From pulmonary standpoint patient is stable for discharge home today, on his home inhalers and nebulizer treatments. No antibiotics needed, follow-up with Dr. Pugh any office in one week. Today's lab work shows WBC trending down, down to 16.4, electrolytes and renal profile are all within normal limits, amylase is down to 92, and lipase is down to 533 from 1417 on yesterday's labs. Objective - Vital Signs Vital signs: Vital Signs Temp 98.3 F 10/27/17 07:00 Pulse 92 10/27/17 08:56 Resp 16 10/27/17 07:00 BP 104/71 10/27/17 07:00 Pulse Ox 98 10/27/17 07:00 Intake & Output 10/26/17 10/27/17 10/27/17 18:59 06:59 18:59 Intake Total 766 180 Balance 766 180 Intake: Intake, IV Titration 50 Amount Piperacillin-Tazobactam 3 50 .375 gm In Dextrose/Water 1 50ml.bag @ 12.5 mls/hr IVPB Q8HR [facility] Rx#: [id number] Oral 716 180 Other: Voiding Method Toilet # Voids 2 - Exam GENERAL EXAM: Alert, pleasant, 67-year-old obese white male comfortable in no apparent distress. HEAD: Normocephalic/atraumatic. EYES: Normal reaction of pupils, equal size. Conjunctiva pink, sclera white. NOSE: Clear with pink turbinates. THROAT: No erythema or exudates. NECK: No masses, no JVD, no thyroid enlargement, no adenopathy. CHEST: No chest wall deformity. Symmetrical expansion. LUNGS: Equal air entry with minimal bibasilar crackles, but no wheezes, rhonchi or dullness. CVS: Regular rate and rhythm, normal S1 and S2, no gallops, no murmurs, no rubs ABDOMEN: Soft, nontender. No hepatosplenomegaly, normal bowel sounds, no guarding or rigidity. EXTREMITIES: No clubbing, no edema, no cyanosis, 2+ pulses and upper and lower extremities. MUSCULOSKELETAL: Muscle strength and tone normal. SPINE: No scoliosis or deformity SKIN: No rashes CENTRAL NERVOUS SYSTEM: Alert and oriented -3. No focal deficits, tone is normal in all 4 extremities. PSYCHIATRIC: Alert and oriented -3. Appropriate affect. Intact judgment and insight. - Labs CBC & Chem 7: 10/27/17 06:48 10/27/17 06:48 Labs: Abnormal Lab Results - Last 24 Hours (Table) 10/26/17 10/26/17 10/27/17 Range/Units 17:18 20:18 06:48 WBC 16.4 H (3.8-10.6) k/uL Neutrophils # 12.5 H (1.3-7.7) k/uL Glucose (74-99) mg/dL POC Glucose (mg/dL) 105 H 133 H (75-99) mg/dL Total Protein (6.3-8.2) g/dL Albumin (3.5-5.0) g/dL HDL Cholesterol (40-60) mg/dL Lipase (23-300) U/L 10/27/17 10/27/17 Range/Units 06:48 06:55 WBC (3.8-10.6) k/uL Neutrophils # (1.3-7.7) k/uL Glucose 106 H (74-99) mg/dL POC Glucose (mg/dL) 104 H (75-99) mg/dL Total Protein 5.6 L (6.3-8.2) g/dL Albumin 3.0 L (3.5-5.0) g/dL HDL Cholesterol 30 L (40-60) mg/dL Lipase 533 H (23-300) U/L Microbiology - Last 24 Hours (Table) 10/25/17 02:30 Gram Stain - Preliminary Sputum Sputum Culture - Preliminary Aspergillus species Assessment and Plan Plan: Assessment: Acute pancreatitis, exact etiology is not clear, definitely not related to alcohol, ultrasound of the gallbladder was negative. This could be related to hyper triglyceridemia. Recent history of right lower lobe pneumonia, antibiotics will be resumed. History of severe end-stage COPD and chronic hypoxic respiratory failure. FEV1 is 31%. History of chronic hypoxic respiratory failure History of coronary artery disease and previous coronary stent insertion History of generalized anxiety disorder History of obesity, BMI of 39.9 History of prosthetic left eye. History of hyperlipidemia. Recommendation: Patient remains stable from pulmonary standpoint, afebrile, vital signs are stable. He is on his baseline dose of FiO2, 3 L per nasal cannula. No cough, no dyspnea and no chest congestion. No fever, no chills. Antibiotics can be discontinued, per ID service recommendation. Patient is stable for discharge home today from pulmonary standpoint. He can continue on his maintenance inhalers and nebulizer treatments. No need to finish his prednisone taper from previous admission. No wheezing noted on his exam. Follow-up with Dr. Pugh in the office in 7 days. I performed a history & physical examination of the patient and discussed their management with my nurse practitioner, Radha Marrero. I reviewed the nurse practitioner's note and agree with the documented findings and plan of care. Lung sounds are basilar rales. The findings and the impression was discussed with the patient. I attest to the documentation by the nurse practitioner. Time with Patient: Less than 30
--- NOTE | 2017-10-27 16:04 | PN ---
PROGRESS NOTE DATE OF SERVICE: 10/27/2017. REASON FOR FOLLOWUP: Leukocytosis secondary to acute pancreatitis, drug-induced. INTERVAL HISTORY: The patient was seen on rounds this morning. The patient has been afebrile. He is feeling better. His abdominal pain has improved. Has been tolerating a soft diet. No nausea no vomiting. Denies any chest pain, shortness of breath, cough and really wants to go home. EXAMINATION: Blood pressure 104/71 with a pulse of 90, temperature 98.3. He is 98% on 3 L nasal cannula. General description is an elderly male up in the bed in no distress. RESPIRATORY SYSTEM: Unlabored breathing. Clear to auscultation anteriorly. HEART: S1, S2. Regular rate and rhythm. ABDOMEN: Soft, no tenderness. LABS: Hemoglobin is 14.8, white count 16.4. DIAGNOSTIC IMPRESSION AND PLAN: Patient with elevated white count secondary to acute pancreatitis, likely drug-induced. The patient did receive Rocephin which is really associated with acute pancreatitis with no other risk factors as the patient is a nonalcoholic. There was no evidence of any gallstones and his triglyceride levels are normal. Treatment will be mostly supportive. This was explained to the patient in layman's terms. May give a short course of oral Avelox for about 5 to 6 days. This was explained to the nurse practitioner for the primary team. MMODL / IJN: [id number] /
--- NOTE | 2017-10-27 22:16 | DS ---
DISCHARGE SUMMARY FINAL DIAGNOSES: 1. Abdominal pain with acute pancreatitis. 2. History of recent pneumonia with right lower pneumonia, sepsis and chronic obstructive pulmonary disease exacerbation. 3. History of recent lactic acidosis. 4. History of chronic hypoxic respiratory failure. 5. History of coronary artery disease and stent. 6. Hypertension. 7. Hyperlipidemia. 8. Hypothyroidism. 9. Morbid obesity. 10.Prosthetic left eye history. 11.Generalized anxiety. DISCHARGE DISPOSITION: The patient will be discharged in stable condition with guarded prognosis. HISTORY OF PRESENT ILLNESS: This 67-year-old gentleman with a past medical history of multiple medical problems was admitted with features of acute pancreatitis. Patient recently had pneumonia and respiratory issues also. The patient improved significantly. Patient was seen by Infectious Disease and Pulmonology. On exam, vitals are stable. CARDIOVASCULAR SYSTEM: S1, S2 muffled. RESPIRATORY SYSTEM: A few scattered rhonchi. ABDOMEN: Soft, non-tender. NERVOUS SYSTEM: No focal deficit. DISCHARGE ADVICE AND MEDICATIONS: 1. Diet is soft, low-fat. 2. Activity limited until followup. 3. Follow up with Dr. Dr. Pugh in 1 week. 4. Follow up with Dr. Agee in 2 to 3 days. 5. Ventolin HFA 2 puffs q.i.d. p.r.n. and nebulizer q.i.d. and p.r.n. 6. Xanax 0.5 b.i.d. 7. DuoNeb q.i.d. and p.r.n. 8. Synthroid 88 mcg p.o. daily. 9. Lopressor 50 mg at bedtime. 10.Lopressor 100 mg p.o. daily. 11.Avelox 400 mg p.o. daily for 5 days. 12.Protonix 40 mg daily. 13.Zocor 80 mg at bedtime. 14.Tung-24 400 mg p.o. daily. 15.Anoro Ellipta 1 puff daily. Once again, the patient will be discharged in stable condition with guarded prognosis. MMODL / IJN: [id number] / MTDD
== END 2017-10-27 13:29 | disposition home or self-care (01) | DRG 439 ==
LOC: EC 04:49 → 3SUR 06:03
PROVIDERS: ADMIT Hospitalist; ATTEND Hospitalist
DX: K85.30 Drug induced acute pancreatitis without necrosis or infection (principal); J96.11 Chronic respiratory failure with hypoxia; I11.0 Hypertensive heart disease with heart failure; I50.9 Heart failure, unspecified; E66.01 Morbid (severe) obesity due to excess calories; Z99.81 Dependence on supplemental oxygen; J44.9 Chronic obstructive pulmonary disease, unspecified; E03.9 Hypothyroidism, unspecified; E78.5 Hyperlipidemia, unspecified; F41.1 Generalized anxiety disorder; I25.10 Atherosclerotic heart disease of native coronary artery without angina pectoris; Z68.39 Body mass index [BMI] 39.0-39.9, adult; Z87.891 Personal history of nicotine dependence; Z95.5 Presence of coronary angioplasty implant and graft; I25.2 Old myocardial infarction; Z82.49 Family history of ischemic heart disease and other diseases of the circulatory system; Z82.5 Family history of asthma and other chronic lower respiratory diseases; Z88.8 Allergy status to other drugs, medicaments and biological substances; Z79.52 Long term (current) use of systemic steroids; Z79.899 Other long term (current) drug therapy; Z97.0 Presence of artificial eye; Z87.01 Personal history of pneumonia (recurrent); Z86.19 Personal history of other infectious and parasitic diseases
CPT/HCPCS: 71045; 76705; 80053; 80061; 81003; 82150; 83690; 85025; 87070; 87205; 94640; 94760; 96365; 96375; 99284

== ENCOUNTER → 2017-10-29 | Outpatient (CLI) | payer MEDICARE ==
[2017-10-29 12:48] LABS: Albumin 3.6 g/dL (3.5-5.0); Calcium 9.3 mg/dL (8.4-10.2); Potassium 4.8 mmol/L (3.5-5.1); Total Protein 6.4 g/dL (6.3-8.2)
[2017-10-29 13:05] LABS: HCT 44.9 % (39.0-53.0); HGB 14.2 gm/dL (13.0-17.5); MCHC 31.6 g/dL (31.0-37.0); MCV 97.9 fL (80.0-100.0); Mean Platelet Volume 7.3; Platelet Count 292 k/uL (150-450); RBC 4.59 m/uL (4.30-5.90); RDW 12.3 % (11.5-15.5)
== END | disposition home or self-care (01) ==
LOC: LABWHC1 11:10
PROVIDERS: ATTEND Nurse Practitioner
DX: K85.90 Acute pancreatitis without necrosis or infection, unspecified (principal)
CPT/HCPCS: 36415; 80053; 82150; 83690; 85027

== ENCOUNTER 2018-02-03 09:44 | Emergency (ER) | payer MEDICARE ==
[2018-02-03 09:50] VITALS: RESP 18
[2018-02-03] MEDS ORDERED: SODIUM CHLORIDE 0.9% 500 ML IV STA (10:17)
[2018-02-03] MEDS ORDERED: IPRATROPIUM-ALBUTEROL 3 ML NEB INHALATION STA (10:18)
--- NOTE | 2018-02-03 10:22 | ED ---
General Adult HPI - General Chief complaint: Upper Respiratory Infection Stated complaint: Dizziness, Cough, ELIAS Time Seen by Provider: 02/03/18 10:10 Source: patient Mode of arrival: wheelchair Limitations: physical limitation - History of Present Illness Initial comments: Patient presents with shortness of breath and cough. States patient has a history of COPD, on 3 L nasal cannula baseline. Patient states she's been using his nebulizer every 6 hours and it "help A LOT!". Patient states he'll the night last night he began having a cough with thick yellow sputum. Patient denies fevers, chills, nausea, vomiting, chest pain, pain anywhere, abdominal pain. Patient denies nasal congestion or rhinorrhea. - Related Data Home Medications Medication Instructions Recorded Confirmed ALPRAZolam [Xanax] 0.25 - 0.5 mg PO BID PRN 04/27/15 02/03/18 Albuterol Inhaler [Ventolin Hfa 2 puff INHALATION RT-QID PRN 04/28/15 02/03/18 Inhaler] Simvastatin [Zocor] 80 mg PO HS 12/04/15 02/03/18 Umeclidinium Brm/Vilanterol Tr 1 puff INHALATION RT-DAILY 12/04/15 02/03/18 [Anoro Ellipta 62.5-25 Mcg INH] Levothyroxine Sodium [Synthroid] 88 mcg PO DAILY 09/10/16 02/03/18 Theophylline 24 Hour [Tung-24] 400 mg PO DAILY 10/08/16 02/03/18 Ipratropium Nebulized [Atrovent 0.5 mg INHALATION RT-Q4H PRN 02/26/17 02/03/18 Nebulized] Famotidine [Pepcid] 20 mg PO DAILY PRN 02/03/18 02/03/18 Metoprolol Tartrate [Lopressor] 50 mg PO HS 02/03/18 02/03/18 Metoprolol Tartrate [Lopressor] 100 mg PO DAILY 02/03/18 02/03/18 Previous Rx's Medication Instructions Recorded Albuterol Nebulized [Ventolin 2.5 mg INHALATION RT-Q4H PRN #0 05/04/15 Nebulized] nebu Levofloxacin [Levaquin] 750 mg PO DAILY 5 Days #5 tab 02/03/18 predniSONE 40 mg PO DAILY 5 Days #10 tab 02/03/18 Allergies Allergy/AdvReac Type Severity Reaction Status Date / Time adhesive tape Allergy Rash/Hives Verified 02/03/18 10:24 Review of Systems ROS Statement: Those systems with pertinent positive or pertinent negative responses have been documented in the HPI. ROS Other: All systems not noted in ROS Statement are negative. Constitutional: Denies: fever, chills, weakness, night sweats Eyes: Denies: vision change ENT: Denies: ear pain, throat pain, congestion Respiratory: Reports: cough, dyspnea, wheezes. Denies: hemoptysis, stridor Cardiovascular: Denies: chest pain, palpitations, orthopnea, edema, syncope Endocrine: Denies: fatigue Gastrointestinal: Denies: abdominal pain, nausea, vomiting, diarrhea, constipation Genitourinary: Denies: dysuria, frequency Musculoskeletal: Denies: back pain, joint swelling, arthralgia, myalgia Skin: Denies: rash, change in color Neurological: Denies: headache Past Medical History Past Medical History: Coronary Artery Disease (CAD), Chest Pain / Angina, Heart Failure, COPD, Hyperlipidemia, Hypertension, Myocardial Infarction ([place]), Pneumonia, Thyroid Disorder Additional Past Medical History / Comment(s): Obesity, COPD with chronic hypoxic respiratory failure and based on FEV1 of 31% of predicted,bronchits, chronic hypoxic respitory failure maintained on home 02 3 liters n/c, hypothyroidism, generalized anxiety disorder. Last hospitalized 2 days ago for pneumonia. 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 No acute distress. Conversing normally. Calm, pleasant, smiling, making jokes. Well-appearing. Limitations: no limitations General appearance: alert, in no apparent distress Head exam: Present: atraumatic, normocephalic Eye exam: Present: normal appearance, PERRL, EOMI ENT exam: Present: normal exam, mucous membranes moist Neck exam: Present: normal inspection. Absent: tenderness, meningismus Respiratory exam: Present: wheezes (Mild expiratory wheezes upper lung pelaez), rales (Mild rales right lower lobe). Absent: respiratory distress, accessory muscle use, decreased breath sounds, prolonged expiratory Cardiovascular Exam: Present: regular rate, normal rhythm GI/Abdominal exam: Present: soft. Absent: distended, tenderness, guarding, rebound Extremities exam: Present: normal inspection. Absent: pedal edema Back exam: Present: normal inspection Neurological exam: Present: alert, oriented X3 Psychiatric exam: Present: normal affect, normal mood Skin exam: Present: warm, dry, intact, normal color. Absent: rash, cyanosis, diaphoretic, erythema Course Vital Signs 02/03/18 02/03/18 02/03/18 09:45 10:33 10:43 Temperature 98.2 F Pulse Rate 103 H 108 H 101 H Respiratory 18 Rate Blood Pressure 103/65 O2 Sat by Pulse 92 L Oximetry Medical Decision Making - Medical Decision Making Patient 93% on 2 L nasal cannula, baseline 2-3 L at home. DuoNeb, Solu-Medrol, 500 cc IV fluid bolus ordered. Chest x-ray shows chronic changes without new suspicious acute infiltrate per radiology read. Given rales on RLL, productive cough, h/o COPD, mild infilrative changes on CXR per ED read, will treat with abx for PNA. WBC 19 BUN mildly elevated CURB 65 score 2. Discuss inpatient versus outpatient therapy, patient states he feels that very early pneumonia, would like to trial course of outpatient antibiotics. Patient agrees to follow up with his primary care physician Dr. Arthur in 1-2 days. Return to ER if new or worsening symptoms including fevers, chills, nausea, vomiting. Patient given prescription Levaquin, prednisone. Patient states she has nebulizer machine at home which helps a lot, agrees to use every 4-6 hours as needed for shortness of breath. - Lab Data Result diagrams: 02/03/18 10:34 02/03/18 10:34 Lab Results 02/03/18 02/03/18 02/03/18 Range/Units 10:34 10:34 10:34 WBC 21.0 H (3.8-10.6) k/uL RBC 4.82 (4.30-5.90) m/uL Hgb 15.6 (13.0-17.5) gm/dL Hct 47.4 (39.0-53.0) % MCV 98.2 (80.0-100.0) fL MCH 32.4 (25.0-35.0) pg MCHC 33.0 (31.0-37.0) g/dL RDW 12.4 (11.5-15.5) % Plt Count 264 (150-450) k/uL Neutrophils % 85 % Lymphocytes % 7 % Monocytes % 5 % Eosinophils % 2 % Basophils % 0 % Neutrophils # 17.8 H (1.3-7.7) k/uL Lymphocytes # 1.4 (1.0-4.8) k/uL Monocytes # 1.1 H (0-1.0) k/uL Eosinophils # 0.5 (0-0.7) k/uL Basophils # 0.1 (0-0.2) k/uL Sodium 139 (137-145) mmol/L Potassium 5.1 (3.5-5.1) mmol/L Chloride 102 (98-107) mmol/L Carbon Dioxide 26 (22-30) mmol/L Anion Gap 11 mmol/L BUN 23 H (9-20) mg/dL Creatinine 0.96 (0.66-1.25) mg/dL Est GFR (CKD-EPI)AfAm >90 (>60 ml/min/1.73 sqM) Est GFR (CKD-EPI)NonAf 83 (>60 ml/min/1.73 sqM) Glucose 136 H (74-99) mg/dL Calcium 9.4 (8.4-10.2) mg/dL Magnesium 1.6 (1.6-2.3) mg/dL NT-Pro-B Natriuret Pep 42 pg/mL Disposition Clinical Impression: CAP (community acquired pneumonia) Disposition: HOME SELF-CARE Condition: Good Instructions: Community Acquired Pneumonia (ED) Additional Instructions: Follow-up with your primary care physician one to 2 days for reevaluation. Return here immediately if fevers, chills, nausea, vomiting, any other new or worsening symptoms. Prescriptions: Levofloxacin [Levaquin] 750 mg PO DAILY 5 Days #5 tab predniSONE 40 mg PO DAILY 5 Days #10 tab Is patient prescribed a controlled substance at d/c from ED?: No Referrals: Kathy Agee MD [Primary Care Provider] - 1-2 days
[2018-02-03] MEDS ORDERED: methylPREDNISolone SOD SUCCI 125 MG/2 ML VIAL IV ONE (10:30)
[2018-02-03 10:52] LABS: Basophils # (A) 0.1 k/uL (0-0.2); Basophils % (A) 0 %; Eosinophils # (A) 0.5 k/uL (0-0.7); Eosinophils % (A) 2 %; HCT 47.4 % (39.0-53.0); HGB 15.6 gm/dL (13.0-17.5); Lymphocytes # (A) 1.4 k/uL (1.0-4.8); Lymphocytes % (A) 7 %; MCH 32.4 pg (25.0-35.0); MCV 98.2 fL (80.0-100.0); Mean Platelet Volume 7.2; Monocytes # (A) 1.1 k/uL (0-1.0); Monocytes % (A) 5 %; Neutrophils # (A) 17.8 k/uL (1.3-7.7); Neutrophils % (A) 85 %; Platelet Count 264 k/uL (150-450); RBC 4.82 m/uL (4.30-5.90); RDW 12.4 % (11.5-15.5)
[2018-02-03 10:56] LABS: Anion Gap 11 mmol/L; Blood Urea Nitrogen 23 mg/dL (9-20); Calcium 9.4 mg/dL (8.4-10.2); Carbon Dioxide 26 mmol/L (22-30); Chloride 102 mmol/L (98-107); Glucose 136 mg/dL (74-99); Magnesium 1.6 mg/dL (1.6-2.3); Potassium 5.1 mmol/L (3.5-5.1); Sodium 139 mmol/L (137-145)
--- NOTE | 2018-02-03 11:12 | XR ---
EXAMINATION TYPE: XR chest 2V DATE OF EXAM: 02/03/2018 COMPARISON: Chest x-ray October 24, 2017. HISTORY: History of COPD with shortness of breath and productive cough. TECHNIQUE: Frontal and lateral views of the chest are obtained. FINDINGS: There is chronic parenchymal change with persistent left basilar scarring and/or atelectas is. There is no new suspicious focal air space opacity, pleural effusion, or pneumothorax seen bilate rally. The cardiac silhouette size is within normal limits. The osseous structures are intact. IMPRESSION: Chronic changes without new suspicious acute infiltrate.
[2018-02-03 12:42] VITALS: BP 128/77; PULSE 93; TEMP 98.8
== END 2018-02-03 12:29 | disposition home or self-care (01) ==
LOC: EC 09:44
DX: J18.9 Pneumonia, unspecified organism (principal); I25.10 Atherosclerotic heart disease of native coronary artery without angina pectoris; I11.0 Hypertensive heart disease with heart failure; I50.9 Heart failure, unspecified; J44.9 Chronic obstructive pulmonary disease, unspecified; E78.5 Hyperlipidemia, unspecified; I25.2 Old myocardial infarction; E03.9 Hypothyroidism, unspecified; E66.9 Obesity, unspecified; Z68.38 Body mass index [BMI] 38.0-38.9, adult; Z95.5 Presence of coronary angioplasty implant and graft; Z87.891 Personal history of nicotine dependence; Z79.899 Other long term (current) drug therapy; Z91.048 Other nonmedicinal substance allergy status
CPT/HCPCS: 36415; 94640; 83880; 80048; 83735; 85025; 71046; 99285; 96374; 96361 ×2; J2930

== ENCOUNTER 2018-02-26 19:14 | Emergency (ER) | payer MEDICARE ==
[2018-02-26] MEDS ORDERED: SODIUM CHLORIDE 0.9% 500 ML IV STA (20:09)
[2018-02-26] MEDS ORDERED: DEXAMETHASONE 4 MG TAB PO STA (20:19)
[2018-02-26] MEDS ORDERED: ALBUTEROL NEBULIZED 2.5 MG/3 ML INHALATION STA (20:19)
[2018-02-26] MEDS ORDERED: IPRATROPIUM 0.5 MG/2.5 ML NEBU INHALATION STA (20:19)
--- NOTE | 2018-02-26 20:25 | ED ---
General Adult HPI - General Chief complaint: Shortness of Breath Stated complaint: SOB Source: patient Mode of arrival: wheelchair Limitations: no limitations - History of Present Illness Initial comments: Dictation was produced using [employer] dictation software. please excuse any grammatical, word or spelling errors. Chief Complaint: 67 year old male past medical history of COPD, coronary artery disease, dyslipidemia, [place] presents with persistent shortness of breath. History of Present Illness: Afshin is a 67-year-old male with extensive history of COPD on home oxygen presents with shortness of breath. He was seen by his primary care physician: Days ago where he was diagnosed with pneumonia. He was given IM shot of corticosteroids and antibiotics. Following day he was given a prescription for antibiotics. Patient was at home today when he felt lightheaded shortness breath was getting worse. He is on home oxygen set 3 L. Patient denies any chest pain. Denies any history of thromboembolic disease. Patient states he's had mild, however is not productive. Denies any constitutional symptoms. The ROS documented in this emergency department record has been reviewed and confirmed by me. Those systems with pertinent positive or negative responses have been documented in the HPI. All other systems are other negative and/or noncontributory. - Related Data Home Medications Medication Instructions Recorded Confirmed ALPRAZolam [Xanax] 0.25 mg PO BID PRN 04/27/15 02/26/18 Albuterol Inhaler [Ventolin Hfa 2 puff INHALATION RT-QID PRN 04/28/15 02/26/18 Inhaler] Simvastatin [Zocor] 80 mg PO HS 12/04/15 02/26/18 Umeclidinium Brm/Vilanterol Tr 1 puff INHALATION RT-DAILY 12/04/15 02/26/18 [Anoro Ellipta 62.5-25 Mcg INH] Levothyroxine Sodium [Synthroid] 88 mcg PO DAILY 09/10/16 02/26/18 Theophylline 24 Hour [Tung-24] 400 mg PO DAILY 10/08/16 02/26/18 Ipratropium Nebulized [Atrovent 0.5 mg INHALATION RT-Q4H PRN 02/26/17 02/26/18 Nebulized] Metoprolol Tartrate [Lopressor] 100 mg PO DAILY 02/03/18 02/26/18 Acetaminophen Tab [Tylenol Tab] 650 mg PO Q6H PRN 02/26/18 02/26/18 Moxifloxacin HCl 400 mg PO DAILY 02/26/18 02/26/18 Previous Rx's Medication Instructions Recorded Albuterol Nebulized [Ventolin 2.5 mg INHALATION RT-Q4H PRN #0 05/04/15 Nebulized] nebu methylPREDNISolone [Medrol Dose 4 mg PO DIRECTED #1 pack 02/26/18 Pack] Allergies Allergy/AdvReac Type Severity Reaction Status Date / Time adhesive tape Allergy Rash/Hives Verified 02/26/18 20:25 Review of Systems ROS Statement: Those systems with pertinent positive or pertinent negative responses have been documented in the HPI. ROS Other: All systems not noted in ROS Statement are negative. Past Medical History Past Medical History: Coronary Artery Disease (CAD), Chest Pain / Angina, Heart Failure, COPD, Hyperlipidemia, Hypertension, Myocardial Infarction ([place]), Pneumonia, Thyroid Disorder Additional Past Medical History / Comment(s): Obesity, COPD with chronic hypoxic respiratory failure and based on FEV1 of 31% of predicted,bronchits, chronic hypoxic respitory failure maintained on home 02 3 liters n/c, hypothyroidism, generalized anxiety disorder. Last hospitalized 2 days ago for pneumonia. 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, 2 cardiac stents Past Anesthesia/Blood Transfusion Reactions: No Reported Reaction Additional Past Anesthesia/Blood Transfusion Reaction / Comment(s): Prefers no morphine Date of Last Stent Placement:: 2007 Past Psychological History: Anxiety Smoking Status: Former smoker Past Alcohol Use History: None Reported Past Drug Use History: None Reported - Past Family History Father Family Medical History: COPD Mother Family Medical History: Congestive Heart Failure (CHF) General Exam - General Exam Comments Initial Comments: PHYSICAL EXAM: General Impression: Alert and oriented x3, not in acute distress HEENT: Normocephalic atraumatic, extra-ocular movements intact, pupils equal and reactive to light bilaterally, mucous membranes moist. Cardiovascular: Tachycardic Chest: Diffuse rhonchi Abdomen: Bowel sounds present, abdomen soft, non-tender, non-distended, no organomegaly Musculoskeletal: Pulses present and equal in all extremities, no peripheral edema Motor: Power 5/5 bilaterally, no focal deficits noted Neurological: CN II-XII grossly intact, no focal motor or sensory deficits noted Skin: Intact with no visualized rashes Psych: Normal affect and mood Limitations: no limitations Course Vital Signs 02/26/18 02/26/18 02/26/18 19:27 20:45 20:46 Temperature 98.6 F Pulse Rate 111 H 96 Respiratory 18 18 20 Rate Blood Pressure 123/80 O2 Sat by Pulse 90 L Oximetry 02/26/18 02/26/18 02/26/18 20:55 21:15 21:34 Temperature Pulse Rate 97 98 103 H Respiratory 18 18 18 Rate Blood Pressure O2 Sat by Pulse Oximetry 02/26/18 02/26/18 21:39 22:00 Temperature Pulse Rate 103 H 99 Respiratory 16 20 Rate Blood Pressure 117/79 113/71 O2 Sat by Pulse 93 L 97 Oximetry Medical Decision Making - Medical Decision Making ED course: 8-year-old male with past medical history of pulmonary and cardiac disease presents with persistent shortness of breath after being diagnosed with pulmonary infection by his PCP couple days ago. Vital signs upon arrival shows tachycardia 111, patient is 90% on 3 L nasal cannula. Afebrile.Laboratory evaluation obtained. CBC is unremarkable. Coag panel unremarkable. Metabolic panel is negative. Patient given corticosteroids and breathing treatment. Patient was observed in the emergency department for several hours. He was reevaluated and reports being greatly improved from respiratory standpoint. Patient not showing any signs of respiratory distress. Offered patient admission to observation for scheduled breathing treatments. Patient states he felt comfortable going home to continue breathing treatments there. Patient does have breathing treatments available to him at his household. He is told to take a breathing treatment every 4-6 hours for the next 3 days. Patient given Medrol Dosepak to go home with. Here he has antibiotics that he's been taking. He is told to continue taking his antibiotics. Physical presentation consistent with COPD exacerbation. Patient told to return to the emergency department if he has any worsening symptoms. EKG Interpretation: A 12 lead EKG was obtained. It was interpreted by myself and attending physician. There is a P wave before every QRS complex. Rate is [default value]. Rhythm is [default value]. QT is not prolonged. No ST segment depression or elevation. This EKG was compared to a previous EKG that was obtained on [ default value] and showed no significant change. Overall, this EKG is unremarkable - Lab Data Result diagrams: 02/26/18 20:16 02/26/18 20:16 Lab Results 02/26/18 02/26/18 02/26/18 Range/Units 20:16 20:16 20:16 WBC 9.9 (3.8-10.6) k/uL RBC 4.91 (4.30-5.90) m/uL Hgb 15.5 (13.0-17.5) gm/dL Hct 48.0 (39.0-53.0) % MCV 97.8 (80.0-100.0) fL MCH 31.5 (25.0-35.0) pg MCHC 32.2 (31.0-37.0) g/dL RDW 12.2 (11.5-15.5) % Plt Count 241 (150-450) k/uL Neutrophils % 66 % Lymphocytes % 18 % Monocytes % 11 % Eosinophils % 2 % Basophils % 0 % Neutrophils # 6.6 (1.3-7.7) k/uL Lymphocytes # 1.8 (1.0-4.8) k/uL Monocytes # 1.1 H (0-1.0) k/uL Eosinophils # 0.2 (0-0.7) k/uL Basophils # 0.0 (0-0.2) k/uL PT (9.0-12.0) sec INR (<1.2) APTT (22.0-30.0) sec Sodium 138 (137-145) mmol/L Potassium 4.4 (3.5-5.1) mmol/L Chloride 101 (98-107) mmol/L Carbon Dioxide 29 (22-30) mmol/L Anion Gap 8 mmol/L BUN 16 (9-20) mg/dL Creatinine 1.09 (0.66-1.25) mg/dL Est GFR (CKD-EPI)AfAm 82 (>60 ml/min/1.73 sqM) Est GFR (CKD-EPI)NonAf 71 (>60 ml/min/1.73 sqM) Glucose 217 H (74-99) mg/dL Calcium 9.5 (8.4-10.2) mg/dL Magnesium 1.8 (1.6-2.3) mg/dL Total Bilirubin 0.4 (0.2-1.3) mg/dL AST 28 (17-59) U/L ALT 41 (21-72) U/L Alkaline Phosphatase 110 (38-126) U/L Total Creatine Kinase 30 L (55-170) U/L CK-MB (CK-2) 0.8 (0.0-2.4) ng/mL CK-MB (CK-2) Rel Index 2.7 Troponin I <0.012 (0.000-0.034) ng/mL NT-Pro-B Natriuret Pep pg/mL Total Protein 6.5 (6.3-8.2) g/dL Albumin 3.9 (3.5-5.0) g/dL 02/26/18 02/26/18 Range/Units 20:16 20:16 WBC (3.8-10.6) k/uL RBC (4.30-5.90) m/uL Hgb (13.0-17.5) gm/dL Hct (39.0-53.0) % MCV (80.0-100.0) fL MCH (25.0-35.0) pg MCHC (31.0-37.0) g/dL RDW (11.5-15.5) % Plt Count (150-450) k/uL Neutrophils % % Lymphocytes % % Monocytes % % Eosinophils % % Basophils % % Neutrophils # (1.3-7.7) k/uL Lymphocytes # (1.0-4.8) k/uL Monocytes # (0-1.0) k/uL Eosinophils # (0-0.7) k/uL Basophils # (0-0.2) k/uL PT 10.0 (9.0-12.0) sec INR 1.0 (<1.2) APTT 23.5 (22.0-30.0) sec Sodium (137-145) mmol/L Potassium (3.5-5.1) mmol/L Chloride (98-107) mmol/L Carbon Dioxide (22-30) mmol/L Anion Gap mmol/L BUN (9-20) mg/dL Creatinine (0.66-1.25) mg/dL Est GFR (CKD-EPI)AfAm (>60 ml/min/1.73 sqM) Est GFR (CKD-EPI)NonAf (>60 ml/min/1.73 sqM) Glucose (74-99) mg/dL Calcium (8.4-10.2) mg/dL Magnesium (1.6-2.3) mg/dL Total Bilirubin (0.2-1.3) mg/dL AST (17-59) U/L ALT (21-72) U/L Alkaline Phosphatase (38-126) U/L Total Creatine Kinase (55-170) U/L CK-MB (CK-2) (0.0-2.4) ng/mL CK-MB (CK-2) Rel Index Troponin I (0.000-0.034) ng/mL NT-Pro-B Natriuret Pep 44 pg/mL Total Protein (6.3-8.2) g/dL Albumin (3.5-5.0) g/dL Disposition Clinical Impression: COPD exacerbation Disposition: HOME SELF-CARE Condition: Fair Instructions: COPD (Chronic Obstructive Pulmonary Disease) (ED) Prescriptions: methylPREDNISolone [Medrol Dose Pack] 4 mg PO DIRECTED #1 pack Is patient prescribed a controlled substance at d/c from ED?: No Referrals: Kathy Agee MD [Primary Care Provider] - 1-2 days Time of Disposition: 22:13
[2018-02-26 20:35] LABS: Albumin 3.9 g/dL (3.5-5.0); Calcium 9.5 mg/dL (8.4-10.2); Magnesium 1.8 mg/dL (1.6-2.3); Potassium 4.4 mmol/L (3.5-5.1); Total Bilirubin 0.4 mg/dL (0.2-1.3); Total Protein 6.5 g/dL (6.3-8.2)
[2018-02-26 20:45] LABS: Creatine Kinase 30 U/L (55-170)
[2018-02-26 20:52] LABS: Partial Thromboplastin Time 23.5 sec (22.0-30.0)
[2018-02-26 20:58] LABS: Creatine Kinase MB 0.8 ng/mL (0.0-2.4); Troponin I <0.012 ng/mL (0.000-0.034)
--- NOTE | 2018-02-26 20:58 | XR ---
EXAMINATION TYPE: XR chest 2V DATE OF EXAM: 02/26/2018 COMPARISON: 02/03/2018 HISTORY: Short of breath TECHNIQUE: Frontal and lateral views of the chest are obtained. FINDINGS: There is some patchy linear density at the left lung base. Heart size is normal. There are no hilar masses. There are chest leads. IMPRESSION: There is some scarring and subsegmental atelectasis at the left lung base that is increa sed compared to last exam. There is clearing of a small infiltrate at the right lung base compared to old exam. No heart failure.
[2018-02-26 21:03] LABS: Basophils % (A) 0 %; Eosinophils # (A) 0.2 k/uL (0-0.7); Eosinophils % (A) 2 %; HGB 15.5 gm/dL (13.0-17.5); Lymphocytes # (A) 1.8 k/uL (1.0-4.8); Lymphocytes % (A) 18 %; MCH 31.5 pg (25.0-35.0); MCHC 32.2 g/dL (31.0-37.0); MCV 97.8 fL (80.0-100.0); Mean Platelet Volume 6.6; Monocytes # (A) 1.1 k/uL (0-1.0); Monocytes % (A) 11 %; Neutrophils # (A) 6.6 k/uL (1.3-7.7); Neutrophils % (A) 66 %; Platelet Count 241 k/uL (150-450); RBC 4.91 m/uL (4.30-5.90); RDW 12.2 % (11.5-15.5); WBC 9.9 k/uL (3.8-10.6)
[2018-02-26 22:16] VITALS: BP 107/69
[2018-02-26 22:45] VITALS: PULSE 79; RESP 20; TEMP 97
== END 2018-02-26 22:45 | disposition home or self-care (01) ==
LOC: EC 19:14
DX: J44.1 Chronic obstructive pulmonary disease with (acute) exacerbation (principal); I25.2 Old myocardial infarction; I25.10 Atherosclerotic heart disease of native coronary artery without angina pectoris; I11.0 Hypertensive heart disease with heart failure; I50.9 Heart failure, unspecified; E78.5 Hyperlipidemia, unspecified; E03.9 Hypothyroidism, unspecified; E66.9 Obesity, unspecified; Z68.39 Body mass index [BMI] 39.0-39.9, adult; Z95.5 Presence of coronary angioplasty implant and graft; Z99.81 Dependence on supplemental oxygen; Z91.048 Other nonmedicinal substance allergy status; Z79.899 Other long term (current) drug therapy; Z87.891 Personal history of nicotine dependence
CPT/HCPCS: 36415; 71046; 80053; 82550; 82553; 83735; 83880; 84484; 85025; 85610; 85730; 93005; 94644; 96360; 96361; 99285

== ENCOUNTER 2018-02-27 19:35 | Inpatient (IN) | payer MEDICARE ==
--- NOTE | 2018-02-27 20:36 | ED ---
General Adult HPI - General Chief complaint: Shortness of Breath Stated complaint: ELIAS Time Seen by Provider: 02/27/18 20:35 Source: patient, family Mode of arrival: wheelchair Limitations: no limitations - History of Present Illness Initial comments: Jacky is a 67-year-old obese male with a past medical history of severe COPD who returns to the emergency department today for reevaluation shortness of breath and wheezing. Patient was seen by his primary care physician earlier in the week, he was advised that he likely has pneumonia and was given a oral antibiotic which he reports he has been compliant with. He's been using his breathing treatments at home but has had progressively worsening wheezing. Yesterday he was evaluated in our emergency department at that time he was noted to be tachycardic and wheezing have some shortness of breath. He received breathing treatments and steroids with significant improvement in his symptoms and requested to be discharged home. Considering the improvement in his symptoms and the patient's familiarity with his own COPD the decision was made that it he was okay to return home. Patient reports that since being discharged home he has noted that his blood glucose is been significantly elevated, he states this is happened in the past with taking steroids but he has never seen blood glucose greater than 350. In addition the patient reports that this evening he began to have wheezing again, he has used his breathing treatments but again began to worsen which made him return to the ER for further evaluation. Denies any chest pain, he does admit to palpitations but states that his heart usually races. He denies any fevers, chills, he reports he has a constant cough but is nonproductive. He denies any change in appetite, denies any nausea , vomiting abdominal pain or change in bowel or bladder habits. - Related Data Home Medications Medication Instructions Recorded Confirmed ALPRAZolam [Xanax] 0.25 mg PO BID PRN 04/27/15 02/27/18 Albuterol Inhaler [Ventolin Hfa 2 puff INHALATION RT-QID PRN 04/28/15 02/27/18 Inhaler] Simvastatin [Zocor] 80 mg PO HS 12/04/15 02/27/18 Umeclidinium Brm/Vilanterol Tr 1 puff INHALATION RT-DAILY 12/04/15 02/27/18 [Anoro Ellipta 62.5-25 Mcg INH] Levothyroxine Sodium [Synthroid] 88 mcg PO DAILY 09/10/16 02/27/18 Theophylline 24 Hour [Tung-24] 400 mg PO DAILY 10/08/16 02/27/18 Ipratropium Nebulized [Atrovent 0.5 mg INHALATION RT-Q4H PRN 02/26/17 02/27/18 Nebulized] Metoprolol Tartrate [Lopressor] 100 mg PO DAILY 02/03/18 02/27/18 Acetaminophen Tab [Tylenol Tab] 650 mg PO Q6H PRN 02/26/18 02/27/18 Moxifloxacin HCl 400 mg PO DAILY 02/26/18 02/27/18 Moxifloxacin HCl 400 mg PO DAILY 02/27/18 02/27/18 methylPREDNISolone [Medrol Dose See Taper PO DIRECTED 02/27/18 02/27/18 Pack] Previous Rx's Medication Instructions Recorded Albuterol Nebulized [Ventolin 2.5 mg INHALATION RT-Q4H PRN #0 05/04/15 Nebulized] nebu Allergies Allergy/AdvReac Type Severity Reaction Status Date / Time adhesive tape Allergy Rash/Hives Verified 02/27/18 20:52 Review of Systems ROS Statement: Those systems with pertinent positive or pertinent negative responses have been documented in the HPI. ROS Other: All systems not noted in ROS Statement are negative. Past Medical History Past Medical History: Coronary Artery Disease (CAD), Chest Pain / Angina, Heart Failure, COPD, Hyperlipidemia, Hypertension, Myocardial Infarction ([place]), Pneumonia, Thyroid Disorder Additional Past Medical History / Comment(s): Obesity, COPD with chronic hypoxic respiratory failure and based on FEV1 of 31% of predicted,bronchits, chronic hypoxic respitory failure maintained on home 02 3 liters n/c, hypothyroidism, generalized anxiety disorder. Last hospitalized 2 days ago for pneumonia. 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, 2 cardiac stents Past Anesthesia/Blood Transfusion Reactions: No Reported Reaction Additional Past Anesthesia/Blood Transfusion Reaction / Comment(s): Prefers no morphine Date of Last Stent Placement:: 2007 Past Psychological History: Anxiety Smoking Status: Former smoker Past Alcohol Use History: None Reported Past Drug Use History: None Reported - Past Family History Father Family Medical History: COPD Mother Family Medical History: Congestive Heart Failure (CHF) General Exam Limitations: no limitations General appearance: alert, other Head exam: Present: atraumatic (Tachypneic), normocephalic Eye exam: Present: PERRL ENT exam: Present: mucous membranes moist Neck exam: Present: full ROM Respiratory exam: Present: wheezes, accessory muscle use Cardiovascular Exam: Present: tachycardia GI/Abdominal exam: Present: soft. Absent: distended, tenderness, guarding Rectal exam: Present: deferred Extremities exam: Present: full ROM, pedal edema (1+) Neurological exam: Present: alert, oriented X3 Psychiatric exam: Present: normal affect, normal mood Skin exam: Present: warm, dry Course Vital Signs 02/27/18 02/27/18 02/27/18 19:43 20:59 22:03 Temperature 98.7 F Pulse Rate 120 H 101 H Respiratory 20 22 Rate Blood Pressure 134/65 O2 Sat by Pulse 90 L Oximetry 02/27/18 02/27/18 02/28/18 22:13 22:17 00:00 Temperature 97.7 F Pulse Rate 101 H 92 Respiratory 22 18 Rate Blood Pressure 126/71 154/79 O2 Sat by Pulse 67 L 93 L Oximetry 02/28/18 00:25 Temperature Pulse Rate 99 Respiratory Rate Blood Pressure O2 Sat by Pulse Oximetry Medical Decision Making - Medical Decision Making Patient was seen and evaluated, history was obtained from patient as well as review of previous medical record. Patient with severe COPD, evaluated by his primary care physician as well as the ER earlier in this week. Noted to be having a COPD exacerbation yesterday. Was given steroids. Patient returns today with persistent worsening wheezing as well as hyperglycemia Patient on 3 L of oxygen at home, and saturations in the low 90s on 3 L Labs and imaging were ordered EKG was obtained reveals sinus tachycardia with a rate of 104, normal intervals , ID is 140, QRS is 94, QTC is 473, there are no acute ST elevations or depressions. No evidence of acute ischemia or infarction. Labs reveal leukocytosis this is likely reactive to the patient's recent treatment with steroids Patient noted to be hyperglycemic, insulin was ordered Noted to have a elevated lactic acid level of 3.3, this is likely related to his albuterol use and tachypnea CXR reveals no evidence of pneumonia Considering the patient's multiple comorbidities and repeat visits for COPD exacerbation at this time do feel the patient warrants observation for continuous breathing treatments and evaluation. I will continue patient on oral Levaquin Patient was placed in observation unit on supplemental oxygenation and bronchodilator protocol - Lab Data Result diagrams: 02/27/18 20:00 02/27/18 20:00 Lab Results 02/27/18 02/27/18 02/27/18 Range/Units 20:00 20:00 20:00 WBC 13.6 H (3.8-10.6) k/uL RBC 4.54 (4.30-5.90) m/uL Hgb 14.4 (13.0-17.5) gm/dL Hct 45.7 (39.0-53.0) % MCV 100.7 H (80.0-100.0) fL MCH 31.7 (25.0-35.0) pg MCHC 31.5 (31.0-37.0) g/dL RDW 12.2 (11.5-15.5) % Plt Count 247 (150-450) k/uL Neutrophils % 88 % Lymphocytes % 6 % Monocytes % 5 % Eosinophils % 1 % Basophils % 0 % Neutrophils # 11.9 H (1.3-7.7) k/uL Lymphocytes # 0.8 L (1.0-4.8) k/uL Monocytes # 0.7 (0-1.0) k/uL Eosinophils # 0.1 (0-0.7) k/uL Basophils # 0.0 (0-0.2) k/uL PT (9.0-12.0) sec INR (<1.2) APTT (22.0-30.0) sec Sodium 135 L (137-145) mmol/L Potassium 5.5 H (3.5-5.1) mmol/L Chloride 101 (98-107) mmol/L Carbon Dioxide 24 (22-30) mmol/L Anion Gap 10 mmol/L BUN 25 H (9-20) mg/dL Creatinine 1.10 (0.66-1.25) mg/dL Est GFR (CKD-EPI)AfAm 81 (>60 ml/min/1.73 sqM) Est GFR (CKD-EPI)NonAf 70 (>60 ml/min/1.73 sqM) Glucose 387 H (74-99) mg/dL Plasma Lactic Acid Ike 3.3 H* (0.7-2.0) mmol/L Calcium 9.6 (8.4-10.2) mg/dL Total Bilirubin 0.5 (0.2-1.3) mg/dL AST 27 (17-59) U/L ALT 33 (21-72) U/L Alkaline Phosphatase 115 (38-126) U/L Troponin I (0.000-0.034) ng/mL Total Protein 6.3 (6.3-8.2) g/dL Albumin 3.8 (3.5-5.0) g/dL Urine Color Urine Appearance (Clear) Urine pH (5.0-8.0) Ur Specific [place] (1.001-1.035) Urine Protein (Negative) Urine Glucose (UA) (Negative) Urine Ketones (Negative) Urine Blood (Negative) Urine Nitrite (Negative) Urine Bilirubin (Negative) Urine Urobilinogen (<2.0) mg/dL Ur Leukocyte Esterase (Negative) 02/27/18 02/27/18 02/27/18 Range/Units 20:00 20:00 21:35 WBC (3.8-10.6) k/uL RBC (4.30-5.90) m/uL Hgb (13.0-17.5) gm/dL Hct (39.0-53.0) % MCV (80.0-100.0) fL MCH (25.0-35.0) pg MCHC (31.0-37.0) g/dL RDW (11.5-15.5) % Plt Count (150-450) k/uL Neutrophils % % Lymphocytes % % Monocytes % % Eosinophils % % Basophils % % Neutrophils # (1.3-7.7) k/uL Lymphocytes # (1.0-4.8) k/uL Monocytes # (0-1.0) k/uL Eosinophils # (0-0.7) k/uL Basophils # (0-0.2) k/uL PT 10.4 (9.0-12.0) sec INR 1.1 (<1.2) APTT 21.6 L (22.0-30.0) sec Sodium (137-145) mmol/L Potassium (3.5-5.1) mmol/L Chloride (98-107) mmol/L Carbon Dioxide (22-30) mmol/L Anion Gap mmol/L BUN (9-20) mg/dL Creatinine (0.66-1.25) mg/dL Est GFR (CKD-EPI)AfAm (>60 ml/min/1.73 sqM) Est GFR (CKD-EPI)NonAf (>60 ml/min/1.73 sqM) Glucose (74-99) mg/dL Plasma Lactic Acid Ike (0.7-2.0) mmol/L Calcium (8.4-10.2) mg/dL Total Bilirubin (0.2-1.3) mg/dL AST (17-59) U/L ALT (21-72) U/L Alkaline Phosphatase (38-126) U/L Troponin I <0.012 (0.000-0.034) ng/mL Total Protein (6.3-8.2) g/dL Albumin (3.5-5.0) g/dL Urine Color Light Yellow Urine Appearance Clear (Clear) Urine pH 6.0 (5.0-8.0) Ur Specific [place] 1.025 (1.001-1.035) Urine Protein Negative (Negative) Urine Glucose (UA) 4+ H (Negative) Urine Ketones Negative (Negative) Urine Blood Negative (Negative) Urine Nitrite Negative (Negative) Urine Bilirubin Negative (Negative) Urine Urobilinogen <2.0 (<2.0) mg/dL Ur Leukocyte Esterase Negative (Negative) Disposition Clinical Impression: COPD exacerbation Disposition: ADMITTED IP TO THIS HOSP Decision Time: 23:34
[2018-02-27] MEDS ORDERED: IPRATROPIUM-ALBUTEROL 3 ML NEB INHALATION STA (21:48)
[2018-02-27 21:58] LABS: Appearance,Urine Clear (Clear); Bilirubin,Urine Negative (Negative); Blood,Urine Negative (Negative); Color,Urine Light Yellow; Glucose,Urine (UA) 4+ (Negative); Ketones,Urine Negative (Negative); Leukocyte Esterase,Urine Negative (Negative); Nitrite,Urine Negative (Negative); Protein,Urine Negative (Negative); Specific Gravity,Urine 1.025 (1.001-1.035); Urobilinogen,Urine <2.0 mg/dL (<2.0)
[2018-02-27] MEDS: SODIUM CHLORIDE 0.9% 500 ML IV SCH (22:14)
[2018-02-27 22:23] LABS: Basophils % (A) 0 %; Eosinophils # (A) 0.1 k/uL (0-0.7); Eosinophils % (A) 1 %; HCT 45.7 % (39.0-53.0); HGB 14.4 gm/dL (13.0-17.5); Lymphocytes # (A) 0.8 k/uL (1.0-4.8); Lymphocytes % (A) 6 %; MCH 31.7 pg (25.0-35.0); MCHC 31.5 g/dL (31.0-37.0); MCV 100.7 fL (80.0-100.0); Mean Platelet Volume 7.2; Monocytes # (A) 0.7 k/uL (0-1.0); Monocytes % (A) 5 %; Neutrophils # (A) 11.9 k/uL (1.3-7.7); Neutrophils % (A) 88 %; Platelet Count 247 k/uL (150-450); RBC 4.54 m/uL (4.30-5.90); RDW 12.2 % (11.5-15.5); WBC 13.6 k/uL (3.8-10.6)
[2018-02-27 22:34] LABS: Albumin 3.8 g/dL (3.5-5.0); Calcium 9.6 mg/dL (8.4-10.2); Total Bilirubin 0.5 mg/dL (0.2-1.3); Total Protein 6.3 g/dL (6.3-8.2)
--- NOTE | 2018-02-27 22:37 | XR ---
EXAMINATION TYPE: XR chest 2V DATE OF EXAM: 02/27/2018 COMPARISON: 02/26/2018 HISTORY: Cough TECHNIQUE: Frontal and lateral views of the chest are obtained. FINDINGS: There is some patchy linear density at the left lung base. Heart size is normal. There are no hilar masses. Bony thorax is intact. IMPRESSION: There is some linear atelectasis at the left lung base that is not significantly differe nt than last exam. Normal heart.
[2018-02-27 22:41] LABS: INR 1.1 (<1.2); Prothrombin Time 10.4 sec (9.0-12.0)
[2018-02-27 22:42] LABS: Partial Thromboplastin Time 21.6 sec (22.0-30.0)
[2018-02-27 23:00] LABS: Potassium 5.5 mmol/L (3.5-5.1)
[2018-02-28] MEDS: LEVOFLOXACIN 500 MG TAB PO SCH ×2 (00:21→21:22)
[2018-02-28] MEDS: SODIUM CHLORIDE 0.9% 500 ML IV SCH (00:21)
[2018-02-28] MEDS: IPRATROPIUM-ALBUTEROL 3 ML NEB INHALATION PRN ×4 (00:24→12:43)
[2018-02-28] MEDS ORDERED: FAMOTIDINE 20 MG TAB PO STA (00:36)
[2018-02-28 01:32] LABS: Glucose,Whole Blood 306 mg/dL (75-99)
[2018-02-28] MEDS: INSULIN ASPART 100 UNIT/ML 1 ML 10 ML VIAL SQ SCH ×5 (01:38→21:47)
[2018-02-28 02:06] VITALS: BMI 39.3
[2018-02-28] MEDS ORDERED: predniSONE 20 MG TAB PO SCH (09:00)
[2018-02-28 09:17] LABS: Glucose,Whole Blood 287 mg/dL (75-99)
[2018-02-28] MEDS ORDERED: ACETAMINOPHEN TAB 325 MG TAB PO PRN (09:32)
[2018-02-28] MEDS ORDERED: ALBUTEROL NEBULIZED 2.5 MG/3 ML INHALATION PRN (09:32)
[2018-02-28] MEDS ORDERED: IPRATROPIUM 0.5 MG/2.5 ML NEBU INHALATION PRN (09:32)
[2018-02-28] MEDS ORDERED: ALBUTEROL INHALER 60 PUFF/8 GM INHALER INHALATION PRN (09:32)
[2018-02-28] MEDS: METOPROLOL TARTRATE 50 MG TAB PO SCH ×3 (11:03→21:27)
[2018-02-28] MEDS: THEOPHYLLINE 24 HOUR 400 MG CAP.ER.24H PO SCH (11:03)
[2018-02-28] MEDS: LEVOTHYROXINE 88 MCG TAB PO SCH (11:03)
[2018-02-28 12:43] LABS: Glucose,Whole Blood 351 mg/dL (75-99)
--- NOTE | 2018-02-28 13:05 | P.HPIM ---
History of Present Illness This is a pleasant 74 years old female with past medical history of chronic atrial fibrillation, coronary artery disease, diabetes mellitus, deep venous thrombosis on liquids, GERD, hyperlipidemia, hypertension, bronchitis. Who presents because he wasn't feeling well, and high blood sugar. Patient was seen his doctor last week and there was suspicion so the pneumonia of the chest x-ray and he gave him one injection of antibiotics and with injection of steroids since he has history of COPD. Patient remained [place] and well and he was sitting his sugars with high numbers like 350, 470, second to emergency room and he was diagnosed with resolving pneumonia as per patient and they discharged him on antibiotics and tapering steroids over 21 days. Patient remains to feel annual but he couldn't specify rather than has some shakiness in his both hands, with high running sugar so he decided to come to the emergency room. This morning seen the patient patient was feeling a bit of abdominal discomfort and that this result when he drank some milk. He has a little bit loose bowel movement but not over diarrhea. In the ED patient has white cell count high at 13.6 however patient was in a steroids. Hemoglobin and platelets within normal limits react INR is 1.1. Sodium slightly low at 135 react high potassium at 5.5. Creatinine 1.1. Sugar was running high about 300. High lactic acid of 3.3, down to 2.2. With negative troponins and unremarkable LFTs. Urine showing 4+ glucose Chest x-rays there is some linear atelectasis at the left lung base that is not significantly different from last exam. Normal heart. Patient already started on Levaquin. Continue to be on prednisone 40 mg daily. Patient has been evaluated by computer education professor and cleared him for discharge. Currently receiving the patient he denies to me any chest pain note discomfort no back pain no epigastric or abdominal pain. No change in urine or bowel habits. No fever. He has mild dyspnea which says that his baseline. He has some, but that will systolic last 2 days. He denies upper respiratory tract infection or symptoms. No sick contacts Review of Systems CONSTITUTIONAL: No fever, no malaise, no fatigue. HEENT: No recent visual problems or hearing problems. Denied any sore throat. CARDIOVASCULAR: No orthopnea, PND, no palpitations, no syncope. PULMONARY: No shortness of breath, no cough, no hemoptysis. GASTROINTESTINAL: No diarrhea, no nausea, no vomiting, no abdominal pain. Normoactive bowel sounds. NEUROLOGICAL: No headaches, no weakness, no numbness. HEMATOLOGICAL: Denies any bleeding or petechiae. GENITOURINARY: Denies any burning micturition, frequency, or urgency. MUSCULOSKELETAL/RHEUMATOLOGICAL: Denies any joint pain, swelling, or any muscle pain. ENDOCRINE: Denies any polyuria or polydipsia. Past Medical History Past Medical History: Coronary Artery Disease (CAD), Chest Pain / Angina, Heart Failure, COPD, Hyperlipidemia, Hypertension, Myocardial Infarction ([place]), Pneumonia, Thyroid Disorder Additional Past Medical History / Comment(s): Obesity, COPD with chronic hypoxic respiratory failure and based on FEV1 of 31% of predicted,bronchits, chronic hypoxic respitory failure maintained on home 02 3 liters n/c, hypothyroidism, generalized anxiety disorder. Last hospitalized 2 days ago for pneumonia. 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, 2 cardiac stents Past Anesthesia/Blood Transfusion Reactions: No Reported Reaction Additional Past Anesthesia/Blood Transfusion Reaction / Comment(s): Prefers no morphine Date of Last Stent Placement:: 2007 Past Psychological History: Anxiety Smoking Status: Former smoker Past Alcohol Use History: None Reported Past Drug Use History: None Reported - Past Family History Father Family Medical History: COPD Mother Family Medical History: Congestive Heart Failure (CHF) Medications and Allergies Home Medications Medication Instructions Recorded Confirmed Type ALPRAZolam [Xanax] 0.25 mg PO BID PRN 04/27/15 02/27/18 History Albuterol Inhaler [Ventolin Hfa 2 puff INHALATION RT-QID PRN 04/28/15 02/27/18 History Inhaler] Albuterol Nebulized [Ventolin 2.5 mg INHALATION RT-Q4H PRN #0 05/04/15 02/27/18 Rx Nebulized] nebu Simvastatin [Zocor] 80 mg PO HS 12/04/15 02/27/18 History Umeclidinium Brm/Vilanterol Tr 1 puff INHALATION RT-DAILY 12/04/15 02/27/18 History [Anoro Ellipta 62.5-25 Mcg INH] Levothyroxine Sodium [Synthroid] 88 mcg PO DAILY 09/10/16 02/27/18 History Theophylline 24 Hour [Tung-24] 400 mg PO DAILY 10/08/16 02/27/18 History Ipratropium Nebulized [Atrovent 0.5 mg INHALATION RT-Q4H PRN 02/26/17 02/27/18 History Nebulized] Metoprolol Tartrate [Lopressor] 100 mg PO DAILY 02/03/18 02/27/18 History Acetaminophen Tab [Tylenol Tab] 650 mg PO Q6H PRN 02/26/18 02/27/18 History Moxifloxacin HCl 400 mg PO DAILY 02/26/18 02/27/18 History Moxifloxacin HCl 400 mg PO DAILY 02/27/18 02/27/18 History methylPREDNISolone [Medrol Dose See Taper PO DIRECTED 02/27/18 02/27/18 History Pack] Allergies Allergy/AdvReac Type Severity Reaction Status Date / Time adhesive tape Allergy Rash/Hives Verified 02/27/18 20:52 Physical Exam Vitals: Vital Signs Temp Pulse Pulse Resp BP BP Pulse Ox 02/28/18 12:43 88 02/28/18 09:14 92 02/28/18 09:05 88 02/28/18 08:00 97.6 F 96 18 132/80 95 02/28/18 05:02 84 02/28/18 04:55 84 02/28/18 03:27 83 18 02/28/18 01:41 97.4 F L 95 18 119/76 93 L 02/28/18 00:39 99 02/28/18 00:30 97.9 F 88 20 132/79 98 02/28/18 00:25 99 02/28/18 00:00 97.7 F 92 18 154/79 93 L 02/27/18 22:17 101 H 02/27/18 22:13 22 126/71 67 L 02/27/18 22:03 101 H 02/27/18 20:59 22 02/27/18 19:43 98.7 F 120 H 20 134/65 90 L Intake and Output 02/27/18 02/28/18 02/28/18 22:59 06:59 14:59 Intake Total 1000 Balance 1000 Intake: Amount of Fluid Infused ( 1000 ml) Other: Voiding Method Urinal Urinal # Voids 1 Weight 124.284 kg 124.284 kg GENERAL: The patient is alert and oriented x3, not in any acute distress. Well developed, well nourished. HEENT: Pupils are round and equally reacting to light. EOMI. No scleral icterus. No conjunctival pallor. Normocephalic, atraumatic. No pharyngeal erythema. -No thyromegaly. Dry mucous membranes CARDIOVASCULAR: S1 and S2 present. No murmurs, rubs, or gallops. PULMONARY: Chest is clear to auscultation, no wheezing or crackles. ABDOMEN: Soft, nontender, nondistended, normoactive bowel sounds. No palpable organomegaly. MUSCULOSKELETAL: No joint swelling or deformity. EXTREMITIES: No cyanosis, clubbing, or pedal edema. NEUROLOGICAL: Gross neurological examination did not reveal any focal deficits. SKIN: No rashes. Results CBC & Chem 7: 02/27/18 20:00 02/27/18 20:00 Labs: Abnormal Lab Results - Last 24 Hours (Table) 02/27/18 02/27/18 02/27/18 Range/Units 20:00 20:00 20:00 WBC 13.6 H (3.8-10.6) k/uL MCV 100.7 H (80.0-100.0) fL Neutrophils # 11.9 H (1.3-7.7) k/uL Lymphocytes # 0.8 L (1.0-4.8) k/uL APTT (22.0-30.0) sec Sodium 135 L (137-145) mmol/L Potassium 5.5 H (3.5-5.1) mmol/L BUN 25 H (9-20) mg/dL Glucose 387 H (74-99) mg/dL POC Glucose (mg/dL) (75-99) mg/dL Plasma Lactic Acid Ike 3.3 H* (0.7-2.0) mmol/L Urine Glucose (UA) (Negative) 02/27/18 02/27/18 02/28/18 Range/Units 20:00 21:35 01:28 WBC (3.8-10.6) k/uL MCV (80.0-100.0) fL Neutrophils # (1.3-7.7) k/uL Lymphocytes # (1.0-4.8) k/uL APTT 21.6 L (22.0-30.0) sec Sodium (137-145) mmol/L Potassium (3.5-5.1) mmol/L BUN (9-20) mg/dL Glucose (74-99) mg/dL POC Glucose (mg/dL) 306 H (75-99) mg/dL Plasma Lactic Acid Ike (0.7-2.0) mmol/L Urine Glucose (UA) 4+ H (Negative) 02/28/18 02/28/18 02/28/18 Range/Units 02:03 09:15 12:24 WBC (3.8-10.6) k/uL MCV (80.0-100.0) fL Neutrophils # (1.3-7.7) k/uL Lymphocytes # (1.0-4.8) k/uL APTT (22.0-30.0) sec Sodium (137-145) mmol/L Potassium (3.5-5.1) mmol/L BUN (9-20) mg/dL Glucose (74-99) mg/dL POC Glucose (mg/dL) 287 H 351 H (75-99) mg/dL Plasma Lactic Acid Ike 2.2 H* (0.7-2.0) mmol/L Urine Glucose (UA) (Negative) Microbiology - Last 24 Hours (Table) 02/27/18 21:35 Urine Culture - Preliminary Urine,Voided Thrombosis Risk Factor Assmnt - Choose All That Apply Each Factor Represents 1 point: Abnormal pulmonary function (COPD), Obesity ( BMI >25) Each Risk Factor Represents 2 Points: Age 61-74 years Thrombosis Risk Factor Assessment Total Risk Factor Score: 4 Thrombosis Risk Factor Assessment Level: Moderate Risk Assessment and Plan Assessment: Dehydration Type of glycemia with no history of diabetes mellitus History of severe COPD, recent exacerbation improving Atrial fibrillation History of hyperlipidemia Hypertension Heart failure Obesity line hypothyroidism Plan: This is a pleasant 67 years old male who presents with nonspecific symptoms like shakiness in the hand and hyperglycemia. We'll continue with the same treatment. Continue with symptomatic treatment. Patient looks dehydrated with high lactic acid. We'll continue with IV hydration. Patient does not look in COPD exacerbation or is resolving. He wasn't steroid dependent at home and was just Rossi started recently. Currently we'll decrease his steroids from 40 mg sytart tapering it off, continue with Levaquin Monitor labs and lytes Continue with GI and DVT prophylaxis. Further recommendation based on the clinical course.
[2018-02-28] MEDS: SODIUM CHLORIDE 0.9% 1,000 ML IV SCH (14:06)
[2018-02-28] MEDS: IPRATROPIUM 0.5 MG/2.5 ML NEBU INHALATION SCH ×2 (16:26→20:29)
[2018-02-28 17:14] LABS: Glucose,Whole Blood 202 mg/dL (75-99)
[2018-02-28 20:14] LABS: Hemoglobin A1C 7.6 % (4.0-6.0)
[2018-02-28] MEDS: FORMOTEROL FUMARATE 20 MCG/2 ML NEBU INHALATION SCH (20:29)
[2018-02-28] MEDS: ATORVASTATIN 40 MG TAB PO SCH (21:24)
[2018-02-28 21:32] LABS: Glucose,Whole Blood 272 mg/dL (75-99)
[2018-03-01] MEDS: HEPARIN SODIUM,PORCINE 5,000 UNIT/ML 1 ML VIAL SQ SCH ×3 (00:50→21:56)
[2018-03-01 07:00] LABS: Glucose,Whole Blood 153 mg/dL (75-99)
[2018-03-01] MEDS: SODIUM CHLORIDE 0.9% 1,000 ML IV SCH ×3 (07:27→21:57)
[2018-03-01] MEDS: LEVOTHYROXINE 88 MCG TAB PO SCH (07:31)
[2018-03-01] MEDS: INSULIN ASPART 100 UNIT/ML 1 ML 10 ML VIAL SQ SCH ×4 (07:31→23:09)
[2018-03-01] MEDS: THEOPHYLLINE 24 HOUR 400 MG CAP.ER.24H PO SCH (07:31)
[2018-03-01] MEDS: METOPROLOL TARTRATE 50 MG TAB PO SCH ×2 (07:32→21:57)
[2018-03-01] MEDS: FORMOTEROL FUMARATE 20 MCG/2 ML NEBU INHALATION SCH ×2 (07:33→20:19)
[2018-03-01] MEDS: IPRATROPIUM 0.5 MG/2.5 ML NEBU INHALATION SCH ×4 (07:33→20:19)
[2018-03-01 07:40] LABS: Basophils % (A) 0 %; Eosinophils # (A) 0.1 k/uL (0-0.7); Eosinophils % (A) 0 %; HCT 41.9 % (39.0-53.0); HGB 13.4 gm/dL (13.0-17.5); Lymphocytes % (A) 15 %; MCH 31.8 pg (25.0-35.0); MCV 99.4 fL (80.0-100.0); Mean Platelet Volume 7.1; Monocytes # (A) 1.2 k/uL (0-1.0); Monocytes % (A) 9 %; Neutrophils # (A) 10.3 k/uL (1.3-7.7); Neutrophils % (A) 74 %; Platelet Count 239 k/uL (150-450); RBC 4.22 m/uL (4.30-5.90); RDW 12.2 % (11.5-15.5); WBC 13.9 k/uL (3.8-10.6)
[2018-03-01 08:04] LABS: Anion Gap 7 mmol/L; Calcium 8.9 mg/dL (8.4-10.2); Carbon Dioxide 23 mmol/L (22-30); Chloride 107 mmol/L (98-107); Glucose 157 mg/dL (74-99); Sodium 137 mmol/L (137-145)
[2018-03-01 08:13] LABS: Blood Urea Nitrogen 18 mg/dL (9-20); Potassium 4.8 mmol/L (3.5-5.1)
[2018-03-01] MEDS: ALPRAZolam 0.25 MG TAB PO PRN (08:19)
[2018-03-01] MEDS ORDERED: predniSONE 20 MG TAB PO SCH (09:00)
[2018-03-01 12:05] LABS: Glucose,Whole Blood 161 mg/dL (75-99)
[2018-03-01] MEDS: IPRATROPIUM-ALBUTEROL 3 ML NEB INHALATION PRN (13:43)
--- NOTE | 2018-03-01 16:31 | P.PN ---
Subjective This is a pleasant 74 years old female with past medical history of chronic atrial fibrillation, coronary artery disease, diabetes mellitus, deep venous thrombosis on liquids, GERD, hyperlipidemia, hypertension, bronchitis. Who presents because he wasn't feeling well, and high blood sugar. Patient was seen his doctor last week and there was suspicion so the pneumonia of the chest x-ray and he gave him one injection of antibiotics and with injection of steroids since he has history of COPD. Patient remained Tisseel and well and he was sitting his sugars with high numbers like 350, 470, second to emergency room and he was diagnosed with resolving pneumonia as per patient and they discharged him on antibiotics and tapering steroids over 21 days. Patient remains to feel annual but he couldn't specify rather than has some shakiness in his both hands, with high running sugar so he decided to come to the emergency room. This morning seen the patient patient was feeling a bit of abdominal discomfort and that this result when he drank some milk. He has a little bit loose bowel movement but not over diarrhea. In the ED patient has white cell count high at 13.6 however patient was in a steroids. Hemoglobin and platelets within normal limits react INR is 1.1. Sodium slightly low at 135 react high potassium at 5.5. Creatinine 1.1. Sugar was running high about 300. High lactic acid of 3.3, down to 2.2. With negative troponins and unremarkable LFTs. Urine showing 4+ glucose Chest x-rays there is some linear atelectasis at the left lung base that is not significantly different from last exam. Normal heart. Patient already started on Levaquin. Continue to be on prednisone 40 mg daily. Patient has been evaluated by return agent and cleared him for discharge. Currently receiving the patient he denies to me any chest pain note discomfort no back pain no epigastric or abdominal pain. No change in urine or bowel habits. No fever. He has mild dyspnea which says that his baseline. He denies upper respiratory tract infection or symptoms. No sick contacts 03/01/2018 Patient still significantly dyspneic especially on exertion when he goes for example to the bathroom. He denies chest pain. His hydration status is improved. ID team have evaluated the patient. Most likely this is contaminated blood culture. Patient is on antibiotic Objective - Vital Signs Vital signs: Vital Signs Temp 98.0 F 03/01/18 16:00 Pulse 82 03/01/18 16:00 Resp 18 03/01/18 16:00 BP 124/84 03/01/18 16:00 Pulse Ox 95 03/01/18 16:00 Intake & Output 02/28/18 03/01/18 03/01/18 18:59 06:59 18:59 Weight 124.284 kg Other: Voiding Method Urinal Urinal Urinal # Voids 2 1 2 - Exam GENERAL: The patient is alert and oriented x3, not in any acute distress. Well developed, well nourished. HEENT: Pupils are round and equally reacting to light. EOMI. No scleral icterus. No conjunctival pallor. Normocephalic, atraumatic. No pharyngeal erythema. No thyromegaly. CARDIOVASCULAR: S1 and S2 present. No murmurs, rubs, or gallops. -PULMONARY: Chest is clear to auscultation, no crackles. Bilateral expiratory wheezing with prolonged expiration ABDOMEN: Soft, nontender, nondistended, normoactive bowel sounds. No palpable organomegaly. MUSCULOSKELETAL: No joint swelling or deformity. EXTREMITIES: No cyanosis, clubbing, or pedal edema. NEUROLOGICAL: Gross neurological examination did not reveal any focal deficits. SKIN: No rashes. - Labs CBC & Chem 7: 03/01/18 06:49 03/01/18 06:49 Labs: Abnormal Lab Results - Last 24 Hours (Table) 02/28/18 02/28/18 02/28/18 Range/Units 13:45 16:54 21:29 WBC (3.8-10.6) k/uL RBC (4.30-5.90) m/uL Neutrophils # (1.3-7.7) k/uL Monocytes # (0-1.0) k/uL Potassium 5.3 H (3.5-5.1) mmol/L Glucose (74-99) mg/dL POC Glucose (mg/dL) 202 H 272 H (75-99) mg/dL 03/01/18 03/01/18 03/01/18 Range/Units 06:49 06:49 06:58 WBC 13.9 H (3.8-10.6) k/uL RBC 4.22 L (4.30-5.90) m/uL Neutrophils # 10.3 H (1.3-7.7) k/uL Monocytes # 1.2 H (0-1.0) k/uL Potassium (3.5-5.1) mmol/L Glucose 157 H (74-99) mg/dL POC Glucose (mg/dL) 153 H (75-99) mg/dL 03/01/18 Range/Units 11:58 WBC (3.8-10.6) k/uL RBC (4.30-5.90) m/uL Neutrophils # (1.3-7.7) k/uL Monocytes # (0-1.0) k/uL Potassium (3.5-5.1) mmol/L Glucose (74-99) mg/dL POC Glucose (mg/dL) 161 H (75-99) mg/dL Microbiology - Last 24 Hours (Table) 02/27/18 20:00 Blood Culture - Final Blood 02/27/18 20:00 Blood Culture Gram Stain - Preliminary Blood Blood Culture - Preliminary Coagulase Negative Staph 02/27/18 21:35 Urine Culture - Final Urine,Voided Assessment and Plan Assessment: Dehydration, improving Hyperglycemia with no history of diabetes mellitus History of severe COPD, an acute exacerbation Atrial fibrillation History of hyperlipidemia Hypertension Heart failure Obesity line hypothyroidism Plan: This is a pleasant 67 years old male who presents with nonspecific symptoms like shakiness in the hand and hyperglycemia. We'll continue with the same treatment. Continue with symptomatic treatment. Patient looks dehydrated with high lactic acid came back to normal. We'll decrease his IV hydration. Continue treatment for COPD exacerbation. He wasn't steroid dependent at home and was just started recently. And tinea with IV Solu-Medrol , continue with Levaquin Monitor labs and lytes Continue with GI and DVT prophylaxis. Further recommendation based on the clinical course.
[2018-03-01 16:51] LABS: Glucose,Whole Blood 207 mg/dL (75-99)
[2018-03-01] MEDS: methylPREDNISolone SOD SUCCI 125 MG/2 ML VIAL IV SCH ×2 (17:45→23:46)
[2018-03-01 21:53] LABS: Glucose,Whole Blood 223 mg/dL (75-99)
[2018-03-01] MEDS: LEVOFLOXACIN 500 MG TAB PO SCH (21:57)
[2018-03-01] MEDS: ATORVASTATIN 40 MG TAB PO SCH (21:57)
--- NOTE | 2018-03-01 22:55 | CONS ---
CONSULTATION DATE OF SERVICE: 03/01/2018 REASON FOR CONSULTATION: Positive blood culture. HISTORY OF PRESENT ILLNESS: The patient is a 67-year-old male who has been recently treated in outpatient setting for the COPD exacerbation with possible pneumonia in the form of steroids and oral antibiotics. However, the patient says he is not sure about the name of this antibiotic. The patient now presenting to the hospital with concern for his blood sugar to be running high to the 350 range. The patient has been complaining of wheezing. He did have increased shortness of breath with minimal exertion. He did have a cough, bringing up yellow sputum but no hemoptysis. The patient denies having any chest pain. No nausea, no vomiting. No difficulty swallowing or any diarrhea. With these symptoms, the patient has been evaluated by the ER physician. On arrival to the ER, the patient has been afebrile. The patient did have a white count of 13.6. He did have blood cultures obtained which were reported above positive with gram-positive cocci that prompted this infectious disease consultation. The patient did have a chest x-ray completed, which shows some linear atelectasis at the left lung base. No significant difference than last exam with normal heart. REVIEW OF SYSTEMS: CONSTITUTIONAL: Positive for weakness along with some chills. Denies any high-grade fever. Eyes no complaint. ENT no complaint. Respiratory as per HPI. Cardiovascular: No complaint. Genitourinary no complaint. Gastrointestinal: No complaint. Musculoskeletal: No clubbing deformity. Integumentary: No complaint. Psychological no complaint. Endocrine no complaint. Neurologic no complaint. PAST MEDICAL HISTORY: Significant for coronary artery disease, COPD, hypertension, hyperlipidemia, [place], pneumonia, hypothyroidism, morbid obesity, COPD with chronic hypoxemic respiratory failure. PAST SURGICAL HISTORY: Heart catheterization with stent, tonsillectomy, hernia repair. Prosthetic left eye. SOCIAL HISTORY: Remote history of smoking. No drinking, drug use. FAMILY HISTORY: Father history COPD. Mother history of congestive heart failure. ALLERGIES: TO ADHESIVE TAPE. MEDICATION: Medications include the patient is currently on Tylenol, DuoNeb, Xanax, Lipitor, heparin, NovoLog, Atrovent, Levaquin. Synthroid, Solu-Medrol, Lopressor, Theophylline. EXAMINATION: Blood pressure is 124/84 with a pulse of 82, temperature 98. He is 95% on 3 L nasal cannula. General description is an elderly male lying in bed in no distress. No tachypnea or accessory muscle for respiration use. HEENT: Shows no pallor or scleral icterus. Oral mucosa is moist. No pharyngeal erythema or thrush. Neck trachea central. No thyromegaly. Lungs unlabored breathing with decreased and decreased breath sounds in the bases. No wheeze. Heart S1, S2 regular rate and rhythm. ABDOMEN: Soft. No tenderness. No guarding or rigidity. Extremities: No edema of the feet. Skin examination: No rash or mass palpable. Neurological: Patient is awake, alert, oriented times three. Mood and affect normal. LABS: Hemoglobin 13.4, white count 13.9, BUN of 18, creatinine 0.9. Electrolytes have been normal. Urine has been negative. Chest report as mentioned above. DIAGNOSTIC IMPRESSION/PLAN: 1. Patient with a positive blood culture with gram-positive cocci has been finalized with cultures negative Staph more likely representing the skin contamination as the patient has no clinical disease to go along with it. 2. Patient with increasing shortness of breath, wheezing, cough, bringing up some yellow sputum with left lower lobe infiltrate, concern likely for a left lower lobe pneumonia possible community-acquired. However, the patient has failed outpatient oral antibiotic therapy. The patient not sure about the name. PLAN: 1. No need for further workup for the positive blood cultures, more likely contamination. 2. We will try to obtain sputum for Gram stain culture and sensitivity. 3. Keep the patient on Levaquin however adjusting antibiotic further on the basis of culture and clinical response. 4. We will follow up on clinical condition and further adjust medication if needed. Thank you for this consultation. We will follow this patient along with you. MMODL / IJN: [id number] /
[2018-03-02] MEDS: methylPREDNISolone SOD SUCCI 125 MG/2 ML VIAL IV SCH (06:05)
[2018-03-02] MEDS: LEVOTHYROXINE 88 MCG TAB PO SCH (06:23)
[2018-03-02 06:57] LABS: Glucose,Whole Blood 239 mg/dL (75-99)
[2018-03-02 07:00] LABS: Basophils % (A) 0 %; Eosinophils % (A) 0 %; HCT 44.1 % (39.0-53.0); HGB 14.1 gm/dL (13.0-17.5); Lymphocytes # (A) 0.9 k/uL (1.0-4.8); Lymphocytes % (A) 7 %; MCH 31.4 pg (25.0-35.0); MCHC 31.9 g/dL (31.0-37.0); MCV 98.5 fL (80.0-100.0); Monocytes # (A) 0.4 k/uL (0-1.0); Monocytes % (A) 3 %; Neutrophils # (A) 11.4 k/uL (1.3-7.7); Neutrophils % (A) 89 %; Platelet Count 263 k/uL (150-450); RBC 4.47 m/uL (4.30-5.90); RDW 12.2 % (11.5-15.5); WBC 12.8 k/uL (3.8-10.6)
[2018-03-02 07:19] LABS: Anion Gap 5 mmol/L; Blood Urea Nitrogen 22 mg/dL (9-20); Calcium 9.3 mg/dL (8.4-10.2); Carbon Dioxide 32 mmol/L (22-30); Chloride 97 mmol/L (98-107); Glucose 283 mg/dL (74-99); Potassium 5.4 mmol/L (3.5-5.1); Sodium 134 mmol/L (137-145)
[2018-03-02 07:38] VITALS: RESP 16; TEMP 98
--- NOTE | 2018-03-02 07:42 | XR ---
EXAMINATION TYPE: XR chest 2V DATE OF EXAM: 03/02/2018 COMPARISON: 10/19/2017 and 02/27/2018 HISTORY: 67-year-old male follow-up inpatient TECHNIQUE: Frontal and lateral views FINDINGS: Heart normal size. Aorta and pulmonary vasculature within normal limits. Patchy and strandy left basi lar opacity is unchanged. Hyperinflation with flattening of hemidiaphragms. Patchy posterior left bas ilar opacity is also unchanged. No pleural effusion or new consolidation. IMPRESSION: Suspect underlying COPD. Patchy and linear left basilar opacity is unchanged, likely scarring. No acu te process seen.
[2018-03-02] MEDS: INSULIN ASPART 100 UNIT/ML 1 ML 10 ML VIAL SQ SCH ×2 (08:05→12:44)
[2018-03-02] MEDS: IPRATROPIUM 0.5 MG/2.5 ML NEBU INHALATION SCH ×3 (08:37→15:48)
[2018-03-02] MEDS: FORMOTEROL FUMARATE 20 MCG/2 ML NEBU INHALATION SCH (08:37)
[2018-03-02] MEDS: METOPROLOL TARTRATE 50 MG TAB PO SCH (09:17)
[2018-03-02] MEDS: THEOPHYLLINE 24 HOUR 400 MG CAP.ER.24H PO SCH (09:17)
[2018-03-02] MEDS: HEPARIN SODIUM,PORCINE 5,000 UNIT/ML 1 ML VIAL SQ SCH (09:17)
[2018-03-02] MEDS ORDERED: SODIUM POLYSTYRENE SULFONATE 15 GM/60 ML BOTTLE PO STA (10:06)
--- NOTE | 2018-03-02 10:18 | P.PN ---
Subjective This is a pleasant 74 years old female with past medical history of chronic atrial fibrillation, coronary artery disease, diabetes mellitus, deep venous thrombosis on liquids, GERD, hyperlipidemia, hypertension, bronchitis. Who presents because he wasn't feeling well, and high blood sugar. Patient was seen his doctor last week and there was suspicion so the pneumonia of the chest x-ray and he gave him one injection of antibiotics and with injection of steroids since he has history of COPD. Patient remained Tisseel and well and he was sitting his sugars with high numbers like 350, 470, second to emergency room and he was diagnosed with resolving pneumonia as per patient and they discharged him on antibiotics and tapering steroids over 21 days. Patient remains to feel annual but he couldn't specify rather than has some shakiness in his both hands, with high running sugar so he decided to come to the emergency room. This morning seen the patient patient was feeling a bit of abdominal discomfort and that this result when he drank some milk. He has a little bit loose bowel movement but not over diarrhea. In the ED patient has white cell count high at 13.6 however patient was in a steroids. Hemoglobin and platelets within normal limits react INR is 1.1. Sodium slightly low at 135 react high potassium at 5.5. Creatinine 1.1. Sugar was running high about 300. High lactic acid of 3.3, down to 2.2. With negative troponins and unremarkable LFTs. Urine showing 4+ glucose Chest x-rays there is some linear atelectasis at the left lung base that is not significantly different from last exam. Normal heart. Patient already started on Levaquin. Continue to be on prednisone 40 mg daily. Patient has been evaluated by director of community center and cleared him for discharge. Currently receiving the patient he denies to me any chest pain note discomfort no back pain no epigastric or abdominal pain. No change in urine or bowel habits. No fever. He has mild dyspnea which says that his baseline. He denies upper respiratory tract infection or symptoms. No sick contacts 03/01/2018 Patient still significantly dyspneic especially on exertion when he goes for example to the bathroom. He denies chest pain. His hydration status is improved. ID team have evaluated the patient. Most likely this is contaminated blood culture. Patient is on antibiotic 03/02/2018 Patient dyspnea is improving, especially exertional dyspnea. 2 days ago we lowered his a steroids and he developed more dyspnea. Patient put back on IV Solu-Medrol high-dose yesterday's and he's feeling better today. Repeat chest x -ray shows COPD changes. Patient sees Dr. Carrillo's outpatient setting and he has appointment with him this coming Objective - Vital Signs Vital signs: Vital Signs Temp 98 F 03/02/18 07:36 Pulse 88 03/02/18 09:01 Resp 16 03/02/18 07:36 BP 144/86 03/02/18 07:36 Pulse Ox 93 L 03/02/18 07:36 Intake & Output 03/01/18 03/02/18 03/02/18 18:59 06:59 18:59 Intake Total 236 Balance 236 Intake: Oral 236 Other: Voiding Method Urinal Urinal Urinal # Voids 2 1 - Exam GENERAL: The patient is alert and oriented x3, not in any acute distress. Well developed, well nourished. HEENT: Pupils are round and equally reacting to light. EOMI. No scleral icterus. No conjunctival pallor. Normocephalic, atraumatic. No pharyngeal erythema. No thyromegaly. CARDIOVASCULAR: S1 and S2 present. No murmurs, rubs, or gallops. -PULMONARY: Chest is clear to auscultation, no crackles. Bilateral expiratory wheezing with prolonged expiration, improving ABDOMEN: Soft, nontender, nondistended, normoactive bowel sounds. No palpable organomegaly. MUSCULOSKELETAL: No joint swelling or deformity. EXTREMITIES: No cyanosis, clubbing, or pedal edema. NEUROLOGICAL: Gross neurological examination did not reveal any focal deficits. SKIN: No rashes. - Labs CBC & Chem 7: 03/02/18 06:35 03/02/18 06:35 Labs: Abnormal Lab Results - Last 24 Hours (Table) 02/27/18 03/01/18 03/01/18 Range/Units 20:00 11:58 16:44 WBC (3.8-10.6) k/uL Neutrophils # (1.3-7.7) k/uL Lymphocytes # (1.0-4.8) k/uL Sodium (137-145) mmol/L Potassium (3.5-5.1) mmol/L Chloride (98-107) mmol/L Carbon Dioxide (22-30) mmol/L BUN (9-20) mg/dL Glucose (74-99) mg/dL POC Glucose (mg/dL) 161 H 207 H (75-99) mg/dL Hemoglobin A1c 7.6 H (4.0-6.0) % 03/01/18 03/02/18 03/02/18 Range/Units 21:51 06:35 06:35 WBC 12.8 H (3.8-10.6) k/uL Neutrophils # 11.4 H (1.3-7.7) k/uL Lymphocytes # 0.9 L (1.0-4.8) k/uL Sodium 134 L (137-145) mmol/L Potassium 5.4 H (3.5-5.1) mmol/L Chloride 97 L (98-107) mmol/L Carbon Dioxide 32 H (22-30) mmol/L BUN 22 H (9-20) mg/dL Glucose 283 H (74-99) mg/dL POC Glucose (mg/dL) 223 H (75-99) mg/dL Hemoglobin A1c (4.0-6.0) % 03/02/18 Range/Units 06:55 WBC (3.8-10.6) k/uL Neutrophils # (1.3-7.7) k/uL Lymphocytes # (1.0-4.8) k/uL Sodium (137-145) mmol/L Potassium (3.5-5.1) mmol/L Chloride (98-107) mmol/L Carbon Dioxide (22-30) mmol/L BUN (9-20) mg/dL Glucose (74-99) mg/dL POC Glucose (mg/dL) 239 H (75-99) mg/dL Hemoglobin A1c (4.0-6.0) % Microbiology - Last 24 Hours (Table) 02/27/18 20:00 Blood Culture Gram Stain - Final Blood Blood Culture - Final Coagulase Negative Staph 02/27/18 20:00 Blood Culture - Final Blood Assessment and Plan Assessment: Dehydration, improving Hyperglycemia with no history of diabetes mellitus History of severe COPD, an acute exacerbation Atrial fibrillation History of hyperlipidemia Hypertension Heart failure Obesity line hypothyroidism Plan: This is a pleasant 67 years old male who presents with nonspecific symptoms like shakiness in the hand and hyperglycemia. We'll continue with the same treatment. Continue with symptomatic treatment. Patient looks dehydrated with high lactic acid came back to normal. We'll decrease his IV hydration. Continue treatment for COPD exacerbation. He wasn't steroid dependent at home and was just started recently. Call pulmonary consult. Continue with IV Solu- Medrol , continue with Levaquin Monitor labs and lytes Continue with GI and DVT prophylaxis. Further recommendation based on the clinical course.
--- NOTE | 2018-03-02 10:57 | P.CNPUL ---
History of Present Illness Consult date: 03/02/18 Reason for consult: dyspnea, cough, COPD, hypoxemia, pneumonia, abnormal CXR/CT Chief complaint: Shortness of breath History of present illness: Pulmonary consult dated 03/02/2018 67-year-old male typically sees my partner for his underlying COPD. The patient apparently has quite severe COPD he tells me that my partner told him that he had lung function of about 26%. He was a smoker in the past. Smoke currently. Came into the emergency room because of increasing shortness of breath and wheezing chest tightness and cough. The patient's feeling much better. He does have an appointment to see my partner on which I told him to keep. More recently, the patient patient has been having issues with steroids causing his hypoglycemia. The patient admits to some shortness of breath cough wheezing. Not really coughing up much phlegm. Chest x-ray looks relatively normal. The primary service wanted us to comment about his prednisone dose. We recommended prednisone 30 mg a day on discharge until he sees Dr. Pugh in the office. The patient has a past medical history of CAD angina pectoris COPD hyperlipidemia hypertension myocardial infarction and hypothyroidism. Surgical history includes among other things heart catheterization with stent hernia repair and tonsillectomy. The primary care physician is Dr. Agee. The patient does have an appointment to see Dr. Pugh on . We told him to keep that appointment. The patient was talking to us about his medications. He really likes the long-acting beta agonist known as perforomist. Review of Systems A 12 point review of system is positive for shortness of breath chest tightness wheezing cough. Past Medical History Past Medical History: Coronary Artery Disease (CAD), Chest Pain / Angina, Heart Failure, COPD, Hyperlipidemia, Hypertension, Myocardial Infarction ([place]), Pneumonia, Thyroid Disorder Additional Past Medical History / Comment(s): Obesity, COPD with chronic hypoxic respiratory failure and based on FEV1 of 31% of predicted,bronchits, chronic hypoxic respitory failure maintained on home 02 3 liters n/c, hypothyroidism, generalized anxiety disorder. Last hospitalized 2 days ago for pneumonia. 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, 2 cardiac stents Past Anesthesia/Blood Transfusion Reactions: No Reported Reaction Additional Past Anesthesia/Blood Transfusion Reaction / Comment(s): Prefers no morphine Date of Last Stent Placement:: 2007 Past Psychological History: Anxiety Smoking Status: Former smoker Past Alcohol Use History: None Reported Past Drug Use History: None Reported - Past Family History Father Family Medical History: COPD Mother Family Medical History: Congestive Heart Failure (CHF) Medications and Allergies Home Medications Medication Instructions Recorded Confirmed Type ALPRAZolam [Xanax] 0.25 mg PO BID PRN 04/27/15 02/27/18 History Albuterol Inhaler [Ventolin Hfa 2 puff INHALATION RT-QID PRN 04/28/15 02/27/18 History Inhaler] Albuterol Nebulized [Ventolin 2.5 mg INHALATION RT-Q4H PRN #0 05/04/15 02/27/18 Rx Nebulized] nebu Simvastatin [Zocor] 80 mg PO HS 12/04/15 02/27/18 History Umeclidinium Brm/Vilanterol Tr 1 puff INHALATION RT-DAILY 12/04/15 02/27/18 History [Anoro Ellipta 62.5-25 Mcg INH] Levothyroxine Sodium [Synthroid] 88 mcg PO DAILY 09/10/16 02/27/18 History Theophylline 24 Hour [Tung-24] 400 mg PO DAILY 10/08/16 02/27/18 History Ipratropium Nebulized [Atrovent 0.5 mg INHALATION RT-Q4H PRN 02/26/17 02/27/18 History Nebulized] Metoprolol Tartrate [Lopressor] 100 mg PO DAILY 02/03/18 02/27/18 History Acetaminophen Tab [Tylenol Tab] 650 mg PO Q6H PRN 02/26/18 02/27/18 History Moxifloxacin HCl 400 mg PO DAILY 02/26/18 02/27/18 History Moxifloxacin HCl 400 mg PO DAILY 02/27/18 02/27/18 History methylPREDNISolone [Medrol Dose See Taper PO DIRECTED 02/27/18 02/27/18 History Pack] Allergies Allergy/AdvReac Type Severity Reaction Status Date / Time adhesive tape Allergy Rash/Hives Verified 02/27/18 20:52 Physical Exam Osteopathic Statement: *. No significant issues noted on an osteopathic structural exam other than those noted in the History and Physical/Consult. Vitals: Vital Signs Temp Pulse Pulse Resp BP Pulse Ox 03/02/18 09:01 88 03/02/18 08:49 88 03/02/18 08:48 88 03/02/18 08:37 88 03/02/18 07:36 98 F 76 16 144/86 93 L 03/02/18 03:44 18 03/02/18 00:00 98.4 F 80 18 115/74 92 L 03/01/18 20:38 84 03/01/18 20:31 84 03/01/18 20:30 84 03/01/18 20:20 82 03/01/18 20:00 18 03/01/18 17:03 84 03/01/18 16:53 82 03/01/18 16:00 98.0 F 82 18 124/84 95 03/01/18 13:55 85 03/01/18 13:43 82 Intake and Output 03/01/18 03/02/18 03/02/18 22:59 06:59 14:59 Intake Total 236 Balance 236 Intake: Oral 236 Other: Voiding Method Urinal Urinal Urinal # Voids 1 1 No acute distress, oriented 3. HEENT examination is grossly unremarkable. Mucous membranes are moist. No oral lesions. Neck supple. Full range of motion. No adenopathy thyromegaly or neck vein distention. Cardiovascular examination reveals regular rhythm rate. S1-S2 normal. No S3 or S4. No discernible murmur noted. Lungs reveal a few scattered expiratory rhonchi. Breath sounds equal bilaterally. No wheezes. Slight prolongation. No crackles. Abdomen soft bowel sounds are heard. No masses or tenderness. Extremities are intact. No cyanosis clubbing or edema. Skin is without rash or lesion. Neurologic examination is brief but nonfocal. Results - Laboratory Findings CBC and BMP: 03/02/18 06:35 03/02/18 06:35 PT/INR, D-dimer PT 10.4 sec (9.0-12.0) 02/27/18 20:00 INR 1.1 (<1.2) 02/27/18 20:00 Abnormal lab findings: Abnormal Labs 02/27/18 02/27/18 02/27/18 20:00 20:00 20:00 WBC 13.6 H RBC MCV 100.7 H Neutrophils # 11.9 H Lymphocytes # 0.8 L Monocytes # APTT Sodium 135 L Potassium 5.5 H Chloride Carbon Dioxide BUN 25 H Glucose 387 H POC Glucose (mg/dL) Hemoglobin A1c Plasma Lactic Acid Ike 3.3 H* Urine Glucose (UA) 02/27/18 02/27/18 02/27/18 20:00 20:00 21:35 WBC RBC MCV Neutrophils # Lymphocytes # Monocytes # APTT 21.6 L Sodium Potassium Chloride Carbon Dioxide BUN Glucose POC Glucose (mg/dL) Hemoglobin A1c 7.6 H Plasma Lactic Acid Ike Urine Glucose (UA) 4+ H 02/28/18 02/28/18 02/28/18 01:28 02:03 09:15 WBC RBC MCV Neutrophils # Lymphocytes # Monocytes # APTT Sodium Potassium Chloride Carbon Dioxide BUN Glucose POC Glucose (mg/dL) 306 H 287 H Hemoglobin A1c Plasma Lactic Acid Ike 2.2 H* Urine Glucose (UA) 02/28/18 02/28/18 02/28/18 12:24 13:45 13:45 WBC RBC MCV Neutrophils # Lymphocytes # Monocytes # APTT Sodium Potassium 5.3 H Chloride Carbon Dioxide BUN Glucose POC Glucose (mg/dL) 351 H Hemoglobin A1c Plasma Lactic Acid Ike 2.5 H* Urine Glucose (UA) 02/28/18 02/28/18 03/01/18 16:54 21:29 06:49 WBC 13.9 H RBC 4.22 L MCV Neutrophils # 10.3 H Lymphocytes # Monocytes # 1.2 H APTT Sodium Potassium Chloride Carbon Dioxide BUN Glucose POC Glucose (mg/dL) 202 H 272 H Hemoglobin A1c Plasma Lactic Acid Ike Urine Glucose (UA) 03/01/18 03/01/18 03/01/18 06:49 06:58 11:58 WBC RBC MCV Neutrophils # Lymphocytes # Monocytes # APTT Sodium Potassium Chloride Carbon Dioxide BUN Glucose 157 H POC Glucose (mg/dL) 153 H 161 H Hemoglobin A1c Plasma Lactic Acid Ike Urine Glucose (UA) 03/01/18 03/01/18 03/02/18 16:44 21:51 06:35 WBC 12.8 H RBC MCV Neutrophils # 11.4 H Lymphocytes # 0.9 L Monocytes # APTT Sodium Potassium Chloride Carbon Dioxide BUN Glucose POC Glucose (mg/dL) 207 H 223 H Hemoglobin A1c Plasma Lactic Acid Ike Urine Glucose (UA) 03/02/18 03/02/18 06:35 06:55 WBC RBC MCV Neutrophils # Lymphocytes # Monocytes # APTT Sodium 134 L Potassium 5.4 H Chloride 97 L Carbon Dioxide 32 H BUN 22 H Glucose 283 H POC Glucose (mg/dL) 239 H Hemoglobin A1c Plasma Lactic Acid Ike Urine Glucose (UA) - Diagnostic Findings Chest x-ray: report reviewed (Chest x-ray labs and medications are all reviewed. ), image reviewed Assessment and Plan Assessment: Assessment COPD exacerbation, complicated by purulent tracheobronchitis Steroid-induced hyperglycemia History of CAD with previous myocardial infarction Acute coronary syndrome Heart failure Hyperlipidemia Hypertension History of hypothyroidism Obesity Plan: Plan dated 03/02/2018 The patient could be discharged home today. We'll recommend discharging him home on prednisone 30 mg a day until he sees my partner in the office on . In addition, he has questions about his current medication versus the long-acting beta agonist that he received in the hospital. He currently takes Anoro at home. This is a combination long-acting beta agonist/long- acting muscarinic antagonist. He prefers the Perforomist. He'll speak to Dr. Pugh about that. No additional recommendations are made. Prognosis is guarded. Time with Patient: Greater than 30
[2018-03-02 12:19] LABS: Glucose,Whole Blood 286 mg/dL (75-99)
[2018-03-02] MEDS: ALPRAZolam 0.25 MG TAB PO PRN (13:13)
[2018-03-02] MEDS ORDERED: metFORMIN 500 MG TAB PO SCH ×2 (14:10→17:30)
[2018-03-02 14:16] LABS: Anion Gap 7 mmol/L; Blood Urea Nitrogen 23 mg/dL (9-20); Calcium 9.4 mg/dL (8.4-10.2); Carbon Dioxide 30 mmol/L (22-30); Chloride 96 mmol/L (98-107); Glucose 291 mg/dL (74-99); Potassium 4.9 mmol/L (3.5-5.1); Sodium 133 mmol/L (137-145)
--- NOTE | 2018-03-02 15:17 | PN ---
PROGRESS NOTE DATE OF SERVICE: 03/02/2018. REASON FOR FOLLOWUP: 1. Positive blood culture. 2. Possible pneumonia. INTERVAL HISTORY: The patient is afebrile. He seemed to be breathing more comfortably. Denies having any chest pain or shortness of breath. Cough decreased in intensity. No abdominal pain or any diarrhea. EXAMINATION: Blood pressure is 144/86, pulse of 73, temperature 98. He is 93% on 3 L nasal cannula. General description is an elderly male lying in bed in no distress. RESPIRATORY SYSTEM: Unlabored breathing. Clear to auscultation anteriorly. HEART: S1, S2. Regular rate and rhythm. ABDOMEN: Soft, no tenderness. EXTREMITIES: No edema of the feet. LABS: Hemoglobin 14.8, white count 12.8. BUN of 22, creatinine 0.97. Sputum culture was requested and currently pending. DIAGNOSTIC IMPRESSION AND PLAN: 1. Patient with a positive blood culture with coag-negative staph, likely a contamination. No need for further workup for the same. 2. Patient with a possible left lower lobe pneumonia on Levaquin. Waiting for the sputum culture to finalize for discharge antibiotics. Continue supportive care. MMODL / IJN: [id number] /
[2018-03-02 15:31] VITALS: BP 138/90
[2018-03-02 15:51] VITALS: PULSE 72
--- NOTE | 2018-03-02 15:57 | P.DS ---
Providers Date of admission: 02/28/18 07:07 Attending physician: Ramón Fraga MD Consults: 02/28/18 18:26 Consult Physician Routine Consulting Provider: Jama Sanchez Consult Reason/Comments: positive blood cultures Do you want consulting provider notified?: Yes 03/02/18 10:13 Consult Physician Routine Consulting Provider: Carlos Joshua Consult Reason/Comments: COPD exacerbation/steroid tapering Do you want consulting provider notified?: Yes Primary care physician: Anuel Stubbs [facility] Course: This is a pleasant 74 years old female with past medical history of chronic atrial fibrillation, coronary artery disease, diabetes mellitus, deep venous thrombosis on liquids, GERD, hyperlipidemia, hypertension, bronchitis. Who presents because he wasn't feeling well, and high blood sugar. Patient was seen his doctor last week and there was suspicion so the pneumonia of the chest x-ray and he gave him one injection of antibiotics and with injection of steroids since he has history of COPD. Patient remained [place] and well and he was sitting his sugars with high numbers like 350, 470, second to emergency room and he was diagnosed with resolving pneumonia as per patient and they discharged him on antibiotics and tapering steroids over 21 days. Patient remains to feel annual but he couldn't specify rather than has some shakiness in his both hands, with high running sugar so he decided to come to the emergency room. on admission he had mild abd pain and semi-loose bowel movement which are relieved now In the ED patient has white cell count high at 13.6 however patient was in a steroids. Hemoglobin and platelets within normal limits react INR is 1.1. Sodium slightly low at 135 react high potassium at 5.5. Creatinine 1.1. Sugar was running high about 300. High lactic acid of 3.3, down to 2.2. With negative troponins and unremarkable LFTs. Urine showing 4+ glucose Chest x-rays there is some linear atelectasis at the left lung base that is not significantly different from last exam. Normal heart. Patient already started on Levaquin. Continue to be on prednisone 40 mg daily on admission Patient has been evaluated by senior compliance officer and cleared him for discharge. Currently receiving the patient he denies to me any chest pain note discomfort no back pain no epigastric or abdominal pain. No change in urine or bowel habits. No fever. He has mild dyspnea which says that his baseline. He denies upper respiratory tract infection or symptoms. No sick contacts, his steroid dose was lowered to 20 mg daily and then he felt significant exertional dyspnea which is resolving after the prednisone was increased again.Mostly related to his COPD exacerbation. Repeat chest x-ray shows COPD changes. . Patient has been evaluated by power plant technician and cleared him for discharge on the prednisone 30 mg daily until he sees his PCP. Patient feels improved. Patient has positive blood culture with coagulase-negative staph. Patient has been on Levaquin. ID consult is appreciated. patient will be discharged on antibiotics Patient has history of type 2 diabetes mellitus, he was on metformin which was stopped about one year ago. He was admitted this time with hyperglycemia. Hemoglobin A1c is 7.6%. Patient was put back on metformin and agrees, pt has glucomtere and scripts for lancets , and test strips is provided for him Patient was cleared by pulmonary, infectious disease and cardiology teams for discharge. Problem list and management plan were discussed with detailed and he verbalized understanding and acceptance. Patient was found stable and can be discharged home however he needs follow-up as an outpatient. Patient sees Dr. Carrillo's outpatient setting and he has appointment with him this coming . Patient maintained his own appointment with Dr. Darden this coming Friday, 2017 Prescription for prednisone 30 mg daily is provided for 1 week. Patient understands he will follow-up with his PCP Dr. Darden in [address] Carrillo in 2-3 days, her prescriptions of prednisone standing or Taper according to his doctor's. Patient was instructed not to stop the prednisone on his own abruptly. Risks benefits and alternative for explained and he verbalized understanding and acceptance. Repeat potassium came back 4.9. Dietitian will discuss with patient low potassium diet. Prescription for metformin as provided for the patient. Prescription for Levaquin X5 days as provided for the patient as per ID recommendation upon discharge Discharge exam Physical exam from my today's note Time spent with the patient more than 35 minutes Plan - Discharge Summary New Discharge Prescriptions: New Levofloxacin [Levaquin] 500 mg PO DAILY@2200 5 Days #5 tab metFORMIN HCL [Glucophage] 500 mg PO BID-W/MEALS #60 tab predniSONE 30 mg PO DAILY 7 Days #21 tab Continue methylPREDNISolone [Medrol Dose Pack] See Taper PO DIRECTED Discontinued Moxifloxacin HCl 400 mg PO DAILY Moxifloxacin HCl 400 mg PO DAILY No Action ALPRAZolam [Xanax] 0.25 mg PO BID PRN PRN Reason: Anxiety Albuterol Inhaler [Ventolin Hfa Inhaler] 2 puff INHALATION RT-QID PRN PRN Reason: Shortness Of Breath Albuterol Nebulized [Ventolin Nebulized] 2.5 mg INHALATION RT-Q4H PRN #0 nebu PRN Reason: Shortness Of Breath Or Wheezing Umeclidinium Brm/Vilanterol Tr [Anoro Ellipta 62.5-25 Mcg INH] 1 puff INHALATION RT-DAILY Simvastatin [Zocor] 80 mg PO HS Levothyroxine Sodium [Synthroid] 88 mcg PO DAILY Theophylline 24 Hour [Tung-24] 400 mg PO DAILY Ipratropium Nebulized [Atrovent Nebulized] 0.5 mg INHALATION RT-Q4H PRN PRN Reason: Shortness Of Breath Metoprolol Tartrate [Lopressor] 100 mg PO DAILY Acetaminophen Tab [Tylenol] 650 mg PO Q6H PRN PRN Reason: Pain Discharge Medication List ALPRAZolam [Xanax] 0.25 mg PO BID PRN 04/27/15 [History] Albuterol Inhaler [Ventolin Hfa Inhaler] 2 puff INHALATION RT-QID PRN 04/28/15 [ History] Albuterol Nebulized [Ventolin Nebulized] 2.5 mg INHALATION RT-Q4H PRN #0 nebu [Rx] Simvastatin [Zocor] 80 mg PO HS 12/04/15 [History] Umeclidinium Brm/Vilanterol Tr [Anoro Ellipta 62.5-25 Mcg INH] 1 puff INHALATION RT-DAILY 12/04/15 [History] Levothyroxine Sodium [Synthroid] 88 mcg PO DAILY 09/10/16 [History] Theophylline 24 Hour [Tung-24] 400 mg PO DAILY 10/08/16 [History] Ipratropium Nebulized [Atrovent Nebulized] 0.5 mg INHALATION RT-Q4H PRN [History] Metoprolol Tartrate [Lopressor] 100 mg PO DAILY 02/03/18 [History] Acetaminophen Tab [Tylenol] 650 mg PO Q6H PRN 02/26/18 [History] methylPREDNISolone [Medrol Dose Pack] See Taper PO DIRECTED 02/27/18 [History ] Levofloxacin [Levaquin] 500 mg PO DAILY@2200 5 Days #5 tab 03/02/18 [Rx] metFORMIN HCL [Glucophage] 500 mg PO BID-W/MEALS #60 tab 03/02/18 [Rx] predniSONE 30 mg PO DAILY 7 Days #21 tab 03/02/18 [Rx] Follow up Appointment(s)/Referral(s): Jameson Pugh MD [STAFF PHYSICIAN] - 03/05/18 (follow up with Dr. Pugh as previously scheduled) Kathy Agee MD [Primary Care Provider] - 03/09/18 2:00 pm Patient Instructions/Handouts: COPD (Chronic Obstructive Pulmonary Disease) ( GEN) Activity/Diet/Wound Care/Special Instructions: Cardiac diet Restrict potassium in your diet, less fruits and vegetables Activity as tolerated Discharge Disposition: HOME SELF-CARE
[2018-03-03] MEDS ORDERED: predniSONE 10 MG TAB PO SCH (09:00)
== END 2018-03-02 17:09 | disposition home or self-care (01) | DRG 191 ==
LOC: EC 19:35 → 3OBS 23:34 → OBSVTOIN 02-28 07:07
PROVIDERS: ADMIT Internal Medicine; ATTEND Internal Medicine
DX: J44.0 Chronic obstructive pulmonary disease with (acute) lower respiratory infection (principal); J96.11 Chronic respiratory failure with hypoxia; J98.11 Atelectasis; E11.65 Type 2 diabetes mellitus with hyperglycemia; J44.1 Chronic obstructive pulmonary disease with (acute) exacerbation; E03.9 Hypothyroidism, unspecified; E11.649 Type 2 diabetes mellitus with hypoglycemia without coma; E66.9 Obesity, unspecified; E78.5 Hyperlipidemia, unspecified; Z68.39 Body mass index [BMI] 39.0-39.9, adult; E86.0 Dehydration; F41.1 Generalized anxiety disorder; I11.0 Hypertensive heart disease with heart failure; I25.10 Atherosclerotic heart disease of native coronary artery without angina pectoris; I25.2 Old myocardial infarction; I48.2 Chronic atrial fibrillation; I50.9 Heart failure, unspecified; K21.9 Gastro-esophageal reflux disease without esophagitis; T38.0X5A Adverse effect of glucocorticoids and synthetic analogues, initial encounter; Z79.52 Long term (current) use of systemic steroids; Z79.899 Other long term (current) drug therapy; Z82.49 Family history of ischemic heart disease and other diseases of the circulatory system; Z82.5 Family history of asthma and other chronic lower respiratory diseases; Z87.891 Personal history of nicotine dependence; Z95.5 Presence of coronary angioplasty implant and graft; Z97.0 Presence of artificial eye; Z99.81 Dependence on supplemental oxygen; Z79.890 Hormone replacement therapy; Z88.8 Allergy status to other drugs, medicaments and biological substances
CPT/HCPCS: 36415; 71046; 80048; 80053; 81003; 82550; 82553; 83036; 83605; 83735; 83880; 84132; 84484; 85025; 85610; 85730; 87040; 87070; 87086; 87205; 93005; 94640; 94644; 96360; 96361; 99285

== ENCOUNTER 2018-08-10 12:06 | Emergency (ER) | payer MEDICARE ==
[2018-08-10] MEDS ORDERED: IPRATROPIUM-ALBUTEROL 3 ML NEB INHALATION STA (13:33)
--- NOTE | 2018-08-10 13:53 | ED ---
General Adult HPI - General Chief complaint: Upper Respiratory Infection Stated complaint: congestion, cough, SOB Time Seen by Provider: 08/10/18 13:23 Source: patient, RN notes reviewed Mode of arrival: wheelchair Limitations: no limitations - History of Present Illness Initial comments: Patient is a 68-year-old male significant past medical history for COPD, presented to the emergency room today with a chief complaint of increased cough congestion over the last 2 days. Patient does admit that he has had cough with sputum production. Patient states that he feels may have pneumonia. States had small times in the past and is concerned about this. Patient does admit that he is on home oxygen 3 L. Patient also admits that his been doing breathing treatments. Patient denies any recent fever, chills, shortness of breath, chest pain, back pain, abdominal pain, nausea or vomiting, numbness or tingling, dysuria or hematuria, constipation or diarrhea, headaches or visual changes, or any other complaints. Patient denies any recent fever, chills, shortness of breath, chest pain, back pain, abdominal pain, nausea or vomiting, headaches or visual changes, or any other complaints. - Related Data Home Medications Medication Instructions Recorded Confirmed ALPRAZolam [Xanax] 0.25 mg PO BID PRN 04/27/15 02/27/18 Albuterol Inhaler [Ventolin Hfa 2 puff INHALATION RT-QID PRN 04/28/15 02/27/18 Inhaler] Simvastatin [Zocor] 80 mg PO HS 12/04/15 02/27/18 Umeclidinium Brm/Vilanterol Tr 1 puff INHALATION RT-DAILY 12/04/15 02/27/18 [Anoro Ellipta 62.5-25 Mcg INH] Levothyroxine Sodium [Synthroid] 88 mcg PO DAILY 09/10/16 02/27/18 Theophylline 24 Hour [Tung-24] 400 mg PO DAILY 10/08/16 02/27/18 Ipratropium Nebulized [Atrovent 0.5 mg INHALATION RT-Q4H PRN 02/26/17 02/27/18 Nebulized 0.2 MG/ML] Metoprolol Tartrate [Lopressor] 100 mg PO DAILY 02/03/18 02/27/18 Acetaminophen Tab [Tylenol] 650 mg PO Q6H PRN 02/26/18 02/27/18 methylPREDNISolone [Medrol Dose See Taper PO DIRECTED 02/27/18 02/27/18 Pack] Previous Rx's Medication Instructions Recorded Albuterol Nebulized [Ventolin 2.5 mg INHALATION RT-Q4H PRN #0 05/04/15 Nebulized] nebu Levofloxacin [Levaquin] 500 mg PO DAILY@2200 5 Days #5 tab 03/02/18 metFORMIN HCL [Glucophage] 500 mg PO BID-W/MEALS #60 tab 03/02/18 predniSONE 30 mg PO DAILY 7 Days #21 tab 03/02/18 Azithromycin [Zithromax Z-pack] 0 mg PO DIRECTED #6 tab 08/10/18 Allergies Allergy/AdvReac Type Severity Reaction Status Date / Time adhesive tape Allergy Rash/Hives Verified 08/10/18 12:39 Review of Systems ROS Statement: Those systems with pertinent positive or pertinent negative responses have been documented in the HPI. ROS Other: All systems not noted in ROS Statement are negative. Past Medical History Past Medical History: Coronary Artery Disease (CAD), Chest Pain / Angina, Heart Failure, COPD, Hyperlipidemia, Hypertension, Myocardial Infarction ([place]), Pneumonia, Thyroid Disorder Additional Past Medical History / Comment(s): Obesity, COPD with chronic hypoxic respiratory failure and based on FEV1 of 31% of predicted,bronchits, chronic hypoxic respitory failure maintained on home 02 3 liters n/c, hypothyroidism, generalized anxiety disorder. Last hospitalized 2 days ago for pneumonia. 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, 2 cardiac stents Past Anesthesia/Blood Transfusion Reactions: No Reported Reaction Additional Past Anesthesia/Blood Transfusion Reaction / Comment(s): Prefers no morphine Date of Last Stent Placement:: 2007 Past Psychological History: Anxiety Smoking Status: Former smoker Past Alcohol Use History: None Reported Past Drug Use History: None Reported - Past Family History Father Family Medical History: COPD Mother Family Medical History: Congestive Heart Failure (CHF) General Exam - General Exam Comments Initial Comments: General: The patient is awake and alert, in no distress, and does not appear acutely ill. Eye: There is normal conjunctiva bilaterally. No signs of icterus. Ears, nose, mouth and throat: There are moist mucous membranes and no oral lesions. Neck: The neck is supple, there is no tenderness or JVD. Cardiovascular: There is a regular rate and rhythm. No murmur, rub or gallop is appreciated. Respiratory: Decreased lung sounds bilaterally. respirations are non-labored, breath sounds are equal. No wheezes, stridor, rales, or rhonchi. Musculoskeletal: Normal ROM, no tenderness. No pitting edema. Neurological: A&O x 3. CN II-XII intact, There are no obvious motor or sensory deficits. Coordination appears grossly intact. Speech is normal. Skin: Skin is warm and dry and no rashes or lesions are noted. Psychiatric: Cooperative, appropriate mood & affect, normal judgment. Limitations: no limitations Course Vital Signs 08/10/18 08/10/18 12:36 13:59 Temperature 98.1 F Pulse Rate 89 87 Respiratory 20 16 Rate Blood Pressure 122/74 O2 Sat by Pulse 95 Oximetry Medical Decision Making - Medical Decision Making Case discussed in detail with attending physician Dr. Montgomery. Patient resting comfortable. Does admit to improvement after breathing treatment here in the emergency room. Does have treatments that he can continue at home. He is on 3 L of oxygen at home as well. Patient does admit that this feels similar to pneumonia that is had in the past for chest x-ray reviewed does show possible beginnings of left lower lobe pneumonia. Patient given dose Rocephin here in the emergency room. Patient will be discharged home continued on azithromycin. He is advised close follow-up family doctor over the next 2 days and return if symptoms increase or worsen. Disposition Clinical Impression: CAP (community acquired pneumonia) Disposition: HOME SELF-CARE Condition: Good Instructions: Community Acquired Pneumonia (ED) Additional Instructions: Please use medication as discussed. Please follow-up with family doctor in the next 2 days of symptoms have not improved. Please return to emergency room if the symptoms increase or worsen or for any other concerns. Prescriptions: Azithromycin [Zithromax Z-pack] 0 mg PO DIRECTED #6 tab Is patient prescribed a controlled substance at d/c from ED?: No Referrals: Kathy Agee MD [Primary Care Provider] - 1-2 days Time of Disposition: 14:25
--- NOTE | 2018-08-10 14:07 | XR ---
EXAMINATION TYPE: XR chest 2V DATE OF EXAM: 08/10/2018 COMPARISON: 03/02/2018 HISTORY: 68-year-old male shortness of cough TECHNIQUE: PA and lateral views FINDINGS: Heart normal size. Aorta and pulmonary vasculature within normal limits. Relative upper lung lucencie s. Patchy posterior basilar opacity on the lateral view. Patchy opacity at the peripheral left base i s relatively similar and could represent scarring. IMPRESSION: Suspect underlying COPD. Patchy density posterior base on the lateral view could represent atelectasi s or pneumonia.
[2018-08-10] MEDS ORDERED: cefTRIAXone 1,000 MG VIAL (IM USE) IM STA (14:22)
[2018-08-10 14:52] VITALS: BP 133/82; PULSE 89; RESP 20; TEMP 97.9
== END 2018-08-10 14:54 | disposition home or self-care (01) ==
LOC: EC 12:06
DX: J18.9 Pneumonia, unspecified organism (principal); I25.119 Atherosclerotic heart disease of native coronary artery with unspecified angina pectoris; I11.0 Hypertensive heart disease with heart failure; I50.9 Heart failure, unspecified; E78.5 Hyperlipidemia, unspecified; I25.2 Old myocardial infarction; J44.0 Chronic obstructive pulmonary disease with (acute) lower respiratory infection; E03.9 Hypothyroidism, unspecified; F41.1 Generalized anxiety disorder; J96.11 Chronic respiratory failure with hypoxia; Z79.890 Hormone replacement therapy; Z99.81 Dependence on supplemental oxygen; Z79.899 Other long term (current) drug therapy; Z91.048 Other nonmedicinal substance allergy status; Z87.891 Personal history of nicotine dependence; Z95.5 Presence of coronary angioplasty implant and graft
CPT/HCPCS: 94640; 71046; 99285; 96372; J0696

== ENCOUNTER 2018-08-11 00:19 | Inpatient (IN) | payer MEDICARE ==
[2018-08-11] MEDS ORDERED: ACETAMINOPHEN TAB 325 MG TAB PO STA (00:34)
--- NOTE | 2018-08-11 00:36 | ED ---
SOB HPI - General Stated Complaint: ELIAS Time Seen by Provider: 08/11/18 00:21 Source: patient, EMS, RN notes reviewed Mode of arrival: EMS Limitations: no limitations - History of Present Illness Initial Comments: 68-year-old male presents emergency department via EMS chief complaint increased shortness of breath. Patient was seen here yesterday and was diagnosed pneumonia. Patient states he went home but states symptoms are worsening. Patient states he was scheduled to see because he felt short of breath. He does wear 3 L of oxygen daily his housekeeper home is Dr. Burkett. Patient reports a cough that is productive of sputum. He denies any current chest pain, dizziness. Patient does complain of mild headache. Patient is not taking any recent Tylenol Motrin. Patient denies any nausea and diarrhea constipation. - Related Data Home Medications Medication Instructions Recorded Confirmed ALPRAZolam [Xanax] 0.25 mg PO BID PRN 04/27/15 02/27/18 Albuterol Inhaler [Ventolin Hfa 2 puff INHALATION RT-QID PRN 04/28/15 02/27/18 Inhaler] Simvastatin [Zocor] 80 mg PO HS 12/04/15 02/27/18 Umeclidinium Brm/Vilanterol Tr 1 puff INHALATION RT-DAILY 12/04/15 02/27/18 [Anoro Ellipta 62.5-25 Mcg INH] Levothyroxine Sodium [Synthroid] 88 mcg PO DAILY 09/10/16 02/27/18 Theophylline 24 Hour [Tung-24] 400 mg PO DAILY 10/08/16 02/27/18 Ipratropium Nebulized [Atrovent 0.5 mg INHALATION RT-Q4H PRN 02/26/17 02/27/18 Nebulized 0.2 MG/ML] Metoprolol Tartrate [Lopressor] 100 mg PO DAILY 02/03/18 02/27/18 Acetaminophen Tab [Tylenol] 650 mg PO Q6H PRN 02/26/18 02/27/18 methylPREDNISolone [Medrol Dose See Taper PO DIRECTED 02/27/18 02/27/18 Pack] Previous Rx's Medication Instructions Recorded Albuterol Nebulized [Ventolin 2.5 mg INHALATION RT-Q4H PRN #0 05/04/15 Nebulized] nebu Levofloxacin [Levaquin] 500 mg PO DAILY@2200 5 Days #5 tab 03/02/18 metFORMIN HCL [Glucophage] 500 mg PO BID-W/MEALS #60 tab 03/02/18 predniSONE 30 mg PO DAILY 7 Days #21 tab 03/02/18 Azithromycin [Zithromax Z-pack] 0 mg PO DIRECTED #6 tab 08/10/18 Allergies Allergy/AdvReac Type Severity Reaction Status Date / Time adhesive tape Allergy Rash/Hives Verified 08/11/18 00:34 Review of Systems ROS Statement: Those systems with pertinent positive or pertinent negative responses have been documented in the HPI. ROS Other: All systems not noted in ROS Statement are negative. Past Medical History Past Medical History: Coronary Artery Disease (CAD), Chest Pain / Angina, Heart Failure, COPD, Hyperlipidemia, Hypertension, Myocardial Infarction ([place]), Pneumonia, Thyroid Disorder Additional Past Medical History / Comment(s): Obesity, COPD with chronic hypoxic respiratory failure and based on FEV1 of 31% of predicted,bronchits, chronic hypoxic respitory failure maintained on home 02 3 liters n/c, hypothyroidism, generalized anxiety disorder. Last hospitalized 2 days ago for pneumonia. 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, 2 cardiac stents Past Anesthesia/Blood Transfusion Reactions: No Reported Reaction Additional Past Anesthesia/Blood Transfusion Reaction / Comment(s): Prefers no morphine Date of Last Stent Placement:: 2007 Past Psychological History: Anxiety Smoking Status: Former smoker Past Alcohol Use History: None Reported Past Drug Use History: None Reported - Past Family History Father Family Medical History: COPD Mother Family Medical History: Congestive Heart Failure (CHF) General Exam Limitations: no limitations General appearance: alert, in no apparent distress Head exam: Present: atraumatic, normocephalic, normal inspection Eye exam: Present: normal appearance, PERRL, EOMI. Absent: scleral icterus, conjunctival injection, periorbital swelling ENT exam: Present: normal exam, mucous membranes moist Neck exam: Present: normal inspection. Absent: tenderness, meningismus, lymphadenopathy Respiratory exam: Present: wheezes, rhonchi. Absent: normal lung sounds bilaterally, respiratory distress, rales, stridor Cardiovascular Exam: Present: normal rhythm, tachycardia, normal heart sounds. Absent: systolic murmur, diastolic murmur, rubs, gallop, clicks Neurological exam: Present: alert, oriented X3, CN II-XII intact Skin exam: Present: warm, dry, intact, normal color. Absent: rash Course Vital Signs 08/11/18 00:29 Temperature 100.6 F H Pulse Rate 114 H Respiratory 24 Rate Blood Pressure 110/74 O2 Sat by Pulse 95 Oximetry Medical Decision Making - Medical Decision Making 68-year-old male presented from for shortness of breath. Patient was seen here prior for similar symptoms symptoms worsen at home patient was improved after DuoNeb treatment. Patient will be admitted for IV steroids, repeat treatment and antibiotics. - Lab Data Result diagrams: 08/11/18 00:51 08/11/18 00:51 Lab Results 08/11/18 08/11/18 08/11/18 Range/Units 00:51 00:51 00:51 WBC 13.9 H (3.8-10.6) k/uL RBC 4.62 (4.30-5.90) m/uL Hgb 14.6 (13.0-17.5) gm/dL Hct 45.7 (39.0-53.0) % MCV 98.9 (80.0-100.0) fL MCH 31.5 (25.0-35.0) pg MCHC 31.8 (31.0-37.0) g/dL RDW 12.0 (11.5-15.5) % Plt Count 201 (150-450) k/uL Neutrophils % 86 % Lymphocytes % 4 % Monocytes % 7 % Eosinophils % 2 % Basophils % 0 % Neutrophils # 12.0 H (1.3-7.7) k/uL Lymphocytes # 0.5 L (1.0-4.8) k/uL Monocytes # 1.0 (0-1.0) k/uL Eosinophils # 0.3 (0-0.7) k/uL Basophils # 0.1 (0-0.2) k/uL PT (9.0-12.0) sec INR (<1.2) APTT (22.0-30.0) sec Sodium 138 (137-145) mmol/L Potassium 4.5 (3.5-5.1) mmol/L Chloride 101 (98-107) mmol/L Carbon Dioxide 30 (22-30) mmol/L Anion Gap 7 mmol/L BUN 20 (9-20) mg/dL Creatinine 1.22 (0.66-1.25) mg/dL Est GFR (CKD-EPI)AfAm 71 (>60 ml/min/1.73 sqM) Est GFR (CKD-EPI)NonAf 62 (>60 ml/min/1.73 sqM) Glucose 151 H (74-99) mg/dL Plasma Lactic Acid Ike (0.7-2.0) mmol/L Calcium 9.2 (8.4-10.2) mg/dL Magnesium 1.5 L (1.6-2.3) mg/dL Total Bilirubin 0.7 (0.2-1.3) mg/dL AST 27 (17-59) U/L ALT 30 (21-72) U/L Alkaline Phosphatase 89 (38-126) U/L Total Creatine Kinase 135 (55-170) U/L CK-MB (CK-2) 0.9 (0.0-2.4) ng/mL CK-MB (CK-2) Rel Index 0.7 Troponin I <0.012 (0.000-0.034) ng/mL Total Protein 6.3 (6.3-8.2) g/dL Albumin 3.6 (3.5-5.0) g/dL Influenza Type A RNA (Not Detectd) Influenza Type B (PCR) (Not Detectd) 08/11/18 08/11/18 08/11/18 Range/Units 00:51 00:51 00:51 WBC (3.8-10.6) k/uL RBC (4.30-5.90) m/uL Hgb (13.0-17.5) gm/dL Hct (39.0-53.0) % MCV (80.0-100.0) fL MCH (25.0-35.0) pg MCHC (31.0-37.0) g/dL RDW (11.5-15.5) % Plt Count (150-450) k/uL Neutrophils % % Lymphocytes % % Monocytes % % Eosinophils % % Basophils % % Neutrophils # (1.3-7.7) k/uL Lymphocytes # (1.0-4.8) k/uL Monocytes # (0-1.0) k/uL Eosinophils # (0-0.7) k/uL Basophils # (0-0.2) k/uL PT 10.7 (9.0-12.0) sec INR 1.0 (<1.2) APTT 26.2 (22.0-30.0) sec Sodium (137-145) mmol/L Potassium (3.5-5.1) mmol/L Chloride (98-107) mmol/L Carbon Dioxide (22-30) mmol/L Anion Gap mmol/L BUN (9-20) mg/dL Creatinine (0.66-1.25) mg/dL Est GFR (CKD-EPI)AfAm (>60 ml/min/1.73 sqM) Est GFR (CKD-EPI)NonAf (>60 ml/min/1.73 sqM) Glucose (74-99) mg/dL Plasma Lactic Acid Ike 1.3 (0.7-2.0) mmol/L Calcium (8.4-10.2) mg/dL Magnesium (1.6-2.3) mg/dL Total Bilirubin (0.2-1.3) mg/dL AST (17-59) U/L ALT (21-72) U/L Alkaline Phosphatase (38-126) U/L Total Creatine Kinase (55-170) U/L CK-MB (CK-2) (0.0-2.4) ng/mL CK-MB (CK-2) Rel Index Troponin I (0.000-0.034) ng/mL Total Protein (6.3-8.2) g/dL Albumin (3.5-5.0) g/dL Influenza Type A RNA Not Detected (Not Detectd) Influenza Type B (PCR) Not Detected (Not Detectd) Disposition Clinical Impression: Acute exacerbation of chronic obstructive airways disease Disposition: ADMITTED IP TO THIS HOSP Condition: Fair Referrals: Kathy Agee MD [Primary Care Provider] - 1-2 days
[2018-08-11 01:10] LABS: Basophils # (A) 0.1 k/uL (0-0.2); Basophils % (A) 0 %; Eosinophils # (A) 0.3 k/uL (0-0.7); Eosinophils % (A) 2 %; HCT 45.7 % (39.0-53.0); HGB 14.6 gm/dL (13.0-17.5); Lymphocytes # (A) 0.5 k/uL (1.0-4.8); Lymphocytes % (A) 4 %; MCH 31.5 pg (25.0-35.0); MCHC 31.8 g/dL (31.0-37.0); MCV 98.9 fL (80.0-100.0); Mean Platelet Volume 6.9; Monocytes % (A) 7 %; Neutrophils % (A) 86 %; Platelet Count 201 k/uL (150-450); RBC 4.62 m/uL (4.30-5.90); WBC 13.9 k/uL (3.8-10.6)
[2018-08-11 01:20] LABS: Albumin 3.6 g/dL (3.5-5.0); Calcium 9.2 mg/dL (8.4-10.2); Magnesium 1.5 mg/dL (1.6-2.3); Potassium 4.5 mmol/L (3.5-5.1); Total Bilirubin 0.7 mg/dL (0.2-1.3); Total Protein 6.3 g/dL (6.3-8.2)
--- NOTE | 2018-08-11 01:25 | XR ---
EXAMINATION TYPE: XR chest 2V DATE OF EXAM: 08/11/2018 COMPARISON: 08/10/2018 HISTORY: Difficulty breathing TECHNIQUE: Frontal and lateral views of the chest are obtained. FINDINGS: Heart and mediastinum are normal. Lungs are clear. Costophrenic angles are clear. Bony tho rax is intact. Pulmonary vascularity is normal. IMPRESSION: No active cardiopulmonary disease.. There is improved aeration left lung field compared to old exam..
[2018-08-11 01:29] LABS: Creatine Kinase 135 U/L (55-170); Partial Thromboplastin Time 26.2 sec (22.0-30.0); Prothrombin Time 10.7 sec (9.0-12.0)
[2018-08-11 01:42] LABS: Creatine Kinase MB 0.9 ng/mL (0.0-2.4); Troponin I <0.012 ng/mL (0.000-0.034)
[2018-08-11] MEDS: IPRATROPIUM-ALBUTEROL 3 ML NEB INHALATION PRN (04:41)
[2018-08-11 04:42] LABS: Glucose,Whole Blood 114 mg/dL (75-99)
[2018-08-11] MEDS: methylPREDNISolone SOD SUCCI 125 MG/2 ML VIAL IV SCH ×4 (05:44→23:33)
[2018-08-11 07:25] LABS: Glucose,Whole Blood 128 mg/dL (75-99)
[2018-08-11] MEDS: INSULIN ASPART 100 UNIT/ML 1 ML 10 ML VIAL SQ SCH ×4 (07:30→21:11)
[2018-08-11] MEDS: AZITHROMYCIN 500 MG TAB PO SCH (08:42)
[2018-08-11] MEDS: FAMOTIDINE 20 MG TAB PO SCH ×2 (08:42→21:11)
[2018-08-11] MEDS: METOPROLOL TARTRATE 50 MG TAB PO SCH ×2 (08:42→21:11)
[2018-08-11] MEDS: LEVOTHYROXINE 88 MCG TAB PO SCH (08:47)
[2018-08-11] MEDS: THEOPHYLLINE 24 HOUR 400 MG CAP.ER.24H PO SCH (09:01)
[2018-08-11] MEDS: JANUVIA 100 MG TABLET PO SCH (09:02)
[2018-08-11] MEDS: IPRATROPIUM-ALBUTEROL 3 ML NEB INHALATION SCH ×4 (09:12→19:19)
[2018-08-11 12:12] LABS: Glucose,Whole Blood 168 mg/dL (75-99)
--- NOTE | 2018-08-11 13:55 | P.CNPUL ---
History of Present Illness Consult date: 08/11/18 Reason for consult: COPD Chief complaint: Shortness of breath History of present illness: This is a 68-year-old white male with history of severe COPD, Gold stage III, O2 dependent, not prednisone dependent. Patient is primarily a patient of Dr. adkins, and I usually see him on a regular basis for his underlying COPD. Patient presented to the ER yesterday early afternoon, and he was complaining of shortness of breath, cough and wheezing. His chest x-ray showed minimal atelectasis of the left base, patient was discharged home on antibiotics, and bronchodilators as usual. However he returned back to the ER last night complaining of worsening shortness of breath, hence this time was admitted, and this consult was initiated. Follow-up chest x-ray showed no evidence of active disease, and there was improved aeration of the left lung base compared to the earlier chest x-ray. CBC showed a bit of leukocytosis with WBC count of 13.9. Rest of the labs were relatively unremarkable. Patient was also complaining of productive cough, yellow sputum, and he had some vague minimal abdominal discomfort. No nausea no vomiting, no diarrhea, denies any headache, no blurred vision, no dizziness, no melena no hematemesis is no dysuria and no frequency no urgency. Temp was noted to be slightly elevated on his return visit the second time. Patient was then admitted, and this consult was initiated. Presently during my evaluation, the patient already feels a bit better, and his clinical findings were not significant. Review of Systems 14 point review of systems were obtained, please refer to pertinent positives in HPI, otherwise remaining systems are negative. Past Medical History Past Medical History: Coronary Artery Disease (CAD), Chest Pain / Angina, Heart Failure, COPD, Hyperlipidemia, Hypertension, Myocardial Infarction ([place]), Pneumonia, Thyroid Disorder Additional Past Medical History / Comment(s): Obesity, COPD with chronic hypoxic respiratory failure and based on FEV1 of 31% of predicted,bronchits, chronic hypoxic respitory failure maintained on home 02 3 liters n/c, hypothyroidism, generalized anxiety disorder. Last hospitalized 2 days ago for pneumonia. 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 He also uses recreational marijuana but none in at least 6 years. He drinks alcohol on a rare basis. He worked in [employer]. He is currently living with daughter. He has no recent travel. He denies service. Past Drug Use History: None Reported - Past Family History Father Family Medical History: COPD Mother Family Medical History: Congestive Heart Failure (CHF) Medications and Allergies Home Medications Medication Instructions Recorded Confirmed Type ALPRAZolam [Xanax] 0.25 - 0.5 mg PO BID PRN 04/27/15 08/11/18 History Albuterol Inhaler [Ventolin Hfa 2 puff INHALATION RT-QID PRN 04/28/15 08/11/18 History Inhaler] Simvastatin [Zocor] 80 mg PO HS 12/04/15 08/11/18 History Umeclidinium Brm/Vilanterol Tr 1 puff INHALATION RT-DAILY 12/04/15 08/11/18 History [Anoro Ellipta 62.5-25 Mcg INH] Levothyroxine Sodium [Synthroid] 88 mcg PO DAILY 09/10/16 08/11/18 History Theophylline 24 Hour [Tung-24] 400 mg PO DAILY 10/08/16 08/11/18 History Ipratropium Nebulized [Atrovent 0.5 mg INHALATION RT-Q4H PRN 02/26/17 08/11/18 History Nebulized 0.2 MG/ML] Metoprolol Tartrate [Lopressor] 100 mg PO DAILY 02/03/18 08/11/18 History Acetaminophen Tab [Tylenol] 650 mg PO Q6H PRN 02/26/18 08/11/18 History Ranitidine HCl [Zantac] 300 mg PO HS 08/11/18 08/11/18 History sitaGLIPtin [Januvia] 100 mg PO DAILY 08/11/18 08/11/18 History Allergies Allergy/AdvReac Type Severity Reaction Status Date / Time adhesive tape Allergy Rash/Hives Verified 08/11/18 09:09 Physical Exam Vitals: Vital Signs Temp Pulse Pulse Resp BP BP BP 08/11/18 12:53 100 08/11/18 12:36 96 08/11/18 09:19 104 H 08/11/18 09:10 96 08/11/18 07:45 18 08/11/18 07:34 99.4 F 105 H 20 119/81 08/11/18 04:49 100 08/11/18 04:35 104 H 08/11/18 04:33 98.3 F 98 21 108/78 08/11/18 03:00 106 H 34 H 108/80 08/11/18 02:00 110/79 08/11/18 00:29 100.6 F H 114 H 24 110/74 Pulse Ox 08/11/18 12:53 08/11/18 12:36 08/11/18 09:19 08/11/18 09:10 08/11/18 07:45 08/11/18 07:34 92 L 08/11/18 04:49 08/11/18 04:35 08/11/18 04:33 94 L 08/11/18 03:00 95 08/11/18 02:00 94 L 08/11/18 00:29 95 Intake and Output 08/10/18 08/11/18 08/11/18 22:59 06:59 14:59 Other: # Voids 1 Weight 122.47 kg Physical Exam: Revealed a 68-year-old white male obese in no distress. Very pleasant. Head: Atraumatic, normocephalic. HEENT:[Neck is supple.] [No neck masses.] [No thyromegaly.] [No JVD.] Chest: Diminished breath sound bilaterally, no crackles or rhonchi or wheezes.] Cardiac Exam: [Normal S1 and S2, no S3 gallop, no murmur.] Abdomen: [Soft, nontender, no megaly, no rebound, no guarding, normal bowel sounds.] Extremities: [No clubbing, no edema, no cyanosis.] Neurological Exam: [No focal neurologic deficit.] Skin: No rashes. Psychiatric: Normal mood, affect and mental status examination. Results - Laboratory Findings CBC and BMP: 08/11/18 00:51 08/11/18 00:51 PT/INR, D-dimer PT 10.7 sec (9.0-12.0) 08/11/18 00:51 INR 1.0 (<1.2) 08/11/18 00:51 Abnormal lab findings: Abnormal Labs 08/11/18 08/11/18 08/11/18 00:51 00:51 04:40 WBC 13.9 H Neutrophils # 12.0 H Lymphocytes # 0.5 L Glucose 151 H POC Glucose (mg/dL) 114 H Magnesium 1.5 L 08/11/18 08/11/18 07:14 12:10 WBC Neutrophils # Lymphocytes # Glucose POC Glucose (mg/dL) 128 H 168 H Magnesium - Diagnostic Findings Chest x-ray: image reviewed (No evidence of active disease.) Assessment and Plan Assessment: Impression: 1 acute exacerbation of COPD, purulent tracheobronchitis. 2 severe end-stage COPD, FEV1 is 31% of predicted. 3 acute on chronic hypoxic respiratory failure secondary to COPD and purulent tracheobronchitis. 4 history of coronary artery disease and previous coronary stent insertion. 5 morbid obesity, BMI 40. 6 history of prosthetic left eye. 7 history of hyperlipidemia 8 generalized anxiety disorder 9 history of pancreatitis Recommendation: Continue albuterol, Atrovent, Zithromax, theophylline, add Symbicort, continue his home meds, Solu-Medrol, oxygen, and will follow. Consider discharge planning in the next 24 hours. Time with Patient: Greater than 30
[2018-08-11] MEDS: ACETAMINOPHEN TAB 325 MG TAB PO PRN (14:42)
[2018-08-11] MEDS: MAGNESIUM SULFATE-D5W PMX 1 GM in DEXTROSE/WATER 1 100ML.BAG IVPB SCH ×2 (17:11→18:17)
[2018-08-11 17:16] LABS: Glucose,Whole Blood 239 mg/dL (75-99)
[2018-08-11] MEDS ORDERED: guaiFENesin-DM 100-10MG/5ML 10 ML CUP PO PRN (18:20)
[2018-08-11] MEDS ORDERED: guaiFENesin SYRUP 100MG/5ML 200 MG/10 ML CUP PO PRN (18:21)
[2018-08-11] MEDS: SYMBICORT 160-4.5 MCG INHALER INHALATION SCH (19:19)
--- NOTE | 2018-08-11 19:20 | HP ---
HISTORY AND PHYSICAL DATE OF SERVICE: 08/11/2018 CHIEF COMPLAINT: Shortness of breath. HISTORY OF PRESENT ILLNESS: This 68-year-old gentleman with a past medical history of multiple medical issues including severe COPD, history of CHF, COPD, hypertension, hyperlipidemia; history of myocardial infarction, pneumonia, obesity, chronic hypoxic respiratory failure. FEV1 31% predicted being followed by Dr. Agee in the outpatient setting was complaining of shortness of breath over the past several days. Patient came to [facility] and was admitted for further evaluation and treatment. There is no history of any fever, rigors or chills. No history of headache, loss of consciousness or seizures. The patient is apparently using 3 L nasal cannula at home. The patient also has seen Dr. Pugh previously. The patient admitted for further evaluation and treatment. There is no evidence of pneumonia per se. White count is elevated. Patient is on IV antibiotics. Influenza is negative. PAST MEDICAL HISTORY: History of CAD, CHF, COPD, hypertension, hyperlipidemia, hypothyroidism, obesity, history of anxiety. MEDICATIONS: Prior to admission include: 1. Januvia 100 mg p.o. daily. 2. Anoro Ellipta 62.5 mg p.o. daily. 3. Tung-24 400 mg p.o. daily. 4. Zocor 80 mg q.h.s. 5. Zantac 300 mg q.h.s. 6. Lopressor 100 mg p.o. 7. Synthroid 88 mcg p.o. 8. Atrovent 0.5 q.4 p.r.n. 2 puffs q.i.d. p.r.n. 9. Tylenol 650 q.6h p.r.n. 10.Xanax 0.5 b.i.d. p.r.n. ALLERGIES: ADHESIVES. FAMILY HISTORY: History of COPD in the family. SOCIAL HISTORY: Previous history of smoking. No history of current smoking or alcohol intake. REVIEW OF SYSTEMS: ENT: No diminished hearing or diminished vision. CARDIOVASCULAR SYSTEM: As mentioned earlier. RESPIRATORY: As mentioned earlier. GI no nausea or vomiting. : No dysuria. NERVOUS SYSTEM: No numbness or weakness. ALLERGY/IMMUNOLOGY: No asthma or hayfever. HEMATOLOGY/ONCOLOGY: No history of anemia. MUSCULOSKELETAL: As mentioned earlier. ENDOCRINE: Hypothyroidism and diabetes. CONSTITUTIONAL: As mentioned earlier. Dermatology: Negative. Rheumatology: Negative. Psychiatry: As mentioned earlier. PHYSICAL EXAMINATION: GENERAL: The patient is alert and oriented times three. VITAL SIGNS: Blood pressure 115/79. Pulse 101, respiration 20, temperature 97.7 , pulse ox 94% on 4 L. HEENT is conjunctivae normal. NECK: No jugular venous distention. CARDIOVASCULAR: S1, S2 muffled. RESPIRATION: Breath sounds diminished in the bases. Bilateral scattered rhonchi and crackles. Expiratory wheezing also present. ABDOMEN: Soft, nontender. No mass palpable. LEGS: No edema. No swelling. NERVOUS SYSTEM: Higher functions as mentioned earlier. Moves all four limbs. No focal deficits. Lymphatics: No lymph nodes palpable in the neck, axillae or groin. SKIN: No ulcer, rash, no bleeding. LABS: WBC 13.2, hemoglobin 14.6. Glucose 151, magnesium 1.5. ASSESSMENT: 1. Chronic obstructive pulmonary disease acute exacerbation with acute purulent tracheobronchitis. 2. Increased WBC. 3. Hypomagnesemia. 4. History of congestive heart failure. 5. History of hypertension. 6. Hyperlipidemia. 7. History of myocardial infarction. 8. History of pneumonia. 9. History of hypothyroidism. 10.History of chronic hypoxic respiratory failure on home O2. 11.Generalized anxiety disorder. 12.Remote history of nicotine dependence. RECOMMENDATIONS AND DISCUSSION: This 68-year-old gentleman who presented with multiple complex medical issues, we will monitor the patient closely. Continue the current medications, management and symptomatic treatment. Otherwise, at this time, I recommend resume the home medications. IV steroids. Bronchodilators. Monitor blood sugars closely. Replace magnesium. Otherwise, closely follow with Dr. Pugh. Guarded prognosis. Further recommendations to follow. A copy of dictation being forwarded to Dr. Agee, who is the primary physician. MMODL / IJN: [id number] / MTDThalia
[2018-08-11 20:51] LABS: Glucose,Whole Blood 245 mg/dL (75-99)
[2018-08-11] MEDS ORDERED: ATORVASTATIN 40 MG TAB PO SCH (21:00)
[2018-08-11] MEDS: SIMVASTATIN 80 MG TABLET PO SCH (21:11)
[2018-08-11] MEDS: ALPRAZolam 0.5 MG TAB PO PRN (21:21)
[2018-08-11 21:35] LABS: Appearance,Urine Clear (Clear); Bilirubin,Urine Negative (Negative); Blood,Urine Negative (Negative); Color,Urine Light Yellow; Glucose,Urine (UA) 3+ (Negative); Ketones,Urine Negative (Negative); Leukocyte Esterase,Urine Negative (Negative); Nitrite,Urine Negative (Negative); Protein,Urine Negative (Negative); Specific Gravity,Urine 1.007 (1.001-1.035); Urobilinogen,Urine <2.0 mg/dL (<2.0)
[2018-08-12] MEDS: IPRATROPIUM-ALBUTEROL 3 ML NEB INHALATION SCH ×4 (05:57→19:28)
[2018-08-12] MEDS: LEVOTHYROXINE 88 MCG TAB PO SCH (06:30)
[2018-08-12] MEDS: methylPREDNISolone SOD SUCCI 125 MG/2 ML VIAL IV SCH ×4 (06:30→23:09)
[2018-08-12 07:21] LABS: Glucose,Whole Blood 188 mg/dL (75-99)
[2018-08-12] MEDS: SYMBICORT 160-4.5 MCG INHALER INHALATION SCH ×2 (07:24→19:50)
[2018-08-12] MEDS: LINAGLIPTIN 5 MG TABLET PO SCH (07:39)
[2018-08-12] MEDS: FAMOTIDINE 20 MG TAB PO SCH ×2 (07:39→20:09)
[2018-08-12] MEDS: AZITHROMYCIN 500 MG TAB PO SCH (07:39)
[2018-08-12] MEDS: JANUVIA 100 MG TABLET PO SCH (07:40)
[2018-08-12] MEDS: METOPROLOL TARTRATE 50 MG TAB PO SCH ×2 (07:40→20:09)
[2018-08-12] MEDS: THEOPHYLLINE 24 HOUR 400 MG CAP.ER.24H PO SCH (07:40)
[2018-08-12] MEDS: INSULIN ASPART 100 UNIT/ML 1 ML 10 ML VIAL SQ SCH ×4 (07:40→21:41)
[2018-08-12 09:09] LABS: Hemoglobin A1C 5.9 % (4.0-6.0)
[2018-08-12 11:14] LABS: Basophils % (A) 0 %; Eosinophils % (A) 0 %; HCT 46.4 % (39.0-53.0); Lymphocytes # (A) 0.9 k/uL (1.0-4.8); Lymphocytes % (A) 4 %; MCH 30.6 pg (25.0-35.0); MCHC 30.1 g/dL (31.0-37.0); MCV 101.6 fL (80.0-100.0); Monocytes # (A) 0.8 k/uL (0-1.0); Monocytes % (A) 3 %; Neutrophils # (A) 23.7 k/uL (1.3-7.7); Neutrophils % (A) 93 %; Platelet Count 229 k/uL (150-450); RBC 4.57 m/uL (4.30-5.90); RDW 11.9 % (11.5-15.5); WBC 25.5 k/uL (3.8-10.6)
[2018-08-12 11:27] LABS: Calcium 9.1 mg/dL (8.4-10.2); Magnesium 1.9 mg/dL (1.6-2.3); Potassium 4.7 mmol/L (3.5-5.1)
[2018-08-12 11:53] LABS: Glucose,Whole Blood 251 mg/dL (75-99)
--- NOTE | 2018-08-12 12:46 | P.PN ---
Subjective Progress Note Date: 08/12/18 Principal diagnosis: Shortness of breath, acute exacerbation of COPD This is a 68-year-old white male with history of severe COPD, Gold stage III, O2 dependent, not prednisone dependent. Patient is primarily a patient of Dr. adkins, and I usually see him on a regular basis for his underlying COPD. Patient presented to the ER yesterday early afternoon, and he was complaining of shortness of breath, cough and wheezing. His chest x-ray showed minimal atelectasis of the left base, patient was discharged home on antibiotics, and bronchodilators as usual. However he returned back to the ER last night complaining of worsening shortness of breath, hence this time was admitted, and this consult was initiated. Follow-up chest x-ray showed no evidence of active disease, and there was improved aeration of the left lung base compared to the earlier chest x-ray. CBC showed a bit of leukocytosis with WBC count of 13.9. Rest of the labs were relatively unremarkable. Patient was also complaining of productive cough, yellow sputum, and he had some vague minimal abdominal discomfort. No nausea no vomiting, no diarrhea, denies any headache, no blurred vision, no dizziness, no melena no hematemesis is no dysuria and no frequency no urgency. Temp was noted to be slightly elevated on his return visit the second time. Patient was then admitted, and this consult was initiated. Presently during my evaluation, the patient already feels a bit better, and his clinical findings were not significant On 08/12/2018 patient seen in follow-up on medical surgical floor. Patient states his breathing is slightly improved, still having some cough, and wheezing. Lung sounds diminished, with prolongation of the expiratory phase and wheezing. Pulse ox on 4 L per nasal cannula is 96%, he is afebrile, blood culture showed no growth. Cough is productive, with action of off-white colored phlegm. Continues on nebulized bronchodilators, Zithromax and IV steroids. Objective - Vital Signs Vital signs: Vital Signs Temp 97.1 F L 08/12/18 06:10 Pulse 100 08/12/18 11:41 Resp 18 08/12/18 06:10 BP 131/82 08/12/18 06:10 Pulse Ox 97 08/12/18 06:10 Intake & Output 08/11/18 08/12/18 08/12/18 18:59 06:59 18:59 Intake Total 600 Balance 600 Intake: Oral 600 Other: Voiding Method Toilet # Voids 1 1 1 - Exam Physical Exam: Revealed a 68-year-old white male obese in no distress. Very pleasant. Head: Atraumatic, normocephalic. HEENT:[Neck is supple.] [No neck masses.] [No thyromegaly.] [No JVD.] Chest: Diminished breath bilaterally, with prolongation of expiratory phase and expiratory wheezing Cardiac Exam: [Normal S1 and S2, no S3 gallop, no murmur.] Abdomen: [Soft, nontender, no megaly, no rebound, no guarding, normal bowel sounds.] Extremities: [No clubbing, no edema, no cyanosis.] Neurological Exam: [No focal neurologic deficit.] Skin: No rashes. Psychiatric: Normal mood, affect and mental status examination. - Labs CBC & Chem 7: 08/12/18 10:37 08/12/18 10:37 Labs: Abnormal Lab Results - Last 24 Hours (Table) 08/11/18 08/11/18 08/11/18 Range/Units 17:11 20:34 21:00 WBC (3.8-10.6) k/uL MCV (80.0-100.0) fL MCHC (31.0-37.0) g/dL Neutrophils # (1.3-7.7) k/uL Lymphocytes # (1.0-4.8) k/uL Glucose (74-99) mg/dL POC Glucose (mg/dL) 239 H 245 H (75-99) mg/dL Urine Glucose (UA) 3+ H (Negative) 08/12/18 08/12/18 08/12/18 Range/Units 07:19 10:37 10:37 WBC 25.5 H (3.8-10.6) k/uL MCV 101.6 H (80.0-100.0) fL MCHC 30.1 L (31.0-37.0) g/dL Neutrophils # 23.7 H (1.3-7.7) k/uL Lymphocytes # 0.9 L (1.0-4.8) k/uL Glucose 263 H (74-99) mg/dL POC Glucose (mg/dL) 188 H (75-99) mg/dL Urine Glucose (UA) (Negative) 08/12/18 Range/Units 11:51 WBC (3.8-10.6) k/uL MCV (80.0-100.0) fL MCHC (31.0-37.0) g/dL Neutrophils # (1.3-7.7) k/uL Lymphocytes # (1.0-4.8) k/uL Glucose (74-99) mg/dL POC Glucose (mg/dL) 251 H (75-99) mg/dL Urine Glucose (UA) (Negative) Microbiology - Last 24 Hours (Table) 08/11/18 00:51 Blood Culture - Preliminary Blood No Growth after 24 hours Assessment and Plan Plan: Assessment: 1 acute exacerbation of COPD, purulent tracheobronchitis. 2 severe end-stage COPD, FEV1 is 31% of predicted. 3 acute on chronic hypoxic respiratory failure secondary to COPD and purulent tracheobronchitis. 4 history of coronary artery disease and previous coronary stent insertion. 5 morbid obesity, BMI 40. 6 history of prosthetic left eye. 7 history of hyperlipidemia 8 generalized anxiety disorder 9 history of pancreatitis Plan: Continue current medical treatment, continue nebulized treatments, Zithromax, Symbicort, DuoNeb, IV steroids. Patient is still quite tight and wheezy, short of breath. We'll continue to follow I performed a history & physical examination of the patient and discussed their management with my nurse practitioner, Radha Marrero. I reviewed the nurse practitioner's note and agree with the documented findings and plan of care. Lung sounds are positive for diffuse wheezes throughout the lung pelaez. The findings and the impression was discussed with the patient. I attest to the documentation by the nurse practitioner. Time with Patient: Less than 30
[2018-08-12] MEDS: ACETAMINOPHEN TAB 325 MG TAB PO PRN (14:57)
[2018-08-12 17:06] LABS: Glucose,Whole Blood 218 mg/dL (75-99)
--- NOTE | 2018-08-12 17:33 | PN ---
PROGRESS NOTE DATE OF SERVICE: 08/12/2018 This 68-year-old gentleman who was admitted with COPD, acute exacerbation, as well as shortness of breath, is being closely monitored. No chest pain. No palpitations. No fever. PHYSICAL EXAMINATION: Alert and oriented x3. Pulse 99, blood pressure 120/72, respiration 18, temperature 97.1, pulse ox 94% on 4 L. HEENT: Conjunctivae normal. NECK: No jugular venous distention. CARDIOVASCULAR SYSTEM: S1, S2 muffled. RESPIRATORY SYSTEM: Breath sounds diminished at the bases. A few scattered rhonchi and crackles. ABDOMEN: Soft, non-tender. LEGS: No edema. No swelling. NERVOUS SYSTEM: No focal deficit. LABS: WBC 25.5, MCV 101.6. Accu-Cheks 263. ASSESSMENT: 1. Chronic obstructive pulmonary disease, acute exacerbation, with acute purulent tracheobronchitis. 2. Increased white count. 3. Hypomagnesemia. 4. History of congestive heart failure. 5. History of hypertension. 6. History of hyperlipidemia. 7. History of myocardial infarction. 8. History of pneumonia. 9. History of hypothyroidism. 10.History of chronic hypoxic respiratory failure, on home oxygen. 11.Generalized anxiety disorder. 12.Remote history of nicotine dependence. RECOMMENDATIONS AND DISCUSSION: I recommend to continue current medication, continue symptomatic treatment. Continue with bronchodilators. Continue the rest of the medications. Continue with empiric antibiotics, IV steroids. I would also recommend following the patient closely with Dr. Pugh. Guarded prognosis. Further recommendations to follow. MMODL / IJN: [id number] /
[2018-08-12] MEDS ORDERED: ONDANSETRON 4 MG/2 ML VIAL IVP PRN (18:40)
[2018-08-12] MEDS: SIMVASTATIN 80 MG TABLET PO SCH (20:09)
[2018-08-12 21:39] LABS: Glucose,Whole Blood 217 mg/dL (75-99)
[2018-08-12] MEDS: ALPRAZolam 0.5 MG TAB PO PRN (23:27)
[2018-08-13] MEDS: IPRATROPIUM-ALBUTEROL 3 ML NEB INHALATION PRN ×2 (00:52→05:15)
[2018-08-13 05:48] LABS: Glucose,Whole Blood 165 mg/dL (75-99)
[2018-08-13] MEDS: methylPREDNISolone SOD SUCCI 125 MG/2 ML VIAL IV SCH ×2 (06:12→11:11)
[2018-08-13] MEDS: LEVOTHYROXINE 88 MCG TAB PO SCH (06:14)
[2018-08-13] MEDS: METOPROLOL TARTRATE 50 MG TAB PO SCH (07:50)
[2018-08-13] MEDS: LINAGLIPTIN 5 MG TABLET PO SCH (07:50)
[2018-08-13] MEDS: AZITHROMYCIN 500 MG TAB PO SCH (07:50)
[2018-08-13] MEDS: THEOPHYLLINE 24 HOUR 400 MG CAP.ER.24H PO SCH (07:52)
[2018-08-13 07:53] LABS: Glucose,Whole Blood 184 mg/dL (75-99)
[2018-08-13] MEDS: JANUVIA 100 MG TABLET PO SCH (07:53)
[2018-08-13] MEDS: INSULIN ASPART 100 UNIT/ML 1 ML 10 ML VIAL SQ SCH ×3 (07:54→17:56)
[2018-08-13 08:18] VITALS: RESP 18
[2018-08-13] MEDS: SYMBICORT 160-4.5 MCG INHALER INHALATION SCH ×2 (08:37→08:59)
[2018-08-13] MEDS: IPRATROPIUM-ALBUTEROL 3 ML NEB INHALATION SCH ×3 (08:37→15:59)
[2018-08-13 09:59] LABS: Basophils % (A) 0 %; Eosinophils # (A) 0.2 k/uL (0-0.7); Eosinophils % (A) 1 %; HGB 14.7 gm/dL (13.0-17.5); Hypochromasia Slight; Lymphocytes # (A) 0.9 k/uL (1.0-4.8); Lymphocytes % (A) 3 %; MCH 31.9 pg (25.0-35.0); MCHC 31.3 g/dL (31.0-37.0); MCV 101.8 fL (80.0-100.0); Mean Platelet Volume 7.8; Monocytes # (A) 0.9 k/uL (0-1.0); Monocytes % (A) 3 %; Neutrophils # (A) 32.2 k/uL (1.3-7.7); Neutrophils % (A) 94 %; Platelet Count 264 k/uL (150-450); RBC 4.62 m/uL (4.30-5.90); WBC 34.3 k/uL (3.8-10.6)
[2018-08-13 10:05] LABS: Calcium 9.2 mg/dL (8.4-10.2); Potassium 5.1 mmol/L (3.5-5.1)
[2018-08-13 12:03] LABS: Glucose,Whole Blood 212 mg/dL (75-99)
[2018-08-13] MEDS: ACETAMINOPHEN TAB 325 MG TAB PO PRN (12:29)
[2018-08-13] MEDS: ALPRAZolam 0.5 MG TAB PO PRN (14:31)
--- NOTE | 2018-08-13 14:58 | P.PN ---
Subjective Progress Note Date: 08/13/18 Principal diagnosis: Shortness of breath, acute exacerbation of COPD This is a 68-year-old white male with history of severe COPD, Gold stage III, O2 dependent, not prednisone dependent. Patient is primarily a patient of Dr. adkins, and I usually see him on a regular basis for his underlying COPD. Patient presented to the ER yesterday early afternoon, and he was complaining of shortness of breath, cough and wheezing. His chest x-ray showed minimal atelectasis of the left base, patient was discharged home on antibiotics, and bronchodilators as usual. However he returned back to the ER last night complaining of worsening shortness of breath, hence this time was admitted, and this consult was initiated. Follow-up chest x-ray showed no evidence of active disease, and there was improved aeration of the left lung base compared to the earlier chest x-ray. CBC showed a bit of leukocytosis with WBC count of 13.9. Rest of the labs were relatively unremarkable. Patient was also complaining of productive cough, yellow sputum, and he had some vague minimal abdominal discomfort. No nausea no vomiting, no diarrhea, denies any headache, no blurred vision, no dizziness, no melena no hematemesis is no dysuria and no frequency no urgency. Temp was noted to be slightly elevated on his return visit the second time. Patient was then admitted, and this consult was initiated. Presently during my evaluation, the patient already feels a bit better, and his clinical findings were not significant On 08/12/2018 patient seen in follow-up on medical surgical floor. Patient states his breathing is slightly improved, still having some cough, and wheezing. Lung sounds diminished, with prolongation of the expiratory phase and wheezing. Pulse ox on 4 L per nasal cannula is 96%, he is afebrile, blood culture showed no growth. Cough is productive, with action of off-white colored phlegm. Continues on nebulized bronchodilators, Zithromax and IV steroids. On 08/13/2018 patient is seen and follow-up on medical surgical floor. Improving, but short of breath, breathing easier, sounding better on today's exam. Lung sounds are positive for some bibasilar rales, no significant wheezing. Labs showed WBC of 34.3, no fever or chills, electrolytes and renal profile were unremarkable. Was cultures showed no growth. Recent has been treated with a combination of Zithromax, IV steroids, nebulized bronchodilators , theophylline, clionically improving. From pulmonary perspective he is stable for discharge home today. Objective - Vital Signs Vital signs: Vital Signs Temp 96.8 F L 08/13/18 06:09 Pulse 104 H 08/13/18 12:01 Resp 18 08/13/18 08:00 BP 122/82 08/13/18 06:09 Pulse Ox 94 L 08/13/18 06:09 Intake & Output 08/12/18 08/13/18 08/13/18 18:59 06:59 18:59 Intake Total 600 950 Balance 600 950 Intake: Oral 600 950 Other: Voiding Method Toilet Toilet # Voids 2 1 3 # Bowel Movements 0 - Exam Physical Exam: Revealed a 68-year-old white male obese in no distress. Very pleasant. Head: Atraumatic, normocephalic. HEENT:[Neck is supple.] [No neck masses.] [No thyromegaly.] [No JVD.] Chest: Diminished breath bilaterally, with bibasilar crackles Cardiac Exam: [Normal S1 and S2, no S3 gallop, no murmur.] Abdomen: [Soft, nontender, no megaly, no rebound, no guarding, normal bowel sounds.] Extremities: [No clubbing, no edema, no cyanosis.] Neurological Exam: [No focal neurologic deficit.] Skin: No rashes. Psychiatric: Normal mood, affect and mental status examination. - Labs CBC & Chem 7: 08/13/18 09:14 08/13/18 09:14 Labs: Abnormal Lab Results - Last 24 Hours (Table) 08/12/18 08/12/18 08/13/18 Range/Units 17:03 21:36 05:46 WBC (3.8-10.6) k/uL MCV (80.0-100.0) fL Neutrophils # (1.3-7.7) k/uL Lymphocytes # (1.0-4.8) k/uL BUN (9-20) mg/dL Glucose (74-99) mg/dL POC Glucose (mg/dL) 218 H 217 H 165 H (75-99) mg/dL 08/13/18 08/13/18 08/13/18 Range/Units 07:49 09:14 09:14 WBC 34.3 H (3.8-10.6) k/uL MCV 101.8 H (80.0-100.0) fL Neutrophils # 32.2 H (1.3-7.7) k/uL Lymphocytes # 0.9 L (1.0-4.8) k/uL BUN 24 H (9-20) mg/dL Glucose 236 H (74-99) mg/dL POC Glucose (mg/dL) 184 H (75-99) mg/dL 08/13/18 Range/Units 11:50 WBC (3.8-10.6) k/uL MCV (80.0-100.0) fL Neutrophils # (1.3-7.7) k/uL Lymphocytes # (1.0-4.8) k/uL BUN (9-20) mg/dL Glucose (74-99) mg/dL POC Glucose (mg/dL) 212 H (75-99) mg/dL Microbiology - Last 24 Hours (Table) 08/11/18 00:51 Blood Culture - Preliminary Blood No Growth after 48 hours Assessment and Plan Plan: Assessment: 1 acute exacerbation of COPD, purulent tracheobronchitis. 2 severe end-stage COPD, FEV1 is 31% of predicted. 3 acute on chronic hypoxic respiratory failure secondary to COPD and purulent tracheobronchitis. 4 history of coronary artery disease and previous coronary stent insertion. 5 morbid obesity, BMI 40. 6 history of prosthetic left eye. 7 history of hyperlipidemia 8 generalized anxiety disorder 9 history of pancreatitis Plan: Patient is improving, dyspneic and bronchospastic, a pulmonary perspective patient is at his baseline, and is stable for discharge home today on the course of oral antibiotics, prednisone taper, and his maintenance inhalers and nebulized treatments. Follow-up with Dr. Carrillo in the office in one week I performed a history & physical examination of the patient and discussed their management with my nurse practitioner, Radha Marrero. I reviewed the nurse practitioner's note and agree with the documented findings and plan of care. Lung sounds are positive for bibasilar rales. The findings and the impression was discussed with the patient. I attest to the documentation by the nurse practitioner. Time with Patient: Less than 30
[2018-08-13 16:14] VITALS: BP 111/73; PULSE 88; TEMP 97.6
[2018-08-13 17:11] LABS: Glucose,Whole Blood 188 mg/dL (75-99)
--- NOTE | 2018-08-13 20:37 | DS ---
DISCHARGE SUMMARY DATE OF SERVICE: 08/13/2018. FINAL DIAGNOSES: 1. Chronic obstructive pulmonary disease acute exacerbation with acute purulent tracheobronchitis. 2. Increased WBC. 3. Hypomagnesemia. 4. History of congestive heart failure. 5. History of hypertension. 6. History of hyperlipidemia. 7. History of myocardial infarction. 8. History of pneumonia. 9. History of hypothyroidism. 10.History of chronic hypoxic respiratory failure on home O2. 11.Generalized anxiety disorder. 12.Remote history of nicotine dependence. DISCHARGE DISPOSITION: The patient is being discharged in stable condition with guarded prognosis. HISTORY OF PRESENT ILLNESS: This 68-year-old gentleman with a past medical history of multiple medical problems admitted with COPD acute exacerbation and as well as purulent tracheobronchitis. Patient was given bronchodilators and steroids and antibiotics. Dr. Pugh saw the patient. Patient improved significantly. The patient was keen on going home. Dr. Pugh cleared the patient for discharge. The patient being followed by Dr. Agee in the outpatient setting. On exam, vitals are stable. Cardiovascular: S1, S2. Abdomen soft. Nontender. Legs: No edema. No swelling. Central nervous system: No focal deficits. DISCHARGE ADVICE AND MEDICATION: 1. Diet is cardiac diet. 2. Activity limited until followup. 3. Follow up with Dr. Agee in 2-3 days. 4. Follow up with Dr. Pugh as advised. MEDICATIONS: 1. Tylenol p.r.n. 2. Albuterol 2 puffs q.i.d. p.r.n. 3. Xanax 0.25 b.i.d. p.r.n. 4. Synthroid 88 mcg p.o. daily. 5. Lopressor 100 mg. 6. Zantac 300 mg q.h.s. 7. Zocor 80 mg q.h.s. 8. Januvia 100 mg p.o. daily. 9. Tung-24 400 mg p.o. daily. 10.Anoro Ellipta 1 puff daily. 11.Ceftin 500 mg p.o. daily for 5 days. 12.Robitussin p.r.n. 13.Atrovent q.4 and p.r.n. 14.Lopressor 50 mg p.o. daily. 15.Prednisone p.r.n. Once again, the patient is being discharged in stable condition with guarded prognosis. MMODL / IJN: [id number] /
== END 2018-08-13 18:46 | disposition home or self-care (01) | DRG 190 ==
LOC: EC 00:19 → 4SSUR 02:37 → OBSVTOIN 02:38 → 4MS4W 07:41
PROVIDERS: ADMIT Hospitalist; ATTEND Hospitalist
DX: J44.1 Chronic obstructive pulmonary disease with (acute) exacerbation (principal); J96.21 Acute and chronic respiratory failure with hypoxia; Z68.41 Body mass index [BMI] 40.0-44.9, adult; J44.0 Chronic obstructive pulmonary disease with (acute) lower respiratory infection; E03.9 Hypothyroidism, unspecified; E66.01 Morbid (severe) obesity due to excess calories; E78.5 Hyperlipidemia, unspecified; E83.42 Hypomagnesemia; F41.1 Generalized anxiety disorder; I11.0 Hypertensive heart disease with heart failure; I25.10 Atherosclerotic heart disease of native coronary artery without angina pectoris; I25.2 Old myocardial infarction; I50.9 Heart failure, unspecified; J20.9 Acute bronchitis, unspecified; Z79.84 Long term (current) use of oral hypoglycemic drugs; Z79.890 Hormone replacement therapy; Z79.899 Other long term (current) drug therapy; Z91.048 Other nonmedicinal substance allergy status; Z99.81 Dependence on supplemental oxygen; Z97.0 Presence of artificial eye; Z95.5 Presence of coronary angioplasty implant and graft; Z87.891 Personal history of nicotine dependence; Z87.01 Personal history of pneumonia (recurrent); Z82.49 Family history of ischemic heart disease and other diseases of the circulatory system; Z82.5 Family history of asthma and other chronic lower respiratory diseases
CPT/HCPCS: 36415; 71046; 80048; 80053; 81003; 82550; 82553; 83036; 83605; 83735; 84484; 85025; 85610; 85730; 87040; 87502; 93005; 94640; 99285

== ENCOUNTER 2019-01-15 18:18 | Observation (INO) | payer MEDICARE ==
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
--- NOTE | 2019-01-15 19:24 | XR ---
EXAMINATION TYPE: XR chest 1V portable DATE OF EXAM: 01/15/2019 COMPARISON: 08/11/2018 HISTORY: Chest pain TECHNIQUE: Single frontal view of the chest is obtained. FINDINGS: Heart and mediastinum are normal. Lungs are clear. There are chest leads. Diaphragm is nor mal. Bony thorax is intact. IMPRESSION: Normal chest. No change.
[2019-01-15 19:30] LABS: Basophils # (A) 0.1 k/uL (0-0.2); Basophils % (A) 0 %; Eosinophils # (A) 0.3 k/uL (0-0.7); Eosinophils % (A) 2 %; HGB 14.7 gm/dL (13.0-17.5); Lymphocytes % (A) 11 %; MCH 31.8 pg (25.0-35.0); MCV 99.3 fL (80.0-100.0); Mean Platelet Volume 6.9; Monocytes # (A) 0.9 k/uL (0-1.0); Monocytes % (A) 5 %; Neutrophils # (A) 15.1 k/uL (1.3-7.7); Neutrophils % (A) 81 %; Platelet Count 242 k/uL (150-450); RBC 4.63 m/uL (4.30-5.90); RDW 12.1 % (11.5-15.5); WBC 18.6 k/uL (3.8-10.6)
[2019-01-15 19:33] LABS: INR 0.9 (<1.2)
[2019-01-15 19:34] LABS: Partial Thromboplastin Time 24.8 sec (22.0-30.0); Prothrombin Time 9.9 sec (9.0-12.0)
[2019-01-15 19:35] LABS: ALT 25 U/L (21-72); AST 23 U/L (17-59); African American GFR (CKD) >90 (>60 ml/min/1.73 sqM); Albumin 3.6 g/dL (3.5-5.0); Alkaline Phosphatase 121 U/L (38-126); Anion Gap 6 mmol/L; Blood Urea Nitrogen 20 mg/dL (9-20); Calcium 9.2 mg/dL (8.4-10.2); Carbon Dioxide 29 mmol/L (22-30); Chloride 105 mmol/L (98-107); Glucose 146 mg/dL (74-99); Lipase 116 U/L (23-300); Magnesium 1.9 mg/dL (1.6-2.3); Potassium 4.4 mmol/L (3.5-5.1); Sodium 140 mmol/L (137-145); Total Bilirubin 0.4 mg/dL (0.2-1.3); Total Protein 6.2 g/dL (6.3-8.2)
--- NOTE | 2019-01-15 20:43 | CT ---
EXAMINATION TYPE: CT angio chest DATE OF EXAM: 01/15/2019 8:15 PM COMPARISON: None HISTORY: Chest pain today. CT DLP: 672 mGycm Automated exposure control for dose reduction was used. CONTRAST: CTA scan of the thorax is performed with IV Contrast, patient injected with 100 mL of Isovue 370, pul monary embolism protocol. . There are 3-D post processed images. FINDINGS: There is diffuse bullous emphysema. There is no evidence of a pulmonary mass. There is coarse linear density in the posterior lung pelaez. There is no pleural effusion. Heart size is normal. There is no pericardial effusion. Thoracic aorta is atheromatous. There is suboptimal contrast density in the pu lmonary arteries. I see no filling defects. There is no evidence of thoracic aortic aneurysm or disse ction. There are calcified granulomata at the pulmonary jana. There are small paratracheal lymph node s up to 1 cm. There is some spurring in the thoracic spine. I see no bony destructive process. There is 7 mm calculus upper pole left kidney. There is small calculus also in the right kidney. IMPRESSION: EMPHYSEMA. NO EVIDENCE OF PULMONARY EMBOLISM. MILD SCARRING AND ATELECTASIS AT THE LUNG BASES. OLD GR ANULOMATOUS DISEASE.
[2019-01-15] MEDS ORDERED: MORPHINE SULFATE 4 MG/ML SYRINGE IVP STA (21:09)
[2019-01-15] MEDS ORDERED: NALOXONE 0.4 MG/ML 1 ML VIAL IV PRN (21:49)
[2019-01-15] MEDS ORDERED: ASPIRIN 325 MG TAB PO STA (21:49)
[2019-01-15] MEDS ORDERED: ACETAMINOPHEN TAB 325 MG TAB PO PRN (21:49)
[2019-01-15] MEDS ORDERED: NITROGLYCERIN SL TABS 0.4 MG TAB SUBLINGUAL PRN (21:51)
[2019-01-15] MEDS ORDERED: METOPROLOL TARTRATE 50 MG TAB PO STA (23:24)
[2019-01-16] MEDS: ALBUTEROL NEBULIZED 2.5 MG/3 ML INHALATION PRN (00:01)
[2019-01-16] MEDS: ALPRAZolam 0.5 MG TAB PO PRN ×2 (01:39→10:53)
[2019-01-16] MEDS: LEVOTHYROXINE 88 MCG TAB PO SCH (06:06)
--- NOTE | 2019-01-16 07:28 | HP ---
HISTORY AND PHYSICAL DATE OF SERVICE: 01/15/2019 CHIEF COMPLAINT: Chest pain. HISTORY OF PRESENT ILLNESS: This 68-year-old gentleman with a past medical history of CAD, CHF, COPD, hypertension, hyperlipidemia, myocardial infarction, obesity, history of chronic hypoxic respiratory failure, being followed by Dr. Agee in the outpatient setting, was complaining of chest pain. The pain was felt in the anterior part of the chest which was more of a pressure type. Initially, the pain was significantly increased at 4-10 and then increased to 7- 10, currently it is 2-10. The patient also reports the pain is better when she put some blankets behind the bed and bent the neck backwards and lying in the bed straight. The patient also reports some relief with morphine, but the patient does not like the feel it makes. The patient is seen by Dr. Sauceda and also cardiology and Dr. Agee in the outpatient setting. There is no history of fever, rigors or chills. No history of headache, loss of consciousness, seizures. PAST MEDICAL HISTORY: CAD, chest pain, CHF, COPD, hypertension, myocardial infarction, hypothyroidism, obesity, COPD, chronic hypoxic respiratory failure. MEDICATIONS: 1. Tung-24 400 mg p.o. daily. 2. Zocor 80 mg q.h.s. 3. Zantac 300 mg q.h.s. 4. Lopressor 50 mg p.o. daily and 100 mg p.o. daily. 5. Synthroid 88 mcg p.o. daily. 6. Atrovent nebulizer 0.5 q.i.d. 7. Trilogy 1 puff daily. 8. Ventolin 2.5 two puffs q.i.d. p.r.n. 9. Xanax 0.5 b.i.d. p.r.n. ALLERGIES: ADHESIVE TAPES. FAMILY HISTORY: History of COPD in the family. SOCIAL HISTORY: Previous history of smoking. No history of alcohol intake. REVIEW OF SYSTEMS: ENT: No diminished vision. No diminished hearing. CARDIOVASCULAR system: As mentioned earlier. RESPIRATORY: As mentioned earlier. GI no nausea or vomiting. no dysuria. CENTRAL NERVOUS SYSTEM: No numbness or weakness. ALLERGY/IMMUNOLOGY: No asthma or hayfever. MUSCULOSKELETAL as mentioned earlier. HEMATOLOGY/ONCOLOGY: No history of anemia. ENDOCRINE as mentioned earlier. CONSTITUTIONAL: As mentioned earlier. DERMATOLOGY: Negative. RHEUMATOLOGY: Negative. PSYCHIATRY: As mentioned earlier. PHYSICAL EXAMINATION: GENERAL: Alert and oriented times three. VITAL SIGNS: Pulse 112, regular. Blood pressure 160/85, respiration 20, temperature 98.4, pulse ox 94% on room air. HEENT: Conjunctivae normal. Oral mucosa moist. NECK is no jugular venous distention. No carotid bruit. No lymph node enlargement. CARDIOVASCULAR system: S1, S2, tachycardic. No murmur. No S3. No S4. RESPIRATORY: Breath sounds diminished in the bases. A few scattered rhonchi and crackles. ABDOMEN: Soft, obese, nontender. No mass. LEGS: No edema. No swelling. NERVOUS SYSTEM: Higher functions as mentioned. Moves all 4 limbs. No focal motor or sensory deficits. LYMPHATICS: No lymph nodes palpable in the neck, axillae or groin. SKIN: No ulcer, rash or bleeding. JOINTS: No active deforming arthropathy. LABS: WBC 18.2, hemoglobin 16. Other labs are noted. Troponins negative. EKG noted. ASSESSMENT: 1. Chest pain possible unstable angina. 2. Sinus tachycardia. 3. Increased WBC. 4. History of coronary artery disease/stent. 5. History of congestive heart failure. 6. Chronic obstructive pulmonary disease. 7. Hypertension. 8. Hyperlipidemia. 9. History of myocardial infarction. 10.History of hypothyroidism. 11.Obesity. 12.Chronic hypoxic respiratory failure with FEV1 31% on home O2 2 to 3 L oxygen. 13.Generalized anxiety disorder. 14.History of prosthetic left eye. 15.Anxiety. 16.Remote history of nicotine dependence. RECOMMENDATIONS AND DISCUSSION: In this 68-year-old gentleman who presented with multiple complex medical issues, we will monitor the patient closely. Continue the current medications. Rule out myocardial infarction. Unstable angina protocol. Otherwise the patient also had a CTA of the chest that showed no evidence of pulmonary embolism. I recommend cardiology consultation. Resume the home medication, bronchodilators. The patient also had tachycardia. Further recommendations to follow. MMODL / IJN: [id number] /
[2019-01-16] MEDS: IPRATROPIUM 0.5 MG/2.5 ML NEBU INHALATION SCH ×5 (07:42→19:33)
[2019-01-16] MEDS: ALBUTEROL NEBULIZED 2.5 MG/3 ML INHALATION SCH ×4 (07:42→19:33)
[2019-01-16] MEDS: SYMBICORT 80-4.5 MCG INHALER INHALATION SCH ×2 (07:44→19:33)
--- NOTE | 2019-01-16 09:41 | P.CRDCN ---
History of Present Illness Consult date: 01/16/19 History of present illness: This is a 67-year-old gentleman with history of COPD, coronary artery disease with previous angioplasty done several years ago, hypertension, dyslipidemia, and also hypothyroidism. Patient is admitted to the emergency room now with complaints of pain mostly in the lower chest and epigastric area. The pain has been continuous for the last 24 hours. The pain increases on deep breathing. Patient has to take shallow breaths to avoid pain. By putting a pillow under his back and stretching his chest, patient will get relief from the pain. Pain appears to be different than the pain he had when he had a myocardial infarction. He also had a previous procedure but the pain doesn't appear to be Pleuritic pain. Patient had a computed tomography scan of the chest which was not suggestive of dissection or pulmonary embolism. His white count is elevated to 18,000. His cardiac enzymes are negative. His EKG did not reveal any acute changes. The etiology of his pain is not clear. The possibility of pleurisy or pleuropericarditis and needs to be ruled out. Patient is going to have an echocardiogram. I also suggest Pulmonary consultation. Review of Systems As per the chart Past Medical History Past Medical History: Coronary Artery Disease (CAD), Chest Pain / Angina, Heart Failure, COPD, Hyperlipidemia, Hypertension, Myocardial Infarction ([place]), Pneumonia, Thyroid Disorder Additional Past Medical History / Comment(s): Obesity, COPD with chronic hypoxic respiratory failure and based on FEV1 of 31% of predicted,bronchits,chronic h ypoxic respitory failure maintained on home 02 3 liters n/c, hypothyroidism, generalized anxiety disorder. Last hospitalized 2 days ago for pneumonia. 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 He also uses recreational marijuana but none in at least 6 years. He drinks alcohol on a rare basis. He worked in [employer] and [employer]. He is currently living with daughter. He has no recent travel. He denies service. Past Drug Use History: None Reported - Past Family History Father Family Medical History: COPD Mother Family Medical History: Congestive Heart Failure (CHF) Medications and Allergies Home Medications Medication Instructions Recorded Confirmed Type ALPRAZolam [Xanax] 0.25 - 0.5 mg PO BID PRN 04/27/15 01/15/19 History Albuterol Inhaler [Ventolin Hfa 2 puff INHALATION RT-QID PRN 04/28/15 01/15/19 History Inhaler] Simvastatin [Zocor] 80 mg PO HS 12/04/15 01/15/19 History Levothyroxine Sodium [Synthroid] 88 mcg PO DAILY 09/10/16 01/15/19 History Theophylline 24 Hour [Tung-24] 400 mg PO DAILY 10/08/16 01/15/19 History Metoprolol Tartrate [Lopressor] 100 mg PO DAILY 02/03/18 01/15/19 History Ranitidine HCl [Zantac] 300 mg PO HS 08/11/18 01/15/19 History Ipratropium Nebulized [Atrovent 0.5 mg INHALATION QID #0 08/13/18 01/15/19 Rx Nebulized 0.2 MG/ML] Metoprolol Tartrate [Lopressor] 50 mg PO DAILY@2100 #30 tab 08/13/18 01/15/19 Rx Albuterol Nebulized [Ventolin 2.5 mg INHALATION RT-QID 01/15/19 01/15/19 History Nebulized] Fluticasone/Umeclidin/Vilanter 1 puff INHALATION RT-DAILY 01/15/19 01/15/19 History [Trelegy Ellipta 100-62.5-25] Allergies Allergy/AdvReac Type Severity Reaction Status Date / Time adhesive tape Allergy Rash/Hives Verified 01/15/19 19:39 Physical Exam Vitals: Vital Signs Temp Pulse Pulse Resp BP BP BP 01/16/19 08:03 100 01/16/19 08:00 18 01/16/19 07:45 96 01/16/19 07:40 97.9 F 95 18 124/82 01/16/19 04:00 98.5 F 89 19 141/78 01/16/19 00:09 103 H 01/16/19 00:00 98.5 F 111 H 19 160/85 01/15/19 23:58 103 H 01/15/19 23:13 98.1 F 103 H 20 140/83 01/15/19 21:40 101 H 18 125/92 01/15/19 21:30 103 H 20 123/86 01/15/19 21:20 103 H 20 123/86 01/15/19 21:10 102 H 13 123/86 01/15/19 21:00 100 11 L 124/80 01/15/19 20:50 18 124/80 01/15/19 20:40 103 H 18 124/80 01/15/19 20:30 101 H 18 01/15/19 20:20 99 18 01/15/19 20:10 103 H 10 L 01/15/19 20:00 130/83 01/15/19 19:50 102 H 14 130/83 01/15/19 19:40 101 H 10 L 130/83 01/15/19 19:30 18 173/86 01/15/19 19:20 102 H 20 173/86 01/15/19 19:10 98 16 173/86 01/15/19 19:00 98 18 112/79 01/15/19 18:50 96 16 112/79 01/15/19 18:40 95 16 112/79 01/15/19 18:30 96 18 143/91 01/15/19 18:29 98.4 F 101 H 20 143/91 01/15/19 18:25 Pulse Ox 01/16/19 08:03 01/16/19 08:00 01/16/19 07:45 95 01/16/19 07:40 91 L 01/16/19 04:00 96 01/16/19 00:09 01/16/19 00:00 95 01/15/19 23:58 01/15/19 23:13 96 01/15/19 21:40 96 01/15/19 21:30 96 01/15/19 21:20 97 01/15/19 21:10 98 01/15/19 21:00 98 01/15/19 20:50 95 01/15/19 20:40 97 01/15/19 20:30 01/15/19 20:20 97 01/15/19 20:10 01/15/19 20:00 01/15/19 19:50 95 01/15/19 19:40 95 01/15/19 19:30 95 01/15/19 19:20 98 01/15/19 19:10 91 L 01/15/19 19:00 94 L 01/15/19 18:50 94 L 01/15/19 18:40 94 L 01/15/19 18:30 95 01/15/19 18:29 89 L 01/15/19 18:25 89 L Intake and Output 01/15/19 01/16/19 01/16/19 22:59 06:59 14:59 Other: Voiding Method Toilet Toilet # Voids 1 1 Weight 122.47 kg GENERAL EXAM: Patient is alert and oriented and doesn't appear to be in any acute distress HEENT: Normocephalic. Normal reaction of pupils, equal size, normal range of extraocular motion. No erythema or exudates in the throat. NECK: No masses, no nuchal rigidity. CHEST: No chest wall deformity. LUNGS: Diffuse rhonchi, especially in the lower pelaez HEART: S1 and S2 normal with no audible mumurs or gallops. Regular rhythm, femorals equal on both sides.. ABDOMEN: No hepatosplenomegaly, normal bowel sounds, no guarding or rigidity. SKIN: No rashes CENTRAL NERVOUS SYSTEM: No focal deficits. EXTREMITIES: No cyanosis, clubbing or edema. Results 01/15/19 19:13 01/15/19 19:13 Cardiac Enzymes 01/15/19 01/15/19 01/16/19 Range/Units 19:13 19:13 01:15 AST 23 (17-59) U/L Troponin I <0.012 <0.012 (0.000-0.034) ng/mL 01/16/19 Range/Units 07:32 AST (17-59) U/L Troponin I <0.012 (0.000-0.034) ng/mL Coagulation 01/15/19 Range/Units 19:13 PT 9.9 (9.0-12.0) sec APTT 24.8 (22.0-30.0) sec CBC 01/15/19 Range/Units 19:13 WBC 18.6 H (3.8-10.6) k/uL RBC 4.63 (4.30-5.90) m/uL Hgb 14.7 (13.0-17.5) gm/dL Hct 46.0 (39.0-53.0) % Plt Count 242 (150-450) k/uL Comprehensive Metabolic Panel 01/15/19 Range/Units 19:13 Sodium 140 (137-145) mmol/L Potassium 4.4 (3.5-5.1) mmol/L Chloride 105 (98-107) mmol/L Carbon Dioxide 29 (22-30) mmol/L BUN 20 (9-20) mg/dL Creatinine 0.98 (0.66-1.25) mg/dL Glucose 146 H (74-99) mg/dL Calcium 9.2 (8.4-10.2) mg/dL AST 23 (17-59) U/L ALT 25 (21-72) U/L Alkaline Phosphatase 121 (38-126) U/L Total Protein 6.2 L (6.3-8.2) g/dL Albumin 3.6 (3.5-5.0) g/dL Current Medications Generic Name Dose Route Start Last Admin Trade Name Freq PRN Reason Stop Dose Admin Acetaminophen 650 mg 01/15/19 21:49 01/15/19 21:55 Tylenol Tab PO 650 mg Q6HR PRN Administration Mild Pain or Fever > 100.5 Albuterol Sulfate 2.5 mg 01/16/19 08:00 01/16/19 07:42 Ventolin Nebulized INHALATION 2.5 mg RT-QID BINA Administration Albuterol Sulfate 2.5 mg 01/15/19 23:54 01/16/19 00:01 Ventolin Nebulized INHALATION 2.5 mg RT-QID PRN Administration Shortness Of Breath Or Wheezing Alprazolam 0.25 mg 01/16/19 01:23 01/16/19 01:39 Xanax PO 0.25 mg BID PRN Administration Anxiety Atorvastatin Calcium 40 mg 01/16/19 21:00 Lipitor PO HS [facility] Budesonide/Formoterol Fumarate 2 puff 01/16/19 08:00 01/16/19 07:44 Symbicort 80-4.5 Mcg Inhaler INHALATION 2 puff RT-BID BINA Administration Famotidine 40 mg 01/16/19 21:00 Pepcid PO HS BINA Ipratropium Hominy 0.5 mg 01/16/19 09:00 01/16/19 07:42 Atrovent Nebulized INHALATION 0.5 mg QID BINA Administration Levothyroxine Sodium 88 mcg 01/16/19 06:30 01/16/19 06:06 Synthroid PO 88 mcg DAILY@0630 BINA Administration Metoprolol Tartrate 100 mg 01/16/19 09:00 Lopressor PO DAILY BINA Metoprolol Tartrate 50 mg 01/16/19 21:00 Lopressor PO DAILY@2100 [facility] Morphine Sulfate 4 mg 01/15/19 21:49 Morphine Sulfate (Inj) IV Q4HR PRN Severe Pain Naloxone HCl 0.2 mg 01/15/19 21:49 Narcan IV Q2M PRN Opioid Reversal Nitroglycerin 0.4 mg 01/15/19 21:51 Nitrostat SUBLINGUAL Q5M PRN Chest Pain Theophylline 400 mg 01/16/19 09:00 Tung-24 PO DAILY BINA Intake and Output 01/15/19 01/16/19 01/16/19 22:59 06:59 14:59 Other: Voiding Method Toilet Toilet # Voids 1 1 Weight 122.47 kg 01/15/19 19:13 01/15/19 19:13 EKG Interpretations (text) Sinus rhythm with a left axis deviation Assessment and Plan (1) Coronary artery disease Current Visit: Yes Status: Acute Code(s): I25.10 - ATHSCL HEART DISEASE OF [place] CORONARY ARTERY W/O ANG PCTRS SNOMED Code(s): 94481947 (2) Chest pain Current Visit: Yes Status: Acute Code(s): R07.9 - CHEST PAIN, UNSPECIFIED SNOMED Code(s): 67144963 (3) HTN (hypertension) Current Visit: No Status: Acute Code(s): I10 - ESSENTIAL (PRIMARY) HYPERTENSION SNOMED Code(s): 07859852 (4) Hyperlipidemia Current Visit: No Status: Chronic Code(s): E78.5 - HYPERLIPIDEMIA, UNSPECIFIED SNOMED Code(s): 54294091 Plan: Patient's pain is atypical for angina. Suggestive of pleuritic pain. Rule out pleural pericarditis or pleuritis. We'll get an echocardiogram. We'll also obtain a consult from pulmonology group. He follows with Dr. maxwell or. Further recommendations depend upon the clinical course.
[2019-01-16] MEDS: THEOPHYLLINE 24 HOUR 400 MG CAP.ER.24H PO SCH (09:50)
[2019-01-16] MEDS: METOPROLOL TARTRATE 50 MG TAB PO SCH (09:50)
--- NOTE | 2019-01-16 12:09 | P.CNPUL ---
History of Present Illness Consult date: 01/16/19 Requesting physician: Brooks Virk Reason for consult: chest pain Chief complaint: Chest pain History of present illness: This is a very pleasant 68-year-old gentleman who follows with Dr. Agee as his primary care physician. He has a history of obesity, hypertension, hyperlipidemia, hypothyroidism, anxiety, coronary artery disease with previous angioplasty. 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 His a 30 year pack per day smoking history but quit several years ago. He follows with Dr. Pugh in our office for the same. He is maintained on Trelegy and albuterol. He presented here to the emergency room yesterday with complaints of midsternal chest heaviness that turned into chest pain. He did have the pain throughout the evening. The maddie ent was feeling somewhat positional as he placed a pillow behind his back the pain was relieved somewhat. The pain was worse with deep inhalation. Chest x- ray showed no acute pulmonary process. CT angiogram ruled out pulmonary embolism. There is evidence of emphysema and mild scarring and atelectasis of the lung bases. Old granulomatous disease. White count 18.6. Hemoglobin 14.7. Creatinine 0.98. Troponins negative 3. ProBNP 39. Echocardiogram pending. He is seen today in consultation in the observation unit. He is currently laying flat in bed. Denying any worsening shortness of breath cough or congestion. No hemoptysis. No fever, chills or night sweats. No chest pain currently. Stating the Xanax has relieved most of the pain. He is currently on Symbicort, theophylline and albuterol updraft treatments. Review of Systems REVIEW OF SYSTEMS: CONSTITUTIONAL: Denies any recent significant weight loss or weight gain. EYES: Denies change in vision. EARS, NOSE, MOUTH, THROAT: Denies headaches, denies sore throat. CARDIOVASCULAR: Positive for chest pain, no palpitations or syncopal episodes. RESPIRATORY: Denies shortness of breath, cough, congestion or hemoptysis. GASTROINTESTINAL: Denies change in appetite, denies abdominal pain GENITOURINARY: Denies hematuria, denies infections. MUSKULOSKELETAL: Denies pain, denies swelling. INTEGUMENTARY: Denies rash, denies eczema. NEUROLOGICAL: Denies recent memory loss, no recent seizure activity. PSYCHIATRIC: Denies anxiety, denies depression. HEMATOLOGIC/LYMPHATIC: Denies anemia, denies enlarged lymph nodes. Past Medical History Past Medical History: Coronary Artery Disease (CAD), Chest Pain / Angina, Heart Failure, COPD, Hyperlipidemia, Hypertension, Myocardial Infarction ([place]), Pneumonia, Thyroid Disorder Additional Past Medical History / Comment(s): Obesity, COPD with chronic hypoxic respiratory failure and based on FEV1 of 31% of predicted,bronchits,chronic hypoxic respitory failure maintained on home 02 3 liters n/c, hypothyroidism, generalized anxiety disorder. Last hospitalized 2 days ago for pneumonia. 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 He also uses recreational marijuana but none in at least 6 years. He drinks alcohol on a rare basis. He worked in [place]. He is currently living with daughter. He has no recent travel. He denies service. Past Drug Use History: None Reported - Past Family History Father Family Medical History: COPD Mother Family Medical History: Congestive Heart Failure (CHF) Medications and Allergies Home Medications Medication Instructions Recorded Confirmed Type ALPRAZolam [Xanax] 0.25 - 0.5 mg PO BID PRN 04/27/15 01/15/19 History Albuterol Inhaler [Ventolin Hfa 2 puff INHALATION RT-QID PRN 04/28/15 01/15/19 History Inhaler] Simvastatin [Zocor] 80 mg PO HS 12/04/15 01/15/19 History Levothyroxine Sodium [Synthroid] 88 mcg PO DAILY 09/10/16 01/15/19 History Theophylline 24 Hour [Tung-24] 400 mg PO DAILY 10/08/16 01/15/19 History Metoprolol Tartrate [Lopressor] 100 mg PO DAILY 02/03/18 01/15/19 History Ranitidine HCl [Zantac] 300 mg PO HS 08/11/18 01/15/19 History Ipratropium Nebulized [Atrovent 0.5 mg INHALATION QID #0 08/13/18 01/15/19 Rx Nebulized 0.2 MG/ML] Metoprolol Tartrate [Lopressor] 50 mg PO DAILY@2100 #30 tab 08/13/18 01/15/19 Rx Albuterol Nebulized [Ventolin 2.5 mg INHALATION RT-QID 01/15/19 01/15/19 History Nebulized] Fluticasone/Umeclidin/Vilanter 1 puff INHALATION RT-DAILY 01/15/19 01/15/19 History [Geo Boykin 100-62.5-25] Allergies Allergy/AdvReac Type Severity Reaction Status Date / Time adhesive tape Allergy Rash/Hives Verified 01/15/19 19:39 Physical Exam Vitals: Vital Signs Temp Pulse Pulse Resp BP BP BP 01/16/19 11:28 100 01/16/19 08:03 100 01/16/19 08:00 18 01/16/19 07:45 96 01/16/19 07:40 97.9 F 95 18 124/82 01/16/19 04:00 98.5 F 89 19 141/78 01/16/19 00:09 103 H 01/16/19 00:00 98.5 F 111 H 19 160/85 01/15/19 23:58 103 H 01/15/19 23:13 98.1 F 103 H 20 140/83 01/15/19 21:40 101 H 18 125/92 01/15/19 21:30 103 H 20 123/86 01/15/19 21:20 103 H 20 123/86 01/15/19 21:10 102 H 13 123/86 01/15/19 21:00 100 11 L 124/80 01/15/19 20:50 18 124/80 01/15/19 20:40 103 H 18 124/80 01/15/19 20:30 101 H 18 01/15/19 20:20 99 18 01/15/19 20:10 103 H 10 L 01/15/19 20:00 130/83 01/15/19 19:50 102 H 14 130/83 01/15/19 19:40 101 H 10 L 130/83 01/15/19 19:30 18 173/86 01/15/19 19:20 102 H 20 173/86 01/15/19 19:10 98 16 173/86 01/15/19 19:00 98 18 112/79 01/15/19 18:50 96 16 112/79 01/15/19 18:40 95 16 112/79 01/15/19 18:30 96 18 143/91 01/15/19 18:29 98.4 F 101 H 20 143/91 01/15/19 18:25 Pulse Ox 01/16/19 11:28 01/16/19 08:03 01/16/19 08:00 01/16/19 07:45 95 01/16/19 07:40 91 L 01/16/19 04:00 96 01/16/19 00:09 01/16/19 00:00 95 01/15/19 23:58 01/15/19 23:13 96 01/15/19 21:40 96 01/15/19 21:30 96 01/15/19 21:20 97 01/15/19 21:10 98 01/15/19 21:00 98 01/15/19 20:50 95 01/15/19 20:40 97 01/15/19 20:30 01/15/19 20:20 97 01/15/19 20:10 01/15/19 20:00 01/15/19 19:50 95 01/15/19 19:40 95 01/15/19 19:30 95 01/15/19 19:20 98 01/15/19 19:10 91 L 01/15/19 19:00 94 L 01/15/19 18:50 94 L 01/15/19 18:40 94 L 01/15/19 18:30 95 01/15/19 18:29 89 L 01/15/19 18:25 89 L Intake and Output 01/15/19 01/16/19 01/16/19 22:59 06:59 14:59 Other: Voiding Method Toilet Toilet # Voids 1 1 Weight 122.47 kg GENERAL EXAM: Obese pleasant 68-year-old gentleman. Alert, fairly comfortable in no apparent distress. On 2 L nasal cannula. HEAD: Normocephalic. EYES: Normal reaction of pupils, equal size. NOSE: Clear with pink turbinates. THROAT: No erythema or exudates. NECK: No masses, no JVD. CHEST: No chest wall deformity. LUNGS: Equal air entry with no crackles, wheeze, rhonchi or dullness. CVS: S1 and S2 normal with no audible murmur, regular rhythm. ABDOMEN: No hepatosplenomegaly, normal bowel sounds, no guarding or rigidity. SPINE: No scoliosis or deformity SKIN: No rashes CENTRAL NERVOUS SYSTEM: No focal deficits, tone is normal in all 4 extremities. EXTREMITIES: There is no peripheral edema. No clubbing, no cyanosis. Peripheral pulses are intact. Results - Laboratory Findings CBC and BMP: 01/15/19 19:13 01/15/19 19:13 PT/INR, D-dimer PT 9.9 sec (9.0-12.0) 01/15/19 19:13 INR 0.9 (<1.2) 01/15/19 19:13 Abnormal lab findings: Abnormal Labs 01/15/19 01/15/19 19:13 19:13 WBC 18.6 H Neutrophils # 15.1 H Glucose 146 H Total Protein 6.2 L - Diagnostic Findings Chest x-ray: image reviewed CT scan - chest: image reviewed Assessment and Plan Assessment: Impression: #1 Chest pain, acute coronary syndrome ruled out, pulmonary embolism ruled out. Suspect pleuritic in nature. #2 History of coronary artery disease with previous stent placement. #3 Hypertension. #4 Hyperlipidemia. #5 Obesity. #6 30 year pack per day smoking history however quit several years ago. #7 Severe oxygen dependent, Gold stage III/IV chronic obstructive pulmonary disease. FEV1 value 31% of predicted. Currently inactive and stable. #8 Hypothyroidism. #9 Anxiety. 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 Plan: The patient was seen and evaluated by Dr. Joshua. Chest x-ray, CAT scan and labs were all reviewed. Chest pain is atypical, suspect pleuritic in nature. [place] rdiogram is pending. Continue pulmonary medications. The patient is declining steroids due to issues with elevated blood sugars. Stating the Xanax has helped the discomfort. Upon discharge he could follow up with Dr. Pugh in our office in 1-2 weeks' time. I, the cosigning physician, performed a history & physical examination of the patient. Lungs sounds are clear. Maintaining good O2 saturations in the 90s on 2 L/m per nasal cannula. I discussed the assessment and plan of care with my nurse practitioner, Gianna Jenkins. I attest to the above note as dictated by her. Time with Patient: Greater than 30
[2019-01-16] MEDS: MORPHINE SULFATE 4 MG/ML SYRINGE IV PRN ×2 (17:03→21:03)
[2019-01-16] MEDS ORDERED: FAMOTIDINE 20 MG TAB PO SCH (21:00)
[2019-01-16] MEDS ORDERED: ATORVASTATIN 40 MG TAB PO SCH (21:00)
[2019-01-16] MEDS ORDERED: METOPROLOL TARTRATE 50 MG TAB PO SCH (21:00)
--- NOTE | 2019-01-16 22:23 | PN ---
PROGRESS NOTE DATE OF SERVICE: 01/16/2019 DATE OF SERVICE: This 68-year-old gentleman who was admitted with chest pain also had significant wheezing also. Pulmonary and cardiology evaluation in progress. No fever or cough was reported. EXAM: Alert and oriented times three. VITAL SIGNS: Pulse 89, blood pressure 115/72, respiration 18, temperature 98.2, pulse ox 94% on 2 L. HEENT is conjunctivae normal. NECK: No jugular venous distention. CARDIOVASCULAR: S1, S2 muffled. Respirations: Breath sounds diminished in the bases. Scattered rhonchi and crackles. ABDOMEN is soft, nontender. LEGS: No edema. No swelling. NERVOUS SYSTEM: No focal deficits. LABS: At this time shows labs are WBC 18.6. Other labs are noted. ASSESSMENT: 1. Chest pain possible unstable angina possible pleuritic pain, myocardial infarction ruled out. 2. Sinus tachycardia. 3. Increased WBC. 4. Coronary artery disease, stent. 5. Chronic obstructive pulmonary disease. 6. History of congestive heart failure. 7. Hypertension. 8. Hyperlipidemia. 9. History of myocardial infarction. 10.History of hypothyroidism. 11.Obesity. 12.Chronic hypoxic respiratory failure with FEV1 31% with home O2 2-3 L oxygen. 13.Generalized anxiety disorder. 14.History of prosthetic left eye. 15.Remote history of nicotine dependence. RECOMMENDATIONS AND DISCUSSION: Recommend to continue current medications, management and symptomatic treatment. Otherwise, continue with bronchodilators. Closely follow with Dr. Joshua. Cardiology input appreciated. Two-D echo has been ordered. Further recommendations to follow. MMODL / IJN: [id number] /
[2019-01-17] MEDS: ALBUTEROL NEBULIZED 2.5 MG/3 ML INHALATION PRN (03:15)
[2019-01-17] MEDS: LEVOTHYROXINE 88 MCG TAB PO SCH (05:45)
[2019-01-17 06:52] LABS: Basophils # (A) 0.1 k/uL (0-0.2); Basophils % (A) 1 %; Eosinophils # (A) 0.2 k/uL (0-0.7); Eosinophils % (A) 2 %; HGB 14.3 gm/dL (13.0-17.5); Lymphocytes # (A) 2.2 k/uL (1.0-4.8); Lymphocytes % (A) 16 %; MCH 30.8 pg (25.0-35.0); MCHC 31.2 g/dL (31.0-37.0); Mean Platelet Volume 7.3; Monocytes # (A) 1.1 k/uL (0-1.0); Monocytes % (A) 8 %; Neutrophils % (A) 73 %; Platelet Count 223 k/uL (150-450); RBC 4.65 m/uL (4.30-5.90); RDW 13.2 % (11.5-15.5); WBC 13.8 k/uL (3.8-10.6)
[2019-01-17 07:13] LABS: Potassium 4.3 mmol/L (3.5-5.1)
[2019-01-17 07:18] VITALS: RESP 18
[2019-01-17] MEDS: METOPROLOL TARTRATE 50 MG TAB PO SCH (08:23)
[2019-01-17] MEDS: THEOPHYLLINE 24 HOUR 400 MG CAP.ER.24H PO SCH (08:23)
--- NOTE | 2019-01-17 08:35 | P.PN ---
Subjective Progress Note Date: 01/17/19 This is a 68-year-old gentleman with history of ischemic heart disease was admitted to the hospital with chest pain which appear to be pleuritic in nature. Pain with increased the deep breathing with relief of the pain with extending the chest. His EKGs and cardiac enzymes are negative. Patient's pain has improved today. Hasn't been having any chest pain this morning. His lungs are clear. Heart is regular. His chest pain appears to be atypical and pleuritic in nature. From Cardec standpoint patient could be discharged home. He will be evaluated by an outpatient stress test Objective - Vital Signs Vital signs: Vital Signs Temp 98.4 F 01/17/19 07:15 Pulse 103 H 01/17/19 07:15 Resp 18 01/17/19 07:15 BP 142/98 01/17/19 07:15 Pulse Ox 95 01/17/19 07:15 Intake & Output 01/16/19 01/17/19 01/17/19 18:59 06:59 18:59 Intake Total 960 520 Output Total 500 350 Balance 460 -350 520 Intake: Oral 960 520 Output: Urine 500 350 Other: Voiding Method Toilet Toilet # Voids 2 1 - Exam GENERAL EXAM: Patient is alert and oriented and doesn't appear to be in any acute distress HEENT: Normocephalic. Normal reaction of pupils, equal size, normal range of extraocular motion. No erythema or exudates in the throat. NECK: No masses, no nuchal rigidity. CHEST: No chest wall deformity. LUNGS: Equal air entry with no crackles or wheeze. HEART: S1 and S2 normal with no audible mumurs or gallops. Regular rhythm, femorals equal on both sides.. ABDOMEN: No hepatosplenomegaly, normal bowel sounds, no guarding or rigidity. SKIN: No rashes CENTRAL NERVOUS SYSTEM: No focal deficits. EXTREMITIES: No cyanosis, clubbing or edema. - Labs CBC & Chem 7: 01/17/19 06:30 01/17/19 06:30 Labs: Abnormal Lab Results - Last 24 Hours (Table) 01/17/19 01/17/19 Range/Units 06:30 06:30 WBC 13.8 H (3.8-10.6) k/uL Neutrophils # 10.0 H (1.3-7.7) k/uL Monocytes # 1.1 H (0-1.0) k/uL Carbon Dioxide 31 H (22-30) mmol/L Glucose 113 H (74-99) mg/dL Assessment and Plan (1) Coronary artery disease Current Visit: Yes Status: Acute Code(s): I25.10 - ATHSCL HEART DISEASE OF [place] CORONARY ARTERY W/O ANG PCTRS SNOMED Code(s): 31712295 (2) Chest pain Current Visit: Yes Status: Acute Code(s): R07.9 - CHEST PAIN, UNSPECIFIED SNOMED Code(s): 06889904 (3) HTN (hypertension) Current Visit: No Status: Acute Code(s): I10 - ESSENTIAL (PRIMARY) HYPERTENSION SNOMED Code(s): 19644803 (4) Hyperlipidemia Current Visit: No Status: Chronic Code(s): E78.5 - HYPERLIPIDEMIA, UN SPECIFIED SNOMED Code(s): 26350505 Plan: Atypical and muscular skeletal chest pain which appear to be pleuritic. The pain is resolved at this time. Patient could be discharged home from Cardec standpoint. Outpatient stress test could be arranged.
[2019-01-17] MEDS: IPRATROPIUM 0.5 MG/2.5 ML NEBU INHALATION SCH ×2 (08:43→11:48)
[2019-01-17] MEDS: SYMBICORT 80-4.5 MCG INHALER INHALATION SCH (08:43)
[2019-01-17] MEDS: ALBUTEROL NEBULIZED 2.5 MG/3 ML INHALATION SCH ×2 (08:43→11:49)
--- NOTE | 2019-01-17 09:12 | PN ---
PROGRESS NOTE This is a 68-year-old male who sees Dr. Agee as a primary and also Dr. Pugh as his lung doctor. He has a history of obesity, hypertension, hyperlipidemia, hypothyroidism, anxiety, CAD with previous angioplasty and also GOLD stage 3/4 chronic obstructive pulmonary disease with an FEV1 that is 31% of predicted. Anyway, the patient came into the hospital with complaints of pain. It was a sharp pain, worse with deep breathing. It was very pleuritic in its quality. The patient had a chest x- ray and CT scan. They were all within the normal range. He was seen by Cardiology and an echocardiogram was ordered. This morning the pain is completely gone. He is feeling back to baseline. Chest x-ray showed no acute pulmonary process and CT angiogram ruled out PE. The rest of his information appeared to be relatively normal. He is sitting up at the bedside today. His nurse is Marine. From my perspective, it looks like he is doing very, very well. He does have shortness of breath on exertion but he is pretty much at baseline right now. PHYSICAL EXAMINATION: Current vital signs are reviewed. Temperature is 98.4 heart rate 103, respiratory rate 18, blood pressure 142/98, mean 112, 2 L saturation 95%. Appears in no acute distress. HEENT examination is grossly unremarkable. Nasal O2 in place. NECK: Supple. Full range of motion. No adenopathy, thyromegaly or neck vein distention. CARDIOVASCULAR examination reveals regular rhythm rate. Heart rate 88. S1, S2 normal. LUNGS: Reveal relatively clear but diminished breath sounds. A few scattered very mild high-pitched expiratory wheezes are noted. Not real prominent. No rhonchi or crackles. I do not hear a pleural friction rub. ABDOMEN: Obese. Bowel sounds are heard. EXTREMITIES: Intact. No cyanosis, clubbing, or edema. SKIN: Without rash. NEUROLOGIC examination is brief but nonfocal. LABS: Reviewed. White count 13.8, hemoglobin 14.3, hematocrit 46.0, platelet count 323,000. PT/INR and PTT all normal. Sodium 139, potassium 4.3 chloride 103, CO2 is 31. Anion gap 5. BUN and creatinine were 17 and 1.06. The rest of the labs look good. Troponins were negative x3. N terminal proBNP was only 39. Medications are reviewed. He is on all his normal medications. He is on Symbicort. He is getting updrafts. In addition, he is on theophylline 24 hour. Chest x-ray showed it to be normal. CT angiogram showed evidence of emphysema but no evidence of pulmonary embolism. There is also some mild scarring, atelectasis at the lung bases and old granulomatous disease. ASSESSMENT: 1. Pleurisy, likely viral in nature, and may relate to Coxsackie B infection. 2. History of coronary artery disease with previous stent placement. 3. Hypertension by history. 4. Hyperlipidemia. 5. Obesity. 6. Previous history of heavy tobacco use. 7. Severe oxygen-dependent chronic obstructive pulmonary disease, GOLD stage 3/4 with an FEV1 that is 31% of predicted. 8. Hypothyroidism. 9. Anxiety. 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 PLAN: Overall, the patient seems to be doing reasonably well. Chest x-ray was negative. CT angiogram did not show evidence of pulmonary embolism. His pain is pretty much all resolved. He is pretty much at baseline in regards to his breathing. The patient will have follow up with my partner. We will leave it up to the primary service and Cardiology as to whether or not the patient could be discharged. From the pulmonary standpoint, the patient appears to be relatively stable. MMODL / IJN: [id number] /
[2019-01-17] MEDS: ALPRAZolam 0.5 MG TAB PO PRN (10:20)
[2019-01-17 11:31] VITALS: BP 100/66; TEMP 97.7
[2019-01-17 12:26] VITALS: PULSE 85
--- NOTE | 2019-01-17 21:32 | DS ---
DISCHARGE SUMMARY DATE OF SERVICE: 01/17/2019. FINAL DIAGNOSES: 1. Chest pain possible pleuritic pain myocardial infarction ruled out. 2. Sinus tachycardia. 3. Increased WBC. 4. Coronary artery disease/stent. 5. History of chronic obstructive pulmonary disease. 6. History of congestive heart failure. 7. Hypertension. 8. Hyperlipidemia. 9. History of myocardial infarction. 10.History of hypothyroidism. 11.History of obesity. 12.Chronic hypoxic respiratory failure, FEV1 35%. Home O2 2 to 3 L oxygen. 13.Generalized anxiety disorder. 14.History of prosthetic left eye. 15.Remote history of nicotine dependence. DISCHARGE DISPOSITION: Patient is being discharged in stable condition with guarded prognosis. HISTORY OF PRESENT ILLNESS: This 68-year-old gentleman with a past medical history of chest pain, myocardial infarction ruled out. Cardiology saw the patient and pulmonology saw the patient. Possibility of pleuritic pain was considered. The patient improved significantly with conservative line of management. Recommended close outpatient follow up. The patient will be discharged in stable condition with guarded prognosis. On exam, vitals are stable. Cardiovascular: S1, S2. Respirations: A few scattered rhonchi. ABDOMEN: Soft. NERVOUS SYSTEM: No focal deficits. DISCHARGE ADVICE AND MEDICATIONS: 1. Follow up with Dr. Agee 2-3 days. 2. Follow up with Dr. Pugh as advised. 3. Follow up with Dr. Sauceda in 1 week. DISCHARGE MEDICATIONS: 1. Lopressor 100 mg p.o. daily. 2. Synthroid 88 mcg p.o. daily. 3. Tung-24 400 daily. 4. Trilogy Ellipta 1 puff daily. 5. Ventolin 2 puffs q.i.d. p.r.n. 6. Ventolin inhaler 2.5 q.i.d. 7. Xanax 0.5 mg b.i.d. p.r.n. 8. Zantac 300 mg q.h.s. 9. Zocor 80 mg q.h.s. 10.Atrovent 0.5 q.i.d. 11.Lopressor 50 mg p.o. daily. Once again, the patient is being discharged in stable condition with guarded prognosis. MMODL / IJN: [id number] /
--- NOTE | 2019-01-18 16:03 | ECHOF ---
Referral Reason:Chest pain and cardiomyopathy MEASUREMENTS -------- HEIGHT: 177.8 cm WEIGHT: 122.5 kg BP: 124/82 RVIDd: 3.3 cm (< 3.3) IVSd: 1.3 cm (0.6 - 1.1) LVIDd: 5.2 cm (3.9 - 5.3) LVPWd: 1.3 cm (0.6 - 1.1) IVSs: 1.6 cm LVIDs: 3.8 cm LVPWs: 1.9 cm LA Diam: 3.1 cm (2.7 - 3.8) LAESV Index (A-L): 21.45 ml/m Ao Diam: 3.5 cm (2.0 - 3.7) AV Cusp: 2.6 cm (1.5 - 2.6) MV EXCURSION: 20.824 mm (> 18.000) MV EF SLOPE: 94 mm/s (70 - 150) EPSS: 1.1 cm MV E Yan: 0.86 m/s MV DecT: 165 ms MV A Yan: 0.74 m/s MV E/A Ratio: 1.15 FINDINGS -------- Sinus rhythm. This was a technically difficult study with suboptimal views. The left ventricular size is normal. There is mild concentric left ventricular hypertrophy. Overa ll left ventricular systolic function is mildly impaired with, an EF between 45 - 50 %.The study is t echnically suboptimal in spite of using contrast. Lv function and wall motion of normalities could n ot be accurately assessed. The right ventricle is mildly enlarged. Normal LA size by volume 22+/-6 ml/m2. The right atrium is normal in size. 5.0mg of Lumason was utilized for enhancement of images Interatrial and interventricular septum intact. There is mild aortic valve sclerosis. The mitral valve is normal. The tricuspid valve appears structurally normal. The pulmonic valve was not well visualized. The aortic root size is normal. Normal inferior vena cava with normal inspiratory collapse consistent with estimated right atrial pre ssure of 5 mmHg. There is no pericardial effusion. CONCLUSIONS -------- 1. Sinus rhythm. 2. This was a technically difficult study with suboptimal views. 3. The left ventricular size is normal. 4. There is mild concentric left ventricular hypertrophy. 5. Overall left ventricular systolic function is mildly impaired with, an EF between 45 - 50 %.The lv functionand the segmental wall motion could not be adequately assessedin spite of contrast 6. The right ventricle is mildly enlarged. 7. Normal LA size by volume 22+/-6 ml/m2. 8. The right atrium is normal in size. 9. 5.0mg of Lumason was utilized for enhancement of images 10. Interatrial and interventricular septum intact. 11. There is mild aortic valve sclerosis. 12. The mitral valve is normal. 13. The tricuspid valve appears structurally normal. 14. The pulmonic valve was not well visualized. 15. The aortic root size is normal. 16. Normal inferior vena cava with normal inspiratory collapse consistent with estimated right atrial pressure of 5 mmHg. 17. There is no pericardial effusion. IMPLEMENTATION ANALYST: Jennifer Mehta RDCS
== END 2019-01-17 12:57 | disposition home or self-care (01) ==
LOC: EC 18:18 → 1SOBS 21:49
PROVIDERS: ADMIT Hospitalist; ATTEND Hospitalist
DX: R07.89 Other chest pain (principal); R00.0 Tachycardia, unspecified; D72.829 Elevated white blood cell count, unspecified; I25.10 Atherosclerotic heart disease of native coronary artery without angina pectoris; J43.9 Emphysema, unspecified; J98.11 Atelectasis; J84.10 Pulmonary fibrosis, unspecified; I11.0 Hypertensive heart disease with heart failure; I50.9 Heart failure, unspecified; E78.5 Hyperlipidemia, unspecified; E03.9 Hypothyroidism, unspecified; E66.9 Obesity, unspecified; Z68.38 Body mass index [BMI] 38.0-38.9, adult; F41.1 Generalized anxiety disorder; J96.11 Chronic respiratory failure with hypoxia; Z79.890 Hormone replacement therapy; Z79.51 Long term (current) use of inhaled steroids; Z79.899 Other long term (current) drug therapy; Z91.048 Other nonmedicinal substance allergy status; Z97.0 Presence of artificial eye; I25.2 Old myocardial infarction; Z87.891 Personal history of nicotine dependence; Z99.81 Dependence on supplemental oxygen; Z87.01 Personal history of pneumonia (recurrent); Z95.5 Presence of coronary angioplasty implant and graft; Z82.49 Family history of ischemic heart disease and other diseases of the circulatory system; Z82.5 Family history of asthma and other chronic lower respiratory diseases
CPT/HCPCS: 96376; 96374; 99285; 36415; 94640 ×5; 94760; 93005; 83880; 80053; 80048; 83690; 83735; 84484 ×2; 85025 ×2; 85610; 85730; 71045; 71275; G0378 ×3; C8929; J2270 ×2; Q9950; Q9967; 93306

== ENCOUNTER 2020-10-03 18:16 | Emergency (ER) | payer MEDICARE ==
[2020-10-03 18:58] LABS: Basophils # (A) 0.1 k/uL (0-0.2); Basophils % (A) 1 %; Eosinophils # (A) 0.4 k/uL (0-0.7); Eosinophils % (A) 2 %; HCT 49.8 % (39.0-53.0); HGB 16.3 gm/dL (13.0-17.5); Lymphocytes # (A) 2.2 k/uL (1.0-4.8); Lymphocytes % (A) 12 %; MCH 32.3 pg (25.0-35.0); MCHC 32.8 g/dL (31.0-37.0); MCV 98.8 fL (80.0-100.0); Mean Platelet Volume 7.3; Monocytes % (A) 6 %; Neutrophils # (A) 14.2 k/uL (1.3-7.7); Neutrophils % (A) 79 %; Platelet Count 242 k/uL (150-450); RBC 5.04 m/uL (4.30-5.90); RDW 11.9 % (11.5-15.5); WBC 18.1 k/uL (3.8-10.6)
--- NOTE | 2020-10-03 19:00 | XR ---
EXAMINATION TYPE: XR chest 2V DATE OF EXAM: 10/03/2020 COMPARISON: 01/15/2019. HISTORY: Chest pain. TECHNIQUE: Frontal and lateral views of the chest are obtained. FINDINGS: There is mild bibasilar hazy opacity. No pleural effusion, or pneumothorax seen. The card iac silhouette size is mildly enlarged. The osseous structures are intact. IMPRESSION: Mild bibasilar opacity, suggestive of atelectasis.
[2020-10-03 19:06] LABS: INR 0.9 (<1.2); Partial Thromboplastin Time 23.9 sec (22.0-30.0); Prothrombin Time 9.9 sec (9.0-12.0)
[2020-10-03 19:09] LABS: Albumin 4.1 g/dL (3.5-5.0); Calcium 9.8 mg/dL (8.4-10.2); Magnesium 1.8 mg/dL (1.6-2.3); Potassium 4.5 mmol/L (3.5-5.1); Total Bilirubin 0.6 mg/dL (0.2-1.3); Total Protein 6.8 g/dL (6.3-8.2)
--- NOTE | 2020-10-03 19:36 | ED ---
Chest Pain HPI - General Chief Complaint: Chest Pain Stated Complaint: Chest pain Time Seen by Provider: 10/03/20 18:26 Source: patient Mode of arrival: wheelchair Limitations: no limitations - History of Present Illness Initial Comments: Jacky is a 70-year-old man with extensive past medical history presents the ER today with a complaint of 6 hours of epigastric and retrosternal discomfort. Patient reports that this discomfort is not similar previous episodes of cardiac pain. Pain began when he was sitting on the couch patient reports that he was slouching of that time he felt when he sat up straight the pain was better however when he takes a deep breath he has the pain. This persisted throughout the evening which prompted him to come to the ER for further evaluation. Patient denies any productive cough or shortness of breath. Denies any recent illness. Denies any nausea or vomiting. Patient reports that the pain is reproducible with deep inspiration, doesn't seem to bother if he sits and takes shallow breaths. He does have a history of pancreatitis as well as pleurisy in the past. - Related Data Home Medications Medication Instructions Recorded Confirmed ALPRAZolam [Xanax] 0.5 mg PO BID PRN 04/27/15 10/03/20 Simvastatin [Zocor] 80 mg PO HS 12/04/15 10/03/20 Levothyroxine Sodium [Synthroid] 88 mcg PO DAILY 09/10/16 10/03/20 Theophylline 24 Hour [Tung-24] 400 mg PO DAILY 10/08/16 10/03/20 Metoprolol Tartrate [Lopressor] 100 mg PO DAILY 02/03/18 10/03/20 Albuterol Nebulized [Ventolin 2.5 mg INHALATION RT-QID PRN 01/15/19 10/03/20 Nebulized] Fluticasone/Umeclidin/Vilanter 1 puff INHALATION RT-DAILY 01/15/19 10/03/20 [Trelegy Ellipta 100-62.5-25] Albuterol Sulfate [Ventolin HFA] 2 puff INHALATION RT-Q6H PRN 10/03/20 10/03/20 Hydrocortisone Cream 1 applic RECTAL DAILY PRN 10/03/20 10/03/20 [Hydrocortisone 2.5% Cream] Ipratropium Nebulized [Atrovent 0.5 mg INHALATION RT-QID PRN 10/03/20 10/03/20 Nebulized 0.2 MG/ML] Metoprolol Tartrate [Lopressor] 50 mg PO HS 10/03/20 10/03/20 Pantoprazole Sodium 40 mg PO DAILY 10/03/20 10/03/20 Allergies Allergy/AdvReac Type Severity Reaction Status Date / Time adhesive tape Allergy Rash/Hives Verified 10/03/20 21:02 Review of Systems ROS Statement: Those systems with pertinent positive or pertinent negative responses have been documented in the HPI. ROS Other: All systems not noted in ROS Statement are negative. EKG Findings - EKG Comments: EKG Findings:: EKG was obtained due to complaint chest pain, EKG was obtained at 1832 rate is 114 rhythm is sinus tach, [place] 154 QRS 94 QTc [address] elevations or depressions no evidence of ischemia or infarction Past Medical History Past Medical History: Coronary Artery Disease (CAD), Chest Pain / Angina, Heart Failure, COPD, Hyperlipidemia, Hypertension, Myocardial Infarction ([place]), Pneumonia, Thyroid Disorder Additional Past Medical History / Comment(s): Obesity, COPD with chronic hypoxic respiratory failure and based on FEV1 of 31% of predicted,bronchits,chronic hypoxic respitory failure maintained on home 02 3 liters n/c, hypothyroidism, generalized anxiety disorder. Last hospitalized 2 days ago for pneumonia. 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, 2 cardiac stents Past Anesthesia/Blood Transfusion Reactions: No Reported Reaction Additional Past Anesthesia/Blood Transfusion Reaction / Comment(s): Prefers no morphine Date of Last Stent Placement:: 2007 Past Psychological History: Anxiety Smoking Status: Former smoker Past Alcohol Use History: None Reported Past Drug Use History: None Reported - Past Family History Father Family Medical History: COPD Mother Family Medical History: Congestive Heart Failure (CHF) General Exam - General Exam Comments Initial Comments: Physical Exam GENERAL: Obese male in no acute distress HENT: Normocephalic, Atraumatic. EYES: PERRL, EOMI PULMONARY: Unlabored respirations. No audible rales rhonchi or wheezing was noted. CARDIOVASCULAR: There is a regular rate and rhythm without any murmurs gallops or rubs. ABDOMEN: Soft and nontender with normal bowel sounds. No tenderness to palpation of the epigastrium SKIN: Skin is clear with no lesions or rashes and otherwise unremarkable. : Deferred NEUROLOGIC: Patient is alert and oriented x3. Moving all extremities spontaneously MUSCULOSKELETAL: Normal extremities with adequate strength and full range of motion. No lower extremity swelling or edema. No calf tenderness. PSYCHIATRIC: Normal psychiatric evaluation. 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 I did offer the patient to stay in observation for evaluation by cardiology, patient has been through this in the past and states he did prefer to be discharged home follow-up outpatient. Close return parameters were discussed patient was discharged home in stable condition. Disposition Clinical Impression: Atypical chest pain, Pleuritic chest pain Disposition: HOME SELF-CARE Condition: Stable Is patient prescribed a controlled substance at d/c from ED?: No Referrals: Kathy Agee MD [Primary Care Provider] - 1-2 days
[2020-10-03] MEDS ORDERED: KETOROLAC 15 MG/ML 1 ML VIAL IM STA (21:31)
[2020-10-03 22:09] VITALS: BP 112/72; PULSE 80; RESP 17; TEMP 98.1
== END 2020-10-03 22:00 | disposition home or self-care (01) ==
LOC: EC 18:16
DX: R07.89 Other chest pain (principal); R07.81 Pleurodynia; I25.119 Atherosclerotic heart disease of native coronary artery with unspecified angina pectoris; I11.0 Hypertensive heart disease with heart failure; I50.9 Heart failure, unspecified; J44.9 Chronic obstructive pulmonary disease, unspecified; I25.2 Old myocardial infarction; E78.5 Hyperlipidemia, unspecified; J96.11 Chronic respiratory failure with hypoxia; E03.9 Hypothyroidism, unspecified; F41.1 Generalized anxiety disorder; Z79.51 Long term (current) use of inhaled steroids; Z79.899 Other long term (current) drug therapy; Z99.81 Dependence on supplemental oxygen; Z79.890 Hormone replacement therapy; Z82.49 Family history of ischemic heart disease and other diseases of the circulatory system; Z87.891 Personal history of nicotine dependence; Z91.048 Other nonmedicinal substance allergy status; Z95.5 Presence of coronary angioplasty implant and graft; Z87.19 Personal history of other diseases of the digestive system
CPT/HCPCS: 36415; 93005; 83880; 80053; 83690; 83735; 84484; 85025; 85610; 85730; 71046; 96372; 99284; J1885

== ENCOUNTER 2021-07-19 14:59 | Emergency (ER) | payer MEDICARE ==
[2021-07-19 15:09] VITALS: TEMP 98.4
--- NOTE | 2021-07-19 15:38 | ED ---
General Adult HPI - General Chief complaint: Chest Pain Stated complaint: Chest pain Source: patient, EMS, RN notes reviewed, old records reviewed Mode of arrival: EMS Limitations: no limitations - History of Present Illness Initial comments: Patient is a 71-year-old male with past medical history remarkable for cardiac stent, COPD on 3 L nasal cannula, angina, heart failure, hypertension who presents emergency Department clinic chest pain. I evaluated the patient when he was placed in a room. Patient states that approximately 3-4 hours ago, he began experiencing some, and for sternal chest pain that did not radiate. He describes it as a discomfort feeling. States it improves slightly when he sat up but denies any known palliative or provocative factors otherwise. He rated it as a 5 or 6 out of 10 at the time, and improved with nitro to 1 out of 10 currently. Also received aspirin from EMS. States this has occurred previously. Denies any worsening shortness of breath, abdominal pain, nausea, vomiting. Denies any headaches, weakness, numbness. Denies any lightheadedness. Has no other acute complaint at this time. Presents emergency department over concern for his chest pain, which is improving. - Related Data Home Medications Medication Instructions Recorded Confirmed ALPRAZolam [Xanax] 0.5 mg PO BID PRN 04/27/15 10/03/20 Simvastatin [Zocor] 80 mg PO HS 12/04/15 10/03/20 Levothyroxine Sodium [Synthroid] 88 mcg PO DAILY 09/10/16 10/03/20 Theophylline 24 Hour [Tung-24] 400 mg PO DAILY 10/08/16 10/03/20 Metoprolol Tartrate [Lopressor] 100 mg PO DAILY 02/03/18 10/03/20 Albuterol Nebulized [Ventolin 2.5 mg INHALATION RT-QID PRN 01/15/19 10/03/20 Nebulized] Fluticasone/Umeclidin/Vilanter 1 puff INHALATION RT-DAILY 01/15/19 10/03/20 [Trelegy Ellipta 100-62.5-25] Albuterol Sulfate [Ventolin HFA] 2 puff INHALATION RT-Q6H PRN 10/03/20 10/03/20 Hydrocortisone Cream 1 applic RECTAL DAILY PRN 10/03/20 10/03/20 [Hydrocortisone 2.5% Cream] Ipratropium Nebulized [Atrovent 0.5 mg INHALATION RT-QID PRN 10/03/20 10/03/20 Nebulized 0.2 MG/ML] Metoprolol Tartrate [Lopressor] 50 mg PO HS 10/03/20 10/03/20 Pantoprazole Sodium 40 mg PO DAILY 10/03/20 10/03/20 Previous Rx's Medication Instructions Recorded Nitroglycerin Sl Tabs [Nitrostat] 0.4 mg SUBLINGUAL Q5M PRN #25 tab 07/19/21 Allergies Allergy/AdvReac Type Severity Reaction Status Date / Time adhesive tape Allergy Rash/Hives Verified 07/19/21 15:09 Review of Systems ROS Statement: Those systems with pertinent positive or pertinent negative responses have been documented in the HPI. Review of Systems: CONST: Denies fever EYES: Denies blurry vision ENT: Denies nasal congestion C/V: Endorses chest pain RESP: Denies shortness of breath GI: Denies abdominal pain : Denies dysuria SKIN: Denies rash. MSK: Denies joint pain. NEURO: Denies headache ROS Other: All systems not noted in ROS Statement are negative. Past Medical History Past Medical History: Coronary Artery Disease (CAD), Chest Pain / Angina, Heart Failure, COPD, Hyperlipidemia, Hypertension, Myocardial Infarction ([place]), Pneumonia, Thyroid Disorder Additional Past Medical History / Comment(s): Obesity, COPD with chronic hypoxic respiratory failure and based on FEV1 of 31% of predicted,bronchits,chronic hypoxic respitory failure maintained on home 02 3 liters n/c, hypothyroidism, generalized anxiety disorder. Last hospitalized 2 days ago for pneumonia. 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 HEAD: Normal with no signs of head trauma. EYES: PERRLA, EOMI, conjunctiva normal, no discharge. ENT: Hearing grossly intact, normal oropharynx. RESPIRATORY: Clear breath sounds bilaterally without any obvious wheezes or rhonchi. No increased work of breathing. Currently on his home 3 L nasal cannula oxygen. No increased work of breathing. C/V: Tachycardic with regular rhythm. S1 and S2 auscultated. No peripheral edema. Peripheral pulses are 2+ and intact throughout. ABD: Abd is soft, nontender, nondistended EXT: Normal range of motion, no obvious deformity SKIN: No rashes or lesions observed on exposed skin. NEURO: Alert and oriented 4. No focal sensory strength deficits. Limitations: no limitations Course Vital Signs 07/19/21 07/19/21 15:01 17:17 Temperature 98.4 F Pulse Rate 106 H 78 Respiratory 18 22 Rate Blood Pressure 128/78 129/79 O2 Sat by Pulse 97 94 L Oximetry Medical Decision Making - Medical Decision Making Based on patient's presentation and physical exam, I'm concerned for possible cardiac etiology for his current symptoms. Patient does not PERC out. Well's score for PE is low at 1.5. I cannot rule out the possibility of a pulmonary embolism at this time, therefore would like to obtain a d-dimer screening tool. This is in addition to cardiac laboratory studies, EKG, chest x-ray. Patient already received aspirin by EMS and states his pain is under control. He was in agreement this plan. He will be connected to continuous cardiac monitoring while he is here in the department. Patient's EKG shows mild sinus tachycardia with left axis deviation but no signs of acute ischemia otherwise.Chest x-ray reveals no acute cardio pulmonary process. Laboratory studies are remarkable for a leukocytosis of 17, which is chronic for the patient dating back multiple years. D-dimer is within normal limits. Troponin is negative. One troponins adequate as the patient's symptoms started 4 hours before the study was taken. On reevaluation, patient is completely asymptomatic at this time. States that his chest pain is resolved. Discussed his workup with him. Patient's heart score is 4. I did discuss with the patient regarding admission to the hospital for cardiac observation versus home. I offered him admission, however the patient states he does not want to stay. He wants to go home. States he feels much better. He is requesting a refill on his nitroglycerin tabs, as he has run out. I do believe this is reasonable at this time with strict return precautions and he was in agreement this plan. I will provide the patient with a prescription for nitroglycerin sublingual tablets. I instructed the patient to follow up with their PCP in the next 3 days. 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 I explained that the patient should return to the emergency department if they experience any worsening symptoms. Strict return precautions were discussed with the patient. The patient expressed understanding of these instructions. I answered all questions that the patient had. The patient was discharged home in good condition with their prescriptions and follow up information. - Lab Data Result diagrams: 07/19/21 15:34 07/19/21 15:34 Lab Results 07/19/21 07/19/21 07/19/21 Range/Units 15:34 15:34 15:34 WBC 17.0 H (3.8-10.6) k/uL RBC 4.80 (4.30-5.90) m/uL Hgb 15.6 (13.0-17.5) gm/dL Hct 50.2 (39.0-53.0) % MCV 104.6 H (80.0-100.0) fL MCH 32.5 (25.0-35.0) pg MCHC 31.1 (31.0-37.0) g/dL RDW 12.4 (11.5-15.5) % Plt Count 258 (150-450) k/uL MPV 7.5 Neutrophils % 79 % Lymphocytes % 12 % Monocytes % 6 % Eosinophils % 2 % Basophils % 0 % Neutrophils # 13.4 H (1.3-7.7) k/uL Lymphocytes # 2.0 (1.0-4.8) k/uL Monocytes # 0.9 (0-1.0) k/uL Eosinophils # 0.4 (0-0.7) k/uL Basophils # 0.1 (0-0.2) k/uL Macrocytosis Slight PT 9.9 (9.0-12.0) sec INR 0.9 (<1.2) APTT 24.5 (22.0-30.0) sec D-Dimer 0.44 (<0.60) mg/L FEU Sodium 141 (137-145) mmol/L Potassium 5.0 (3.5-5.1) mmol/L Chloride 105 (98-107) mmol/L Carbon Dioxide 30 (22-30) mmol/L Anion Gap 6 mmol/L BUN 20 (9-20) mg/dL Creatinine 0.93 (0.66-1.25) mg/dL Est GFR (CKD-EPI)AfAm >90 (>60 ml/min/1.73 sqM) Est GFR (CKD-EPI)NonAf 84 (>60 ml/min/1.73 sqM) Glucose 138 H (74-99) mg/dL Calcium 9.3 (8.4-10.2) mg/dL Magnesium 1.9 (1.6-2.3) mg/dL Total Bilirubin 0.6 (0.2-1.3) mg/dL AST 30 (17-59) U/L ALT 20 (4-49) U/L Alkaline Phosphatase 101 (38-126) U/L Troponin I (0.000-0.034) ng/mL Total Protein 6.5 (6.3-8.2) g/dL Albumin 3.6 (3.5-5.0) g/dL Amylase 67 (30-110) U/L Lipase 86 (23-300) U/L 07/19/21 Range/Units 15:34 WBC (3.8-10.6) k/uL RBC (4.30-5.90) m/uL Hgb (13.0-17.5) gm/dL Hct (39.0-53.0) % MCV (80.0-100.0) fL MCH (25.0-35.0) pg MCHC (31.0-37.0) g/dL RDW (11.5-15.5) % Plt Count (150-450) k/uL MPV Neutrophils % % Lymphocytes % % Monocytes % % Eosinophils % % Basophils % % Neutrophils # (1.3-7.7) k/uL Lymphocytes # (1.0-4.8) k/uL Monocytes # (0-1.0) k/uL Eosinophils # (0-0.7) k/uL Basophils # (0-0.2) k/uL Macrocytosis PT (9.0-12.0) sec INR (<1.2) APTT (22.0-30.0) sec D-Dimer (<0.60) mg/L FEU Sodium (137-145) mmol/L Potassium (3.5-5.1) mmol/L Chloride (98-107) mmol/L Carbon Dioxide (22-30) mmol/L Anion Gap mmol/L BUN (9-20) mg/dL Creatinine (0.66-1.25) mg/dL Est GFR (CKD-EPI)AfAm (>60 ml/min/1.73 sqM) Est GFR (CKD-EPI)NonAf (>60 ml/min/1.73 sqM) Glucose (74-99) mg/dL Calcium (8.4-10.2) mg/dL Magnesium (1.6-2.3) mg/dL Total Bilirubin (0.2-1.3) mg/dL AST (17-59) U/L ALT (4-49) U/L Alkaline Phosphatase (38-126) U/L Troponin I <0.012 (0.000-0.034) ng/mL Total Protein (6.3-8.2) g/dL Albumin (3.5-5.0) g/dL Amylase (30-110) U/L Lipase (23-300) U/L - EKG Data -: EKG Interpreted by Me EKG Comments: 12-lead Electrocardiogram Interpretation Note EKG was reviewed and interpreted by myself. 12-lead ECG performed at 1515 is interpreted by me as revealing sinus tachycardia at a rate of 101 beats per minute. Left axis deviation. ND interval is 160 ms, QRS duration is 112 ms, QTc is 482 ms.. There were no ST or T wave abnormalities to suggest myocardial ischemia or injury. R wave progression across the precordium was satisfactory. By my interpretation this EKG is non-diagnostic for acute ischemia. Disposition Clinical Impression: Chest pain of unknown etiology, History of angina, Chronic respiratory failure with hypoxia, on home O2 therapy Disposition: HOME SELF-CARE Condition: Good Instructions (If sedation given, give patient instructions): Chest Pain (ED) Prescriptions: Nitroglycerin Sl Tabs [Nitrostat] 0.4 mg SUBLINGUAL Q5M PRN #25 tab PRN Reason: Chest Pain Is patient prescribed a controlled substance at d/c from ED?: No Referrals: Kathy Agee MD [Primary Care Provider] - 1-2 days
[2021-07-19 15:45] LABS: Basophils # (A) 0.1 k/uL (0-0.2); Basophils % (A) 0 %; Eosinophils # (A) 0.4 k/uL (0-0.7); Eosinophils % (A) 2 %; HCT 50.2 % (39.0-53.0); HGB 15.6 gm/dL (13.0-17.5); Lymphocytes % (A) 12 %; MCH 32.5 pg (25.0-35.0); MCHC 31.1 g/dL (31.0-37.0); MCV 104.6 fL (80.0-100.0); Macrocytosis Slight; Mean Platelet Volume 7.5; Monocytes # (A) 0.9 k/uL (0-1.0); Monocytes % (A) 6 %; Neutrophils # (A) 13.4 k/uL (1.3-7.7); Neutrophils % (A) 79 %; Platelet Count 258 k/uL (150-450); RDW 12.4 % (11.5-15.5)
[2021-07-19 15:57] LABS: ALT 20 U/L (4-49); AST 30 U/L (17-59); African American GFR (CKD) >90 (>60 ml/min/1.73 sqM); Albumin 3.6 g/dL (3.5-5.0); Alkaline Phosphatase 101 U/L (38-126); Amylase 67 U/L (30-110); Anion Gap 6 mmol/L; Blood Urea Nitrogen 20 mg/dL (9-20); Calcium 9.3 mg/dL (8.4-10.2); Carbon Dioxide 30 mmol/L (22-30); Chloride 105 mmol/L (98-107); Glucose 138 mg/dL (74-99); Lipase 86 U/L (23-300); Magnesium 1.9 mg/dL (1.6-2.3); Non-African American GFR(CKD) 84 (>60 ml/min/1.73 sqM); Sodium 141 mmol/L (137-145); Total Bilirubin 0.6 mg/dL (0.2-1.3); Total Protein 6.5 g/dL (6.3-8.2)
--- NOTE | 2021-07-19 16:00 | XR ---
EXAMINATION TYPE: XR chest 2V DATE OF EXAM: 07/19/2021 COMPARISON: 10/03/2020 HISTORY: Shortness of breath TECHNIQUE: Frontal and lateral views of the chest are obtained. FINDINGS: Scattered senescent parenchymal changes noted. Hyperinflation compatible with COPD. No evidence for infiltrate. No evidence for atelectasis. Heart size is stable. Mediastinal structures are stable and grossly unremarkable. No evidence for hilar prominence. Degenerative changes dorsal spine. IMPRESSION: 1. No evidence for acute pulmonary disease.
[2021-07-19 16:02] LABS: INR 0.9 (<1.2); Partial Thromboplastin Time 24.5 sec (22.0-30.0); Prothrombin Time 9.9 sec (9.0-12.0)
[2021-07-19 17:18] VITALS: BP 129/79; PULSE 78; RESP 22
== END 2021-07-19 17:18 | disposition home or self-care (01) ==
LOC: EC 14:59
DX: R07.9 Chest pain, unspecified (principal); J96.11 Chronic respiratory failure with hypoxia; Z86.79 Personal history of other diseases of the circulatory system; Z99.81 Dependence on supplemental oxygen; I25.10 Atherosclerotic heart disease of native coronary artery without angina pectoris; E03.9 Hypothyroidism, unspecified; I50.9 Heart failure, unspecified; J44.9 Chronic obstructive pulmonary disease, unspecified; E78.5 Hyperlipidemia, unspecified; I11.0 Hypertensive heart disease with heart failure; I25.2 Old myocardial infarction; F41.9 Anxiety disorder, unspecified; Z95.5 Presence of coronary angioplasty implant and graft; Z87.891 Personal history of nicotine dependence; Z79.02 Long term (current) use of antithrombotics/antiplatelets; Z79.899 Other long term (current) drug therapy
CPT/HCPCS: 36415; 71046; 80053; 82150; 83690; 83735; 84484; 85025; 85379; 85610; 85730; 93005; 99285

== ENCOUNTER 2023-04-11 17:15 | Inpatient (IN) | payer MEDICARE ==
[2023-04-11] MEDS ORDERED: SODIUM CHLORIDE 0.9% 1,000 ML IV STA ×2 (17:23)
[2023-04-11] MEDS ORDERED: IBUPROFEN 600 MG TAB PO STA (17:23)
[2023-04-11] MEDS ORDERED: methylPREDNISolone SOD SUCCI 125 MG/2 ML VIAL IV STA (17:25)
[2023-04-11 18:38] LABS: Basophils # (A) 0.1 k/uL (0-0.2); Basophils % (A) 0 %; Eosinophils # (A) 0.1 k/uL (0-0.7); Eosinophils % (A) 1 %; HCT 47.5 % (39.0-53.0); HGB 15.8 gm/dL (13.0-17.5); Lymphocytes # (A) 1.2 k/uL (1.0-4.8); Lymphocytes % (A) 7 %; MCH 33.4 pg (25.0-35.0); MCHC 33.2 g/dL (31.0-37.0); MCV 100.6 fL (80.0-100.0); Mean Platelet Volume 7.7; Monocytes # (A) 1.4 k/uL (0-1.0); Monocytes % (A) 8 %; Neutrophils # (A) 15.1 k/uL (1.3-7.7); Neutrophils % (A) 84 %; Platelet Count 243 k/uL (150-450); RBC 4.72 m/uL (4.30-5.90); RDW 12.2 % (11.5-15.5)
[2023-04-11 18:53] LABS: ALT 32 U/L (4-49); AST 37 U/L (17-59); African American GFR (CKD) >90 (>60 ml/min/1.73 sqM); Albumin 3.9 g/dL (3.5-5.0); Alkaline Phosphatase 101 U/L (38-126); Anion Gap 10 mmol/L; Blood Urea Nitrogen 17 mg/dL (9-20); Carbon Dioxide 26 mmol/L (22-30); Chloride 99 mmol/L (98-107); Glucose 168 mg/dL (74-99); Non-African American GFR(CKD) >90 (>60 ml/min/1.73 sqM); Potassium 4.7 mmol/L (3.5-5.1); Sodium 135 mmol/L (137-145); Total Protein 7.5 g/dL (6.3-8.2)
--- NOTE | 2023-04-11 18:59 | ED ---
SOB HPI - General Chief Complaint: Shortness of Breath Stated Complaint: SOB,History of COPD Time Seen by Provider: 04/11/23 17:20 Source: patient, EMS Mode of arrival: EMS Limitations: no limitations - History of Present Illness Initial Comments: 72-year-old male with past medical history of COPD on 3 L home O2, coronary artery disease with stent placement, hypertension, heart failure who presents to the emergency department reporting shortness of breath. States that it started yesterday morning. He has become more short of breath. Attempted to do a breathing treatment this morning however it made his breathing worse. He became nauseated. EMS was called and gave the patient 4 mg of Zofran and a DuoNeb breathing treatment which she states did not help. He denies any fevers or sick contacts. Denies a productive cough. No chest pain. Does have a history of stent placement by Dr. Rizo. He denied a history of heart failure to m e. Denies lower externally swelling. No history of DVT or PE history. He has not been on any steroids or antibiotics recently. Follows with Dr. Pugh. No other alleviating, precipitating or modifying factors - Related Data Home Medications Medication Instructions Recorded Confirmed Simvastatin [Zocor] 80 mg PO HS 12/04/15 04/11/23 Levothyroxine Sodium [Synthroid] 88 mcg PO DAILY 09/10/16 04/11/23 Theophylline 24 Hour [Tung-24] 400 mg PO DAILY 10/08/16 04/11/23 Metoprolol Tartrate [Lopressor] 100 mg PO DAILY 02/03/18 04/11/23 Albuterol Nebulized [Ventolin 2.5 mg INHALATION RT-QID 01/15/19 04/11/23 Nebulized] Fluticasone/Umeclidin/Vilanter 1 puff INHALATION RT-DAILY 01/15/19 04/11/23 [Trelegy Ellipta 100-62.5-25] Albuterol Sulfate [Ventolin HFA] 2 puff INHALATION RT-Q6H PRN 10/03/20 04/11/23 Ipratropium Nebulized [Atrovent 0.5 mg INHALATION RT-QID 10/03/20 04/11/23 Nebulized 0.2 MG/ML] Empagliflozin [Jardiance] 25 mg PO DAILY 09/18/22 04/11/23 hydrOXYzine HCL [Atarax] 10 mg PO BID 09/18/22 04/11/23 Acetaminophen Tab [Tylenol Tab] 1,000 mg PO Q6H PRN 04/11/23 04/11/23 Naproxen Sodium [Aleve] 220 mg PO BID PRN 04/11/23 04/11/23 Previous Rx's Medication Instructions Recorded Aspirin 81 mg PO DAILY 30 Days #30 tab 09/18/22 Metoprolol Tartrate [Lopressor] 50 mg PO HS 30 Days #30 tab 09/18/22 Allergies Allergy/AdvReac Type Severity Reaction Status Date / Time adhesive tape Allergy Rash/Hives Verified 04/11/23 19:19 Review of Systems ROS Statement: Those systems with pertinent positive or pertinent negative responses have been documented in the HPI. ROS Other: All systems not noted in ROS Statement are negative. Past Medical History Past Medical History: Coronary Artery Disease (CAD), Chest Pain / Angina, Heart Failure, COPD, Hyperlipidemia, Hypertension, Myocardial Infarction (MO), Pneumonia, Thyroid Disorder Additional Past Medical History / Comment(s): Obesity, COPD with chronic hypoxic respiratory failure and based on FEV1 of 31% of predicted,bronchits,chronic hypoxic respitory failure maintained on home 02 3 liters n/c, hypothyroidism, generalized anxiety disorder. Last hospitalized 2 days ago for pneumonia. 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, 2 cardiac stents Past Anesthesia/Blood Transfusion Reactions: No Reported Reaction Additional Past Anesthesia/Blood Transfusion Reaction / Comment(s): Prefers no morphine Date of Last Stent Placement:: 2007 Past Psychological History: Anxiety Smoking Status: Former smoker Past Alcohol Use History: None Reported Past Drug Use History: None Reported - Past Family History Father Family Medical History: COPD Mother Family Medical History: Congestive Heart Failure (CHF) General Exam Limitations: no limitations General appearance: alert, in no apparent distress Eye exam: Present: other (fake left eye) ENT exam: Present: normal exam, mucous membranes moist Respiratory exam: Present: respiratory distress, wheezes, accessory muscle use, other (Tachypnea) Cardiovascular Exam: Present: normal rhythm, tachycardia GI/Abdominal exam: Present: soft, normal bowel sounds. Absent: distended, tenderness, guarding, rebound, rigid Extremities exam: Present: normal inspection Neurological exam: Present: alert, oriented X3, CN II-XII intact Psychiatric exam: Present: normal affect, normal mood Course Vital Signs 04/11/23 04/11/23 04/11/23 17:17 17:28 18:51 Temperature 101.4 F H Pulse Rate 134 H 129 H Respiratory 18 22 18 Rate Blood Pressure 134/85 126/84 O2 Sat by Pulse 90 L 93 L Oximetry 04/11/23 04/11/23 04/11/23 19:32 20:21 20:58 Temperature 98.2 F Pulse Rate 122 H 115 H Respiratory 20 14 18 Rate Blood Pressure 100/64 117/62 O2 Sat by Pulse 93 L 93 L Oximetry Medical Decision Making - Medical Decision Making Was pt. sent in by a medical professional or institution (, PA, DENTAL LAB TECHNICIAN, urgent care, hospital, or [facility]...) When possible be specific @ -No Did you speak to anyone other than the patient for history (EMS, parent, family, police, friend...)? What history was obtained from this source @ -I spoke with EMS for history Did you review nursing and triage notes (agree or disagree)? Why? @ -I reviewed and agree with nursing and triage notes Were old charts reviewed (outside hosp., previous admission, EMS record, old EKG, old radiological studies, urgent care reports/EKG's, [facility] records)? Report findings @ -I reviewed several of the patient's previous encounters. He has been hospitalized previously for pneumonia Differential Diagnosis (chest pain, altered mental status, abdominal pain women, abdominal pain men, vaginal bleeding, weakness, fever, dyspnea, syncope, headache, dizziness, GI bleed, back pain, seizure, CVA, palpatations, mental health, musculoskeletal)? @ -Differential Dyspnea: Coronary syndrome, arrhythmia, tamponade, asthma, COPD, pulmonary embolism, pneumonia, pneumothorax, pulmonary effusion, anaphylaxis, diabetic ketoacidosis, flailed chest, pulmonary contusion, diaphragmatic rupture, anemia, neuromuscular, this is not meant to be an all-inclusive list. EKG interpreted by me (3pts min.). @ -Yes and demonstrates sinus tachycardia with a rate of 132. MN interval 136. QRS 130. QTC of 409. Right bundle branch block. No acute ST segment elevation X-rays interpreted by me (1pt min.). @ -Yes and demonstrates bilateral interstitial infiltrate CT interpreted by me (1pt min.). @ -Yes and demonstrates infiltrates U/S interpreted by me (1pt. min.). @ -None done What testing was considered but not performed or refused? (CT, X-rays, U/S, labs)? Why? @ -None What meds were considered but not given or refused? Why? @ -None Did you discuss the management of the patient with other professionals (professionals i.e. , PA, DENTAL LAB TECHNICIAN, lab, RT, psych nurse, licensed social worker, turpentiner, teacher, motorcycle police officer, case filler)? Give summary @ -Spoke with Dr. James who will admit the patient Was smoking cessation discussed for >3mins.? @ -No Was critical care preformed (if so, how long)? @ -No Were there social determinants of health that impacted care today? How? (Homelessness, low income, unemployed, alcoholism, drug addiction, transportation, low edu. Level, literacy, decrease access to med. care, intermediate, rehab)? @ -No Was there de-escalation of care discussed even if they declined (Discuss DNR or withdrawal of care, Hospice)? DNR status @ -No What co-morbidities impacted this encounter? (DM, HTN, Smoking, COPD, CAD, Cancer, CVA, ARF, Chemo, Hep., AIDS, mental health diagnosis, sleep apnea, mor bid obesity)? @ -COPD with home O2 dependence, coronary artery disease, Was patient admitted / discharged? Hospital course, mention meds given and route, prescriptions, significant lab abnormalities, going to OR and other pertinent info. @ -Upon arrival the patient was placed into room 1. A thorough history and physical exam is performed. IV access was established. Lab studies are conducted. Chest x-ray is performed. Patient does have a fever and elevated heart rate. He is given Tylenol and started on 130 mL of fluid per hour. He is not given a 30 mL per KG bolus due to his history of congestive heart failure which is recorded in the computer. Heart rate does improve however patient remains tachycardic and therefore he is sent for CT of his chest which does not demonstrate a blood clot. Antibiotics were administered for suspected respiratory source of infection. This was confirmed at [address] with completion of the CT. Patient will be admitted. I spoke with Dr. James for admission. Undiagnosed new problem with uncertain prognosis? @ -Yes Drug Therapy requiring intensive monitoring for toxicity (Heparin, Nitro, Insulin, Cardizem)? @ -No Were any procedures done? @ -No Diagnosis/symptom? @ -Acute respiratory insufficiency on chronic respiratory failure, acute COPD exacerbation, community-acquired pneumonia, acute pyrexia, acute tachycardia Acute, or Chronic, or Acute on Chronic? @ -Acute Uncomplicated (without systemic symptoms) or Complicated (systemic symptoms)? @ -Complicated Side effects of treatment? @ -No Exacerbation, Progression, or Severe Exacerbation? @ -No Poses a threat to life or bodily function? How? (Chest pain, [place], [place], pneumonia, PE, COPD, DKA, ARF, appy, cholecystitis, CVA, Diverticulitis, Homicidal, Suicidal, threat to staff... and all critical care pts) @ -No 2004-source of fever is still unknown. Expect that patient has a respiratory illness even though viral panel is negative. He is covered with antibiotics for pneumonia even though definitive pneumonia not evident on x-ray. Patient is not given a 30 mL per KG fluid bolus due to his history of congestive heart failure - Lab Data Result diagrams: 04/11/23 18:18 04/11/23 18:18 Lab Results 04/11/23 04/11/23 04/11/23 Range/Units 18:18 18:18 18:18 WBC 18.0 H (3.8-10.6) k/uL RBC 4.72 (4.30-5.90) m/uL Hgb 15.8 (13.0-17.5) gm/dL Hct 47.5 (39.0-53.0) % MCV 100.6 H (80.0-100.0) fL MCH 33.4 (25.0-35.0) pg MCHC 33.2 (31.0-37.0) g/dL RDW 12.2 (11.5-15.5) % Plt Count 243 (150-450) k/uL MPV 7.7 Neutrophils % 84 % Lymphocytes % 7 % Monocytes % 8 % Eosinophils % 1 % Basophils % 0 % Neutrophils # 15.1 H (1.3-7.7) k/uL Lymphocytes # 1.2 (1.0-4.8) k/uL Monocytes # 1.4 H (0-1.0) k/uL Eosinophils # 0.1 (0-0.7) k/uL Basophils # 0.1 (0-0.2) k/uL Sodium 135 L (137-145) mmol/L Potassium 4.7 (3.5-5.1) mmol/L Chloride 99 (98-107) mmol/L Carbon Dioxide 26 (22-30) mmol/L Anion Gap 10 mmol/L BUN 17 (9-20) mg/dL Creatinine 0.78 (0.66-1.25) mg/dL Est GFR (CKD-EPI)AfAm >90 (>60 ml/min/1.73 sqM) Est GFR (CKD-EPI)NonAf >90 (>60 ml/min/1.73 sqM) Glucose 168 H (74-99) mg/dL Plasma Lactic Acid Ike (0.7-2.0) mmol/L Calcium 9.0 (8.4-10.2) mg/dL Total Bilirubin 1.0 (0.2-1.3) mg/dL AST 37 (17-59) U/L ALT 32 (4-49) U/L Alkaline Phosphatase 101 (38-126) U/L Troponin I (0.000-0.034) ng/mL NT-Pro-B Natriuret Pep 169 pg/mL Total Protein 7.5 (6.3-8.2) g/dL Albumin 3.9 (3.5-5.0) g/dL Urine Color Yellow Urine Appearance Clear (Clear) Urine pH 5.5 (5.0-8.0) Ur Specific [place] 1.042 H (1.001-1.035) Urine Protein Trace H (Negative) Urine Glucose (UA) 4+ H (Negative) Urine Ketones 2+ H (Negative) Urine Blood Negative (Negative) Urine Nitrite Negative (Negative) Urine Bilirubin Negative (Negative) Urine Urobilinogen <2.0 (<2.0) mg/dL Ur Leukocyte Esterase Negative (Negative) Theophylline ug/mL Influenza Type A (PCR) (Not Detectd) Influenza Type B (PCR) (Not Detectd) RSV (PCR) (Not Detectd) SARS-CoV-2 (PCR) (Not Detectd) 04/11/23 04/11/23 04/11/23 Range/Units 18:18 18:18 18:18 WBC (3.8-10.6) k/uL RBC (4.30-5.90) m/uL Hgb (13.0-17.5) gm/dL Hct (39.0-53.0) % MCV (80.0-100.0) fL MCH (25.0-35.0) pg MCHC (31.0-37.0) g/dL RDW (11.5-15.5) % Plt Count (150-450) k/uL MPV Neutrophils % % Lymphocytes % % Monocytes % % Eosinophils % % Basophils % % Neutrophils # (1.3-7.7) k/uL Lymphocytes # (1.0-4.8) k/uL Monocytes # (0-1.0) k/uL Eosinophils # (0-0.7) k/uL Basophils # (0-0.2) k/uL Sodium (137-145) mmol/L Potassium (3.5-5.1) mmol/L Chloride (98-107) mmol/L Carbon Dioxide (22-30) mmol/L Anion Gap mmol/L BUN (9-20) mg/dL Creatinine (0.66-1.25) mg/dL Est GFR (CKD-EPI)AfAm (>60 ml/min/1.73 sqM) Est GFR (CKD-EPI)NonAf (>60 ml/min/1.73 sqM) Glucose (74-99) mg/dL Plasma Lactic Acid Ike 1.2 (0.7-2.0) mmol/L Calcium (8.4-10.2) mg/dL Total Bilirubin (0.2-1.3) mg/dL AST (17-59) U/L ALT (4-49) U/L Alkaline Phosphatase (38-126) U/L Troponin I <0.012 (0.000-0.034) ng/mL NT-Pro-B Natriuret Pep pg/mL Total Protein (6.3-8.2) g/dL Albumin (3.5-5.0) g/dL Urine Color Urine Appearance (Clear) Urine pH (5.0-8.0) Ur Specific [place] (1.001-1.035) Urine Protein (Negative) Urine Glucose (UA) (Negative) Urine Ketones (Negative) Urine Blood (Negative) Urine Nitrite (Negative) Urine Bilirubin (Negative) Urine Urobilinogen (<2.0) mg/dL Ur Leukocyte Esterase (Negative) Theophylline ug/mL Influenza Type A (PCR) Not Detected (Not Detectd) Influenza Type B (PCR) Not Detected (Not Detectd) RSV (PCR) Not Detected (Not Detectd) SARS-CoV-2 (PCR) Not Detected (Not Detectd) 04/11/23 Range/Units 18:18 WBC (3.8-10.6) k/uL RBC (4.30-5.90) m/uL Hgb (13.0-17.5) gm/dL Hct (39.0-53.0) % MCV (80.0-100.0) fL MCH (25.0-35.0) pg MCHC (31.0-37.0) g/dL RDW (11.5-15.5) % Plt Count (150-450) k/uL MPV Neutrophils % % Lymphocytes % % Monocytes % % Eosinophils % % Basophils % % Neutrophils # (1.3-7.7) k/uL Lymphocytes # (1.0-4.8) k/uL Monocytes # (0-1.0) k/uL Eosinophils # (0-0.7) k/uL Basophils # (0-0.2) k/uL Sodium (137-145) mmol/L Potassium (3.5-5.1) mmol/L Chloride (98-107) mmol/L Carbon Dioxide (22-30) mmol/L Anion Gap mmol/L BUN (9-20) mg/dL Creatinine (0.66-1.25) mg/dL Est GFR (CKD-EPI)AfAm (>60 ml/min/1.73 sqM) Est GFR (CKD-EPI)NonAf (>60 ml/min/1.73 sqM) Glucose (74-99) mg/dL Plasma Lactic Acid Iek (0.7-2.0) mmol/L Calcium (8.4-10.2) mg/dL Total Bilirubin (0.2-1.3) mg/dL AST (17-59) U/L ALT (4-49) U/L Alkaline Phosphatase (38-126) U/L Troponin I (0.000-0.034) ng/mL NT-Pro-B Natriuret Pep pg/mL Total Protein (6.3-8.2) g/dL Albumin (3.5-5.0) g/dL Urine Color Urine Appearance (Clear) Urine pH (5.0-8.0) Ur Specific [place] (1.001-1.035) Urine Protein (Negative) Urine Glucose (UA) (Negative) Urine Ketones (Negative) Urine Blood (Negative) Urine Nitrite (Negative) Urine Bilirubin (Negative) Urine Urobilinogen (<2.0) mg/dL Ur Leukocyte Esterase (Negative) Theophylline 6.8 ug/mL Influenza Type A (PCR) (Not Detectd) Influenza Type B (PCR) (Not Detectd) RSV (PCR) (Not Detectd) SARS-CoV-2 (PCR) (Not Detectd) Disposition Clinical Impression: COPD exacerbation, Tachycardia, Community acquired pneumonia, Fever Disposition: ADMITTED IP TO THIS [facility] Condition: Serious Is patient prescribed a controlled substance at d/c from ED?: No Time of Disposition: 19:55 Decision to Admit Reason: Admit from EC Decision Date: 04/11/23 Decision Time: 19:55
[2023-04-11 19:02] LABS: NT-Pro-B-Type Natriuretic Pept 169 pg/mL
--- NOTE | 2023-04-11 19:04 | XR ---
EXAMINATION TYPE: XR chest 2V DATE OF EXAM: 04/11/2023 6:36 PM COMPARISON: Chest radiographs from 09/17/2022. TECHNIQUE: XR chest 2V Frontal and lateral views of the chest. CLINICAL INDICATION:Male, 72 years old with history of fever, short of breath; FINDINGS: Lungs/Pleura: Low lung volumes are present. There is no evidence of pleural effusion, focal consolida tion, or pneumothorax. Pulmonary vascularity: Unremarkable. Heart/mediastinum: Cardiomediastinal silhouette is unremarkable. Musculoskeletal: No acute osseous pathology. IMPRESSION: Low lung volumes with a generalized hazy appearance which could represent atelectasis versus pulmonar y edema correlate with serum BNP.
[2023-04-11] MEDS ORDERED: PNEUMONIA PROTOCOL UTILIZED 1 EACH MISC PO PRN (19:06)
[2023-04-11] MEDS ORDERED: AZITHROMYCIN 500 MG in SODIUM CHLORIDE 0.9% 250 ML IVPB STA (19:06)
[2023-04-11 19:44] LABS: Appearance,Urine Clear (Clear); Bilirubin,Urine Negative (Negative); Blood,Urine Negative (Negative); Glucose,Urine (UA) 4+ (Negative); Leukocyte Esterase,Urine Negative (Negative); Nitrite,Urine Negative (Negative); PH, Urine 5.5 (5.0-8.0); Protein,Urine Trace (Negative); Specific Gravity,Urine 1.042 (1.001-1.035); Urobilinogen,Urine <2.0 mg/dL (<2.0)
[2023-04-11] MEDS ORDERED: NALOXONE 0.4 MG/ML 1 ML VIAL IV PRN (19:58)
[2023-04-11] MEDS ORDERED: ACETAMINOPHEN TAB 325 MG TAB PO PRN (20:04)
[2023-04-11] MEDS ORDERED: IBUPROFEN 400 MG TAB PO PRN (20:04)
[2023-04-11 20:05] LABS: Color,Urine Yellow; Ketones,Urine 2+ (Negative)
[2023-04-11] MEDS ORDERED: ACETAMINOPHEN TAB 500 MG TAB PO PRN (20:08)
[2023-04-11] MEDS: ATORVASTATIN 40 MG TAB PO SCH (20:54)
[2023-04-11] MEDS: hydrOXYzine HCL 10 MG TAB PO SCH (20:54)
[2023-04-11] MEDS: METOPROLOL TARTRATE 50 MG TAB PO SCH (20:54)
--- NOTE | 2023-04-11 21:01 | CT ---
EXAMINATION TYPE: CT chest angio for PE CT DLP: 996.1 mGycm, Automated exposure control for dose reduction was used. DATE OF EXAM: 04/11/2023 8:27 PM COMPARISON: CT 01/15/2019 chest radiograph CLINICAL INDICATION:Male, 72 years old with history of tachycardia, hypoxia, r/o pe; Tachycardia, hyp oxia, r/o pe. TECHNIQUE/CONTRAST: CTA scan of the thorax is performed with IV Contrast, patient injected with 100 ml mL of Isovue 370, MIP images are created and reviewed these are created on a separate workstation.. FINDINGS: Pulmonary Artery: There is no evidence for a filling defect within the pulmonary vasculature to sugge st acute pulmonary embolism. The pulmonary artery is of normal size. Lungs/Pleura: Moderate to severe emphysema changes in lung apices. There is superimposed airspace [place] in the right middle lobe and to a lesser extent the lower lobes posteriorly. Airway: Large airways are patent. Heart: There is within normal limits for size. There is mild to moderate coronary artery atherosclero sis. Vasculature: No evidence of aortic aneurysm. Mediastinum: No gross evidence of adenopathy. Musculoskeletal: Mild degenerative disc disease changes are present throughout the thoracolumbar spin e. Soft Tissues: Unremarkable. Lower neck: No significant findings. Upper Abdomen: Nonobstructing left renal calculus measuring up to 7 mm. Right 3 mm renal calculus als o felt to be present. Motion limits evaluation somewhat. IMPRESSION: 1. No evidence of pulmonary embolism. 2. Moderate emphysema with superimposed airspace opacities concerning for infectious/inflammatory pro cess. Most pronounced in the right middle lobe. 3. Non-obstructing bilateral renal calculi.
[2023-04-12] MEDS: LEVOTHYROXINE 88 MCG TAB PO SCH (06:29)
--- NOTE | 2023-04-12 07:19 | XR ---
EXAMINATION TYPE: XR chest 2V DATE OF EXAM: 04/12/2023 7:08 AM COMPARISON: Chest radiographs from 04/11/2023, CTA chest 04/11/2023 TECHNIQUE: XR chest 2V Frontal and lateral views of the chest. CLINICAL INDICATION:Male, 72 years old with history of pneumonia; FINDINGS: Lungs/Pleura: Bibasilar patchy airspace opacities redemonstrated. No pleural effusion or pneumothorax . Flattening of the hemidiaphragms. Pulmonary vascularity: Unremarkable. Heart/mediastinum: Cardiomediastinal silhouette is unremarkable. Musculoskeletal: No acute osseous pathology. IMPRESSION: 1. Similar bibasilar patchy airspace opacities consistent with known pneumonia. 2. COPD changes.
[2023-04-12] MEDS: IPRATROPIUM 0.5 MG/2.5 ML NEBU INHALATION SCH ×4 (07:41→20:23)
[2023-04-12] MEDS ORDERED: SYMBICORT 80-4.5 MCG INHALER INHALATION SCH (08:00)
[2023-04-12 08:22] LABS: Basophils % (A) 0 %; Eosinophils % (A) 0 %; HCT 49.4 % (39.0-53.0); HGB 15.4 gm/dL (13.0-17.5); Hypochromasia Slight; Lymphocytes # (A) 0.9 k/uL (1.0-4.8); Lymphocytes % (A) 7 %; MCHC 31.2 g/dL (31.0-37.0); MCV 102.6 fL (80.0-100.0); Mean Platelet Volume 8.3; Monocytes # (A) 0.4 k/uL (0-1.0); Monocytes % (A) 3 %; Neutrophils # (A) 12.7 k/uL (1.3-7.7); Neutrophils % (A) 90 %; Platelet Count 296 k/uL (150-450); RBC 4.82 m/uL (4.30-5.90); WBC 14.1 k/uL (3.8-10.6)
[2023-04-12 08:52] LABS: African American GFR (CKD) >90 (>60 ml/min/1.73 sqM); Anion Gap 10 mmol/L; Blood Urea Nitrogen 24 mg/dL (9-20); Calcium 8.9 mg/dL (8.4-10.2); Carbon Dioxide 25 mmol/L (22-30); Chloride 102 mmol/L (98-107); Glucose 252 mg/dL (74-99); Non-African American GFR(CKD) >90 (>60 ml/min/1.73 sqM); Potassium 4.9 mmol/L (3.5-5.1); Sodium 137 mmol/L (137-145)
[2023-04-12] MEDS: hydrOXYzine HCL 10 MG TAB PO SCH ×2 (09:07→20:46)
[2023-04-12] MEDS: ASPIRIN 81 MG PO SCH (09:07)
[2023-04-12] MEDS: METOPROLOL TARTRATE 50 MG TAB PO SCH ×2 (09:07→20:46)
[2023-04-12] MEDS: DAPAGLIFLOZIN PROPANEDIOL 10 MG TABLET PO SCH (09:07)
[2023-04-12] MEDS: THEOPHYLLINE 24 HOUR 400 MG CAP.ER.24H PO SCH (10:04)
[2023-04-12] MEDS: AZITHROMYCIN 500 MG TAB PO SCH (10:04)
--- NOTE | 2023-04-12 11:06 | P.CNPUL ---
History of Present Illness Consult date: 04/12/23 Requesting physician: Ramón Fraga Reason for consult: dyspnea, COPD Chief complaint: Shortness of breath History of present illness: This is a pleasant 72-year-old male patient with a known history of coronary artery disease with previous stent placements, diabetes mellitus, hypertension, hyperlipidemia, hypothyroidism, obesity, chronic obstructive pulmonary disease with an FEV1 value 31% of predicted, chronic hypoxic respiratory failure maintained on home oxygen at 3 L/m per nasal cannula, former smoker, anxiety. He presented to the emergency room yesterday with a 2 day history of increasing shortness of breath, cough and congestion. No fever or chills. No sick contacts. Chest x-ray shows bibasilar patchy airspace opacities. More so on the right midlung. CT angiogram ruled out pulmonary embolism. There is noted moderate emphysema with superimposed airspace opacities concerning for infectious/inflammatory responses. More pronounced in the right middle lobe. White count 14.1. Hemoglobin 15.4. Platelets 296. Sodium 137. Potassium 3.9. Bicarb 25. BUN 24. Creatinine 0.80. Glucose 252. Influenza screen negative. RSV screen negative. COVID-19 screen negative. Urine legionella antigen negative. He's been initiated on ceftriaxone and azithromycin along with DuoNeb inhalations, theophylline and Symbicort. He is seen today in consultation on the regular medical floor. He is currently sitting up in bed. Awake and alert in no acute distress. Already feeling quite a bit better today compared to yesterday. No fever chills. Maintaining O2 saturations in the 90s on 3 L nasal cannula. He is afebrile. Less tachycardic. Review of Systems REVIEW OF SYSTEMS: CONSTITUTIONAL: Denies any recent significant weight loss or weight gain. EYES: Denies change in vision. EARS, NOSE, MOUTH, THROAT: Denies headaches, denies sore throat. CARDIOVASCULAR: Denies chest pain, palpitations or syncopal episodes. RESPIRATORY: Positive for shortness of breath, cough, congestion no hemoptysis. GASTROINTESTINAL: Denies change in appetite, denies abdominal pain GENITOURINARY: Denies hematuria, denies infections. MUSKULOSKELETAL: Denies pain, denies swelling. INTEGUMENTARY: Denies rash, denies eczema. NEUROLOGICAL: Denies recent memory loss, no recent seizure activity. PSYCHIATRIC: Denies anxiety, denies depression. HEMATOLOGIC/LYMPHATIC: Denies anemia, denies enlarged lymph nodes. Past Medical History Past Medical History: Coronary Artery Disease (CAD), Chest Pain / Angina, Heart Failure, COPD, Hyperlipidemia, Hypertension, Myocardial Infarction ([place]), Pneumonia, Thyroid Disorder Additional Past Medical History / Comment(s): Obesity, COPD with chronic hypoxic respiratory failure and based on FEV1 of 31% of predicted,bronchits,chronic hypoxic respitory failure maintained on home 02 3 liters n/c, hypothyroidism, generalized anxiety disorder. Last hospitalized 2 days ago for pneumonia. 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, 2 cardiac stents Past Anesthesia/Blood Transfusion Reactions: No Reported Reaction Additional Past Anesthesia/Blood Transfusion Reaction / Comment(s): Prefers no morphine Date of Last Stent Placement:: 2007 Past Psychological History: Anxiety Smoking Status: Former smoker Past Alcohol Use History: None Reported Past Drug Use History: None Reported - Past Family History Father Family Medical History: COPD Mother Family Medical History: Congestive Heart Failure (CHF) Medications and Allergies Home Medications Medication Instructions Recorded Confirmed Type Simvastatin [Zocor] 80 mg PO HS 12/04/15 04/11/23 History Levothyroxine Sodium [Synthroid] 88 mcg PO DAILY 09/10/16 04/11/23 History Theophylline 24 Hour [Tung-24] 400 mg PO DAILY 10/08/16 04/11/23 History Metoprolol Tartrate [Lopressor] 100 mg PO DAILY 02/03/18 04/11/23 History Albuterol Nebulized [Ventolin 2.5 mg INHALATION RT-QID 01/15/19 04/11/23 History Nebulized] Fluticasone/Umeclidin/Vilanter 1 puff INHALATION RT-DAILY 01/15/19 04/11/23 History [Trelegy Ellipta 100-62.5-25] Albuterol Sulfate [Ventolin HFA] 2 puff INHALATION RT-Q6H PRN 10/03/20 04/11/23 History Ipratropium Nebulized [Atrovent 0.5 mg INHALATION RT-QID 10/03/20 04/11/23 History Nebulized 0.2 MG/ML] Aspirin 81 mg PO DAILY 30 Days #30 tab 09/18/22 04/11/23 Rx Empagliflozin [Jardiance] 25 mg PO DAILY 09/18/22 04/11/23 History Metoprolol Tartrate [Lopressor] 50 mg PO HS 30 Days #30 tab 09/18/22 04/11/23 Rx hydrOXYzine HCL [Atarax] 10 mg PO BID 09/18/22 04/11/23 History Acetaminophen Tab [Tylenol Tab] 1,000 mg PO Q6H PRN 04/11/23 04/11/23 History Naproxen Sodium [Aleve] 220 mg PO BID PRN 04/11/23 04/11/23 History Allergies Allergy/AdvReac Type Severity Reaction Status Date / Time adhesive tape Allergy Rash/Hives Verified 04/11/23 19:19 Physical Exam Vitals: Vital Signs Temp Pulse Pulse Resp BP BP Pulse Ox 04/12/23 07:52 75 04/12/23 07:43 72 04/12/23 07:09 97.5 F L 108 H 18 156/95 93 L 04/12/23 00:11 98.2 F 74 18 119/79 95 04/11/23 21:56 97.6 F 125 H 20 118/72 95 04/11/23 20:58 115 H 18 117/62 93 L 04/11/23 20:21 14 04/11/23 19:32 98.2 F 122 H 20 100/64 93 L 04/11/23 18:51 129 H 18 126/84 93 L 04/11/23 17:28 22 04/11/23 17:17 101.4 F H 134 H 18 134/85 90 L Intake and Output 04/11/23 04/12/23 04/12/23 22:59 06:59 14:59 Other: # Voids 1 Weight 129.274 kg GENERAL EXAM: Alert, pleasant 72-year-old male, on 3 L nasal cannula, comfortable in no apparent distress. HEAD: Normocephalic. EYES: Normal reaction of pupils, equal size. NOSE: Clear with pink turbinates. THROAT: No erythema or exudates. NECK: No masses, no JVD. CHEST: No chest wall deformity. LUNGS: Equal air entry with few scattered rhonchi more so on the right. CVS: S1 and S2 normal with no audible murmur, regular rhythm. ABDOMEN: No hepatosplenomegaly, normal bowel sounds, no guarding or rigidity. SPINE: No scoliosis or deformity SKIN: No rashes CENTRAL NERVOUS SYSTEM: No focal deficits, tone is normal in all 4 extremities. EXTREMITIES: There is no peripheral edema. No clubbing, no cyanosis. Peripheral pulses are intact. Results - Laboratory Findings CBC and BMP: 04/12/23 07:51 04/12/23 07:51 Abnormal lab findings: Abnormal Labs 04/11/23 04/11/23 04/11/23 18:18 18:18 18:18 WBC 18.0 H MCV 100.6 H Neutrophils # 15.1 H Lymphocytes # Monocytes # 1.4 H Sodium 135 L BUN Glucose 168 H Ur Specific [place] 1.042 H Urine Protein Trace H Urine Glucose (UA) 4+ H Urine Ketones 2+ H 04/12/23 04/12/23 07:51 07:51 WBC 14.1 H MCV 102.6 H Neutrophils # 12.7 H Lymphocytes # 0.9 L Monocytes # Sodium BUN 24 H Glucose 252 H Ur Specific [place] Urine Protein Urine Glucose (UA) Urine Ketones - Diagnostic Findings Chest x-ray: image reviewed CT scan - chest: image reviewed Assessment and Plan Assessment: Acute on chronic hypoxemic respiratory failure secondary to suspected community- acquired pneumonia more so on the right middle lobe. Currently on ceftriaxone and azithromycin Chronic hypoxemic respiratory failure on home O2 at 3 L, secondary to severe COPD with an FEV1 value 31% of predicted Former smoker Coronary artery disease with previous stent placement Obesity Hypothyroidism Hypertension Hyperlipidemia Diabetes mellitus Plan: The patient was seen and evaluated CT angiogram, chest x-rays, labs and medications reviewed Continue ceftriaxone and azithromycin Continue Symbicort and theophylline and DuoNeb inhalations Titrate the FiO2 as tolerated Probable discharge in the a.m. We will continue to follow and make further recommendations based on his clinical status I have personally seen and examined the patient, performed the documentation and the assessment and plan as written. Number of minutes spent on the visit: 20.
[2023-04-12] MEDS: IPRATROPIUM-ALBUTEROL 3 ML NEB INHALATION PRN (20:23)
[2023-04-12] MEDS: SYMBICORT 160-4.5 MCG INHALER INHALATION SCH (20:23)
[2023-04-12] MEDS: ATORVASTATIN 40 MG TAB PO SCH (20:46)
--- NOTE | 2023-04-12 20:59 | P.HPIM ---
History of Present Illness H&P Date: 04/12/23 Chief Complaint: Shortness of breath 72-year-old male with past medical history of COPD on 3 L home O2, coronary artery disease with stent placement, hypertension, heart failure who presents to the emergency department reporting shortness of breath. States that it started yesterday morning. He has become more short of breath. Attempted to do a breathing treatment this morning however it made his breathing worse. He became nauseated. EMS was called and gave the patient 4 mg of Zofran and a DuoNeb breathing treatment which she states did not help. He denies any fevers or sick contacts. Denies a productive cough. No chest pain. Does have a history of stent placement by Dr. Rizo. He denied a history of heart failure to me. Denies lower externally swelling. No history of DVT or PE history. He has not been on any steroids or antibiotics recently. Follows with Dr. Pugh. No other alleviating, precipitating or modifying factors Chest x-ray shows bibasilar patchy airspace opacities. More so on the right midlung. CT angiogram ruled out pulmonary embolism. There is noted moderate emphysema with superimposed airspace opacities concerning for infectious/inflammatory responses. More pronounced in the right middle lobe. White count 14.1. Hemoglobin 15.4. Platelets 296. Sodium 137. Potassium 3.9. Bicarb 25. BUN 24. Creatinine 0.80. Glucose 252. Influenza screen negative. RSV screen negative. COVID-19 screen negative. Urine legionella antigen negative. He's been initiated on ceftriaxone and azithromycin along with DuoNeb inhalations, theophylline and Symbicort. Review of Systems REVIEW OF SYSTEMS: CONSTITUTIONAL: No fever, no malaise, no fatigue. HEENT: No recent visual problems or hearing problems. Denied any sore throat. CARDIOVASCULAR: No chest pain, orthopnea, PND, no palpitations, no syncope. PULMONARY: No shortness of breath, no cough, no hemoptysis. GASTROINTESTINAL: No diarrhea, no nausea, no vomiting, no abdominal pain. NEUROLOGICAL: No headaches, no weakness, no numbness. HEMATOLOGICAL: Denies any bleeding or petechiae. GENITOURINARY: Denies any burning micturition, frequency, or urgency. MUSCULOSKELETAL/RHEUMATOLOGICAL: Denies any joint pain, swelling, or any muscle pain. ENDOCRINE: Denies any polyuria or polydipsia. The rest of the 14-point review of systems is negative. Past Medical History Past Medical History: Coronary Artery Disease (CAD), Chest Pain / Angina, Heart Failure, COPD, Hyperlipidemia, Hypertension, Myocardial Infarction ([place]), Pneumonia, Thyroid Disorder Additional Past Medical History / Comment(s): Obesity, COPD with chronic hypoxic respiratory failure and based on FEV1 of 31% of predicted,bronchits,chronic hypoxic respitory failure maintained on home 02 3 liters n/c, hypothyroidism, generalized anxiety disorder. Last hospitalized 2 days ago for pneumonia. 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, 2 cardiac stents Past Anesthesia/Blood Transfusion Reactions: No Reported Reaction Additional Past Anesthesia/Blood Transfusion Reaction / Comment(s): Prefers no morphine Date of Last Stent Placement:: 2007 Past Psychological History: Anxiety Smoking Status: Former smoker Past Alcohol Use History: None Reported Past Drug Use History: None Reported - Past Family History Father Family Medical History: COPD Mother Family Medical History: Congestive Heart Failure (CHF) Medications and Allergies Home Medications Medication Instructions Recorded Confirmed Type Simvastatin [Zocor] 80 mg PO HS 12/04/15 04/11/23 History Levothyroxine Sodium [Synthroid] 88 mcg PO DAILY 09/10/16 04/11/23 History Theophylline 24 Hour [Tung-24] 400 mg PO DAILY 10/08/16 04/11/23 History Metoprolol Tartrate [Lopressor] 100 mg PO DAILY 02/03/18 04/11/23 History Albuterol Nebulized [Ventolin 2.5 mg INHALATION RT-QID 01/15/19 04/11/23 History Nebulized] Fluticasone/Umeclidin/Vilanter 1 puff INHALATION RT-DAILY 01/15/19 04/11/23 History [Trelegy Ellipta 100-62.5-25] Albuterol Sulfate [Ventolin HFA] 2 puff INHALATION RT-Q6H PRN 10/03/20 04/11/23 History Ipratropium Nebulized [Atrovent 0.5 mg INHALATION RT-QID 10/03/20 04/11/23 History Nebulized 0.2 MG/ML] Aspirin 81 mg PO DAILY 30 Days #30 tab 09/18/22 04/11/23 Rx Empagliflozin [Jardiance] 25 mg PO DAILY 09/18/22 04/11/23 History Metoprolol Tartrate [Lopressor] 50 mg PO HS 30 Days #30 tab 09/18/22 04/11/23 Rx hydrOXYzine HCL [Atarax] 10 mg PO BID 09/18/22 04/11/23 History Acetaminophen Tab [Tylenol Tab] 1,000 mg PO Q6H PRN 04/11/23 04/11/23 History Naproxen Sodium [Aleve] 220 mg PO BID PRN 04/11/23 04/11/23 History Allergies Allergy/AdvReac Type Severity Reaction Status Date / Time adhesive tape Allergy Rash/Hives Verified 04/11/23 19:19 Physical Exam Vitals: Vital Signs Temp Pulse Pulse Resp BP BP Pulse Ox 04/12/23 11:22 72 04/12/23 07:52 75 04/12/23 07:43 72 04/12/23 07:09 97.5 F L 108 H 18 156/95 93 L 04/12/23 00:11 98.2 F 74 18 119/79 95 04/11/23 21:56 97.6 F 125 H 20 118/72 95 04/11/23 20:58 115 H 18 117/62 93 L 04/11/23 20:21 14 04/11/23 19:32 98.2 F 122 H 20 100/64 93 L 04/11/23 18:51 129 H 18 126/84 93 L 04/11/23 17:28 22 04/11/23 17:17 101.4 F H 134 H 18 134/85 90 L Intake and Output 04/11/23 04/12/23 04/12/23 22:59 06:59 14:59 Other: # Voids 1 Weight 129.274 kg General appearance: alert, in no apparent distress Eye exam: Present: other (fake left eye) ENT exam: Present: normal exam, mucous membranes moist Respiratory exam: Present: respiratory distress, wheezes, accessory muscle use, other (Tachypnea) Cardiovascular Exam: Present: normal rhythm, tachycardia GI/Abdominal exam: Present: soft, normal bowel sounds. Absent: distended, tenderness, guarding, rebound, rigid Extremities exam: Present: normal inspection Neurological exam: Present: alert, oriented X3, CN II-XII intact Psychiatric exam: Present: normal affect, normal mood Results CBC & Chem 7: 04/12/23 07:51 04/12/23 07:51 Labs: Abnormal Lab Results - Last 24 Hours (Table) 04/11/23 04/11/23 04/11/23 Range/Units 18:18 18:18 18:18 WBC 18.0 H (3.8-10.6) k/uL MCV 100.6 H (80.0-100.0) fL Neutrophils # 15.1 H (1.3-7.7) k/uL Lymphocytes # (1.0-4.8) k/uL Monocytes # 1.4 H (0-1.0) k/uL Sodium 135 L (137-145) mmol/L BUN (9-20) mg/dL Glucose 168 H (74-99) mg/dL Ur Specific [place] 1.042 H (1.001-1.035) Urine Protein Trace H (Negative) Urine Glucose (UA) 4+ H (Negative) Urine Ketones 2+ H (Negative) 04/12/23 04/12/23 Range/Units 07:51 07:51 WBC 14.1 H (3.8-10.6) k/uL MCV 102.6 H (80.0-100.0) fL Neutrophils # 12.7 H (1.3-7.7) k/uL Lymphocytes # 0.9 L (1.0-4.8) k/uL Monocytes # (0-1.0) k/uL Sodium (137-145) mmol/L BUN 24 H (9-20) mg/dL Glucose 252 H (74-99) mg/dL Ur Specific [place] (1.001-1.035) Urine Protein (Negative) Urine Glucose (UA) (Negative) Urine Ketones (Negative) Thrombosis Risk Factor Assmnt - Choose All That Apply Any of the Below Risk Factors Present?: Yes Each Factor Represents 1 point: Abnormal pulmonary function (COPD), Obesity (BMI >25), Serious lung disease incl. pneumonia (< 1month) Each Risk Factor Represents 2 Points: Age 61-74 years Other congenital or acquired thrombophilia - If yes, enter type in comment: No Thrombosis Risk Factor Assessment Total Risk Factor Score: 5 Thrombosis Risk Factor Assessment Level: High Risk Assessment and Plan Assessment: 1. Acute on chronic hypoxemic respiratory failure secondary to suspected community-acquired pneumonia more so on the right middle lobe. -- Patient remains on ceftriaxone and azithromycin 2. Chronic hypoxemic respiratory failure on home O2 at 3 L, secondary to severe COPD with an FEV1 value 31% of predicted - Patient remains on Symbicort and theophylline; DuoNeb nebulizer treatments 3. Coronary artery disease with previous stent placement 4. Hypothyroidism; 88 MCG daily 5. Hypertension; metoprolol 50 mg daily at bedtime and 100 mg every morning 6. Hyperlipidemia; Zocor 80 mg daily at bedtime 7. Diabetes mellitus; monitor Accu-Cheks before meals and at bedtime with insulin sliding scale
[2023-04-13] MEDS: LEVOTHYROXINE 88 MCG TAB PO SCH (05:51)
[2023-04-13] MEDS: SYMBICORT 160-4.5 MCG INHALER INHALATION SCH (07:42)
[2023-04-13] MEDS: IPRATROPIUM-ALBUTEROL 3 ML NEB INHALATION PRN (07:42)
[2023-04-13] MEDS: IPRATROPIUM 0.5 MG/2.5 ML NEBU INHALATION SCH ×2 (07:49→11:12)
[2023-04-13 08:02] VITALS: BP 137/72; RESP 19; TEMP 97.8
[2023-04-13] MEDS: METOPROLOL TARTRATE 50 MG TAB PO SCH (08:03)
[2023-04-13] MEDS: hydrOXYzine HCL 10 MG TAB PO SCH (08:03)
[2023-04-13] MEDS: DAPAGLIFLOZIN PROPANEDIOL 10 MG TABLET PO SCH (08:03)
[2023-04-13] MEDS: THEOPHYLLINE 24 HOUR 400 MG CAP.ER.24H PO SCH (08:04)
[2023-04-13] MEDS: ASPIRIN 81 MG PO SCH (08:04)
[2023-04-13] MEDS: AZITHROMYCIN 500 MG TAB PO SCH (08:04)
[2023-04-13 09:06] LABS: Basophils % (A) 0 %; Eosinophils # (A) 0.1 k/uL (0-0.7); Eosinophils % (A) 1 %; HCT 46.7 % (39.0-53.0); HGB 14.8 gm/dL (13.0-17.5); Hypochromasia Slight; Lymphocytes # (A) 2.3 k/uL (1.0-4.8); Lymphocytes % (A) 12 %; MCH 32.4 pg (25.0-35.0); MCHC 31.6 g/dL (31.0-37.0); MCV 102.5 fL (80.0-100.0); Mean Platelet Volume 8.7; Monocytes # (A) 1.2 k/uL (0-1.0); Monocytes % (A) 7 %; Neutrophils # (A) 14.9 k/uL (1.3-7.7); Neutrophils % (A) 79 %; Platelet Count 254 k/uL (150-450); RBC 4.56 m/uL (4.30-5.90); RDW 12.3 % (11.5-15.5); WBC 18.8 k/uL (3.8-10.6)
[2023-04-13 09:23] LABS: African American GFR (CKD) >90 (>60 ml/min/1.73 sqM); Anion Gap 4 mmol/L; Blood Urea Nitrogen 25 mg/dL (9-20); Calcium 8.8 mg/dL (8.4-10.2); Carbon Dioxide 28 mmol/L (22-30); Chloride 101 mmol/L (98-107); Glucose 268 mg/dL (74-99); Non-African American GFR(CKD) >90 (>60 ml/min/1.73 sqM); Sodium 133 mmol/L (137-145)
[2023-04-13 09:31] LABS: Potassium 4.6 mmol/L (3.5-5.1)
--- NOTE | 2023-04-13 10:27 | P.PN ---
Subjective Progress Note Date: 04/13/23 This is a pleasant 72-year-old male patient with a known history of coronary artery disease with previous stent placements, diabetes mellitus, hypertension, hyperlipidemia, hypothyroidism, obesity, chronic obstructive pulmonary disease with an FEV1 value 31% of predicted, chronic hypoxic respiratory failure maintained on home oxygen at 3 L/m per nasal cannula, former smoker, anxiety. He presented to the emergency room yesterday with a 2 day history of increasing shortness of breath, cough and congestion. No fever or chills. No sick contacts. Chest x-ray shows bibasilar patchy airspace opacities. More so on the right midlung. CT angiogram ruled out pulmonary embolism. There is noted moderate emphysema with superimposed airspace opacities concerning for infectious/inflammatory responses. More pronounced in the right middle lobe. White count 14.1. Hemoglobin 15.4. Platelets 296. Sodium 137. Potassium 3.9. Bicarb 25. BUN 24. Creatinine 0.80. Glucose 252. Influenza screen negative. RSV screen negative. COVID-19 screen negative. Urine legionella antigen negative. He's been initiated on ceftriaxone and azithromycin along with DuoNeb inhalations, theophylline and Symbicort. He is seen today in consultation on the regular medical floor. He is currently sitting up in bed. Awake and alert in no acute distress. Already feeling quite a bit better today compared to yesterday. No fever chills. Maintaining O2 saturations in the 90s on 3 L nasal cannula. He is afebrile. Less tachycardic. The patient is seen today 04/13/2023 in follow-up on the regular medical floor. He is currently resting comfortably bed. Awake and alert in no acute distress. Maintaining O2 saturations in the mid 90s on 3 L/m per nasal cannula. Afebrile. Hemodynamically stable. Blood cultures reveal no growth. White count 18.8. Hemoglobin 14.8. Sodium 133. Potassium 4.6. Bicarb 20. BUN 25. Creatinine 0.81. Glucose 268. He remains on DuoNeb inhalations, Symbicort, theophylline. Antibiotics in the form of ceftriaxone. Objective - Vital Signs Vital signs: Vital Signs Temp 97.8 F 04/13/23 08:00 Pulse 117 H 04/13/23 08:00 Resp 19 04/13/23 08:00 BP 137/72 04/13/23 08:00 Pulse Ox 94 L 04/13/23 08:00 FiO2 Intake & Output 04/12/23 04/13/23 04/13/23 18:59 06:59 18:59 Other: Voiding Method Toilet # Voids 3 2 - Exam GENERAL EXAM: Alert, 72-year-old male, on 3 L nasal cannula, resting comfortably in bed, in no apparent distress. HEAD: Normocephalic. EYES: Normal reaction of pupils, equal size. NOSE: Clear with pink turbinates. THROAT: No erythema or exudates. NECK: No masses, no JVD. CHEST: No chest wall deformity. LUNGS: Equal air entry with few scattered rhonchi more so on the right. CVS: S1 and S2 normal with no audible murmur, regular rhythm. ABDOMEN: No hepatosplenomegaly, normal bowel sounds, no guarding or rigidity. SPINE: No scoliosis or deformity SKIN: No rashes CENTRAL NERVOUS SYSTEM: No focal deficits, tone is normal in all 4 extremities. EXTREMITIES: There is no peripheral edema. No clubbing, no cyanosis. Peripheral pulses are intact. - Labs CBC & Chem 7: 04/13/23 08:15 04/13/23 08:15 Labs: Abnormal Lab Results - Last 24 Hours (Table) 04/13/23 04/13/23 Range/Units 08:15 08:15 WBC 18.8 H (3.8-10.6) k/uL MCV 102.5 H (80.0-100.0) fL Neutrophils # 14.9 H (1.3-7.7) k/uL Monocytes # 1.2 H (0-1.0) k/uL Sodium 133 L (137-145) mmol/L BUN 25 H (9-20) mg/dL Glucose 268 H (74-99) mg/dL Microbiology - Last 24 Hours (Table) 04/11/23 20:00 Blood Culture - Preliminary Blood 04/11/23 19:45 Blood Culture - Preliminary Blood Assessment and Plan Assessment: Acute on chronic hypoxemic respiratory failure secondary to suspected community- acquired pneumonia more so on the right middle lobe. Currently on ceftriaxone and completed azithromycin Chronic hypoxemic respiratory failure on home O2 at 3 L, secondary to severe COPD with an FEV1 value 31% of predicted Former smoker Coronary artery disease with previous stent placement Obesity Hypothyroidism Hypertension Hyperlipidemia Diabetes mellitus Plan: The patient was seen and evaluated Labs and medications reviewed Cleared for discharge from the pulmonary standpoint Complete a course of antibiotics Continue his home pulmonary medications, home oxygen Follow-up in our office in 1 week I have personally seen and examined the patient, performed the documentation and the assessment and plan as written. Number of minutes spent on the visit: 10.
[2023-04-13 11:22] VITALS: PULSE 88
--- NOTE | 2023-04-17 09:31 | CDI ---
Documentation Clarification Form Date: 04/17/2023 09:25:15 AM From: Johana Hyatt RN, CCDS Email: [email or web address] Admit Date: 04/11/2023 07:58:00 PM Patient Name: Jacky Munguia Visit Number: [id number] Discharge Date: 04/13/2023 01:26:00 PM ATTENTION: The Clinical Documentation Specialists (CDI) and [facility] Coding Staff appreciate your assistance in clarifying documentation. Please respond to the clarification below the line at the bottom and electronically sign. The CDI & [facility] Coding staff will review the response and follow-up if needed. Please note: Queries are made part of the Legal Health Record. If you have any questions, please contact the author of this message via ITS. Dr. America Hendrix The patient had pneumonia, acute on chronic respiratory failure and met SIRS criteria. Based on this information and the findings below, is there an additional diagnosis that is clinically appropriate for this patient? History/Risk Factors: COPD on home oxygen at 3LNC, chronic respiratory failure, CAD, DM, HTN, HLD and obesity Clinical Indicators: 04/11 CTA: Moderate emphysema with superimposed airspace opacities concerning for infectious/inflammatory process. Most pronounced in the right middle lobe. 04/12 CXR: Similar bibasilar patchy airspace opacities consistent with known pneumonia. 04/12 H&P: "Acute on chronic hypoxemic respiratory failure secondary to suspected community-acquired pneumonia." 04/11-04/13 WBC: 18.0-14.1-18.8 04/11 Lactic acid: 1.2 04/11 Vital signs: Temp 101.4, HR 134, RR 18, BP 134/85, pox 90% Treatment: Ibuprofen for fever 600mg Q6H prn Antibiotics: IV Rocephin 2gm daily 04/11-04/13; IV Azithromycin 500mg x1 on 04/11 IV Bolus: 0.9 NS 1L bolus on 04/11 then 130ml/hr Is there an additional diagnosis that is clinically appropriate for this patient? [ ] Sepsis, present on admission [ ] No additional diagnosis [ ] Other, please specify [ ] Unable to determine SIRS Criteria: 2 or more of the following may indicate SIRS Temperature < 96.8F (36C) or > 101.0F (38.3C) Heart Rate > 90 bpm Respiratory Rate > 20 breaths/min or PaCO2 < 32 mmHg White Blood Cell Count > 12,000 or < 4,000 cells/mm3 or > 10% bands MTDD
== END 2023-04-13 13:26 | disposition home or self-care (01) | DRG 871 ==
LOC: EC 17:15 → 4SSUR 19:58
PROVIDERS: ADMIT Hospitalist; ATTEND Hospitalist
DX: A41.9 Sepsis, unspecified organism (principal); J18.9 Pneumonia, unspecified organism; J96.21 Acute and chronic respiratory failure with hypoxia; J43.9 Emphysema, unspecified; Z20.822 Contact with and (suspected) exposure to COVID-19; Z79.82 Long term (current) use of aspirin; Z79.890 Hormone replacement therapy; Z79.899 Other long term (current) drug therapy; Z82.49 Family history of ischemic heart disease and other diseases of the circulatory system; Z82.5 Family history of asthma and other chronic lower respiratory diseases; Z95.5 Presence of coronary angioplasty implant and graft; Z79.84 Long term (current) use of oral hypoglycemic drugs; Z97.0 Presence of artificial eye; Z99.81 Dependence on supplemental oxygen; E66.9 Obesity, unspecified; Z68.39 Body mass index [BMI] 39.0-39.9, adult
CPT/HCPCS: 36415; 71046; 71275; 80048; 80053; 80198; 81003; 83605; 83880; 84484; 85025; 87040; 87449; 87636; 93005; 94640; 94760; 96361; 96365; 96368; 96375; 99285

== ENCOUNTER 2023-08-27 05:31 | Emergency (ER) | payer MEDICARE ==
[2023-08-27 05:38] VITALS: TEMP 98
--- NOTE | 2023-08-27 05:52 | ED ---
SOB HPI - General Source: patient Mode of arrival: ambulatory Limitations: no limitations - History of Present Illness MD Complaint: shortness of breath, cough Onset/Timin -: days(s) Severity scale (1-10): 0 Consistency: constant Improves With: nothing Known History Of: COPD Context: recent URI Associated Symptoms: cough Treatments Prior to Arrival: oxygen, bronchodilator - Related Data Home Oxygen Therapy: Yes Home Oxygen Amount: 2 Liters <Terry Dooley - Last Filed: 08/27/23 07:11> <Kelvin Vigil - Last Filed: 08/27/23 07:53> - General Chief Complaint: Shortness of Breath Stated Complaint: COPD Exacerbation Time Seen by Provider: 08/27/23 05:37 - History of Present Illness Initial Comments: This patient is 73-year-old man with history of chronic lung disease who pres ents with complaint that he has developed cough and worsening shortness of breath since yesterday in the morning. Patient denies having fever or chills. States that the cough is nonproductive. Patient denies chest pain. He is not having swelling of the legs, change in urination or bowel movements. Patient is on oxygen at home. States that his breathing treatment was at 3 AM and declines additional medication at initial history and physical (Terry Dooley) - Related Data Home Medications Medication Instructions Recorded Confirmed Simvastatin [Zocor] 80 mg PO HS 12/04/15 04/11/23 Levothyroxine Sodium [Synthroid] 88 mcg PO DAILY 09/10/16 04/11/23 Theophylline 24 Hour [Tung-24] 400 mg PO DAILY 10/08/16 04/11/23 Metoprolol Tartrate [Lopressor] 100 mg PO DAILY 02/03/18 04/11/23 Albuterol Nebulized [Ventolin 2.5 mg INHALATION RT-QID 01/15/19 04/11/23 Nebulized] Fluticasone/Umeclidin/Vilanter 1 puff INHALATION RT-DAILY 01/15/19 04/11/23 [Trelegy Ellipta 100-62.5-25] Albuterol Sulfate [Ventolin HFA] 2 puff INHALATION RT-Q6H PRN 10/03/20 04/11/23 Ipratropium Nebulized [Atrovent 0.5 mg INHALATION RT-QID 10/03/20 04/11/23 Nebulized 0.2 MG/ML] Empagliflozin [Jardiance] 25 mg PO DAILY 09/18/22 04/11/23 hydrOXYzine HCL [Atarax] 10 mg PO BID 09/18/22 04/11/23 Acetaminophen Tab [Tylenol] 1,000 mg PO Q6H PRN 04/11/23 04/11/23 Naproxen Sodium [Aleve] 220 mg PO BID PRN 04/11/23 04/11/23 Previous Rx's Medication Instructions Recorded Aspirin 81 mg PO DAILY 30 Days #30 tab 09/18/22 Metoprolol Tartrate [Lopressor] 50 mg PO HS 30 Days #30 tab 09/18/22 Budesonide-Formot 160-4.5 Mcg 2 puff INHALATION RT-BID 30 Days 04/13/23 [Symbicort 160-4.5 Mcg Inhaler] #1 each Cefpodoxime Proxetil [Vantin] 200 mg PO Q12HR 7 Days #14 tab 04/13/23 Nirmatrelvir/Ritonavir [Paxlovid 1 each PO BID 5 Days #10 each 08/27/23 300-100 mg Pack (Eua)] predniSONE [Deltasone] 40 mg PO DAILY 5 Days #10 tab 08/27/23 Allergies Allergy/AdvReac Type Severity Reaction Status Date / Time adhesive tape Allergy Rash/Hives Verified 04/11/23 19:19 Review of Systems ROS Other: All systems not noted in ROS Statement are negative. Constitutional: Denies: fever, chills, weakness ENT: Denies: ear pain, throat pain, congestion Respiratory: Reports: cough, dyspnea, wheezes Cardiovascular: Denies: chest pain, palpitations, orthopnea, edema, syncope Gastrointestinal: Denies: abdominal pain, nausea, vomiting, diarrhea Genitourinary: Denies: dysuria, hematuria Musculoskeletal: Denies: back pain Skin: Denies: rash Neurological: Denies: headache, weakness, numbness <Terry Dooley - Last Filed: 08/27/23 07:11> ROS Other: All systems not noted in ROS Statement are negative. <Kelvin Vigil - Last Filed: 08/27/23 07:53> ROS Statement: Those systems with pertinent positive or pertinent negative responses have been documented in the HPI. Past Medical History Past Medical History: Coronary Artery Disease (CAD), Chest Pain / Angina, Heart Failure, COPD, Hyperlipidemia, Hypertension, Myocardial Infarction ([place]), Pneumonia, Thyroid Disorder Additional Past Medical History / Comment(s): Obesity, COPD with chronic hypoxic respiratory failure and based on FEV1 of 31% of predicted,bronchits,chronic hypoxic respitory failure maintained on home 02 3 liters n/c, hypothyroidism, generalized anxiety disorder. Last hospitalized 2 days ago for pneumonia. 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, 2 cardiac stents Past Anesthesia/Blood Transfusion Reactions: No Reported Reaction Additional Past Anesthesia/Blood Transfusion Reaction / Comment(s): Prefers no morphine Date of Last Stent Placement:: 2007 Past Psychological History: Anxiety Smoking Status: Former smoker Past Alcohol Use History: None Reported Past Drug Use History: None Reported - Past Family History Father Family Medical History: COPD Mother Family Medical History: Congestive Heart Failure (CHF) <Terry Dooley - Last Filed: 08/27/23 07:11> General Exam Limitations: no limitations General appearance: alert, in no apparent distress Head exam: Present: atraumatic, normocephalic Eye exam: Present: normal appearance. Absent: scleral icterus, conjunctival injection Neck exam: Present: normal inspection Respiratory exam: Present: wheezes, decreased breath sounds. Absent: respiratory distress, rales, rhonchi, stridor, accessory muscle use Cardiovascular Exam: Present: regular rate, normal rhythm, normal heart sounds. Absent: systolic murmur, diastolic murmur, rubs, gallop GI/Abdominal exam: Present: soft. Absent: distended, tenderness, guarding, rebound, rigid Extremities exam: Present: normal inspection, normal capillary refill. Absent: pedal edema, calf tenderness Back exam: Present: normal inspection. Absent: CVA tenderness (R), CVA tenderness (L) Neurological exam: Present: alert Skin exam: Present: warm, dry, intact, normal color. Absent: rash <Terry Dooley - Last Filed: 08/27/23 07:11> Course Vital Signs 08/27/23 08/27/23 05:33 05:37 Temperature 98.0 F Pulse Rate 95 Respiratory 24 24 Rate Blood Pressure 123/84 O2 Sat by Pulse 95 Oximetry Medical Decision Making - Lab Data Result diagrams: 08/27/23 05:33 08/27/23 05:33 - EKG Data -: EKG Interpreted by Me EKG shows normal: sinus rhythm, axis (Left axis deviation), intervals (QRS duration 140 ms, prolonged consistent with bundle-branch block.), QRS complexes (Right bundle-branch block) Rate: normal (Rate 95 bpm) <Terry Dooley - Last Filed: 08/27/23 07:11> - Lab Data Result diagrams: 08/27/23 05:33 08/27/23 05:33 <Kelvin Vigil - Last Filed: 08/27/23 07:53> - Medical Decision Making Patient is a 73-year-old male who was signed out to me pending results of workup. Briefly, patient is a history of COPD on baseline 3-4 L nasal cannula at home. Also history of heart failure, hypertension, hyperlipidemia. Presents emergency Department with mildly increased shortness of breath as well as a nonproductive cough. Skin no evidence of congestive heart failure and no suspicion for possible infection versus COPD exacerbation. Chest x-ray as interpreted by myself reveals viral infection findings versus patchy atelectasis . EKG revealed no obvious acute ischemic process. Laboratory studies are remarkable for leukocytosis of 15, and undetectable troponin, a normal BNP. Patient is Covid positive. Patient has already received a albuterol inhaler and dose of prednisone. I did the patient on the results of his workup. He expressed understanding. I did offer admission as he does have a history of chronic lung disease which he declined at this time. Saturating 93-95% on his baseline oxygen in no obvious respiratory distress. We did discuss that he has a Covid infection. He will be prescribed Paxilovid and I instructed him to hold his simvastatin therapy for the next 5 days while he is taking this medication. He was in agreement this plan. Also be given 5 days of prednisone for home. Strict return precautions were discussed. Discussed isolation, obtain pulse ox. Patient was in agreement with this plan. States he does not require any further prescriptions for breathing treatments her inhalers. I will provide the patient with a prescription for Paxlovid, prednisone. I instructed the patient to follow up with their PCP in the next 1-3 days. I explained that the patient should return to the emergency department if they experience any worsening symptoms. Strict return precautions were discussed with the patient. The patient expressed understanding of these instructions. I answer ed all questions that the patient had. The patient was discharged home in good condition with their prescriptions and follow up information. Diagnosis/symptom? @ -COPD, chronic hypoxic respiratory failure Acute, or Chronic, or Acute on Chronic? @ -Acute on chronic Uncomplicated (without systemic symptoms) or Complicated (systemic symptoms)? @ -Complicated Side effects of treatment? @ -none Exacerbation, Progression, or Severe Exacerbation] @ -Mild exacerbation Poses a threat to life or bodily function? @ -Unlikely Diagnosis/symptom? @ -COVID-19 infection Acute, or Chronic, or Acute on Chronic? @ -Acute Uncomplicated (without systemic symptoms) or Complicated (systemic symptoms)? @ -Complicated Side effects of treatment? @ -none Exacerbation, Progression, or Severe Exacerbation] @ -no Poses a threat to life or bodily function? @ -Unlikely (Kelvin Vigil) - Lab Data Lab Results 08/27/23 08/27/23 08/27/23 Range/Units 05:33 05:33 05:33 WBC 15.2 H (3.8-10.6) k/uL RBC 5.03 (4.30-5.90) m/uL Hgb 16.2 (13.0-17.5) gm/dL Hct 51.2 (39.0-53.0) % MCV 101.6 H (80.0-100.0) fL MCH 32.3 (25.0-35.0) pg MCHC 31.8 (31.0-37.0) g/dL RDW 12.1 (11.5-15.5) % Plt Count 229 (150-450) k/uL MPV 7.9 Neutrophils % 89 % Lymphocytes % 4 % Monocytes % 6 % Eosinophils % 1 % Basophils % 0 % Neutrophils # 13.4 H (1.3-7.7) k/uL Lymphocytes # 0.5 L (1.0-4.8) k/uL Monocytes # 0.8 (0-1.0) k/uL Eosinophils # 0.2 (0-0.7) k/uL Basophils # 0.1 (0-0.2) k/uL PT 10.6 (10.0-12.5) sec INR 1.0 (<1.2) APTT 25.7 (22.0-30.0) sec Sodium 138 (137-145) mmol/L Potassium 4.7 (3.5-5.1) mmol/L Chloride 105 (98-107) mmol/L Carbon Dioxide 25 (22-30) mmol/L Anion Gap 8 mmol/L BUN 25 H (9-20) mg/dL Creatinine 0.90 (0.66-1.25) mg/dL Est GFR (CKD-EPI)AfAm >90 (>60 ml/min/1.73 sqM) Est GFR (CKD-EPI)NonAf 86 (>60 ml/min/1.73 sqM) Glucose 194 H (74-99) mg/dL Plasma Lactic Acid Ike (0.7-2.0) mmol/L Calcium 9.2 (8.4-10.2) mg/dL Total Bilirubin 1.0 (0.2-1.3) mg/dL AST 35 (17-59) U/L ALT 35 (4-49) U/L Alkaline Phosphatase 104 (38-126) U/L Troponin I (0.000-0.034) ng/mL NT-Pro-B Natriuret Pep 52 pg/mL Total Protein 7.3 (6.3-8.2) g/dL Albumin 4.2 (3.5-5.0) g/dL Influenza Type A (PCR) (Not Detectd) Influenza Type B (PCR) (Not Detectd) RSV (PCR) (Not Detectd) SARS-CoV-2 (PCR) (Not Detectd) 08/27/23 08/27/23 08/27/23 Range/Units 05:33 05:33 06:12 WBC (3.8-10.6) k/uL RBC (4.30-5.90) m/uL Hgb (13.0-17.5) gm/dL Hct (39.0-53.0) % MCV (80.0-100.0) fL MCH (25.0-35.0) pg MCHC (31.0-37.0) g/dL RDW (11.5-15.5) % Plt Count (150-450) k/uL MPV Neutrophils % % Lymphocytes % % Monocytes % % Eosinophils % % Basophils % % Neutrophils # (1.3-7.7) k/uL Lymphocytes # (1.0-4.8) k/uL Monocytes # (0-1.0) k/uL Eosinophils # (0-0.7) k/uL Basophils # (0-0.2) k/uL PT (10.0-12.5) sec INR (<1.2) APTT (22.0-30.0) sec Sodium (137-145) mmol/L Potassium (3.5-5.1) mmol/L Chloride (98-107) mmol/L Carbon Dioxide (22-30) mmol/L Anion Gap mmol/L BUN (9-20) mg/dL Creatinine (0.66-1.25) mg/dL Est GFR (CKD-EPI)AfAm (>60 ml/min/1.73 sqM) Est GFR (CKD-EPI)NonAf (>60 ml/min/1.73 sqM) Glucose (74-99) mg/dL Plasma Lactic Acid Ike 1.4 (0.7-2.0) mmol/L Calcium (8.4-10.2) mg/dL Total Bilirubin (0.2-1.3) mg/dL AST (17-59) U/L ALT (4-49) U/L Alkaline Phosphatase (38-126) U/L Troponin I <0.012 (0.000-0.034) ng/mL NT-Pro-B Natriuret Pep pg/mL Total Protein (6.3-8.2) g/dL Albumin (3.5-5.0) g/dL Influenza Type A (PCR) Not Detected (Not Detectd) Influenza Type B (PCR) Not Detected (Not Detectd) RSV (PCR) Not Detected (Not Detectd) SARS-CoV-2 (PCR) Detected A (Not Detectd) Disposition <Terry Dooley - Last Filed: 08/27/23 07:11> Is patient prescribed a controlled substance at d/c from ED?: No Time of Disposition: 07:38 <Kelvin Vigil - Last Filed: 08/27/23 07:53> Clinical Impression: COPD (chronic obstructive pulmonary disease), COVID-19 Disposition: HOME SELF-CARE Condition: Good Instructions (If sedation given, give patient instructions): COPD (Chronic Ob structive Pulmonary Disease) (ED), COVID-19 (Coronavirus Disease 2019) (ED) Additional Instructions: Isolate for at least 5 days as best you can. Wear a mask in public. Obtain a pulse ox to monitor oxygen saturations. Return if worsening symptoms. While on Paxlovid, please do not take your simvastatin. Can resume simvastatin after you complete the course of paxlovid. Prescriptions: predniSONE [Deltasone] 40 mg PO DAILY 5 Days #10 tab Nirmatrelvir/Ritonavir [Paxlovid 300-100 mg Pack (Eua)] 1 each PO BID 5 Days #10 each Referrals: Kathy Agee MD [Primary Care Provider] - 1-2 days
[2023-08-27] MEDS ORDERED: IPRATROPIUM-ALBUTEROL 3 ML NEB INHALATION STA (06:18)
[2023-08-27] MEDS ORDERED: predniSONE 20 MG TAB PO STA (06:18)
[2023-08-27 06:58] LABS: Basophils # (A) 0.1 k/uL (0-0.2); Basophils % (A) 0 %; Eosinophils # (A) 0.2 k/uL (0-0.7); Eosinophils % (A) 1 %; HCT 51.2 % (39.0-53.0); HGB 16.2 gm/dL (13.0-17.5); Lymphocytes # (A) 0.5 k/uL (1.0-4.8); Lymphocytes % (A) 4 %; MCH 32.3 pg (25.0-35.0); MCHC 31.8 g/dL (31.0-37.0); MCV 101.6 fL (80.0-100.0); Mean Platelet Volume 7.9; Monocytes # (A) 0.8 k/uL (0-1.0); Monocytes % (A) 6 %; Neutrophils # (A) 13.4 k/uL (1.3-7.7); Neutrophils % (A) 89 %; Platelet Count 229 k/uL (150-450); RBC 5.03 m/uL (4.30-5.90); RDW 12.1 % (11.5-15.5); WBC 15.2 k/uL (3.8-10.6)
[2023-08-27 07:04] LABS: ALT 35 U/L (4-49); AST 35 U/L (17-59); African American GFR (CKD) >90 (>60 ml/min/1.73 sqM); Albumin 4.2 g/dL (3.5-5.0); Alkaline Phosphatase 104 U/L (38-126); Anion Gap 8 mmol/L; Blood Urea Nitrogen 25 mg/dL (9-20); Calcium 9.2 mg/dL (8.4-10.2); Carbon Dioxide 25 mmol/L (22-30); Chloride 105 mmol/L (98-107); Glucose 194 mg/dL (74-99); Non-African American GFR(CKD) 86 (>60 ml/min/1.73 sqM); Potassium 4.7 mmol/L (3.5-5.1); Sodium 138 mmol/L (137-145); Total Protein 7.3 g/dL (6.3-8.2)
[2023-08-27 07:13] LABS: NT-Pro-B-Type Natriuretic Pept 52 pg/mL; Partial Thromboplastin Time 25.7 sec (22.0-30.0); Prothrombin Time 10.6 sec (10.0-12.5)
[2023-08-27] MEDS ORDERED: ALBUTEROL HFA INHALER INHALATION STA (07:28)
--- NOTE | 2023-08-27 07:34 | XR ---
EXAMINATION TYPE: XR chest 1V portable DATE OF EXAM: 08/27/2023 Comparison: 04/12/2023 and 04/24/2023 Clinical History: 73 year-old male shortness of breath, dyspnea Findings: Heart normal size. Relative upper lung lucencies. Mild patchy bibasilar opacities, left greater right . No pleural effusion. Impression: COPD with mild patchy bibasilar atelectasis versus early infiltrates, left greater than right.
[2023-08-27 08:24] VITALS: BP 111/74; PULSE 98; RESP 22
== END 2023-08-27 08:18 | disposition home or self-care (01) ==
LOC: EC 05:31
DX: U07.1 COVID-19 (principal); J44.1 Chronic obstructive pulmonary disease with (acute) exacerbation; I25.10 Atherosclerotic heart disease of native coronary artery without angina pectoris; I11.0 Hypertensive heart disease with heart failure; I50.9 Heart failure, unspecified; I25.2 Old myocardial infarction; E78.5 Hyperlipidemia, unspecified; F41.9 Anxiety disorder, unspecified; Z87.891 Personal history of nicotine dependence; Z79.890 Hormone replacement therapy; Z79.899 Other long term (current) drug therapy; Z91.048 Other nonmedicinal substance allergy status
CPT/HCPCS: 36415; 94640; 93005; 83880; 80053; 83605; 84484; 85025; 85610; 85730; 87636; 71045; 99285; J7512

== ENCOUNTER 2023-12-07 11:39 | Emergency (ER) | payer MEDICARE ==
[2023-12-07 12:31] VITALS: RESP 20
--- NOTE | 2023-12-07 13:11 | ED ---
General Adult HPI - General Chief complaint: Shortness of Breath Stated complaint: ELIAS Time Seen by Provider: 12/07/23 12:30 Source: patient, RN notes reviewed Mode of arrival: wheelchair Limitations: no limitations - History of Present Illness Initial comments: Patient is a pleasant 73-year-old male presenting to the emergency department with concerns with difficulty breathing. Patient does have history of COPD. Patient has had chest congestion the past week. Cough has been nonproductive. No head congestion. No fever. No calf pain or leg swelling. No chest pain. - Related Data Home Medications Medication Instructions Recorded Confirmed Simvastatin [Zocor] 80 mg PO HS 12/04/15 04/11/23 Levothyroxine Sodium [Synthroid] 88 mcg PO DAILY 09/10/16 04/11/23 Theophylline 24 Hour [Tung-24] 400 mg PO DAILY 10/08/16 04/11/23 Metoprolol Tartrate [Lopressor] 100 mg PO DAILY 02/03/18 04/11/23 Albuterol Nebulized [Ventolin 2.5 mg INHALATION RT-QID 01/15/19 04/11/23 Nebulized] Fluticasone/Umeclidin/Vilanter 1 puff INHALATION RT-DAILY 01/15/19 04/11/23 [Trelegy Ellipta 100-62.5-25] Albuterol Sulfate [Ventolin HFA] 2 puff INHALATION RT-Q6H PRN 10/03/20 04/11/23 Ipratropium Nebulized [Atrovent 0.5 mg INHALATION RT-QID 10/03/20 04/11/23 Nebulized 0.2 MG/ML] Empagliflozin [Jardiance] 25 mg PO DAILY 09/18/22 04/11/23 hydrOXYzine HCL [Atarax] 10 mg PO BID 09/18/22 04/11/23 Acetaminophen Tab [Tylenol] 1,000 mg PO Q6H PRN 04/11/23 04/11/23 Naproxen Sodium [Aleve] 220 mg PO BID PRN 04/11/23 04/11/23 Previous Rx's Medication Instructions Recorded Aspirin 81 mg PO DAILY 30 Days #30 tab 09/18/22 Metoprolol Tartrate [Lopressor] 50 mg PO HS 30 Days #30 tab 09/18/22 Budesonide-Formot 160-4.5 Mcg 2 puff INHALATION RT-BID 30 Days 04/13/23 [Symbicort 160-4.5 Mcg Inhaler] #1 each Cefpodoxime Proxetil [Vantin] 200 mg PO Q12HR 7 Days #14 tab 04/13/23 Nirmatrelvir/Ritonavir [Paxlovid 1 each PO BID 5 Days #10 each 08/27/23 300-100 mg Pack (Eua)] predniSONE [Deltasone] 40 mg PO DAILY 5 Days #10 tab 08/27/23 predniSONE [Deltasone] 20 mg PO BID #10 tab 12/07/23 Allergies Allergy/AdvReac Type Severity Reaction Status Date / Time adhesive tape Allergy Rash/Hives Verified 12/07/23 11:53 Review of Systems ROS Statement: Those systems with pertinent positive or pertinent negative responses have been documented in the HPI. ROS Other: All systems not noted in ROS Statement are negative. Constitutional: Denies: fever Eyes: Denies: eye pain ENT: Denies: ear pain Respiratory: Reports: as per HPI, cough, dyspnea Cardiovascular: Denies: chest pain Endocrine: Denies: fatigue Gastrointestinal: Denies: abdominal pain Musculoskeletal: Denies: back pain Past Medical History Past Medical History: Coronary Artery Disease (CAD), Chest Pain / Angina, Heart Failure, COPD, Hyperlipidemia, Hypertension, Myocardial Infarction ([place]), Pneumonia, Thyroid Disorder Additional Past Medical History / Comment(s): Obesity, COPD with chronic hypoxic respiratory failure and based on FEV1 of 31% of predicted,bronchits,chronic hypoxic respitory failure maintained on home 02 3 liters n/c, hypothyroidism, generalized anxiety disorder. Last hospitalized 2 days ago for pneumonia. 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, 2 cardiac stents Past Anesthesia/Blood Transfusion Reactions: No Reported Reaction Additional Past Anesthesia/Blood Transfusion Reaction / Comment(s): Prefers no morphine Date of Last Stent Placement:: 2007 Past Psychological History: Anxiety Smoking Status: Former smoker Past Alcohol Use History: None Reported Past Drug Use History: None Reported - Past Family History Father Family Medical History: COPD Mother Family Medical History: Congestive Heart Failure (CHF) General Exam Limitations: no limitations General appearance: alert, in no apparent distress Head exam: Present: normocephalic Eye exam: Present: other (Left eye deformity) Neck exam: Present: normal inspection Respiratory exam: Present: wheezes. Absent: respiratory distress Cardiovascular Exam: Present: regular rate, normal rhythm GI/Abdominal exam: Present: soft. Absent: tenderness Extremities exam: Present: normal inspection. Absent: pedal edema, calf tenderness Neurological exam: Present: alert Psychiatric exam: Present: normal affect, normal mood Skin exam: Present: normal color Course Vital Signs 12/07/23 12/07/23 11:49 14:46 Temperature 97.9 F Pulse Rate 95 76 Respiratory 20 Rate Blood Pressure 128/80 O2 Sat by Pulse 95 Oximetry Medical Decision Making - Medical Decision Making Was pt. sent in by a medical professional or institution (, PA, DOOR MANAGER, urgent care, hospital, or prison...) When possible be specific @ -No Did you speak to anyone other than the patient for history (EMS, parent, family, police, friend...)? What history was obtained from this source @ -No Did you review nursing and triage notes (agree or disagree)? Why? @ -I reviewed and agree with nursing and triage notes Were old charts reviewed (outside hosp., previous admission, EMS record, old EKG, old radiological studies, urgent care reports/EKG's, prison records)? Report findings @ -No old charts were reviewed Differential Diagnosis (chest pain, altered mental status, abdominal pain women, abdominal pain men, vaginal bleeding, weakness, fever, dyspnea, syncope, headache, dizziness, GI bleed, back pain, seizure, CVA, palpatations, mental health, musculoskeletal)? @ -Differential Dyspnea: Coronary syndrome, arrhythmia, tamponade, asthma, COPD, pulmonary embolism, pneumonia, pneumothorax, pulmonary effusion, anaphylaxis, diabetic ketoacidosis, flailed chest, pulmonary contusion, diaphragmatic rupture, anemia, neuromuscular, this is not meant to be an all-inclusive list. EKG interpreted by me (3pts min.). @ -As above X-rays interpreted by me (1pt min.). @ -Chest x-ray shows no acute process CT interpreted by me (1pt min.). @ -None done U/S interpreted by me (1pt. min.). @ -None done What testing was considered but not performed or refused? (CT, X-rays, U/S, labs)? Why? @ -None What meds were considered but not given or refused? Why? @ -None Did you discuss the management of the patient with other professionals (professionals i.e. , PA, DOOR MANAGER, lab, RT, psych nurse, social media campaign manager, fan blade truer, teacher, disability insurance hearing officer, showcase trimmer)? Give summary @ -No Was smoking cessation discussed for >3mins.? @ -No Was critical care preformed (if so, how long)? @ -No Were there social determinants of health that impacted care today? How? (Homelessness, low income, unemployed, alcoholism, drug addiction, transportation, low edu. Level, literacy, decrease access to med. care, senior care, rehab)? @ -No Was there de-escalation of care discussed even if they declined (Discuss DNR or withdrawal of care, Hospice)? DNR status @ -No What co-morbidities impacted this encounter? (DM, HTN, Smoking, COPD, CAD, Cancer, CVA, ARF, Chemo, Hep., AIDS, mental health diagnosis, sleep apnea, morbid obesity)? @ -None Was patient admitted / discharged? Hospital course, mention meds given and route, prescriptions, significant lab abnormalities, going to OR and other pertinent info. @ -Patient reevaluated and significantly improved. Only minimal wheezing. Patient is updated on results and plan. Patient will be discharged with oral steroid prescription. Patient does have inhalers at home. Undiagnosed new problem with uncertain prognosis? @ -No Drug Therapy requiring intensive monitoring for toxicity (Heparin, Nitro, Insulin, Cardizem)? @ -No Were any procedures done? @ -No Diagnosis/symptom? @ -COPD exacerbation Acute, or Chronic, or Acute on Chronic? @ -Acute Uncomplicated (without systemic symptoms) or Complicated (systemic symptoms)? @ -Default Side effects of treatment? @ -No Exacerbation, Progression, or Severe Exacerbation? @ -No Poses a threat to life or bodily function? How? (Chest pain, [place], [place], pneumonia, PE, COPD, DKA, ARF, appy, cholecystitis, CVA, Diverticulitis, Homicidal, Suicidal, threat to staff... and all critical care pts) @ -No - Lab Data Lab Results 12/07/23 Range/Units 13:38 Influenza Type A (PCR) Not Detected (Not Detectd) Influenza Type B (PCR) Not Detected (Not Detectd) RSV (PCR) Not Detected (Not Detectd) SARS-CoV-2 (PCR) Not Detected (Not Detectd) Disposition Clinical Impression: COPD exacerbation Disposition: HOME SELF-CARE Instructions (If sedation given, give patient instructions): COPD (Chronic Obstructive Pulmonary Disease) (ED) Additional Instructions: Please do follow-up with your primary care physician in the next day or 2 for recheck. Return for difficulty breathing, fevers, worsening or changing symptoms or other concerns. Prescription has been sent to pharmacy. Prescriptions: predniSONE [Deltasone] 20 mg PO BID #10 tab Is patient prescribed a controlled substance at d/c from ED?: No Referrals: Rubin Carty MD [Primary Care Provider] - 1-2 days Time of Disposition: 15:10
--- NOTE | 2023-12-07 13:48 | XR ---
EXAMINATION TYPE: XR chest 2V DATE OF EXAM: 12/07/2023 1:45 PM CLINICAL INDICATION:Male, 73 years old with history of dyspnea; [facility] COMPARISON: Chest radiographs from 08/27/2023. TECHNIQUE: XR chest 2V Frontal and lateral views of the chest. FINDINGS: Lungs/Pleura: Stable reticular opacities in the lung bases. There is no evidence of pleural effusion, focal consolidation, or pneumothorax. Pulmonary vascularity: Unremarkable. Heart/mediastinum: Cardiomediastinal silhouette is unremarkable. Musculoskeletal: No acute osseous pathology. IMPRESSION: No acute cardiopulmonary disease/process.
[2023-12-07] MEDS: IPRATROPIUM-ALBUTEROL 3 ML NEB INHALATION STA (14:46)
[2023-12-07] MEDS: predniSONE 20 MG TAB PO STA (15:17)
[2023-12-07 15:58] VITALS: BP 161/89; PULSE 87; TEMP 97.7
== END 2023-12-07 15:27 | disposition home or self-care (01) ==
LOC: EC 11:39 → SUPCPDRO 11:39 → EC 15:27
DX: J44.1 Chronic obstructive pulmonary disease with (acute) exacerbation (principal); Z79.51 Long term (current) use of inhaled steroids; Z79.899 Other long term (current) drug therapy; Z91.09 Other allergy status, other than to drugs and biological substances; Z87.891 Personal history of nicotine dependence
CPT/HCPCS: 94640; 87636; 71046; 99285; J7512

== ENCOUNTER 2024-12-07 06:05 | Day surgery (SDC) | payer MEDICARE ==
[~2024-12-07 06:05] MED LIST: ALPRAZolam 0.5 MG TAB PO PRN; ASPIRIN 325 MG TAB PO STA; ATORVASTATIN 80 MG TAB PO STA; HEPARIN SODIUM,PORCINE (1 ML) 2,500 UNIT in SODIUM CHLORIDE 0.9% 250 ML IRRIGATION PRN; HEPARIN SODIUM,PORCINE 10,000 UNIT in SODIUM CHLORIDE 0.9% 1,000 ML IRRIGATION PRN; NITROGLYCERIN SL TABS 0.4 MG TAB SUBLINGUAL PRN
[2024-12-07] MEDS: IV FLUID CONTINUATION 1,000 ML IV ONE (06:20)
[2024-12-07] MEDS: SODIUM CHLORIDE 0.9% 1,000 ML in EMPTY BAG 1 BAG IV SCH (06:22)
[2024-12-07 06:28] VITALS: RESP 16; TEMP 98.1
[2024-12-07 06:35] LABS: Glucose,Whole Blood 128 mg/dL (70-110)
[2024-12-07] MEDS: ALPRAZolam 0.25 MG TAB PO PRN (06:48)
[2024-12-07] MEDS: HEPARIN SODIUM,PORCINE (1 ML) 2,500 UNIT in SODIUM CHLORIDE 0.9% 250 ML IRRIGATION ONE (07:37)
[2024-12-07] MEDS: HEPARIN SODIUM (1,000 UNIT/ML) 1,000 UNIT in SODIUM CHLORIDE 0.9% 1,000 ML IRRIGATION ONE (07:37)
[2024-12-07] MEDS: fentaNYL (PF) 50 MCG/ML 2 ML AMP IVP ONE (07:42)
[2024-12-07] MEDS: LIDOCAINE 1% INJ 10MG/ML (20 ML MDV) SQ ONE (07:45)
[2024-12-07] MEDS: VERAPAMIL SYRINGE (5 MG/10 ML) INTRAARTER ONE (07:48)
[2024-12-07] MEDS: HEPARIN SODIUM 1,000 UN/ML (10ML VL) IV ONE (07:52)
[2024-12-07] MEDS: IOPAMIDOL-370 100ML BTL INJ ONE ×2 (07:56→08:27)
[2024-12-07] MEDS: NITROGLYCERIN 1000MCG/10ML SYRINGE INTRAARTER ONE (08:13)
[2024-12-07] MEDS ORDERED: ATROPINE SULFATE 0.1 MG/ML 10ML SYRINGE IV PRN (08:40)
[2024-12-07] MEDS ORDERED: MAG HYDROX/AL HYDROX/SIMETH 30 ML CUP PO PRN (08:40)
[2024-12-07] MEDS ORDERED: NITROGLYCERIN SL TABS 0.4 MG TAB SUBLINGUAL PRN (08:40)
[2024-12-07] MEDS ORDERED: ZOLPIDEM 5 MG TAB PO PRN (08:40)
[2024-12-07] MEDS ORDERED: RX INFO: IV CONTRAST WAS GIVEN 1 EACH MISC MISCELLANE PRN (08:40)
[2024-12-07] MEDS ORDERED: SODIUM CHLORIDE 0.9% 1,000 ML in EMPTY BAG 1 BAG IV SCH (08:45)
--- NOTE | 2024-12-07 08:50 | P.CARDCATH ---
Date of Procedure: 12/07/24 Description of Procedure: Cardiac Catheterization: The patient is a 74-year-old male with a history of hypertension, hyperlipidemia, history of CAD status post stenting over 12 years ago who presented recently to [facility] with an acute inferior wall myocardial infarction and acutely occluded RCA. He underwent stenting of that vessel. At that time he was found to have significant disease involving the distal left circumflex. Recommendations were made regarding cardiac catheterization and possible angioplasty of the distal left circumflex, the risks and the complications were discussed with the patient who is in full understanding and agreement. 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 Using Xylocaine Anesthesia and modified Seldinger technique, a 6-[place] sheath was introduced in the right radial artery . Subsequently, selective coronary angiography was performed using a 5-[place] 3.5 bend Rohini catheter and 6 [place] CLS 3.5 guiding catheter. Multiple views of the coronary artery including hemiaxial views were obtained. The 5 [place] pigtail catheter was used to cross the aortic valve and LVEDP was calculated. PCI: Using the CLS 3.5 guiding catheter and after cannulating the left main a 0.014 BMW J-wire was advanced into the third obtuse marginal branch and subsequently another 0.014 BMW J-wire was positioned in the distal obtuse marginal branch. Subsequently 2.5 x 12 mm trek balloon was advanced and 2 inflations at 8 kassidy were done. After removing the balloon a Verden Everly eye IVUS catheter was introduced and imaging was performed and revealed a distal lumen measuring 2.75- 3.0 and proximally 3.0 to 3.25 mm in diameter with evidence of under deployment of the old stent. After removing the catheter a 2.75 x 18 mm Xience cisco point stent was advanced and deployed at 16 kassidy. Repeat IVUS imaging was performed and revealed good apposition distally with under deployment proximally. At that point a 3.0 x 12 mm NC trek balloon was advanced and 2 inflations at 10 kassidy were done in the proximal segment of the stent. Subsequently the wire was removed and images were obtained and revealed stable successful stenting. Following that, catheter and sheath were removed. Hemostasis was obtained with deployment of vascular band . There was no immediate complication. Patient was returned to room in stable condition. Of note, the patient received a total of 8500 units of intravenous heparin as well as intra-arterial verapamil. His ACT was monitored. He was continued on prasugrel. He had no chest discomfort or significant EKG changes. Findings: Left main: This is a short size vessel, bifurcating into LAD and left circumflex, left main has no obstructive disease LAD: This is a large size vessel, giving rise to 2 diagonal branch, the second 1 is large in caliber. The LAD has mild intimal disease throughout its course of 20 to 30% with no high-grade stenosis. The vessel tapers down in the distal third. Left circumflex: This is a large codominant vessel, giving rise to 3 obtuse marginal branch and distally bifurcating into PDA and PLV. The vessel in the midsegment has 20 to 30% plaque. After the takeoff of the third obtuse marginal branch there is an area of stenosis of 80% prior to the distal bifurcation. The rest of the vessel has intimal disease with no high-grade stenosis. RCA: This is a large diam codominant vessel giving rise to right PDA the stented segment throughout the proximal, mid and distal vessel are patent with minimal in-stent restenosis. Left Ventriculogram: Not performed Hemodynamics: There was no gradient across aortic valve, LVEDP was 20-24 mmHg Conclusion: 1. 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 Patent stents in the RCA 3. Mild to moderate disease in the LAD 4. Elevated LVEDP 5. Successful stenting of the distal left circumflex with reduction stenosis and 80% to 0% with IVUS imaging and JAKUB-3 flow Recommendations: The patient will continue on aspirin and prasugrel without any interruption for 1 year in addition to aggressive coronary risks modification, attempting to maintain LDL to less than 70 mg/dL. The findings and the recommendations were discussed with the patient and the family and they were in full understanding and agreement. Duration of sedation is 40 minutes.
[2024-12-07] MEDS ORDERED: DAPAGLIFLOZIN PROPANEDIOL 10 MG TABLET PO SCH (09:00)
[2024-12-07] MEDS ORDERED: ATORVASTATIN 80 MG TAB PO SCH (09:00)
[2024-12-07] MEDS ORDERED: METOPROLOL SUCCINATE (ER) 25 MG TAB.ER.24H PO SCH (09:00)
[2024-12-07] MEDS ORDERED: LEVOTHYROXINE 88 MCG TAB PO SCH (09:00)
[2024-12-07] MEDS ORDERED: ASPIRIN 81 MG PO SCH (09:00)
[2024-12-07] MEDS ORDERED: LOSARTAN 25 MG TAB PO SCH (09:00)
[2024-12-07 12:46] VITALS: BP 116/70; PULSE 85
[2024-12-07] MEDS ORDERED: ESCITALOPRAM 5 MG TAB PO SCH (21:00)
[2024-12-08] MEDS ORDERED: PRASUGREL 10 MG TAB PO SCH (09:00)
== END 2024-12-07 13:22 | disposition home or self-care (01) ==
LOC: CATHCVL 06:05
PROVIDERS: ATTEND Internal Medicine Interventional Cardiology
DX: I25.10 Atherosclerotic heart disease of native coronary artery without angina pectoris (principal); J44.9 Chronic obstructive pulmonary disease, unspecified; I10 Essential (primary) hypertension; E11.9 Type 2 diabetes mellitus without complications; E78.5 Hyperlipidemia, unspecified; I25.5 Ischemic cardiomyopathy; Z87.891 Personal history of nicotine dependence; Z79.899 Other long term (current) drug therapy; Z79.51 Long term (current) use of inhaled steroids; Z79.84 Long term (current) use of oral hypoglycemic drugs
CPT/HCPCS: 92978; 93458; 99152; 99153; C9600; C1769 ×2; C1894; C1725 ×2; C1753; J1644 ×2; J2003; J3010; Q9967; J2305